=== PATIENT | female | born 1945 | race Caucasian/White ===

== ENCOUNTER 2018-04-08 17:04 | Inpatient (IN) ==
[2018-04-08] MEDS ORDERED: methylPREDNISolone 125 MG/2 ML VIAL IVP ONE (17:38)
[2018-04-08] MEDS ORDERED: Ipratropium/Albuterol Neb 3 ML IH ONE (17:39)
[2018-04-08 17:43] LABS: Hematocrit 39.5 % (35.3-44.9); Hemoglobin 11.6 g/dL (11.5-15.4); Mean Corpuscular HGB Conc 29.4 g/dL (31.6-35.5); Mean Corpuscular Hemoglobin 21.8 pg (28.0-33.3); Mean Corpuscular Volume 74.1 fL (83.0-100.0); Mean Platelet Volume 9.9 fL (9.4-12.4); Platelet Count 270 K/mcL (140-400); Red Blood Count 5.33 M/mcL (3.82-4.97); Red Cell Distribution Width 23.3 % (11.5-14.5)
[2018-04-08 17:54] LABS: Alanine Aminotransferase 22 Units/L (7-52); Albumin 4.5 g/dL (3.5-5.7); Albumin/Globulin Ratio 1.3 (1.1-2.2); Alkaline Phosphatase 98 Units/L (34-104); Aspartate Amino Transferase 28 Units/L (13-39); BUN/Creatinine Ratio 21 (6-26); Blood Urea Nitrogen 19 mg/dL (8-23); Calcium 9.8 mg/dL (8.6-10.3); Carbon Dioxide 25 mEq/L (23-29); Chloride 99 mEq/L (98-107); Globulin 3.4 g/dL (2.4-3.5); Glucose 128 mg/dL (70-105); Osmolality,Calculated 284 (280-300); Potassium 3.8 mEq/L (3.5-5.1); Sodium 135 mEq/L (136-145); Total Protein 7.9 g/dL (6.4-8.9); eGFR For African Americans > 60 (> 60); eGFR For Non-African Americans > 60 (> 60)
[2018-04-08 17:55] LABS: Troponin I 0.03 ng/mL (< 0.04)
[2018-04-08 18:08] LABS: Thyroid Stimulating Hormone 0.274 mcIU/mL (0.340-5.600)
[2018-04-08 18:14] LABS: Bilirubin,Urine Small (Negative); Blood,Urine Large (Negative); Clarity,Urine Turbid (Clear); Glucose,Urine (UA) Normal (Normal); Ketones,Urine Trace mg/dL (Negative); Leukocyte Esterase,Urine Small (Negative); Nitrite,Urine Negative (Negative); Protein,Urine 100 mg/dL (Neg-Trace); Urobilinogen,Urine Normal (Normal)
--- NOTE | 2018-04-08 18:18 | Emergency Department Note ---
Disposition Clinical Impression: Weakness Sepsis Qualifiers: Sepsis type: sepsis due to unspecified organism Qualified Code(s): A41.9 - Sepsis, unspecified organism UTI (urinary tract infection) Qualifiers: Urinary tract infection type: site unspecified Hematuria presence: without hematuria Qualified Code(s): N39.0 - Urinary tract infection, site not specified Disposition: Admitted As Inpatient Condition: Fair General Adult HPI - General Chief complaint: ED Weakness Stated complaint: Weakness Time Seen by Provider: 04/08/18 17:06 Source: patient, EMS Limitations: no limitations Nursing Notes Reviewed: Yes Vital Signs Reviewed: Yes - History of Present Illness HPI Narrative: Patient is a 72F with PMHx of COPD requiring oxygen at night, CHF, HTN, and bacteremia presents for evaluation of weakness that has been going on for the past 3 days. Patient states she is having difficulty ambulating because she is so weak. She uses a walker and lives at home with her son. Patient was recently discharged on March 19, 2018 from rehabillitation after being admitted to [facility] for 3 weeks due to E. coli bacteremia according to the patient. Patient denies any fevers, cough, congestion, chest pain, abdominal pain, N/V/D, or urinary symptoms. Patient states she has felt more REJI than usual. Pain Scale: 4 - Related Data Home Medications Medication Instructions Recorded Confirmed Albuterol Sulfate [Proair 2 puff IH Q4H PRN 10/04/16 04/09/18 Respiclick] Fluticasone/Salmeterol [Advair 1 unit IH BID 10/04/16 04/09/18 250-50 Diskus] Loratadine [Allergy Relief] 10 mg PO DAILY 10/04/16 04/09/18 Omeprazole 20 mg PO DAILY 10/04/16 04/09/18 Oxygen 2 l IH HS 10/04/16 04/09/18 Potassium Chloride [K-Tab ER] 20 meq PO BID 10/04/16 04/09/18 Tiotropium [Spiriva] 18 mcg IH DAILY 10/04/16 04/09/18 Vitamin E (Dl,Tocopheryl Acet) 400 unit PO DAILY 10/04/16 04/09/18 [Vitamin E] Calcium Carbonate/Vitamin D3 1 each PO BID 11/16/16 04/09/18 [Calcium 500-Vit D3 200 Caplet] Cholecalciferol (Vitamin D3) 1,000 unit PO DAILY 11/16/16 04/09/18 [Vitamin D3] Previous Rx's Medication Instructions Recorded Acetaminophen [Tylenol] 650 mg PO Q6H PRN tablet 03/20/18 Apixaban [Eliquis] 5 mg PO BID tablet 03/20/18 Aspirin 81 mg PO DAILY tab.chew 03/20/18 Atorvastatin [Lipitor] 40 mg PO HS tablet 03/20/18 Carvedilol [Coreg] 6.25 mg PO BID tablet 03/20/18 FLUoxetine HCl [Prozac] 20 mg PO DAILY capsule 03/20/18 Ferrous Sulfate 325 mg PO DAILY@0800 tablet 03/20/18 Furosemide [Lasix] 20 mg PO DAILY tablet 03/20/18 Ketorolac OPTH Soln [Acular] 1 drop RIGHT EYE TID bottle 03/20/18 Lisinopril [Zestril] 10 mg PO DAILY tablet 03/20/18 Magnesium Oxide [Mag-Ox] 400 mg PO BID tablet 03/20/18 Moxifloxacin OPTH Drops [Vigamox] 1 drop RIGHT EYE TID bottle 03/20/18 Multivit/Ca/Min/Fe/FA [Thera M 1 tab PO DAILY tablet 03/20/18 Plus] PrednisoLONE Acetate 1% Opth 1 drop RIGHT EYE TID bottle 03/20/18 [PredFORTE 1%] amLODIPine [Norvasc] 10 mg PO DAILY tablet 03/20/18 Allergies Allergy/AdvReac Type Severity Reaction Status Date / Time fish oil Allergy Hives Verified 03/01/18 23:01 pseudoephedrine Allergy Hives Verified 03/01/18 23:01 [From [facility]] All systems ED: reviewed and negative except as stated. Review of Systems: As Per HPI Constitutional: Denies: fever, chills Cardiovascular: Denies: chest pain, palpitations Respiratory: Denies: cough, wheezes Gastrointestinal: Denies: abdominal pain, nausea, vomiting Genitourinary: Denies: urgency, dysuria Musculoskeletal: Denies: back pain, neck pain Neurological: Denies: numbness, paresthesias, confusion, abnormal gait, vertigo Past Medical History - Past Medical History Attestation: Yes The following information was validated with the patient. 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 Absent : tenderness - Respiratory Respiratory exam: Present: wheezes (Mild bilaterally ) - Cardiovascular Cardiovascular exam: Present: regular rate, normal rhythm, normal heart sounds, +S1, +S2 - Abdominal Exam Abdominal exam: Present: soft, Non-Tender, normal bowel sounds - Extremities Exam Extremities exam: Present: pedal edema (Patient has swelling of bilateral lower extremities that is 1+ non-pitting. Full ROM. 5/5 Strength. 2+ pulses. ) - Neurological Exam Neurological exam: Present: alert, oriented X3, CN II-XII intact, motor sensory deficit - Expanded Neurological Exam Patient oriented to: Present: person, place, time Speech: Present: fluid speech Cranial nerves: EOM function (II, III, IV, ): Normal, facial sensation (V): Normal, facial palsy (VII): Normal, gag reflex (IX): Normal, spinal accessory function (XI): Normal, tongue deviation (XII): Normal Cerebellar function: finger to nose: Normal, heel to garcia: Normal Cerebellar function: normal gait Motor strength - LUE: 5/5 Motor strength - RUE: 5/5 Motor strength - LLE: 5/5 Motor strength - RLE: 5/5 Sensory exam upper extremity: light touch: Normal Sensory exam lower extremity: light touch: Normal Coma Scale Eye Opening: Spontaneous Coma Scale Motor Response: Obeys Commands Coma Scale Verbal Response: Oriented Coma Scale Total: 15 - Psychiatric Psychiatric exam: Present: normal affect, normal mood - Skin Skin exam: Present: warm, dry, intact, normal color Course Course Narrative: Patient temperature was border-line febrile at 100.3. Urine is concerning for infection, patient state this is weakness is similar to how she felt before she was admitted to the hospital and and treated for E. Coli on last admission. Patient will be treated for UTI and admitted to the hospital for further treatment and evaluation. Vital Signs Temperature 100.3 F H 04/08/18 17:06 Pulse Rate 88 04/08/18 17:06 Respiratory Rate 24 04/08/18 17:06 Blood Pressure 179/92 04/08/18 17:06 O2 Sat by Pulse Oximetry 91 04/08/18 17:06 Temperature 98.0 F 04/09/18 11:48 Pulse Rate 70 04/09/18 11:48 Respiratory Rate 15 04/09/18 11:48 Blood Pressure 147/67 04/09/18 11:48 O2 Sat by Pulse Oximetry 94 04/09/18 11:48 Oxygen Delivery Oxygen Delivery Nasal Cannula Medical Decision Making - Medical Records Medical records reviewed: Yes I reviewed the patient's medical records. - Lab Data Lab results reviewed: Yes I reviewed the patient's lab results. Result diagrams: 04/09/18 03:28 04/09/18 03:28 Lab Results 04/08/18 04/08/18 04/08/18 Range/Units 17:16 17:16 17:47 WBC 12.4 H (4.3-11.1) K/mcL RBC 5.33 H (3.82-4.97) M/mcL Hgb 11.6 (11.5-15.4) g/dL Hct 39.5 (35.3-44.9) % MCV 74.1 L (83.0-100.0) fL MCH 21.8 L (28.0-33.3) pg MCHC 29.4 L (31.6-35.5) g/dL RDW 23.3 H (11.5-14.5) % Plt Count 270 (140-400) K/mcL MPV 9.9 (9.4-12.4) fL Seg Neutrophils % 86.0 % Band Neutrophils % 2.0 (0-4) % Lymphocytes % 2.0 % Monocytes % 8.0 % Basophils % 2.0 % Neutrophils # 10.9 H (1.6-8.9) K/mcL Lymphocytes # 0.3 L (0.6-4.6) K/mcL Monocytes # 1.0 (0.0-1.3) K/mcL Basophils # 0.3 H (0.0-0.2) K/mcL Platelet Estimate Normal (Normal) Polychromasia 1+ A (Not Present) Hypochromasia Present A (Not Present) Anisocytosis 2+ A (Not Present) Sodium 135 L (136-145) mEq/L Potassium 3.8 (3.5-5.1) mEq/L Chloride 99 (98-107) mEq/L Carbon Dioxide 25 (23-29) mEq/L BUN 19 (8-23) mg/dL Creatinine 0.92 (0.60-1.20) mg/dL Est GFR ( Amer) > 60 (> 60) Est GFR (Non-Af Amer) > 60 (> 60) BUN/Creatinine Ratio 21 (6-26) Glucose 128 H (70-105) mg/dL Calculated Osmolality 284 (280-300) Lactic Acid 0.9 (0.5-2.2) mmol/L Calcium 9.8 (8.6-10.3) mg/dL Total Bilirubin 1.0 (0.3-1.0) mg/dL AST 28 (13-39) Units/L ALT 22 (7-52) Units/L Alkaline Phosphatase 98 (34-104) Units/L Troponin I 0.03 (< 0.04) ng/mL Serum Total Protein 7.9 (6.4-8.9) g/dL Albumin 4.5 (3.5-5.7) g/dL Globulin 3.4 (2.4-3.5) g/dL Albumin/Globulin Ratio 1.3 (1.1-2.2) TSH 0.274 L (0.340-5.600) mcIU/mL Urine Color (Yellow) Urine Clarity (Clear) Urine pH (5.0-8.0) pH Units Ur Specific Downey (1.010-1.025) Urine Protein (Neg-Trace) mg/dL Urine Glucose (UA) (Normal) mg/dL Urine Ketones (Negative) mg/dL Urine Blood (Negative) Urine Nitrite (Negative) Urine Bilirubin (Negative) Urine Urobilinogen (Normal) mg/dL Ur Leukocyte Esterase (Negative) Urine Microscopic RBC (0-3) per hpf Urine Microscopic WBC (0-3) per hpf Ur Squamous Epith Cells (None-Few) per lpf Ur Transition Epith Cell (None-Few) per hpf Ur Renal Epithelial Cell (None-Few) per hpf Amorphous Sediment (Few) Urine Bacteria (None-Few) per hpf Hyaline Casts (None-Few) per lpf Urine Yeast (None Seen) per hpf Ur Culture Indicated? (NO) A. baumannii (PCR) (Not Detect) Manuela albicans (PCR) (Not Detect) C. glabrata (PCR) (Not Detect) C. krusei (PCR) (Not Detect) C. parapsilosis (PCR) (Not Detect) C. tropicalis (PCR) (Not Detect) Enterobacteriac sp PCR (Not Detect) E. cloacae complex PCR (Not Detect) Enterococcus sp PCR (Not Detect) E. coli (PCR) (Not Detect) H. influenzae (PCR) (Not Detect) Klebsiella oxytoca PCR (Not Detect) Klebsiella pneumoniae (Not Detect) List. monocytogenes PCR (Not Detect) N. meningitidis (PCR) (Not Detect) Proteus species (PCR) (Not Detect) Serratia marcescens PCR (Not Detect) Staphylococcus sp PCR (Not Detect) Staph aureus (PCR) (Not Detect) mecA-Methicil Res Gene (Not Detect) Streptococcus sp PCR (Not Detect) Group A Strep DNA (Not Detect) Group B Strep (PCR) (Not Detect) Strep pneumoniae (PCR) (Not Detect) P. aeruginosa (PCR) (Not Detect) Giorgio/B-Vanco Res Genes (Not Detect) KPC (blaKPC) Detect PCR (Not Detect) 04/08/18 04/08/18 Range/Units 18:03 18:20 WBC (4.3-11.1) K/mcL RBC (3.82-4.97) M/mcL Hgb (11.5-15.4) g/dL Hct (35.3-44.9) % MCV (83.0-100.0) fL MCH (28.0-33.3) pg MCHC (31.6-35.5) g/dL RDW (11.5-14.5) % Plt Count (140-400) K/mcL MPV (9.4-12.4) fL Seg Neutrophils % % Band Neutrophils % (0-4) % Lymphocytes % % Monocytes % % Basophils % % Neutrophils # (1.6-8.9) K/mcL Lymphocytes # (0.6-4.6) K/mcL Monocytes # (0.0-1.3) K/mcL Basophils # (0.0-0.2) K/mcL Platelet Estimate (Normal) Polychromasia (Not Present) Hypochromasia (Not Present) Anisocytosis (Not Present) Sodium (136-145) mEq/L Potassium (3.5-5.1) mEq/L Chloride (98-107) mEq/L Carbon Dioxide (23-29) mEq/L BUN (8-23) mg/dL Creatinine (0.60-1.20) mg/dL Est GFR ( Amer) (> 60) Est GFR (Non-Af Amer) (> 60) BUN/Creatinine Ratio (6-26) Glucose (70-105) mg/dL Calculated Osmolality (280-300) Lactic Acid (0.5-2.2) mmol/L Calcium (8.6-10.3) mg/dL Total Bilirubin (0.3-1.0) mg/dL AST (13-39) Units/L ALT (7-52) Units/L Alkaline Phosphatase (34-104) Units/L Troponin I (< 0.04) ng/mL Serum Total Protein (6.4-8.9) g/dL Albumin (3.5-5.7) g/dL Globulin (2.4-3.5) g/dL Albumin/Globulin Ratio (1.1-2.2) TSH (0.340-5.600) mcIU/mL Urine Color Dark Yellow (Yellow) Urine Clarity Turbid A (Clear) Urine pH 7.0 (5.0-8.0) pH Units Ur Specific Downey 1.020 (1.010-1.025) Urine Protein 100 H (Neg-Trace) mg/dL Urine Glucose (UA) Normal (Normal) mg/dL Urine Ketones Trace H (Negative) mg/dL Urine Blood Large H (Negative) Urine Nitrite Negative (Negative) Urine Bilirubin Small H (Negative) Urine Urobilinogen Normal (Normal) mg/dL Ur Leukocyte Esterase Small H (Negative) Urine Microscopic RBC 3-5 H (0-3) per hpf Urine Microscopic WBC 5-15 H (0-3) per hpf Ur Squamous Epith Cells Many H (None-Few) per lpf Ur Transition Epith Cell Moderate H (None-Few) per hpf Ur Renal Epithelial Cell Moderate H (None-Few) per hpf Amorphous Sediment Moderate H (Few) Urine Bacteria Many H (None-Few) per hpf Hyaline Casts Many H (None-Few) per lpf Urine Yeast Many H (None Seen) per hpf Ur Culture Indicated? NO. A (NO) A. baumannii (PCR) Not Detected (Not Detect) Manuela albicans (PCR) Not Detected (Not Detect) C. glabrata (PCR) Not Detected (Not Detect) C. krusei (PCR) Not Detected (Not Detect) C. parapsilosis (PCR) Not Detected (Not Detect) C. tropicalis (PCR) Not Detected (Not Detect) Enterobacteriac sp PCR Not Detected (Not Detect) E. cloacae complex PCR Not Detected (Not Detect) Enterococcus sp PCR DETECTED A (Not Detect) E. coli (PCR) Not Detected (Not Detect) H. influenzae (PCR) Not Detected (Not Detect) Klebsiella oxytoca PCR Not Detected (Not Detect) Klebsiella pneumoniae Not Detected (Not Detect) List. monocytogenes PCR Not Detected (Not Detect) N. meningitidis (PCR) Not Detected (Not Detect) Proteus species (PCR) Not Detected (Not Detect) Serratia marcescens PCR Not Detected (Not Detect) Staphylococcus sp PCR Not Detected (Not Detect) Staph aureus (PCR) Not Detected (Not Detect) mecA-Methicil Res Gene Not Detected (Not Detect) Streptococcus sp PCR Not Detected (Not Detect) Group A Strep DNA Not Detected (Not Detect) Group B Strep (PCR) Not Detected (Not Detect) Strep pneumoniae (PCR) Not Detected (Not Detect) P. aeruginosa (PCR) Not Detected (Not Detect) Goirgio/B-Vanco Res Genes Not Detected (Not Detect) KPC (blaKPC) Detect PCR Not Detected (Not Detect) - Radiology Data Radiology results reviewed: Yes I reviewed the patient's radiology results. Chest X-Ray 04/08/18 17:33 IMPRESSION: No acute cardiopulmonary disease. D/ / Anirudh Hernandez MD / Anirudh Hernandez MD Interpreting Provider: Anirudh Hernandez MD
[2018-04-08 18:21] LABS: Basophils # 0.3 K/mcL (0.0-0.2); Lymphocytes # 0.3 K/mcL (0.6-4.6); Neutrophils # 10.9 K/mcL (1.6-8.9)
[2018-04-08 18:22] LABS: Anisocytosis 2+ (Not Present); Hypochromasia Present (Not Present); Platelet Estimate Normal (Normal); Polychromasia 1+ (Not Present)
[2018-04-08 18:42] LABS: Color,Urine Dark Yellow (Yellow)
[2018-04-08 18:47] LABS: Squamous Epithelial Cell,Urine Many per lpf (None-Few)
[2018-04-08 18:53] LABS: Amorphous Sediment,Urine Moderate (Few); Bacteria,Urine Many per hpf (None-Few); Hyaline Casts,Urine Many per lpf (None-Few); Renal Epithelial Cells,Urine Moderate per hpf (None-Few); Transitional Epi Cells,Urine Moderate per hpf (None-Few); Yeast,Urine Many per hpf (None Seen)
[2018-04-08] MEDS ORDERED: Levofloxacin 750 MG/150 ML 750 MG/150 ML BAG IVPB ONE (18:59)
--- NOTE | 2018-04-08 18:59 | Emergency Department Note ---
Disposition Clinical Impression: Sepsis Qualifiers: Sepsis type: sepsis due to unspecified organism Qualified Code(s): A41.9 - Sepsis, unspecified organism Disposition: Admitted As Inpatient Referrals: Elvia Branham MD [Primary Care Provider] - Forms: ED Satisfaction Letter General Adult HPI - General Chief complaint: ED Weakness Stated complaint: Weakness Time Seen by Provider: 04/08/18 17:06 Source: patient, EMS Limitations: no limitations - History of Present Illness Pain Scale: 4 - Related Data Home Medications Medication Instructions Recorded Confirmed Albuterol Sulfate [Proair 2 puff IH Q4H PRN 10/04/16 03/10/18 Respiclick] Fluticasone/Salmeterol [Advair 1 unit IH BID 10/04/16 03/10/18 250-50 Diskus] Loratadine [Allergy Relief] 10 mg PO DAILY 10/04/16 03/10/18 Omeprazole 20 mg PO DAILY 10/04/16 03/10/18 Oxygen 2 l IH HS 10/04/16 03/10/18 Potassium Chloride [K-Tab ER] 20 meq PO BID 10/04/16 03/10/18 Tiotropium [Spiriva] 18 mcg IH DAILY 10/04/16 03/10/18 Vitamin E (Dl,Tocopheryl Acet) 400 unit PO DAILY 10/04/16 03/10/18 [Vitamin E] Calcium Carbonate/Vitamin D3 1 each PO BID 11/16/16 11/16/16 [Calcium 500-Vit D3 200 Caplet] Cholecalciferol (Vitamin D3) 1,000 unit PO DAILY 11/16/16 03/10/18 [Vitamin D3] Previous Rx's Medication Instructions Recorded Acetaminophen [Tylenol] 325 mg PO Q4H PRN tablet 03/20/18 Acetaminophen [Tylenol] 650 mg PO Q6H PRN tablet 03/20/18 Apixaban [Eliquis] 5 mg PO BID tablet 03/20/18 Aspirin 81 mg PO DAILY tab.chew 03/20/18 Atorvastatin [Lipitor] 40 mg PO HS tablet 03/20/18 Carvedilol [Coreg] 6.25 mg PO BID tablet 03/20/18 FLUoxetine HCl [Prozac] 20 mg PO DAILY capsule 03/20/18 Ferrous Sulfate 325 mg PO DAILY@0800 tablet 03/20/18 Furosemide [Lasix] 20 mg PO DAILY tablet 03/20/18 Ketorolac OPTH Soln [Acular] 1 drop RIGHT EYE TID bottle 03/20/18 Lisinopril [Zestril] 10 mg PO DAILY tablet 03/20/18 Magnesium Oxide [Mag-Ox] 400 mg PO BID tablet 03/20/18 Moxifloxacin OPTH Drops [Vigamox] 1 drop RIGHT EYE TID bottle 03/20/18 Multivit/Ca/Min/Fe/FA [Thera M 1 tab PO DAILY tablet 03/20/18 Plus] PrednisoLONE Acetate 1% Opth 1 drop RIGHT EYE TID bottle 03/20/18 [PredFORTE 1%] amLODIPine [Norvasc] 10 mg PO DAILY tablet 03/20/18 Allergies Allergy/AdvReac Type Severity Reaction Status Date / Time fish oil Allergy Hives Verified 03/01/18 23:01 pseudoephedrine Allergy Hives Verified 03/01/18 23:01 [From [facility]] Past Medical History - Past Medical History Medical history: Reports: arthritis, CHF, COPD, coronary artery disease, GERD, hyperlipidemia, hypertension, valvular heart disease, other Surgical history: Reports: hysterectomy, knee replacement 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 - Social History Smoking Status: Former smoker Smokeless Tobacco Status: No Alcohol use: Reports: none Drug use: Reports: none Physical Exam - General Limitations: no limitations General appearance: alert, in no apparent distress Course Vital Signs Temperature 100.3 F H 04/08/18 17:06 Pulse Rate 88 04/08/18 17:06 Respiratory Rate 24 04/08/18 17:06 Blood Pressure 179/92 04/08/18 17:06 O2 Sat by Pulse Oximetry 91 04/08/18 17:06 Temperature 100.3 F H 04/08/18 17:06 Pulse Rate 88 04/08/18 17:06 Respiratory Rate 24 04/08/18 17:06 Blood Pressure 179/92 04/08/18 17:06 O2 Sat by Pulse Oximetry 92 04/08/18 17:17 Oxygen Delivery Oxygen Delivery Room Air Medical Decision Making - Lab Data Result diagrams: 04/08/18 17:16 04/08/18 17:16 Lab Results 04/08/18 04/08/18 04/08/18 Range/Units 17:16 17:16 17:47 WBC 12.4 H (4.3-11.1) K/mcL RBC 5.33 H (3.82-4.97) M/mcL Hgb 11.6 (11.5-15.4) g/dL Hct 39.5 (35.3-44.9) % MCV 74.1 L (83.0-100.0) fL MCH 21.8 L (28.0-33.3) pg MCHC 29.4 L (31.6-35.5) g/dL RDW 23.3 H (11.5-14.5) % Plt Count 270 (140-400) K/mcL MPV 9.9 (9.4-12.4) fL Seg Neutrophils % 86.0 % Band Neutrophils % 2.0 (0-4) % Lymphocytes % 2.0 % Monocytes % 8.0 % Basophils % 2.0 % Neutrophils # 10.9 H (1.6-8.9) K/mcL Lymphocytes # 0.3 L (0.6-4.6) K/mcL Monocytes # 1.0 (0.0-1.3) K/mcL Basophils # 0.3 H (0.0-0.2) K/mcL Platelet Estimate Normal (Normal) Polychromasia 1+ A (Not Present) Hypochromasia Present A (Not Present) Anisocytosis 2+ A (Not Present) Sodium 135 L (136-145) mEq/L Potassium 3.8 (3.5-5.1) mEq/L Chloride 99 (98-107) mEq/L Carbon Dioxide 25 (23-29) mEq/L BUN 19 (8-23) mg/dL Creatinine 0.92 (0.60-1.20) mg/dL Est GFR ( Amer) > 60 (> 60) Est GFR (Non-Af Amer) > 60 (> 60) BUN/Creatinine Ratio 21 (6-26) Glucose 128 H (70-105) mg/dL Calculated Osmolality 284 (280-300) Lactic Acid 0.9 (0.5-2.2) mmol/L Calcium 9.8 (8.6-10.3) mg/dL Total Bilirubin 1.0 (0.3-1.0) mg/dL AST 28 (13-39) Units/L ALT 22 (7-52) Units/L Alkaline Phosphatase 98 (34-104) Units/L Troponin I 0.03 (< 0.04) ng/mL Serum Total Protein 7.9 (6.4-8.9) g/dL Albumin 4.5 (3.5-5.7) g/dL Globulin 3.4 (2.4-3.5) g/dL Albumin/Globulin Ratio 1.3 (1.1-2.2) TSH 0.274 L (0.340-5.600) mcIU/mL Urine Color (Yellow) Urine Clarity (Clear) Urine pH (5.0-8.0) pH Units Ur Specific [place]deavor (1.010-1.025) Urine Protein (Neg-Trace) mg/dL Urine Glucose (UA) (Normal) mg/dL Urine Ketones (Negative) mg/dL Urine Blood (Negative) Urine Nitrite (Negative) Urine Bilirubin (Negative) Urine Urobilinogen (Normal) mg/dL Ur Leukocyte Esterase (Negative) Urine Microscopic RBC (0-3) per hpf Urine Microscopic WBC (0-3) per hpf Ur Squamous Epith Cells (None-Few) per lpf Ur Transition Epith Cell (None-Few) per hpf Ur Renal Epithelial Cell (None-Few) per hpf Amorphous Sediment (Few) Urine Bacteria (None-Few) per hpf Hyaline Casts (None-Few) per lpf Urine Yeast (None Seen) per hpf Ur Culture Indicated? (NO) 04/08/18 Range/Units 18:03 WBC (4.3-11.1) K/mcL RBC (3.82-4.97) M/mcL Hgb (11.5-15.4) g/dL Hct (35.3-44.9) % MCV (83.0-100.0) fL MCH (28.0-33.3) pg MCHC (31.6-35.5) g/dL RDW (11.5-14.5) % Plt Count (140-400) K/mcL MPV (9.4-12.4) fL Seg Neutrophils % % Band Neutrophils % (0-4) % Lymphocytes % % Monocytes % % Basophils % % Neutrophils # (1.6-8.9) K/mcL Lymphocytes # (0.6-4.6) K/mcL Monocytes # (0.0-1.3) K/mcL Basophils # (0.0-0.2) K/mcL Platelet Estimate (Normal) Polychromasia (Not Present) Hypochromasia (Not Present) Anisocytosis (Not Present) Sodium (136-145) mEq/L Potassium (3.5-5.1) mEq/L Chloride (98-107) mEq/L Carbon Dioxide (23-29) mEq/L BUN (8-23) mg/dL Creatinine (0.60-1.20) mg/dL Est GFR ( Amer) (> 60) Est GFR (Non-Af Amer) (> 60) BUN/Creatinine Ratio (6-26) Glucose (70-105) mg/dL Calculated Osmolality (280-300) Lactic Acid (0.5-2.2) mmol/L Calcium (8.6-10.3) mg/dL Total Bilirubin (0.3-1.0) mg/dL AST (13-39) Units/L ALT (7-52) Units/L Alkaline Phosphatase (34-104) Units/L Troponin I (< 0.04) ng/mL Serum Total Protein (6.4-8.9) g/dL Albumin (3.5-5.7) g/dL Globulin (2.4-3.5) g/dL Albumin/Globulin Ratio (1.1-2.2) TSH (0.340-5.600) mcIU/mL Urine Color Dark Yellow (Yellow) Urine Clarity Turbid A (Clear) Urine pH 7.0 (5.0-8.0) pH Units Ur Specific [place] 1.020 (1.010-1.025) Urine Protein 100 H (Neg-Trace) mg/dL Urine Glucose (UA) Normal (Normal) mg/dL Urine Ketones Trace H (Negative) mg/dL Urine Blood Large H (Negative) Urine Nitrite Negative (Negative) Urine Bilirubin Small H (Negative) Urine Urobilinogen Normal (Normal) mg/dL Ur Leukocyte Esterase Small H (Negative) Urine Microscopic RBC 3-5 H (0-3) per hpf Urine Microscopic WBC 5-15 H (0-3) per hpf Ur Squamous Epith Cells Many H (None-Few) per lpf Ur Transition Epith Cell Moderate H (None-Few) per hpf Ur Renal Epithelial Cell Moderate H (None-Few) per hpf Amorphous Sediment Moderate H (Few) Urine Bacteria Many H (None-Few) per hpf Hyaline Casts Many H (None-Few) per lpf Urine Yeast Many H (None Seen) per hpf Ur Culture Indicated? NO. A (NO) Attestation Statement - Attestation Attestation: I examined this patient and my medical decision-making was reviewed with the Resident Physician. I agree with the documented findings, disposition and treatment plan as described except to the extent set forth below. 72 year old female prsentes to the ED with complaints of weakness and is likely septic. temp of 100.3, we will obtain a rectal temp. Stella states that she was just admitted to the hospital at [facility] for E.coli blood cutlures. Stella states that she has been couhing and has an elevated WBC o 12. We will evlauted for sepsis and then admit ot medicine.
--- NOTE | 2018-04-08 20:59 | Emergency Department Note ---
Disposition Clinical Impression: Weakness Sepsis Qualifiers: Sepsis type: sepsis due to unspecified organism Qualified Code(s): A41.9 - Sepsis, unspecified organism UTI (urinary tract infection) Qualifiers: Urinary tract infection type: site unspecified Hematuria presence: without hematuria Qualified Code(s): N39.0 - Urinary tract infection, site not specified Disposition: Admitted As Inpatient Condition: Fair Referrals: Elvia Branham MD [Primary Care Provider] - Forms: ED Satisfaction Letter Time of Disposition: 21:07 General Adult HPI - General Chief complaint: ED Weakness Stated complaint: Weakness Time Seen by Provider: 04/08/18 17:06 Source: patient, EMS Mode of arrival: ambulatory Limitations: no limitations Nursing Notes Reviewed: Yes Vital Signs Reviewed: Yes - History of Present Illness HPI Narrative: 72-year-old female with a history of COPD, CHF, pacemaker, valve replacement on Eliquis presents for evaluation of generalized weakness. Patient states she has been generally weak over the past 2 days. Patient does have a recent admission at [facility] where she was found to be bactermic and had extensive testing done. Patient denies any nausea or vomiting. Patient denies any abdominal pain. Patient denies any falls. Patient denies a significant history of UTIs or urinary catheters. Patient states she does live at home and is with family with no other support system. No home health air or nursing assistance. Patient denies any chest pain or shortness of breath. Patient states she is on home oxygen at 2 L at her baseline. Pain Scale: 4 - Related Data Home Medications Medication Instructions Recorded Confirmed Albuterol Sulfate [Proair 2 puff IH Q4H PRN 10/04/16 03/10/18 Respiclick] Fluticasone/Salmeterol [Advair 1 unit IH BID 10/04/16 03/10/18 250-50 Diskus] Loratadine [Allergy Relief] 10 mg PO DAILY 10/04/16 03/10/18 Omeprazole 20 mg PO DAILY 10/04/16 03/10/18 Oxygen 2 l IH HS 10/04/16 03/10/18 Potassium Chloride [K-Tab ER] 20 meq PO BID 10/04/16 03/10/18 Tiotropium [Spiriva] 18 mcg IH DAILY 10/04/16 03/10/18 Vitamin E (Dl,Tocopheryl Acet) 400 unit PO DAILY 10/04/16 03/10/18 [Vitamin E] Calcium Carbonate/Vitamin D3 1 each PO BID 11/16/16 11/16/16 [Calcium 500-Vit D3 200 Caplet] Cholecalciferol (Vitamin D3) 1,000 unit PO DAILY 11/16/16 03/10/18 [Vitamin D3] Previous Rx's Medication Instructions Recorded Acetaminophen [Tylenol] 325 mg PO Q4H PRN tablet 03/20/18 Acetaminophen [Tylenol] 650 mg PO Q6H PRN tablet 03/20/18 Apixaban [Eliquis] 5 mg PO BID tablet 03/20/18 Aspirin 81 mg PO DAILY tab.chew 03/20/18 Atorvastatin [Lipitor] 40 mg PO HS tablet 03/20/18 Carvedilol [Coreg] 6.25 mg PO BID tablet 03/20/18 FLUoxetine HCl [Prozac] 20 mg PO DAILY capsule 03/20/18 Ferrous Sulfate 325 mg PO DAILY@0800 tablet 03/20/18 Furosemide [Lasix] 20 mg PO DAILY tablet 03/20/18 Ketorolac OPTH Soln [Acular] 1 drop RIGHT EYE TID bottle 03/20/18 Lisinopril [Zestril] 10 mg PO DAILY tablet 03/20/18 Magnesium Oxide [Mag-Ox] 400 mg PO BID tablet 03/20/18 Moxifloxacin OPTH Drops [Vigamox] 1 drop RIGHT EYE TID bottle 03/20/18 Multivit/Ca/Min/Fe/FA [Thera M 1 tab PO DAILY tablet 03/20/18 Plus] PrednisoLONE Acetate 1% Opth 1 drop RIGHT EYE TID bottle 03/20/18 [PredFORTE 1%] amLODIPine [Norvasc] 10 mg PO DAILY tablet 03/20/18 Allergies Allergy/AdvReac Type Severity Reaction Status Date / Time fish oil Allergy Hives Verified 03/01/18 23:01 pseudoephedrine Allergy Hives Verified 03/01/18 23:01 [From [facility]] All systems ED: reviewed and negative except as stated. 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 - Social History Smoking Status: Former smoker Smokeless Tobacco Status: No Alcohol use: Reports: none Drug use: Reports: none Physical Exam - General Limitations: no limitations General appearance: alert, in no apparent distress - Head Head exam: atraumatic, normocephalic, normal inspection - Eye Eye exam: Present: normal appearance, PERRL, EOMI - ENT ENT exam: normal exam - Neck Neck exam: Present: normal inspection - Chest Chest inspection: Present: normal inspection - Respiratory Respiratory exam: Absent: respiratory distress, accessory muscle use - Cardiovascular Cardiovascular exam: Present: regular rate, normal rhythm - Abdominal Exam Abdominal exam: Present: soft, Non-Tender - Extremities Exam Extremities exam: Present: normal inspection, pedal edema (2+) - Back Exam Back exam: Present: normal inspection - Neurological Exam Neurological exam: Present: alert, oriented X3, CN II-XII intact - Skin Skin exam: Present: warm, dry, intact, normal color Course Course Narrative: Patient was found to have a temperature as well as possible source of infection the urine. Patient blood cultures showed multidrug resistant Escherichia coli. Patient was started on levaquin for Escherichia coli which was sensitive to in the past. Patient chest x-ray shows no acute findings. Given the patient's generalized weakness and recent hospital physician [facility] for extensive infection patient should be admitted for observation and IV antibiotics and resolution of symptoms - Reevaluation(s) Reevaluation #1: Patient seen and examined. Patient's resting comfortably. Plan of care discussed with the patient and family at bedside. Time: 21:14 Vital Signs Temperature 100.3 F H 04/08/18 17:06 Pulse Rate 88 04/08/18 17:06 Respiratory Rate 24 04/08/18 17:06 Blood Pressure 179/92 04/08/18 17:06 O2 Sat by Pulse Oximetry 91 04/08/18 17:06 Temperature 100.3 F H 04/08/18 17:06 Pulse Rate 75 04/08/18 20:34 Respiratory Rate 20 04/08/18 20:34 Blood Pressure 161/58 04/08/18 20:34 O2 Sat by Pulse Oximetry 96 04/08/18 20:34 Oxygen Delivery Oxygen Delivery Nasal Cannula Medical Decision Making - MDM Narrative Medical decision making narrative: Patient records will be obtained from [facility] given her recent admission. Patient' s vitals are stable. Patient has concerns for sepsis with possible source in the urine. Patient's abdomen is soft and not were not any imaging. Patient does have recent hospitalization with likely fully catheter placement. Patient was started on Levaquin for Escherichia coli that she has had been bacteremic to in the past. Patient did get blood cultures during the ED course. Patient chest x-ray shows no signs of pneumonia. Patient will be admitted for further evaluation. - Lab Data Lab results reviewed: Yes I reviewed the patient's lab results. Result diagrams: 04/08/18 17:16 04/08/18 17:16 Lab Results 04/08/18 04/08/18 04/08/18 Range/Units 17:16 17:16 17:47 WBC 12.4 H (4.3-11.1) K/mcL RBC 5.33 H (3.82-4.97) M/mcL Hgb 11.6 (11.5-15.4) g/dL Hct 39.5 (35.3-44.9) % MCV 74.1 L (83.0-100.0) fL MCH 21.8 L (28.0-33.3) pg MCHC 29.4 L (31.6-35.5) g/dL RDW 23.3 H (11.5-14.5) % Plt Count 270 (140-400) K/mcL MPV 9.9 (9.4-12.4) fL Seg Neutrophils % 86.0 % Band Neutrophils % 2.0 (0-4) % Lymphocytes % 2.0 % Monocytes % 8.0 % Basophils % 2.0 % Neutrophils # 10.9 H (1.6-8.9) K/mcL Lymphocytes # 0.3 L (0.6-4.6) K/mcL Monocytes # 1.0 (0.0-1.3) K/mcL Basophils # 0.3 H (0.0-0.2) K/mcL Platelet Estimate Normal (Normal) Polychromasia 1+ A (Not Present) Hypochromasia Present A (Not Present) Anisocytosis 2+ A (Not Present) Sodium 135 L (136-145) mEq/L Potassium 3.8 (3.5-5.1) mEq/L Chloride 99 (98-107) mEq/L Carbon Dioxide 25 (23-29) mEq/L BUN 19 (8-23) mg/dL Creatinine 0.92 (0.60-1.20) mg/dL Est GFR ( Amer) > 60 (> 60) Est GFR (Non-Af Amer) > 60 (> 60) BUN/Creatinine Ratio 21 (6-26) Glucose 128 H (70-105) mg/dL Calculated Osmolality 284 (280-300) Lactic Acid 0.9 (0.5-2.2) mmol/L Calcium 9.8 (8.6-10.3) mg/dL Total Bilirubin 1.0 (0.3-1.0) mg/dL AST 28 (13-39) Units/L ALT 22 (7-52) Units/L Alkaline Phosphatase 98 (34-104) Units/L Troponin I 0.03 (< 0.04) ng/mL Serum Total Protein 7.9 (6.4-8.9) g/dL Albumin 4.5 (3.5-5.7) g/dL Globulin 3.4 (2.4-3.5) g/dL Albumin/Globulin Ratio 1.3 (1.1-2.2) TSH 0.274 L (0.340-5.600) mcIU/mL Urine Color (Yellow) Urine Clarity (Clear) Urine pH (5.0-8.0) pH Units Ur Specific [place] (1.010-1.025) Urine Protein (Neg-Trace) mg/dL Urine Glucose (UA) (Normal) mg/dL Urine Ketones (Negative) mg/dL Urine Blood (Negative) Urine Nitrite (Negative) Urine Bilirubin (Negative) Urine Urobilinogen (Normal) mg/dL Ur Leukocyte Esterase (Negative) Urine Microscopic RBC (0-3) per hpf Urine Microscopic WBC (0-3) per hpf Ur Squamous Epith Cells (None-Few) per lpf Ur Transition Epith Cell (None-Few) per hpf Ur Renal Epithelial Cell (None-Few) per hpf Amorphous Sediment (Few) Urine Bacteria (None-Few) per hpf Hyaline Casts (None-Few) per lpf Urine Yeast (None Seen) per hpf Ur Culture Indicated? (NO) 04/08/18 Range/Units 18:03 WBC (4.3-11.1) K/mcL RBC (3.82-4.97) M/mcL Hgb (11.5-15.4) g/dL Hct (35.3-44.9) % MCV (83.0-100.0) fL MCH (28.0-33.3) pg MCHC (31.6-35.5) g/dL RDW (11.5-14.5) % Plt Count (140-400) K/mcL MPV (9.4-12.4) fL Seg Neutrophils % % Band Neutrophils % (0-4) % Lymphocytes % % Monocytes % % Basophils % % Neutrophils # (1.6-8.9) K/mcL Lymphocytes # (0.6-4.6) K/mcL Monocytes # (0.0-1.3) K/mcL Basophils # (0.0-0.2) K/mcL Platelet Estimate (Normal) Polychromasia (Not Present) Hypochromasia (Not Present) Anisocytosis (Not Present) Sodium (136-145) mEq/L Potassium (3.5-5.1) mEq/L Chloride (98-107) mEq/L Carbon Dioxide (23-29) mEq/L BUN (8-23) mg/dL Creatinine (0.60-1.20) mg/dL Est GFR ( Amer) (> 60) Est GFR (Non-Af Amer) (> 60) BUN/Creatinine Ratio (6-26) Glucose (70-105) mg/dL Calculated Osmolality (280-300) Lactic Acid (0.5-2.2) mmol/L Calcium (8.6-10.3) mg/dL Total Bilirubin (0.3-1.0) mg/dL AST (13-39) Units/L ALT (7-52) Units/L Alkaline Phosphatase (34-104) Units/L Troponin I (< 0.04) ng/mL Serum Total Protein (6.4-8.9) g/dL Albumin (3.5-5.7) g/dL Globulin (2.4-3.5) g/dL Albumin/Globulin Ratio (1.1-2.2) TSH (0.340-5.600) mcIU/mL Urine Color Dark Yellow (Yellow) Urine Clarity Turbid A (Clear) Urine pH 7.0 (5.0-8.0) pH Units Ur Specific [place] 1.020 (1.010-1.025) Urine Protein 100 H (Neg-Trace) mg/dL Urine Glucose (UA) Normal (Normal) mg/dL Urine Ketones Trace H (Negative) mg/dL Urine Blood Large H (Negative) Urine Nitrite Negative (Negative) Urine Bilirubin Small H (Negative) Urine Urobilinogen Normal (Normal) mg/dL Ur Leukocyte Esterase Small H (Negative) Urine Microscopic RBC 3-5 H (0-3) per hpf Urine Microscopic WBC 5-15 H (0-3) per hpf Ur Squamous Epith Cells Many H (None-Few) per lpf Ur Transition Epith Cell Moderate H (None-Few) per hpf Ur Renal Epithelial Cell Moderate H (None-Few) per hpf Amorphous Sediment Moderate H (Few) Urine Bacteria Many H (None-Few) per hpf Hyaline Casts Many H (None-Few) per lpf Urine Yeast Many H (None Seen) per hpf Ur Culture Indicated? NO. A (NO) - Radiology Data Radiology results reviewed: Yes I reviewed the patient's radiology results. Chest X-Ray 04/08/18 17:33 IMPRESSION: No acute cardiopulmonary disease. D/ / Anirudh Hernandez MD / Anirudh Hernandez MD Interpreting Provider: Anirudh Hernandez MD - EKG Data EKG #1 EKG attestation: Yes I reviewed and interpreted this EKG. EKG shows normal: sinus rhythm Rate: normal Rhythm: NSR Orestes/QRS: normal, RBBB, IVCD Interpretation: no acute changes, nonspecific ST-T wave changes S.B.A.R. - S.B.A.R. Situation: Demographics Background: Presenting Complaint Assessment: Vital Signs, Course and respsone to treatment, Patient/Family Expectation Recommendation: Barrier(s) to disposition, Recommendation based on pending studies, treatments, or consults S.B.A.RSheyla Report Given to: Dr. Petrona Rai Repor Time: 21:14
--- NOTE | 2018-04-08 21:42 | Internal Med History&Physical ---
Date of Encounter: 04/08/18 Time of Encounter: 21:35 Internal Medicine - H&P: HPI Admitted From: Emergency Dept Plans for Post Hospital Care: Home History of present illness: Ms. Hyatt is a 72 year old female aortic stenosis, HTN, sepsis, COPD, valve replacement, on Eliquis, and CHF. Pt states she was admitted to [facility] for about 2 weeks. At that time she was treated for bacteremia and was told she had Ecoli. States at one point she was thought to have meningitis. She was discharged to rehab from hospital. She was discharged from rehab to home 03/19/2018. States she presented to ED today because she could not walk and was weak. She typically uses a walker. She lives at home with her son and 2 granddaughters. She admits to urinary frequency and states she was incontinent this morning. She denies dysuria. She does admit to itching around the perineum. She denies fever/chills, N/V or diarrhea. CODE STATUS: FULL In ED WBC 12.4, hgb 11.6, hct 39.5, plt 270 NA 135, K 3.8, BUN 19, Cr 0.92. urine analysis Turbid, large blood, many bacteria, urine yeast. Chest x ray IMPRESSION: No acute cardiopulmonary disease. Past Med Surg Social Fam HX - Past Medical History Medical history: arthritis, CHF, COPD, coronary artery disease, GERD, hyperlipidemia, hypertension, valvular heart disease, other Psychiatric history: no psych history - Past Surgical History Surgical History: hysterectomy, knee replacement - Social History Smoking Status: Former smoker Smokeless Tobacco Status: No Alcohol use: none Drug use: none - Family History Mother Living Status: Hx Family Cardiac Disorders: Yes (self, father,son) Hx Family Respiratory Disorders: Yes (self, sister) Hx Family Cancer: Yes (son,mother) Hx Family GI Disorders: No Hx Family Endocrine Disorder: Yes (grandmother) Hx Family Neuromuscular Disorders: No Hx Family Neurologic Disorders: Yes (son) Hx Family HEENT Disorders: No Hx Family Autoimmune Disorders: No Internal Medicine - H&P: Meds Albuterol Sulfate [Proair Respiclick] 2 puff IH Q4H PRN 10/04/16 [History] Fluticasone/Salmeterol [Advair 250-50 Diskus] 1 unit IH BID 10/04/16 [History] Loratadine [Allergy Relief] 10 mg PO DAILY 10/04/16 [History] Omeprazole 20 mg PO DAILY 10/04/16 [History] Oxygen 2 l IH HS 10/04/16 [History] Potassium Chloride [K-Tab ER] 20 meq PO BID 10/04/16 [History] Tiotropium [Spiriva] 18 mcg IH DAILY 10/04/16 [History] Vitamin E (Dl,Tocopheryl Acet) [Vitamin E] 400 unit PO DAILY 10/04/16 [History] Calcium Carbonate/Vitamin D3 [Calcium 500-Vit D3 200 Caplet] 1 each PO BID 11/16 [History] Cholecalciferol (Vitamin D3) [Vitamin D3] 1,000 unit PO DAILY 11/16/16 [History] Acetaminophen [Tylenol] 325 mg PO Q4H PRN tablet 03/20/18 [Rx] Acetaminophen [Tylenol] 650 mg PO Q6H PRN tablet 03/20/18 [Rx] Apixaban [Eliquis] 5 mg PO BID tablet 03/20/18 [Rx] Aspirin 81 mg PO DAILY tab.chew 03/20/18 [Rx] Atorvastatin [Lipitor] 40 mg PO HS tablet 03/20/18 [Rx] Carvedilol [Coreg] 6.25 mg PO BID tablet 03/20/18 [Rx] FLUoxetine HCl [Prozac] 20 mg PO DAILY capsule 03/20/18 [Rx] Ferrous Sulfate 325 mg PO DAILY@0800 tablet 03/20/18 [Rx] Furosemide [Lasix] 20 mg PO DAILY tablet 03/20/18 [Rx] Ketorolac OPTH Soln [Acular] 1 drop RIGHT EYE TID bottle 03/20/18 [Rx] Lisinopril [Zestril] 10 mg PO DAILY tablet 03/20/18 [Rx] Magnesium Oxide [Mag-Ox] 400 mg PO BID tablet 03/20/18 [Rx] Moxifloxacin OPTH Drops [Vigamox] 1 drop RIGHT EYE TID bottle 03/20/18 [Rx] Multivit/Ca/Min/Fe/FA [Thera M Plus] 1 tab PO DAILY tablet 03/20/18 [Rx] PrednisoLONE Acetate 1% Opth [PredFORTE 1%] 1 drop RIGHT EYE TID bottle [Rx] amLODIPine [Norvasc] 10 mg PO DAILY tablet 03/20/18 [Rx] 3 Allergy/AdvReac Type Severity Reaction Status Date / Time fish oil Allergy Hives Verified 03/01/18 23:01 pseudoephedrine Allergy Hives Verified 03/01/18 23:01 [From [facility]] All Systems PM: A 10-system review of systems was performed and is negative for pertinent findings except as documented above in the HPI. - Constitutional Vitals: Temp Pulse Resp BP Pulse Ox 100.3 F H 75 20 161/58 96 04/08/18 17:06 04/08/18 20:34 04/08/18 20:34 04/08/18 20:34 04/08/18 20:34 General appearance: Present: A&O X 3, morbidly obese, no acute distress - Head Head exam: Present: atraumatic, normocephalic - Eye Eye exam: Present: PERRL, conjuntiva pink, sclera anicteric Pupils: Present: PERRL - Neck Neck exam general surgery: Present: supple, trachea midline. Absent: lymphadenopathy - Respiratory Respiratory exam: Present: CTAB. Absent: accessory muscle use, rales, rhonchi, wheezes - Cardiovascular Cardiovascular exam: Present: clicks, RRR, +S1, +S2, systolic murmur. Absent: diastolic murmur, gallop, rubs - GI/Abdominal GI/Abdominal exam: Present: normal bowel sounds, soft, no peritoneal signs. Absent: distended, tenderness - Extremities Exam Extremities exam: Present: pedal edema, warm, radial pulses palpable and symmetrical. Absent: calf tenderness, cyanotic - Neurological Exam Neurological exam: Present: CN II-XII intact, oriented X3, no focal deficits. Absent: pronater drift, facial droop, speech deficit - Skin Skin exam: Present: dry, intact Internal Med - H&P Results - Labs CBC & Chem 7: 04/08/18 17:16 04/08/18 17:16 - Assessment and plan (1) UTI (urinary tract infection) Current Visit: Yes Status: Acute Assessment and plan: Will place pt on Rocephin IV, fluids, and Tylenol prn. Qualifiers: Urinary tract infection type: site unspecified Hematuria presence: without hematuria Qualified Code(s): N39.0 - Urinary tract infection, site not specified (2) Sepsis Current Visit: Yes Status: Acute Assessment and plan: Pt meets due to Leukocytosis and elevated WBC. IV fluids, monitor on tele Qualifiers: Sepsis type: sepsis due to unspecified organism Qualified Code(s): A41.9 - Sepsis, unspecified organism (3) Aortic stenosis Current Visit: No Status: Acute Assessment and plan: s/p valve replacement. Qualifiers: Cardiac valve disease etiology: etiology unspecified Qualified Code(s): I35.0 - Nonrheumatic aortic (valve) stenosis (4) Essential hypertension Current Visit: No Status: Chronic Assessment and plan: Norvasc, Lisinopril, and Coreg (5) COPD (chronic obstructive pulmonary disease) Current Visit: No Status: Chronic Assessment and plan: not in exacerbation. Will resume respiratory regimen. At home on Advair and albuterol Qualifiers: COPD type: unspecified COPD Qualified Code(s): J44.9 - Chronic obstructive pulmonary disease, unspecified (6) CHF (congestive heart failure) Current Visit: No Status: Chronic Assessment and plan: on Lasix 20 mg PO daily, lisinopril Qualifiers: Heart failure type: unspecified Heart failure chronicity: chronic Qualified Code(s): I50.9 - Heart failure, unspecified (7) Vulval candidiasis Current Visit: Yes Status: Acute Assessment and plan: Diflucan 150 mg PO x one. - Time Spent With Patient Total time spent is greater than 50% in coordination of care (as documented) at patient's floor/unit and/or counseling patient: 25 - 35 minutes
--- NOTE | 2018-04-08 22:16 | Emergency Department Note ---
Disposition Clinical Impression: Weakness Sepsis Qualifiers: Sepsis type: sepsis due to unspecified organism Qualified Code(s): A41.9 - Sepsis, unspecified organism UTI (urinary tract infection) Qualifiers: Urinary tract infection type: site unspecified Hematuria presence: without hematuria Qualified Code(s): N39.0 - Urinary tract infection, site not specified Disposition: Admitted As Inpatient Condition: Fair General Adult HPI - General Chief complaint: ED Weakness Stated complaint: Weakness Time Seen by Provider: 04/08/18 17:06 Source: patient, EMS Mode of arrival: ambulatory Limitations: no limitations Nursing Notes Reviewed: Yes Vital Signs Reviewed: Yes - History of Present Illness Pain Scale: 0 - Related Data Home Medications Medication Instructions Recorded Confirmed Albuterol Sulfate [Proair 2 puff IH Q4H PRN 10/04/16 03/10/18 Respiclick] Fluticasone/Salmeterol [Advair 1 unit IH BID 10/04/16 03/10/18 250-50 Diskus] Loratadine [Allergy Relief] 10 mg PO DAILY 10/04/16 03/10/18 Omeprazole 20 mg PO DAILY 10/04/16 03/10/18 Oxygen 2 l IH HS 10/04/16 03/10/18 Potassium Chloride [K-Tab ER] 20 meq PO BID 10/04/16 03/10/18 Tiotropium [Spiriva] 18 mcg IH DAILY 10/04/16 03/10/18 Vitamin E (Dl,Tocopheryl Acet) 400 unit PO DAILY 10/04/16 03/10/18 [Vitamin E] Calcium Carbonate/Vitamin D3 1 each PO BID 11/16/16 11/16/16 [Calcium 500-Vit D3 200 [place]] Cholecalciferol (Vitamin D3) 1,000 unit PO DAILY 11/16/16 03/10/18 [Vitamin D3] Previous Rx's Medication Instructions Recorded Acetaminophen [Tylenol] 325 mg PO Q4H PRN tablet 03/20/18 Acetaminophen [Tylenol] 650 mg PO Q6H PRN tablet 03/20/18 Apixaban [Eliquis] 5 mg PO BID tablet 03/20/18 Aspirin 81 mg PO DAILY tab.chew 03/20/18 Atorvastatin [Lipitor] 40 mg PO HS tablet 03/20/18 Carvedilol [Coreg] 6.25 mg PO BID tablet 03/20/18 FLUoxetine HCl [Prozac] 20 mg PO DAILY capsule 03/20/18 Ferrous Sulfate 325 mg PO DAILY@0800 tablet 03/20/18 Furosemide [Lasix] 20 mg PO DAILY tablet 03/20/18 Ketorolac OPTH Soln [Acular] 1 drop RIGHT EYE TID bottle 03/20/18 Lisinopril [Zestril] 10 mg PO DAILY tablet 03/20/18 Magnesium Oxide [Mag-Ox] 400 mg PO BID tablet 03/20/18 Moxifloxacin OPTH Drops [Vigamox] 1 drop RIGHT EYE TID bottle 03/20/18 Multivit/Ca/Min/Fe/FA [Thera M 1 tab PO DAILY tablet 03/20/18 Plus] PrednisoLONE Acetate 1% Opth 1 drop RIGHT EYE TID bottle 03/20/18 [PredFORTE 1%] amLODIPine [Norvasc] 10 mg PO DAILY tablet 03/20/18 Allergies Allergy/AdvReac Type Severity Reaction Status Date / Time fish oil Allergy Hives Verified 03/01/18 23:01 pseudoephedrine Allergy Hives Verified 03/01/18 23:01 [From [facility]] Constitutional: Reports: fever Cardiovascular: Denies: chest pain Respiratory: Denies: cough, dyspnea Gastrointestinal: Denies: abdominal pain, nausea, vomiting Past Medical History - Past Medical History Medical history: Reports: arthritis, CHF, COPD, coronary artery disease, GERD, hyperlipidemia, hypertension, valvular heart disease, other Surgical history: Reports: hysterectomy, knee replacement Psychiatric history: Reports: no psych history [employer] history: Reports: other - Social History Smoking Status: Former smoker Smokeless Tobacco Status: No Alcohol use: Reports: none Drug use: Reports: none Physical Exam - General Limitations: no limitations General appearance: alert, in no apparent distress Course Vital Signs Temperature 100.3 F H 04/08/18 17:06 Pulse Rate 88 04/08/18 17:06 Respiratory Rate 24 04/08/18 17:06 Blood Pressure 179/92 04/08/18 17:06 O2 Sat by Pulse Oximetry 91 04/08/18 17:06 Temperature 97.9 F 04/08/18 22:00 Pulse Rate 84 04/08/18 22:00 Respiratory Rate 18 04/08/18 22:00 Blood Pressure 133/75 04/08/18 22:00 O2 Sat by Pulse Oximetry 94 04/08/18 22:00 Oxygen Delivery Oxygen Delivery Nasal Cannula Medical Decision Making - Lab Data Result diagrams: 04/08/18 17:16 04/08/18 17:16 Lab Results 04/08/18 04/08/18 04/08/18 Range/Units 17:16 17:16 17:47 WBC 12.4 H (4.3-11.1) K/mcL RBC 5.33 H (3.82-4.97) M/mcL Hgb 11.6 (11.5-15.4) g/dL Hct 39.5 (35.3-44.9) % MCV 74.1 L (83.0-100.0) fL MCH 21.8 L (28.0-33.3) pg MCHC 29.4 L (31.6-35.5) g/dL RDW 23.3 H (11.5-14.5) % Plt Count 270 (140-400) K/mcL MPV 9.9 (9.4-12.4) fL Seg Neutrophils % 86.0 % Band Neutrophils % 2.0 (0-4) % Lymphocytes % 2.0 % Monocytes % 8.0 % Basophils % 2.0 % Neutrophils # 10.9 H (1.6-8.9) K/mcL Lymphocytes # 0.3 L (0.6-4.6) K/mcL Monocytes # 1.0 (0.0-1.3) K/mcL Basophils # 0.3 H (0.0-0.2) K/mcL Platelet Estimate Normal (Normal) Polychromasia 1+ A (Not Present) Hypochromasia Present A (Not Present) Anisocytosis 2+ A (Not Present) Sodium 135 L (136-145) mEq/L Potassium 3.8 (3.5-5.1) mEq/L Chloride 99 (98-107) mEq/L Carbon Dioxide 25 (23-29) mEq/L BUN 19 (8-23) mg/dL Creatinine 0.92 (0.60-1.20) mg/dL Est GFR ( Amer) > 60 (> 60) Est GFR (Non-Af Amer) > 60 (> 60) BUN/Creatinine Ratio 21 (6-26) Glucose 128 H (70-105) mg/dL Calculated Osmolality 284 (280-300) Lactic Acid 0.9 (0.5-2.2) mmol/L Calcium 9.8 (8.6-10.3) mg/dL Total Bilirubin 1.0 (0.3-1.0) mg/dL AST 28 (13-39) Units/L ALT 22 (7-52) Units/L Alkaline Phosphatase 98 (34-104) Units/L Troponin I 0.03 (< 0.04) ng/mL Serum Total Protein 7.9 (6.4-8.9) g/dL Albumin 4.5 (3.5-5.7) g/dL Globulin 3.4 (2.4-3.5) g/dL Albumin/Globulin Ratio 1.3 (1.1-2.2) TSH 0.274 L (0.340-5.600) mcIU/mL Urine Color (Yellow) Urine Clarity (Clear) Urine pH (5.0-8.0) pH Units Ur Specific [place] (1.010-1.025) Urine Protein (Neg-Trace) mg/dL Urine Glucose (UA) (Normal) mg/dL Urine Ketones (Negative) mg/dL Urine Blood (Negative) Urine Nitrite (Negative) Urine Bilirubin (Negative) Urine Urobilinogen (Normal) mg/dL Ur Leukocyte Esterase (Negative) Urine Microscopic RBC (0-3) per hpf Urine Microscopic WBC (0-3) per hpf Ur Squamous Epith Cells (None-Few) per lpf Ur Transition Epith Cell (None-Few) per hpf Ur Renal Epithelial Cell (None-Few) per hpf Amorphous Sediment (Few) Urine Bacteria (None-Few) per hpf Hyaline Casts (None-Few) per lpf Urine Yeast (None Seen) per hpf Ur Culture Indicated? (NO) 04/08/18 Range/Units 18:03 WBC (4.3-11.1) K/mcL RBC (3.82-4.97) M/mcL Hgb (11.5-15.4) g/dL Hct (35.3-44.9) % MCV (83.0-100.0) fL MCH (28.0-33.3) pg MCHC (31.6-35.5) g/dL RDW (11.5-14.5) % Plt Count (140-400) K/mcL MPV (9.4-12.4) fL Seg Neutrophils % % Band Neutrophils % (0-4) % Lymphocytes % % Monocytes % % Basophils % % Neutrophils # (1.6-8.9) K/mcL Lymphocytes # (0.6-4.6) K/mcL Monocytes # (0.0-1.3) K/mcL Basophils # (0.0-0.2) K/mcL Platelet Estimate (Normal) Polychromasia (Not Present) Hypochromasia (Not Present) Anisocytosis (Not Present) Sodium (136-145) mEq/L Potassium (3.5-5.1) mEq/L Chloride (98-107) mEq/L Carbon Dioxide (23-29) mEq/L BUN (8-23) mg/dL Creatinine (0.60-1.20) mg/dL Est GFR ( Amer) (> 60) Est GFR (Non-Af Amer) (> 60) BUN/Creatinine Ratio (6-26) Glucose (70-105) mg/dL Calculated Osmolality (280-300) Lactic Acid (0.5-2.2) mmol/L Calcium (8.6-10.3) mg/dL Total Bilirubin (0.3-1.0) mg/dL AST (13-39) Units/L ALT (7-52) Units/L Alkaline Phosphatase (34-104) Units/L Troponin I (< 0.04) ng/mL Serum Total Protein (6.4-8.9) g/dL Albumin (3.5-5.7) g/dL Globulin (2.4-3.5) g/dL Albumin/Globulin Ratio (1.1-2.2) TSH (0.340-5.600) mcIU/mL Urine Color Dark Yellow (Yellow) Urine Clarity Turbid A (Clear) Urine pH 7.0 (5.0-8.0) pH Units Ur Specific [place] 1.020 (1.010-1.025) Urine Protein 100 H (Neg-Trace) mg/dL Urine Glucose (UA) Normal (Normal) mg/dL Urine Ketones Trace H (Negative) mg/dL Urine Blood Large H (Negative) Urine Nitrite Negative (Negative) Urine Bilirubin Small H (Negative) Urine Urobilinogen Normal (Normal) mg/dL Ur Leukocyte Esterase Small H (Negative) Urine Microscopic RBC 3-5 H (0-3) per hpf Urine Microscopic WBC 5-15 H (0-3) per hpf Ur Squamous Epith Cells Many H (None-Few) per lpf Ur Transition Epith Cell Moderate H (None-Few) per hpf Ur Renal Epithelial Cell Moderate H (None-Few) per hpf Amorphous Sediment Moderate H (Few) Urine Bacteria Many H (None-Few) per hpf Hyaline Casts Many H (None-Few) per lpf Urine Yeast Many H (None Seen) per hpf Ur Culture Indicated? NO. A (NO) Attestation Statement - Attestation Attestation: I, Ky Ram MD, personally evaluated this patient and discussed their management with the resident physician. I reviewed the resident's note and agree with the documented findings, medical decision making, and plan of care. This patient was signed out at shift change from Dr. Mott and Dr. Bettie Boykin. Please refer to their notes for complete details of the history and physical examination. Patient is a 72-year-old female who presented with a 2 day history of generalized weakness. Subjective low-grade fever. Here the emergency Department patient had a temperature of 100.3. Some dysuria. She states she has had difficulty even getting to the bathroom or ambulating around her home. On examination patient is a well-developed morbidly obese elderly female in no acute distress. She is alert and oriented 3. There is no cyanosis or diaphoresis. Chest is nontender to palpation. Breath sounds are decreased but equal bilaterally. No rales or wheezes noted. Heart regular rate and rhythm. Abdomen soft and nontender with normal bowel sounds. Labs reviewed. Chest x-ray negative. The hospitalist, Dr. Russ, was consulted and accepted admission of the patient.
[2018-04-08] MEDS ORDERED: Naloxone 0.4 MG/ML INJ IVP PRN (22:32)
[2018-04-08] MEDS ORDERED: Ipratropium/Albuterol Neb 3 ML IH PRN (22:42)
[2018-04-08] MEDS ORDERED: *HR* Promethazine 25 MG/ML VIAL IM PRN (22:42)
[2018-04-08] MEDS ORDERED: cefTRIAXone 2,000 MG in Water for inj. (sterile) 20 ML 20 ML IVP SCH (23:00)
[2018-04-09 03:59] LABS: Basophils % 0.2 %; Hematocrit 35.1 % (35.3-44.9); Hemoglobin 10.6 g/dL (11.5-15.4); Immature Granulocytes % 0.3 % (0-4); Lymphocytes # 0.6 K/mcL (0.6-4.6); Lymphocytes % 6.2 %; Mean Corpuscular HGB Conc 30.2 g/dL (31.6-35.5); Mean Corpuscular Hemoglobin 22.2 pg (28.0-33.3); Mean Corpuscular Volume 73.6 fL (83.0-100.0); Mean Platelet Volume 10.2 fL (9.4-12.4); Monocytes # 0.1 K/mcL (0.0-1.3); Monocytes % 1.1 %; Neutrophils # 8.2 K/mcL (1.6-8.9); Platelet Count 238 K/mcL (140-400); Red Blood Count 4.77 M/mcL (3.82-4.97); Red Cell Distribution Width 22.9 % (11.5-14.5); Segmented Neutrophils % 92.2 %
[2018-04-09 04:31] LABS: BUN/Creatinine Ratio 25 (6-26); Blood Urea Nitrogen 18 mg/dL (8-23); Calcium 9.4 mg/dL (8.6-10.3); Carbon Dioxide 25 mEq/L (23-29); Chloride 101 mEq/L (98-107); Glucose 181 mg/dL (70-105); Osmolality,Calculated 288 (280-300); Potassium 3.5 mEq/L (3.5-5.1); Sodium 136 mEq/L (136-145); eGFR For African Americans > 60 (> 60); eGFR For Non-African Americans > 60 (> 60)
[2018-04-09 07:26] LABS: Acinetobacter baumannii by PCR Not Detected (Not Detect); Candida albicans by PCR Not Detected (Not Detect); Candida glabrata by PCR Not Detected (Not Detect); Candida krusei by PCR Not Detected (Not Detect); Candida parapsilosis by PCR Not Detected (Not Detect); Candida tropicalis by PCR Not Detected (Not Detect); Enterococcus by PCR ***DETECTED*** (Not Detect); Escherichia coli by PCR Not Detected (Not Detect); Klebsiella oxytoca by PCR Not Detected (Not Detect); Klebsiella pneumoniae by PCR Not Detected (Not Detect); Pseudomonas aeruginosa by PCR Not Detected (Not Detect); Serratia marcescens by PCR Not Detected (Not Detect); Staphylococcus aureus by PCR Not Detected (Not Detect); Streptococcus agalactiae(B)PCR Not Detected (Not Detect); Streptococcus by PCR Not Detected (Not Detect); Streptococcus pneumoniae PCR Not Detected (Not Detect); Streptococcus pyogenes (A) PCR Not Detected (Not Detect); blaKPC Carbapenem-Resist Gene Not Detected (Not Detect); mecA Methicillin-Resist Gene Not Detected (Not Detect); vanA/B Vancomycin-Resist Genes Not Detected (Not Detect)
[2018-04-09] MEDS ORDERED: Fluconazole 100 MG TABLET PO ONE ×2 (07:42→22:39)
[2018-04-09] MEDS ORDERED: Vancomycin 1,750 MG in 0.9 % Sodium Chloride 250 ML IVPB SCH (08:00)
--- NOTE | 2018-04-09 08:04 | Internal Med Progress Note ---
Date of Encounter: 04/09/18 Time of Encounter: 08:00 - Assessment and plan (1) Sepsis Current Visit: Yes Status: Acute Assessment and plan: Pt has leukocytosis and blood cultures positive for enterococcus. On vancomycin and ceftriaxone. Repeat blood cultures. Obtain 2D echo to r/o endocarditis. ID recs appreciated Qualifiers: Sepsis type: sepsis due to unspecified organism Qualified Code(s): A41.9 - Sepsis, unspecified organism (2) Enterococcal bacteremia Current Visit: Yes Status: Acute Assessment and plan: See#1 (3) UTI (urinary tract infection) Current Visit: Yes Status: Acute Assessment and plan: Continue ceftriaxone. F/U urine cultures Qualifiers: Urinary tract infection type: site unspecified Hematuria presence: without hematuria Qualified Code(s): N39.0 - Urinary tract infection, site not specified (4) CHF (congestive heart failure) Current Visit: No Status: Chronic Assessment and plan: Stable. No acute exacerbation Qualifiers: Heart failure type: unspecified Heart failure chronicity: chronic Qualified Code(s): I50.9 - Heart failure, unspecified (5) COPD (chronic obstructive pulmonary disease) Current Visit: No Status: Chronic Assessment and plan: No acute exacerbation. Continue nebs PRN Qualifiers: COPD type: unspecified COPD Qualified Code(s): J44.9 - Chronic obstructive pulmonary disease, unspecified (6) DVT prophylaxis Current Visit: Yes Status: Acute Assessment and plan: On eliquis (7) Aortic stenosis Current Visit: No Status: Acute Assessment and plan: s/p valve replacement. On eliquis Qualifiers: Cardiac valve disease etiology: etiology unspecified Qualified Code(s): I35.0 - Nonrheumatic aortic (valve) stenosis (8) Vulval candidiasis Current Visit: Yes Status: Acute Assessment and plan: received diflucan - Time Spent With Patient Total time spent is greater than 50% in coordination of care (as documented) at patient's floor/unit and/or counseling patient: - Subjective Interval history: No acute events overnight - Constitutional Vitals: Temp Pulse Resp BP Pulse Ox 97.6 F 75 18 175/73 92 04/09/18 04:20 04/09/18 04:20 04/09/18 04:20 04/09/18 04:20 04/09/18 04:20 General appearance: Present: A&O X 3, morbidly obese, no acute distress Exam: Obese elderly female - Head Head exam: Present: atraumatic, normocephalic - Eye Eye exam: Present: PERRL, conjuntiva pink, sclera anicteric Pupils: Present: PERRL - Neck Neck exam general surgery: Present: supple, trachea midline. Absent: lymphadenopathy - Respiratory Respiratory exam: Present: CTAB. Absent: accessory muscle use, rales, rhonchi, wheezes - Cardiovascular Cardiovascular exam: Present: RRR, +S1, +S2. Absent: diastolic murmur, gallop, rubs, systolic murmur - GI/Abdominal GI/Abdominal exam: Present: normal bowel sounds, soft, no peritoneal signs. Absent: distended, tenderness - Extremities Exam Extremities exam: Present: warm, radial pulses palpable and symmetrical. Absent : calf tenderness, cyanotic, pedal edema - Neurological Exam Neurological exam: Present: CN II-XII intact, oriented X3, no focal deficits. Absent: pronater drift, facial droop, speech deficit - Skin Skin exam: Present: dry, intact Internal Medicine: Result - Labs CBC & Chem 7: 04/09/18 03:28 04/09/18 03:28 Labs: Short CBC 04/09/18 Range/Units 03:28 WBC 8.9 (4.3-11.1) K/mcL Hgb 10.6 L (11.5-15.4) g/dL Hct 35.1 L (35.3-44.9) % Plt Count 238 (140-400) K/mcL Neutrophils # 8.2 (1.6-8.9) K/mcL BMP 04/09/18 03:28 Sodium 136 Potassium 3.5 Chloride 101 Carbon Dioxide 25 BUN 18 Creatinine 0.71 Glucose 181 H Calcium 9.4 Consult Discharge Plan - Plan Referrals: Elvia Branham MD [Primary Care Provider] -
[2018-04-09] MEDS: amLODIPine 5 MG TABLET PO SCH (09:20)
[2018-04-09] MEDS: FLUoxetine HCl Oral Soln 20 MG/5 ML UDC PO SCH (09:20)
[2018-04-09] MEDS: Apixaban 5 MG TABLET PO SCH ×2 (09:20→20:30)
[2018-04-09] MEDS: Furosemide 20 MG/2 ML VIAL IVP SCH (09:20)
[2018-04-09] MEDS: Aspirin Enteric Coated 81 MG Tablet PO SCH (09:21)
[2018-04-09] MEDS: Budesonide/Formoterol 160/4.5 MDI IH SCH ×2 (10:54→19:59)
[2018-04-09] MEDS: Tiotropium 18 MCG inhalation IH SCH (10:56)
--- NOTE | 2018-04-09 11:27 | Infectious Disease Consult ---
Date of Encounter: 04/09/18 Time of Encounter: 11:22 Assessment and Plan (1) Sepsis Status: Acute Assessment and plan: The patient had two SIRS criteria on admission and the patient had fevers at home. Likely secondary to bacteremia. Improved. WBC has normalized. Afebrile since admission. Tachypnea resolved. Blood cultures drawn 04/08/18 are positive 2/2 sets for Enterococcus per PCR. Repeat blood cultures drawn 04/09/18 are pending x 2 sets. Qualifiers: Sepsis type: sepsis due to unspecified organism Qualified Code(s): A41.9 - Sepsis, unspecified organism (2) Enterococcal bacteremia Status: Acute Assessment and plan: Causative organism: Enterococcus species per PCR. Source unclear, but possible UTI. The patient had a flores while hospitalized at [facility] last month. Complicated. The patient has a prosthetic aortic valve, pacemaker, and left knee hardware. Blood cultures drawn 04/08/18 are positive 2/2 for Enterococcus PCR. Repeat blood cultures drawn 04/09/18 are pending x 2 sets. No endocarditis stigmata noted on exam. The patient has one major and two minor Modified Lundberg's Criteria. Get TTE. If negative, will likely need a OMER prior to discharge. Await repeat blood cultures. Check rheumatoid factor. Discontinue Rocephin. Start ampicillin 2 grams IV Q4H. Continue Vancomycin IV. Pharmacy to dose. Goal trough ~15. Duration of treatment depends on the clinical picture. Monitor renal function and for drug toxicity and dose-adjust antibiotics. (3) UTI (urinary tract infection) Status: Acute Assessment and plan: Urinalysis positive for pyuria, but appears contaminated. Causative organism unclear, but possibly Enterococcus based on blood culture results. Urine culture pending. Discussed with micro. Get stat repeat urine culture now. Continue antibiotics as above. Qualifiers: Urinary tract infection type: site unspecified Hematuria presence: without hematuria Qualified Code(s): N39.0 - Urinary tract infection, site not specified (4) Weakness Status: Acute Assessment and plan: Likely secondary to sepsis and bacteremia. Resolved. (5) Aortic stenosis Status: Acute Assessment and plan: Status post TAVR 05/2017 at [facility]. Qualifiers: Cardiac valve disease etiology: etiology unspecified Qualified Code(s): I35.0 - Nonrheumatic aortic (valve) stenosis (6) COPD (chronic obstructive pulmonary disease) Status: Chronic Qualifiers: COPD type: unspecified COPD Qualified Code(s): J44.9 - Chronic obstructive pulmonary disease, unspecified (7) CHF (congestive heart failure) Status: Chronic Qualifiers: Heart failure type: unspecified Heart failure chronicity: chronic Qualified Code(s): I50.9 - Heart failure, unspecified (8) History of ESBL E. coli infection Status: Acute Assessment and plan: Previous history of E. coli ESBL bacteremia in February 2018. Received 14 days of Ertapenem. Contact precautions per protocol. (9) Pacemaker Status: Acute Assessment and plan: Status post pacemaker insertion 06/2017 at [facility] due to symptomatic bradycardia. No evidence of pacemaker pocket infection. Infectious Disease HPI - Data of Consult Patient: new to practice Consult date: 04/09/18 Requesting Physician: Sandy Russ Primary Care Provider: Elvia Branham - Consult Narrative Reason for consult: Enterococcus bacteremia History of present illness: Ms. Hyatt is a 72 year old female with a past medical history of CHF, COPD, CAD , aortic stenosis status post TAVR in May 2017, pacemaker, total knee replacement, and paroxysmal A. fib and a recent history of ESBL E. coli bacteremia status post completion of 14 days of IV Ertapenem. The patient was admitted to the hospital April 08 for sepsis. We are consulted April 09 for further recommendations for enterococcus bacteremia. Briefly, the patient 72-year-old female with past medical history as stated above. The patient presented to the emergency department with a 2 day history of generalized weakness, urinary frequency, and urinary incontinence. Upon arrival, she was febrile with tachypnea and neutrophilic leukocytosis. Urinalysis was obtained that showed a small amount of leukocyte esterase, 5-15 white blood cells, but had many epithelial cells. Urine culture was ordered and is pending. Blood cultures were obtained 2 sets are +2 out of 2 sets for enterococcus. Chest x-ray was negative. The patient was initially given a dose of IV Levaquin, but her antibiotics were switched to IV Rocephin on admission. She was admitted to the hospital for further evaluation and treatment. Since admission, the patient has remained afebrile and her white blood cell count has normalized. She is no longer tachypneic. Blood cultures obtained in the emergency department are +2 out of 2 for enterococcus per PCR. IV vancomycin was added to the patient's antibiotic regimen. Rocephin was continued. Repeat blood cultures were obtained this morning and are pending 2 sets. Transthoracic echocardiogram has been ordered and is pending completion. We have been asked to evaluate and make further recommendations. During my exam today, the patient endorses a history as stated above. She states overall she feels well 60% better at this point. She states that about 2 days prior to presentation, she began to have severe weakness or skin grafting couch or out of bed. She also reported urinary frequency and 3 episodes of urinary incontinence. She states she had a low-grade fever at home as well. Ordered chills with rigors. She denies a headache or neck pain. She denied any confusion or dizziness. She denies any congestion, earache, or sore throat. She denied any chest pain, shortness of breath, or cough. She denies any nausea, vomiting, diarrhea, or constipation. Urinary complaints as stated above. She denies any abdominal pain. She reports she was able to eat much. She reports chronic lower back pain has been ongoing for several months. She reports chronic bilateral knee pain that is at baseline. She denies any oral thrush or new skin lesions. The patient lives at home with her son. She denies tobacco, alcohol, or illicit drug use. She is retired. CC: Sandy Russ Past Med Surg Social Fam HX - Past Medical History Attestation: Yes The following information was validated with the patient. Source: patient, old records reviewed, nursing notes reviewed Medical history: arthritis, CHF (Preserved EF), COPD, coronary artery disease, GERD, hyperlipidemia, hypertension, valvular heart disease (aortic stenosis), other (ESBL E. coli bacteremia s/p 14 days of IV Ertapenem) Psychiatric history: no psych history - Past Surgical History Surgical History: heart valve replacement (TAVR 05/2017 at [facility]), hysterectomy, knee replacement - Social History Smoking Status: Former smoker Smokeless Tobacco Status: No Alcohol use: none Drug use: none - Family History Mother History Unknown: Yes Living Status: Hx Family Cardiac Disorders: Yes (self, father,son) Hx Family Respiratory Disorders: Yes (self, sister) Hx Family Cancer: Yes (son,mother) Hx Family GI Disorders: No Hx Family Endocrine Disorder: Yes (grandmother) Hx Family Neuromuscular Disorders: No Hx Family Neurologic Disorders: Yes (son) Hx Family HEENT Disorders: No Hx Family Autoimmune Disorders: No Infectious Disease-CN:Meds Albuterol Sulfate [Proair Respiclick] 2 puff IH Q4H PRN 10/04/16 [History] Fluticasone/Salmeterol [Advair 250-50 Diskus] 1 unit IH BID 10/04/16 [History] Loratadine [Allergy Relief] 10 mg PO DAILY 10/04/16 [History] Omeprazole 20 mg PO DAILY 10/04/16 [History] Oxygen 2 l IH HS 10/04/16 [History] Potassium Chloride [K-Tab ER] 20 meq PO BID 10/04/16 [History] Tiotropium [Spiriva] 18 mcg IH DAILY 10/04/16 [History] Vitamin E (Dl,Tocopheryl Acet) [Vitamin E] 400 unit PO DAILY 10/04/16 [History] Calcium Carbonate/Vitamin D3 [Calcium 500-Vit D3 200 Caplet] 1 each PO BID 11/16 [History] Cholecalciferol (Vitamin D3) [Vitamin D3] 1,000 unit PO DAILY 11/16/16 [History] Acetaminophen [Tylenol] 650 mg PO Q6H PRN tablet 03/20/18 [Rx] Apixaban [Eliquis] 5 mg PO BID tablet 03/20/18 [Rx] Aspirin 81 mg PO DAILY tab.chew 03/20/18 [Rx] Atorvastatin [Lipitor] 40 mg PO HS tablet 03/20/18 [Rx] Carvedilol [Coreg] 6.25 mg PO BID tablet 03/20/18 [Rx] FLUoxetine HCl [Prozac] 20 mg PO DAILY capsule 03/20/18 [Rx] Ferrous Sulfate 325 mg PO DAILY@0800 tablet 03/20/18 [Rx] Furosemide [Lasix] 20 mg PO DAILY tablet 03/20/18 [Rx] Ketorolac OPTH Soln [Acular] 1 drop RIGHT EYE TID bottle 03/20/18 [Rx] Lisinopril [Zestril] 10 mg PO DAILY tablet 03/20/18 [Rx] Magnesium Oxide [Mag-Ox] 400 mg PO BID tablet 03/20/18 [Rx] Moxifloxacin OPTH Drops [Vigamox] 1 drop RIGHT EYE TID bottle 03/20/18 [Rx] Multivit/Ca/Min/Fe/FA [Thera M Plus] 1 tab PO DAILY tablet 03/20/18 [Rx] PrednisoLONE Acetate 1% Opth [PredFORTE 1%] 1 drop RIGHT EYE TID bottle [Rx] amLODIPine [Norvasc] 10 mg PO DAILY tablet 03/20/18 [Rx] 3 Allergy/AdvReac Type Severity Reaction Status Date / Time fish oil Allergy Hives Verified 03/01/18 23:01 pseudoephedrine Allergy Hives Verified 03/01/18 23:01 [facility] All systems: reviewed and no additional remarkable complaints except as stated Exam - Constitutional Vitals: Temp Pulse Resp BP Pulse Ox 98.1 F 83 15 156/66 94 04/09/18 08:02 04/09/18 08:02 04/09/18 08:02 04/09/18 08:02 04/09/18 08:02 General appearance: cooperative, morbidly obese, no acute distress - Head Head exam: Present: atraumatic, normal inspection, normocephalic - Eye Eye exam: Present: EOMI, normal appearance, PERRL Pupils: Present: normal accommodation Additional comments: No subconjunctival hemorrhage noted. - ENT ENT exam: Present: mucous membranes moist - Neck Neck exam: Present: normal inspection - Respiratory Respiratory exam: Present: CTAB, wheezes. Absent: rales, respiratory distress, rhonchi - Cardiovascular Cardiovascular exam: Present: irregular rhythm. Absent: tachycardia Additional comments: Well-healed pacemaker insertion site noted to the left upper chest without redness, warmth, or erythema. - GI/Abdominal GI/Abdominal exam: Present: distended (obese), normal bowel sounds, soft. Absent: tenderness - Extremities Exam Extremities exam: Present: pedal edema (1+ BLE). Absent: joint swelling, tenderness Additional comments: Well-healed surgical scar noted to the left anterior knee without redness or warmth. Mild edema noted. - Back Exam Back exam: Present: normal inspection. Absent: vertebral tenderness - Neurological Exam Neurological exam: Present: alert, oriented X3, no focal deficits - Psychiatric Psychiatric exam: Present: normal affect, normal mood - Skin Skin exam: Present: dry, intact, normal color, warm Additional comments: No endocarditis stigmata noted. Infectious Disease CN: Results - Labs CBC & Chem 7: 04/09/18 03:28 04/09/18 03:28 Cultures: Cultures 04/08/18 18:25 Blood Culture - Preliminary Peripheral Venipuncture Gram Positive Cocci 04/08/18 18:20 Blood Culture - Preliminary Peripheral Venipuncture Gram Positive Cocci Serology: Serology 04/08/18 04/08/18 Range/Units 18:20 18:03 Urine Color Dark Yellow (Yellow) Urine Clarity Turbid A (Clear) Urine pH 7.0 (5.0-8.0) pH Units Ur Specific [place] 1.020 (1.010-1.025) Urine Protein 100 H (Neg-Trace) mg/dL Urine Glucose (UA) Normal (Normal) mg/dL Urine Ketones Trace H (Negative) mg/dL Urine Blood Large H (Negative) Urine Nitrite Negative (Negative) Urine Bilirubin Small H (Negative) Urine Urobilinogen Normal (Normal) mg/dL Ur Leukocyte Esterase Small H (Negative) Urine Microscopic RBC 3-5 H (0-3) per hpf Urine Microscopic WBC 5-15 H (0-3) per hpf Ur Squamous Epith Cells Many H (None-Few) per lpf Ur Transition Epith Cell Moderate H (None-Few) per hpf Ur Renal Epithelial Cell Moderate H (None-Few) per hpf Amorphous Sediment Moderate H (Few) Urine Bacteria Many H (None-Few) per hpf Hyaline Casts Many H (None-Few) per lpf Urine Yeast Many H (None Seen) per hpf Ur Culture Indicated? NO. A (NO) A. baumannii (PCR) Not Detected (Not Detect) Manuela albicans (PCR) Not Detected (Not Detect) C. glabrata (PCR) Not Detected (Not Detect) C. krusei (PCR) Not Detected (Not Detect) C. parapsilosis (PCR) Not Detected (Not Detect) C. tropicalis (PCR) Not Detected (Not Detect) Enterobacteriac sp PCR Not Detected (Not Detect) E. cloacae complex PCR Not Detected (Not Detect) Enterococcus sp PCR DETECTED A (Not Detect) E. coli (PCR) Not Detected (Not Detect) H. influenzae (PCR) Not Detected (Not Detect) Klebsiella oxytoca PCR Not Detected (Not Detect) Klebsiella pneumoniae Not Detected (Not Detect) List. monocytogenes PCR Not Detected (Not Detect) N. meningitidis (PCR) Not Detected (Not Detect) Proteus species (PCR) Not Detected (Not Detect) Serratia marcescens PCR Not Detected (Not Detect) Staphylococcus sp PCR Not Detected (Not Detect) Staph aureus (PCR) Not Detected (Not Detect) mecA-Methicil Res Gene Not Detected (Not Detect) Streptococcus sp PCR Not Detected (Not Detect) Group A Strep DNA Not Detected (Not Detect) Group B Strep (PCR) Not Detected (Not Detect) Strep pneumoniae (PCR) Not Detected (Not Detect) P. aeruginosa (PCR) Not Detected (Not Detect) Giorgio/B-Vanco Res Genes Not Detected (Not Detect) KPC (blaKPC) Detect PCR Not Detected (Not Detect) Consult Discharge Plan - Plan Referrals: Elvia Branham MD [Primary Care Provider] - - Attending Attestation I examined this patient and my medical decision-making was reviewed with the Resident Physician. I agree with the documented findings, disposition and treatment plan as described except to the extent set forth below. This is an addendum to original report dictated by Any Franklin CNP. Please refer to [facility] note for full detail. Patient is a 72-year-old woman with past medical history mentioned presented to the emergency department for weakness urinary frequency and urinary incontinence. We are Consult at for sepsis and enterococcus species bacteremia. Patient apparently has aortic valve replacement with a bioprosthetic valve, has a pacemaker, history of knee replacement in the past and recently had Escherichia coli ESBL bacteremia. Not sure where the Escherichia coli bacteremia came from since she had no UTI. Patient was seen at [facility] and sent home on 14 days of ertapenem. Patient on this admission is septic and cultures are growing 2 out of 2 sets gram-positive cocci and the PCR us because of enterococcus species. Patients workup so far has been negative other than for the bacteremia. We were asked to evaluate the patient and make further recommendations. Patient really has no endocarditis stigmata and does not appear toxic. Abdominal exam is unremarkable and she has no urinary symptoms. Patient has no skin lesions. Assessment and plan: Sepsis Enterococcal bacteremia susceptibility pending. Source not clear. Previously she had Escherichia coli bacteremia. I am concerned for possible intra- abdominal source. Patients abdomen is with benign exam. Also has no urinary symptoms. UTI Weakness History of aortic stenosis Recommendations Get TTE. If negative, will likely need a OMER prior to discharge. Await repeat blood cultures. Check rheumatoid factor. Discontinue Rocephin. Start ampicillin 2 grams IV Q4H. Continue Vancomycin IV. Pharmacy to dose. Goal trough ~15. Duration of treatment depends on the clinical picture. Monitor renal function and for drug toxicity and dose-adjust antibiotics.
--- NOTE | 2018-04-09 15:33 | Electrocardiograph Report ---
[place] [id number] Test Date: 2018-04-08 Pat Name: Gayle Hyatt Department: 103 Room: 2A24 Gender: F Court Deputy: TMR : 1945 Requested By: Epi Mott Order Number: [id number] [place] MD: Abbe Villatoro Measurements Intervals [place] Rate: 89 P: 16 NM: 146 QRS: 57 QRSD: 153 T: 41 QT: 399 QTc: 446 Interpretive Statements SINUS RHYTHM INDETERMINATE AXIS RIGHT BUNDLE BRANCH BLOCK BASELINE ARTIFACT Electronically Signed On 04-09-2018 15:32:42 EDT by Abbe Villatoro
[2018-04-09] MEDS: Ampicillin 2 GM in 0.9 % Sodium Chloride Mini Bag 100 ML IVPB SCH ×2 (16:04→20:38)
[2018-04-09] MEDS: Acetaminophen 325 MG TABLET PO PRN (20:30)
[2018-04-10] MEDS: Ampicillin 2 GM in 0.9 % Sodium Chloride Mini Bag 100 ML IVPB SCH ×6 (03:07→20:53)
[2018-04-10] MEDS: Acetaminophen 325 MG TABLET PO PRN ×3 (04:51→20:51)
[2018-04-10 06:58] LABS: Basophils % 0.1 %; Hematocrit 36.5 % (35.3-44.9); Hemoglobin 10.7 g/dL (11.5-15.4); Immature Granulocytes % 0.5 % (0-4); Lymphocytes % 8.8 %; Mean Corpuscular HGB Conc 29.3 g/dL (31.6-35.5); Mean Corpuscular Hemoglobin 22.2 pg (28.0-33.3); Mean Corpuscular Volume 75.7 fL (83.0-100.0); Mean Platelet Volume 9.9 fL (9.4-12.4); Monocytes % 9.3 %; Platelet Count 274 K/mcL (140-400); Red Blood Count 4.82 M/mcL (3.82-4.97); Segmented Neutrophils % 81.3 %
[2018-04-10 06:59] LABS: Lymphocytes # 1.2 K/mcL (0.6-4.6); Monocytes # 1.3 K/mcL (0.0-1.3); Neutrophils # 11.5 K/mcL (1.6-8.9)
[2018-04-10 07:31] LABS: Estimated Average Glucose 111 mg/dl; Hemoglobin A1C 5.5 %
[2018-04-10 08:54] LABS: BUN/Creatinine Ratio 33 (6-26); Blood Urea Nitrogen 25 mg/dL (8-23); Calcium 9.2 mg/dL (8.6-10.3); Carbon Dioxide 20 mEq/L (23-29); Chloride 105 mEq/L (98-107); Glucose 117 mg/dL (70-105); Osmolality,Calculated 293 (280-300); Potassium 3.7 mEq/L (3.5-5.1); Sodium 139 mEq/L (136-145); eGFR For African Americans > 60 (> 60); eGFR For Non-African Americans > 60 (> 60)
[2018-04-10] MEDS: Apixaban 5 MG TABLET PO SCH ×2 (08:58→20:51)
[2018-04-10] MEDS: amLODIPine 5 MG TABLET PO SCH (08:58)
[2018-04-10] MEDS: FLUoxetine HCl Oral Soln 20 MG/5 ML UDC PO SCH (08:58)
[2018-04-10] MEDS: Aspirin Enteric Coated 81 MG Tablet PO SCH (08:58)
[2018-04-10] MEDS: Furosemide 20 MG/2 ML VIAL IVP SCH (08:59)
[2018-04-10] MEDS ORDERED: Aminoglycoside Consult 1 EACH MC ONE (09:57)
--- NOTE | 2018-04-10 09:58 | Infectious Disease Progress No ---
Date of Encounter: 04/10/18 Time of Encounter: 09:56 - Assessment and Plan (1) Sepsis Current Visit: Yes Status: Acute The patient had two SIRS criteria on admission and the patient had fevers at home. Likely secondary to bacteremia. Improved. WBC back up this morning. Afebrile since admission. Tachypnea resolved. Blood cultures drawn 04/08/18 are positive 2/2 sets for Enterococcus per PCR. Repeat blood cultures drawn 04/09/18 are pending x 2 sets. Qualifiers: Sepsis type: sepsis due to unspecified organism Qualified Code(s): A41.9 - Sepsis, unspecified organism (2) Enterococcal bacteremia Current Visit: Yes Status: Acute Causative organism: Enterococcus species per PCR. Source unclear, but possible UTI. The patient had a flores while hospitalized at [facility] last month. Complicated. The patient has a prosthetic aortic valve, pacemaker, and left knee hardware. Blood cultures drawn 04/08/18 are positive 2/2 for Enterococcus PCR. Repeat blood cultures drawn 04/09/18 are pending x 2 sets. No endocarditis stigmata noted on exam. The patient has one major and two minor Modified Lundberg's Criteria. Get TTE. If negative, will likely need a OMER prior to discharge. Await repeat blood cultures. Rheumatoid factor <10. Continue ampicillin 2 grams IV Q4H. Continue Vancomycin IV. Pharmacy to dose. Goal trough ~15. Duration of treatment depends on the clinical picture. Monitor renal function and for drug toxicity and dose-adjust antibiotics. (3) UTI (urinary tract infection) Current Visit: Yes Status: Acute Urinalysis positive for pyuria, but appears contaminated. Causative organism unclear, urine culture interpreted as grossly mixed jyothi. Repeat urine culture obtained 04/09/18 is pending. Continue antibiotics as above. Qualifiers: Urinary tract infection type: site unspecified Hematuria presence: without hematuria Qualified Code(s): N39.0 - Urinary tract infection, site not specified (4) Weakness Current Visit: Yes Status: Acute Likely secondary to sepsis and bacteremia. Resolved. (5) Aortic stenosis Current Visit: Yes Status: Chronic Status post TAVR 05/2017 at [facility]. Qualifiers: Cardiac valve disease etiology: etiology unspecified Qualified Code(s): I35.0 - Nonrheumatic aortic (valve) stenosis (6) COPD (chronic obstructive pulmonary disease) Current Visit: Yes Status: Chronic Qualifiers: COPD type: unspecified COPD Qualified Code(s): J44.9 - Chronic obstructive pulmonary disease, unspecified (7) CHF (congestive heart failure) Current Visit: Yes Status: Chronic Qualifiers: Heart failure type: unspecified Heart failure chronicity: chronic Qualified Code(s): I50.9 - Heart failure, unspecified (8) History of ESBL E. coli infection Current Visit: Yes Status: Acute Previous history of E. coli ESBL bacteremia in February 2018. Received 14 days of Ertapenem. Contact precautions per protocol. (9) Pacemaker Current Visit: Yes Status: Acute Status post pacemaker insertion 06/2017 at [facility] due to symptomatic bradycardia. No evidence of pacemaker pocket infection. - Subjective Interval history: Patient seen and examined. No acute events noted overnight. Patient sitting up in the bed, states overall she feels well. She does report nausea this morning, slightly improved with eating breakfast. Denies fevers or chills or rigors. Denies chest pain, shortness of breath, or cough. Denies vomiting or diarrhea. States urinary frequency has resolved. Does report some genital itching overnight, but denies discharge or bleeding. Denies abdominal pain or appetite changes. Denies oral thrush or new skin lesions. Infect Dis PN-Objective Data - Labs CBC & Chem 7: 04/10/18 04:00 04/10/18 08:08 Labs: Laboratory Results - last 24 hr 04/09/18 04/10/18 04/10/18 14:49 04:00 04:00 WBC 14.1 H D RBC 4.82 Hgb 10.7 L Hct 36.5 MCV 75.7 L MCH 22.2 L MCHC 29.3 L RDW 23.0 H Plt Count 274 MPV 9.9 Immature Gran % 0.5 Seg Neutrophils % 81.3 Lymphocytes % 8.8 Monocytes % 9.3 Eosinophils % 0.0 Basophils % 0.1 Neutrophils # 11.5 H Lymphocytes # 1.2 Monocytes # 1.3 Eosinophils # 0.0 Basophils # 0.0 Sodium Potassium Chloride Carbon Dioxide BUN Creatinine Est GFR ( Amer) Est GFR (Non-Af Amer) BUN/Creatinine Ratio Glucose Est Mean Plasma Glucose 111 Hemoglobin A1c 5.5 Calculated Osmolality Calcium Rheumatoid Factor < 10 Specimen Rejected 04/10/18 04/10/18 06:46 08:08 WBC RBC Hgb Hct MCV MCH MCHC RDW Plt Count MPV Immature Gran % Seg Neutrophils % Lymphocytes % Monocytes % Eosinophils % Basophils % Neutrophils # Lymphocytes # Monocytes # Eosinophils # Basophils # Sodium 139 Potassium 3.7 Chloride 105 Carbon Dioxide 20 L BUN 25 H Creatinine 0.76 Est GFR ( Amer) > 60 Est GFR (Non-Af Amer) > 60 BUN/Creatinine Ratio 33 H Glucose 117 H Est Mean Plasma Glucose Hemoglobin A1c Calculated Osmolality 293 Calcium 9.2 Rheumatoid Factor Specimen Rejected Hemolyzed Exam - Constitutional Vitals: Temp Pulse Resp BP Pulse Ox 97.8 F 63 16 158/55 97 04/10/18 07:52 04/10/18 07:52 04/10/18 07:52 04/10/18 07:52 04/10/18 07:52 General appearance: cooperative, morbidly obese, no acute distress - Head Head exam: Present: atraumatic, normal inspection, normocephalic - Eye Eye exam: Present: EOMI, normal appearance, PERRL Pupils: Present: normal accommodation Additional comments: No subconjunctival hemorrhage noted. - ENT ENT exam: Present: mucous membranes moist - Neck Neck exam: Present: normal inspection - Respiratory Respiratory exam: Present: CTAB. Absent: rales, respiratory distress, rhonchi, wheezes - Cardiovascular Cardiovascular exam: Present: irregular rhythm, +S1, +S2. Absent: tachycardia - GI/Abdominal GI/Abdominal exam: Present: distended (Obese), normal bowel sounds, soft. Absent: tenderness - Extremities Exam Extremities exam: Present: pedal edema (2+ BLE). Absent: joint swelling, tenderness - Back Exam Back exam: Present: normal inspection. Absent: vertebral tenderness - Neurological Exam Neurological exam: Present: alert, oriented X3, no focal deficits - Psychiatric Psychiatric exam: Present: normal affect, normal mood - Skin Skin exam: Present: dry, intact, normal color, warm Additional comments: No endocarditis stigmata noted. Consult Discharge Plan - Plan Referrals: Elvia Branham MD [Primary Care Provider] - - Attending Attestation I examined this patient and my medical decision-making was reviewed with the Resident Physician. I agree with the documented findings, disposition and treatment plan as described except to the extent set forth below.
[2018-04-10] MEDS ORDERED: Mag Hydrox/Al Hydrox/Simeth 30 ML UDC PO STA (10:00)
[2018-04-10] MEDS: Budesonide/Formoterol 160/4.5 MDI IH SCH ×2 (10:21→21:31)
[2018-04-10] MEDS: Tiotropium 18 MCG inhalation IH SCH (10:22)
[2018-04-10] MEDS: Furosemide 20 MG TABLET PO SCH (11:50)
[2018-04-10] MEDS: Nystatin POWDER 30 GM BOTTLE TP SCH ×2 (13:01→22:24)
--- NOTE | 2018-04-10 14:48 | Internal Med Progress Note ---
Date of Encounter: 04/10/18 Time of Encounter: 10:00 - Assessment and plan (1) Enterococcal bacteremia Current Visit: Yes Status: Acute Assessment and plan: Patient had Escherichia coli bacteremia in February 2018. 2 out of 2 blood cultures from April 08 grew gram-positive cocci, serology positive for enterococcus, final sensitivities pending. Repeat blood cultures from April 09 pending. Infectious diseases on board. Continue IV ampicillin and vancomycin for now. Of note, patient has history of aortic valve replacement and pacemaker placement. Transthoracic echocardiogram report pending. Patient will possibly need transesophageal echocardiogram. (2) Sepsis Current Visit: Yes Status: Acute Assessment and plan: Presented with mild leukocytosis, low-grade fever and tachypnea. Continues to have leukocytosis, WBC 14.1 today. Continue IV antibiotics and follow up final cultures. Qualifiers: Sepsis type: sepsis due to unspecified organism Qualified Code(s): A41.9 - Sepsis, unspecified organism (3) UTI (urinary tract infection) Current Visit: Yes Status: Acute Assessment and plan: Urinalysis showed pyuria with many bacteria. Urine culture is grossly contaminated. Continue IV Ampicillin and Vancomycin as above; Qualifiers: Urinary tract infection type: site unspecified Hematuria presence: without hematuria Qualified Code(s): N39.0 - Urinary tract infection, site not specified (4) Aortic stenosis Current Visit: Yes Status: Chronic Assessment and plan: Status post TAVR; continue anticoagulation with Eliquis; Qualifiers: Cardiac valve disease etiology: etiology unspecified Qualified Code(s): I35.0 - Nonrheumatic aortic (valve) stenosis (5) COPD (chronic obstructive pulmonary disease) Current Visit: Yes Status: Chronic Assessment and plan: Not in acute exacerbation. Continue when necessary breathing treatments and supplemental oxygen. Qualifiers: COPD type: unspecified COPD Qualified Code(s): J44.9 - Chronic obstructive pulmonary disease, unspecified (6) CHF (congestive heart failure) Current Visit: Yes Status: Chronic Qualifiers: Heart failure type: unspecified Heart failure chronicity: chronic Qualified Code(s): I50.9 - Heart failure, unspecified (7) Vulval candidiasis Current Visit: Yes Status: Acute Assessment and plan: received diflucan; continue topical Nystatin; (8) DVT prophylaxis Current Visit: Yes Status: Acute Assessment and plan: On eliquis - Time Spent With Patient Total time spent is greater than 50% in coordination of care (as documented) at patient's floor/unit and/or counseling patient: - Subjective Interval history: Patient reports not feeling too good, reports nausea and generalized weakness. No chest pain, shortness of breath, fever/chills, vomiting or diarrhea. - Constitutional Vitals: Temp Pulse Resp BP Pulse Ox 97.8 F 62 17 130/70 94 04/10/18 11:26 04/10/18 11:26 04/10/18 11:26 04/10/18 11:26 04/10/18 11:26 General appearance: Present: A&O X 3, morbidly obese, answers questions appropriately - Respiratory Respiratory exam: Present: CTAB. Absent: accessory muscle use, rales, rhonchi, wheezes - Cardiovascular Cardiovascular exam: Present: RRR, +S1, +S2 (Mechanical heart sound). Absent: diastolic murmur, gallop, rubs, systolic murmur - GI/Abdominal GI/Abdominal exam: Present: normal bowel sounds, soft (obese), no peritoneal signs. Absent: distended, tenderness - Extremities Exam Extremities exam: Present: full ROM, pedal edema, warm, radial pulses palpable and symmetrical. Absent: calf tenderness, cyanotic - Neurological Exam Neurological exam: Present: CN II-XII intact, oriented X3, no focal deficits. Absent: pronater drift, facial droop, speech deficit Internal Medicine: Result - Labs CBC & Chem 7: 04/10/18 04:00 04/10/18 08:08 Labs: Short CBC 04/10/18 Range/Units 04:00 WBC 14.1 H D (4.3-11.1) K/mcL Hgb 10.7 L (11.5-15.4) g/dL Hct 36.5 (35.3-44.9) % Plt Count 274 (140-400) K/mcL Neutrophils # 11.5 H (1.6-8.9) K/mcL BMP 04/10/18 08:08 Sodium 139 Potassium 3.7 Chloride 105 Carbon Dioxide 20 L BUN 25 H Creatinine 0.76 Glucose 117 H Calcium 9.2 Consult Discharge Plan - Plan Referrals: Elvia Branham MD [Primary Care Provider] -
[2018-04-11] MEDS: Ampicillin 2 GM in 0.9 % Sodium Chloride Mini Bag 100 ML IVPB SCH ×6 (00:55→22:09)
[2018-04-11 08:03] LABS: Hematocrit 36.2 % (35.3-44.9); Hemoglobin 10.8 g/dL (11.5-15.4); Mean Corpuscular HGB Conc 29.8 g/dL (31.6-35.5); Mean Corpuscular Hemoglobin 22.6 pg (28.0-33.3); Mean Corpuscular Volume 75.7 fL (83.0-100.0); Mean Platelet Volume 10.4 fL (9.4-12.4); Neutrophils # 5.4 K/mcL (1.6-8.9); Platelet Count 255 K/mcL (140-400); Red Blood Count 4.78 M/mcL (3.82-4.97); Red Cell Distribution Width 23.2 % (11.5-14.5)
[2018-04-11] MEDS: Aspirin Enteric Coated 81 MG Tablet PO SCH (09:12)
[2018-04-11] MEDS: Furosemide 20 MG TABLET PO SCH (09:12)
[2018-04-11] MEDS: amLODIPine 5 MG TABLET PO SCH (09:12)
[2018-04-11] MEDS: FLUoxetine HCl Oral Soln 20 MG/5 ML UDC PO SCH (09:13)
[2018-04-11] MEDS: Apixaban 5 MG TABLET PO SCH ×2 (09:18→22:08)
[2018-04-11 09:50] LABS: BUN/Creatinine Ratio 34 (6-26); Blood Urea Nitrogen 24 mg/dL (8-23); Carbon Dioxide 24 mEq/L (23-29); Chloride 107 mEq/L (98-107); Glucose 107 mg/dL (70-105); Osmolality,Calculated 299 (280-300); Sodium 142 mEq/L (136-145); eGFR For African Americans > 60 (> 60); eGFR For Non-African Americans > 60 (> 60)
--- NOTE | 2018-04-11 10:46 | Infectious Disease Progress No ---
Date of Encounter: 04/11/18 Time of Encounter: 10:45 - Assessment and Plan (1) Sepsis Current Visit: Yes Status: Acute The patient had two SIRS criteria on admission and the patient had fevers at home. Likely secondary to bacteremia. Improved. WBC normalized today. Afebrile since admission. Tachypnea resolved. Blood cultures drawn 04/08/18 are positive 2/2 sets for Enterococcus faecalis. Repeat blood cultures drawn 04/09/18 are NGTD x 2 sets. Qualifiers: Sepsis type: sepsis due to unspecified organism Qualified Code(s): A41.9 - Sepsis, unspecified organism (2) Enterococcal bacteremia Current Visit: Yes Status: Acute Causative organism: Enterococcus faecalis. Source unclear, but possible UTI. The patient had a flores while hospitalized at [facility] last month. Complicated. The patient has a prosthetic aortic valve, pacemaker, and left knee hardware. Blood cultures drawn 04/08/18 are positive 2/2 for Enterococcus faecalis, amp- sensitive. Repeat blood cultures drawn 04/09/18 are NGTD x 2 sets. No endocarditis stigmata noted on exam. The patient has one major and two minor Modified Lundberg's Criteria. TTE negative for vegetations, but poor quality. Will likely need a OMER prior to discharge. Rheumatoid factor <10. Etiology remains unclear. Get CT of the Abdomen and pelvis with oral contrast. Continue ampicillin 2 grams IV Q4H. Discontinue Vanc. Duration of treatment depends on the clinical picture. Monitor renal function and dose-adjust antibiotics. (3) UTI (urinary tract infection) Current Visit: Yes Status: Resolved Urinalysis positive for pyuria, but appears contaminated. Causative organism unclear, urine culture interpreted as grossly mixed jyothi. Repeat urine culture obtained 04/09/18 is negative. Continue antibiotics as above. Qualifiers: Urinary tract infection type: site unspecified Hematuria presence: without hematuria Qualified Code(s): N39.0 - Urinary tract infection, site not specified (4) Weakness Current Visit: Yes Status: Acute Likely secondary to sepsis and bacteremia. Resolved. (5) Aortic stenosis Current Visit: Yes Status: Chronic Status post TAVR 05/2017 at [facility]. Qualifiers: Cardiac valve disease etiology: etiology unspecified Qualified Code(s): I35.0 - Nonrheumatic aortic (valve) stenosis (6) COPD (chronic obstructive pulmonary disease) Current Visit: Yes Status: Chronic Qualifiers: COPD type: unspecified COPD Qualified Code(s): J44.9 - Chronic obstructive pulmonary disease, unspecified (7) CHF (congestive heart failure) Current Visit: Yes Status: Chronic Qualifiers: Heart failure type: diastolic Heart failure chronicity: chronic Qualified Code(s): I50.32 - Chronic diastolic (congestive) heart failure (8) History of ESBL E. coli infection Current Visit: Yes Status: Acute Previous history of E. coli ESBL bacteremia in February 2018. Received 14 days of Ertapenem. Contact precautions per protocol. (9) Pacemaker Current Visit: Yes Status: Acute Status post pacemaker insertion 06/2017 at [facility] due to symptomatic bradycardia. No evidence of pacemaker pocket infection. - Subjective Interval history: Patient seen and examined. No acute events noted overnight. Patient sitting up in the chair, states overall she feels well other than a headache. States she didn't sleep much last night. Denies fevers or chills or rigors. Denies chest pain, shortness of breath, or cough. Denies nausea, vomiting or diarrhea. States urinary frequency has resolved. Denies abdominal pain or appetite changes. Denies oral thrush or new skin lesions. Infect Dis PN-Objective Data - Labs CBC & Chem 7: 04/11/18 07:27 04/11/18 07:27 Labs: Laboratory Results - last 24 hr 04/11/18 04/11/18 07:27 07:27 WBC 8.2 RBC 4.78 Hgb 10.8 L Hct 36.2 MCV 75.7 L MCH 22.6 L MCHC 29.8 L RDW 23.2 H Plt Count 255 MPV 10.4 Sodium 142 Potassium 4.0 Chloride 107 Carbon Dioxide 24 BUN 24 H Creatinine 0.70 Est GFR ( Amer) > 60 Est GFR (Non-Af Amer) > 60 BUN/Creatinine Ratio 34 H Glucose 107 H Calculated Osmolality 299 Calcium 9.0 Cultures: Cultures 04/09/18 08:57 Blood Culture - Preliminary Peripheral Venipuncture Culture is incubating and being continuously monitored for growth. Final report to follow. 04/09/18 08:48 Blood Culture - Preliminary Peripheral Venipuncture Culture is incubating and being continuously monitored for growth. Final report to follow. 04/09/18 18:40 Urine Culture - Preliminary Urine,Clean Catch No significant growth. - Impressions Impressions Echocardiogram 04/09/18 07:57 Impressions: LVEF 60-65%. Normal LV chamber size, wall thickness and function. Mild left ventricular diastolic dysfunction. Normal right ventricular structure and function. Moderate pulmonary hypertension. Estimated RVSP 50 mmHg. Bioprosthetic aortic valve appears well seated. Leaflets were not well visualized. Normal function by Doppler. Image quality inadequate to evaluate for endocarditis. Consider OMER if clinically indicated. Left Ventricular Wall Motion: Rest Echo Findings All wall segments showed normal motion. Findings: Study Quality * Technically sub-optimal due to poor echocardiographic windows. ECG Findings * Normal sinus rhythm. Left Ventricle * LVEF 60-65%. * Normal LV chamber size, wall thickness and function. * Mild left ventricular diastolic dysfunction. * Atypical septal motion consistent with post-operative status. Right Ventricle * Normal right ventricular structure and function. Left Atrium * Moderately dilated left atrium. Right Atrium * Normal right atrial size. Aortic Valve * Bioprosthetic aortic valve appears well seated. Leaflets were not well visualized. Normal function by Doppler. * No aortic regurgitation. * No aortic stenosis. Mitral Valve * Mild mitral annular calcification. * No mitral regurgitation. * No mitral stenosis. Tricuspid Valve * Normal tricuspid valve structure and function. * Trace tricuspid regurgitation. * Moderate pulmonary hypertension. Estimated RVSP 50 mmHg. Pulmonic Valve * Pulmonic valve is not well visualized. * No pulmonic regurgitation. Aorta * Normally sized aortic root. Pericardium * The pericardium appears normal. IVC * Normal IVC dimensions and inspiratory collapse. Pulmonary Artery * Normal visualized portions of the main pulmonary artery. Exam - Constitutional Vitals: Temp Pulse Resp BP Pulse Ox 98.0 F 62 15 150/53 91 04/11/18 07:43 04/11/18 07:43 04/11/18 07:43 04/11/18 07:43 04/11/18 07:43 General appearance: cooperative, morbidly obese, no acute distress - Head Head exam: Present: atraumatic, normal inspection, normocephalic - Eye Eye exam: Present: EOMI, normal appearance, PERRL Pupils: Present: normal accommodation Additional comments: No subconjunctival hemorrhage noted. - ENT ENT exam: Present: mucous membranes moist - Neck Neck exam: Present: normal inspection - Respiratory Respiratory exam: Present: CTAB. Absent: rales, respiratory distress, rhonchi, wheezes - Cardiovascular Cardiovascular exam: Present: irregular rhythm. Absent: tachycardia - GI/Abdominal GI/Abdominal exam: Present: distended (obese), normal bowel sounds, soft. Absent: tenderness - Extremities Exam Extremities exam: Present: pedal edema (2+ BLE). Absent: joint swelling, tenderness - Back Exam Back exam: Present: normal inspection. Absent: paraspinal tenderness, vertebral tenderness - Neurological Exam Neurological exam: Present: alert, oriented X3, no focal deficits - Psychiatric Psychiatric exam: Present: normal affect, normal mood - Skin Skin exam: Present: dry, intact, normal color, warm Additional comments: No endocarditis stigmata noted. Consult Discharge Plan - Plan Referrals: Elvia Branham MD [Primary Care Provider] - - Attending Attestation I examined this patient and my medical decision-making was reviewed with the Resident Physician. I agree with the documented findings, disposition and treatment plan as described except to the extent set forth below.
[2018-04-11 11:08] LABS: Lymphocytes # 2.5 K/mcL (0.6-4.6); Monocytes # 0.3 K/mcL (0.0-1.3); Platelet Estimate Normal (Normal)
[2018-04-11 11:09] LABS: Anisocytosis 2+ (Not Present)
[2018-04-11] MEDS: Budesonide/Formoterol 160/4.5 MDI IH SCH ×2 (11:36→19:30)
[2018-04-11] MEDS: Tiotropium 18 MCG inhalation IH SCH (11:36)
[2018-04-11] MEDS: Nystatin POWDER 30 GM BOTTLE TP SCH ×2 (13:31→22:08)
--- NOTE | 2018-04-11 15:44 | Internal Med Progress Note ---
Date of Encounter: 04/11/18 Time of Encounter: 10:30 - Assessment and plan (1) Enterococcal bacteremia Current Visit: Yes Status: Acute Assessment and plan: Patient had Escherichia coli bacteremia in February 2018. 2 out of 2 blood cultures from April 08 grew ampicillin sensitive enterococcus faecalis; repeat blood cultures from April 09 so far negative. Infectious diseases on board. Continue IV ampicillin and discontinue vancomycin. Of note, patient has history of aortic valve replacement and pacemaker placement. Transthoracic echocardiogram shows preserved ejection fraction, mild diastolic dysfunction, moderate pulmonary hypertension, well-seated bioprosthetic aortic valve but leaflets were not well visualized due to suboptimal study; Patient will need transesophageal echocardiogram tomorrow. (2) Sepsis Current Visit: Yes Status: Acute Assessment and plan: Presented with mild leukocytosis, low-grade fever and tachypnea. Improving leukocytosis. Continue IV antibiotics and follow up final cultures. Qualifiers: Sepsis type: sepsis due to unspecified organism Qualified Code(s): A41.9 - Sepsis, unspecified organism (3) UTI (urinary tract infection) Current Visit: Yes Status: Resolved Qualifiers: Urinary tract infection type: site unspecified Hematuria presence: without hematuria Qualified Code(s): N39.0 - Urinary tract infection, site not specified (4) Aortic stenosis Current Visit: Yes Status: Chronic Assessment and plan: Status post TAVR; continue anticoagulation with Eliquis; Qualifiers: Cardiac valve disease etiology: etiology unspecified Qualified Code(s): I35.0 - Nonrheumatic aortic (valve) stenosis (5) COPD (chronic obstructive pulmonary disease) Current Visit: Yes Status: Chronic Assessment and plan: Not in acute exacerbation. Continue when necessary breathing treatments and supplemental oxygen. Qualifiers: COPD type: unspecified COPD Qualified Code(s): J44.9 - Chronic obstructive pulmonary disease, unspecified (6) CHF (congestive heart failure) Current Visit: Yes Status: Chronic Assessment and plan: Stable. No acute exacerbation Qualifiers: Heart failure type: diastolic Heart failure chronicity: chronic Qualified Code(s): I50.32 - Chronic diastolic (congestive) heart failure (7) Vulval candidiasis Current Visit: Yes Status: Acute Assessment and plan: Improving. Continue local nystatin powder. (8) DVT prophylaxis Current Visit: Yes Status: Acute - Time Spent With Patient Total time spent is greater than 50% in coordination of care (as documented) at patient's floor/unit and/or counseling patient: - Subjective Interval history: Patient feels better today; has some upper back pain, which does not bother her too much; no fever/chills, chest pain, dyspnea; - Constitutional Vitals: Temp Pulse Resp BP Pulse Ox 98.8 F 67 16 158/66 93 04/11/18 11:45 04/11/18 11:45 04/11/18 11:45 04/11/18 11:45 04/11/18 11:45 General appearance: Present: A&O X 3, morbidly obese, answers questions appropriately - Respiratory Respiratory exam: Present: CTAB. Absent: accessory muscle use, rales, rhonchi, wheezes - Cardiovascular Cardiovascular exam: Present: RRR, +S1, +S2. Absent: diastolic murmur, gallop, rubs, systolic murmur - GI/Abdominal GI/Abdominal exam: Present: normal bowel sounds, soft (obese), no peritoneal signs. Absent: distended, tenderness - Extremities Exam Extremities exam: Present: full ROM, pedal edema, warm, radial pulses palpable and symmetrical. Absent: calf tenderness, cyanotic - Neurological Exam Neurological exam: Present: CN II-XII intact, oriented X3, no focal deficits. Absent: pronater drift, facial droop, speech deficit Internal Medicine: Result - Labs CBC & Chem 7: 04/11/18 07:27 04/11/18 07:27 Labs: Short CBC 04/11/18 Range/Units 07:27 WBC 8.2 (4.3-11.1) K/mcL Hgb 10.8 L (11.5-15.4) g/dL Hct 36.2 (35.3-44.9) % Plt Count 255 (140-400) K/mcL Neutrophils # 5.4 (1.6-8.9) K/mcL BMP 04/11/18 07:27 Sodium 142 Potassium 4.0 Chloride 107 Carbon Dioxide 24 BUN 24 H Creatinine 0.70 Glucose 107 H Calcium 9.0 - Impressions Impressions Echocardiogram 04/09/18 07:57 Impressions: LVEF 60-65%. Normal LV chamber size, wall thickness and function. Mild left ventricular diastolic dysfunction. Normal right ventricular structure and function. Moderate pulmonary hypertension. Estimated RVSP 50 mmHg. Bioprosthetic aortic valve appears well seated. Leaflets were not well visualized. Normal function by Doppler. Image quality inadequate to evaluate for endocarditis. Consider OMER if clinically indicated. Left Ventricular Wall Motion: Rest Echo Findings All wall segments showed normal motion. Findings: Study Quality * Technically sub-optimal due to poor echocardiographic windows. ECG Findings * Normal sinus rhythm. Left Ventricle * LVEF 60-65%. * Normal LV chamber size, wall thickness and function. * Mild left ventricular diastolic dysfunction. * Atypical septal motion consistent with post-operative status. Right Ventricle * Normal right ventricular structure and function. Left Atrium * Moderately dilated left atrium. Right Atrium * Normal right atrial size. Aortic Valve * Bioprosthetic aortic valve appears well seated. Leaflets were not well visualized. Normal function by Doppler. * No aortic regurgitation. * No aortic stenosis. Mitral Valve * Mild mitral annular calcification. * No mitral regurgitation. * No mitral stenosis. Tricuspid Valve * Normal tricuspid valve structure and function. * Trace tricuspid regurgitation. * Moderate pulmonary hypertension. Estimated RVSP 50 mmHg. Pulmonic Valve * Pulmonic valve is not well visualized. * No pulmonic regurgitation. Aorta * Normally sized aortic root. Pericardium * The pericardium appears normal. IVC * Normal IVC dimensions and inspiratory collapse. Pulmonary Artery * Normal visualized portions of the main pulmonary artery. Consult Discharge Plan - Plan Referrals: Elvia Branham MD [Primary Care Provider] -
[2018-04-11] MEDS: Acetaminophen 325 MG TABLET PO PRN (22:24)
[2018-04-12] MEDS: Ampicillin 2 GM in 0.9 % Sodium Chloride Mini Bag 100 ML IVPB SCH ×6 (00:45→21:52)
[2018-04-12 04:55] LABS: Basophils % 0.4 %; Eosinophils # 0.2 K/mcL (0.0-0.6); Eosinophils % 2.3 %; Hematocrit 33.2 % (35.3-44.9); Hemoglobin 9.9 g/dL (11.5-15.4); Immature Granulocytes % 0.4 % (0-4); Lymphocytes # 1.9 K/mcL (0.6-4.6); Lymphocytes % 26.2 %; Mean Corpuscular HGB Conc 29.8 g/dL (31.6-35.5); Mean Corpuscular Hemoglobin 22.9 pg (28.0-33.3); Mean Corpuscular Volume 76.9 fL (83.0-100.0); Monocytes # 0.9 K/mcL (0.0-1.3); Monocytes % 12.5 %; Neutrophils # 4.3 K/mcL (1.6-8.9); Platelet Count 225 K/mcL (140-400); Red Blood Count 4.32 M/mcL (3.82-4.97); Red Cell Distribution Width 22.6 % (11.5-14.5); Segmented Neutrophils % 58.2 %
[2018-04-12 05:14] LABS: BUN/Creatinine Ratio 23 (6-26); Blood Urea Nitrogen 15 mg/dL (8-23); Calcium 8.8 mg/dL (8.6-10.3); Carbon Dioxide 29 mEq/L (23-29); Chloride 103 mEq/L (98-107); Glucose 98 mg/dL (70-105); Osmolality,Calculated 291 (280-300); Potassium 3.8 mEq/L (3.5-5.1); Sodium 140 mEq/L (136-145); eGFR For African Americans > 60 (> 60); eGFR For Non-African Americans > 60 (> 60)
[2018-04-12] MEDS: Budesonide/Formoterol 160/4.5 MDI IH SCH ×2 (08:02→19:27)
[2018-04-12] MEDS: Tiotropium 18 MCG inhalation IH SCH (08:03)
[2018-04-12] MEDS ORDERED: 0.9 % Sodium Chloride 500 ML IVC ONE (09:10)
[2018-04-12] MEDS ORDERED: Tetracaine/Benzocaine/Butamben 200MG/SPRAY (100SPY/BOT) MM ONE (09:10)
[2018-04-12] MEDS ORDERED: Lidocaine Viscous Oral Soln 15 ML SOLUTION MM PRN (10:03)
[2018-04-12] MEDS: *HR* Midazolam HCl 5 MG/5 ML VIAL IVP PRN ×3 (10:05→10:15)
[2018-04-12] MEDS: *HR* FentaNYL (PF) 100 MCG/2 ML VIAL IVP PRN ×2 (10:05→10:10)
[2018-04-12] MEDS: Apixaban 5 MG TABLET PO SCH ×2 (11:42→21:51)
[2018-04-12] MEDS: Aspirin Enteric Coated 81 MG Tablet PO SCH (11:42)
[2018-04-12] MEDS: Nystatin POWDER 30 GM BOTTLE TP SCH ×2 (11:43→21:52)
[2018-04-12] MEDS: FLUoxetine HCl Oral Soln 20 MG/5 ML UDC PO SCH (11:43)
[2018-04-12] MEDS: amLODIPine 5 MG TABLET PO SCH (11:43)
[2018-04-12] MEDS: Furosemide 20 MG TABLET PO SCH (11:43)
--- NOTE | 2018-04-12 13:26 | Discharge Summary ---
- NOTES TO OUTPATIENT PROVIDER Notes to Outpatient Provider: Enterococcus bacteremia, unclear source, now on IV Ampicillin for 4 weeks; needs weekly CBC, BMP and ID f/up; Orders not resulted at time of discharge: Pending orders 04/09/18 08:57 Culture,Blood [BC] Routine 04/13/18 04:00 Basic Metabolic Panel AM 0400 CBC [Complete Blood Count] [HEME] AM 0400 04/14/18 04:00 Basic Metabolic Panel AM 0400 CBC [Complete Blood Count] [HEME] AM 0400 04/15/18 04:00 Basic Metabolic Panel AM 0400 CBC [Complete Blood Count] [HEME] AM 0400 Date of Encounter: 04/12/18 Time of Encounter: 11:00 - Discharge Diagnosis (1) Enterococcal bacteremia Priority: Primary Status: Acute (2) Sepsis Priority: Primary Status: Acute Qualifiers: Sepsis type: sepsis due to unspecified organism Qualified Code(s): A41.9 - Sepsis, unspecified organism (3) UTI (urinary tract infection) Priority: Primary Status: Resolved Qualifiers: Urinary tract infection type: site unspecified Hematuria presence: without hematuria Qualified Code(s): N39.0 - Urinary tract infection, site not specified (4) Aortic stenosis Priority: Secondary Status: Chronic Qualifiers: Cardiac valve disease etiology: etiology unspecified Qualified Code(s): I35.0 - Nonrheumatic aortic (valve) stenosis (5) COPD (chronic obstructive pulmonary disease) Priority: Secondary Status: Chronic Qualifiers: COPD type: unspecified COPD Qualified Code(s): J44.9 - Chronic obstructive pulmonary disease, unspecified (6) CHF (congestive heart failure) Priority: Secondary Status: Chronic Qualifiers: Heart failure type: diastolic Heart failure chronicity: chronic Qualified Code(s): I50.32 - Chronic diastolic (congestive) heart failure Hospital course: Ms. Hyatt is a 72 year old female with the above medical problems, who was admitted with generalized weakness and fever/chills. She was noted to be septic with leukocytosis and tachypnea, low-grade fever. She was started on broad-spectrum IV antibiotics. 2 out of 2 initial blood cultures grew Enterococcus faecalis, ampicillin sensitive. Infectious diseases has been on board. Patient was initially treated with IV vancomycin and ampicillin, later ampicillin is being continued. Repeat blood cultures are negative. Urine cultures negative. Patient underwent transthoracic and transesophageal echocardiogram, showing no evidence of infectious endocarditis. She does have history of bioprosthetic aortic valve replacement. Patient is currently medically stable for discharge, she would need a total of 4 weeks of IV ampicillin for complicated enterococcus bacteremia due to presence of prosthetic aortic valve. Home health services are being set up for home IV infusion of antibiotics. Discharge discussed with: patient, case management, mainframe consultant - Time Spent with Patient Total time spent providing and/or coordinating discharge services: Greater than 30 minutes (45 min) - Discharge Medications Prescriptions: Ampicillin 2 gm IV Q4H 24 Days vial Nystatin POWDER [Nystop] 1 appl TP BID #1 bottle Home Medications: Albuterol Sulfate [Proair Respiclick] 2 puff IH Q4H PRN 10/04/16 [History] Fluticasone/Salmeterol [Advair 250-50 Diskus] 1 unit IH BID 10/04/16 [History] Loratadine [Allergy Relief] 10 mg PO DAILY 10/04/16 [History] Omeprazole 20 mg PO DAILY 10/04/16 [History] Oxygen 2 l IH HS 10/04/16 [History] Potassium Chloride [K-Tab ER] 20 meq PO BID 10/04/16 [History] Tiotropium [Spiriva] 18 mcg IH DAILY 10/04/16 [History] Vitamin E (Dl,Tocopheryl Acet) [Vitamin E] 400 unit PO DAILY 10/04/16 [History] Calcium Carbonate/Vitamin D3 [Calcium 500-Vit D3 200 Caplet] 1 each PO BID 11/16 [History] Cholecalciferol (Vitamin D3) [Vitamin D3] 1,000 unit PO DAILY 11/16/16 [History] Acetaminophen [Tylenol] 650 mg PO Q6H PRN tablet 03/20/18 [Rx] Apixaban [Eliquis] 5 mg PO BID tablet 03/20/18 [Rx] Aspirin 81 mg PO DAILY tab.chew 03/20/18 [Rx] Atorvastatin [Lipitor] 40 mg PO HS tablet 03/20/18 [Rx] Carvedilol [Coreg] 6.25 mg PO BID tablet 03/20/18 [Rx] FLUoxetine HCl [Prozac] 20 mg PO DAILY capsule 03/20/18 [Rx] Ferrous Sulfate 325 mg PO DAILY@0800 tablet 03/20/18 [Rx] Furosemide [Lasix] 20 mg PO DAILY tablet 03/20/18 [Rx] Ketorolac OPTH Soln [Acular] 1 drop RIGHT EYE TID bottle 03/20/18 [Rx] Lisinopril [Zestril] 10 mg PO DAILY tablet 03/20/18 [Rx] Magnesium Oxide [Mag-Ox] 400 mg PO BID tablet 03/20/18 [Rx] Moxifloxacin OPTH Drops [Vigamox] 1 drop RIGHT EYE TID bottle 03/20/18 [Rx] Multivit/Ca/Min/Fe/FA [Thera M Plus] 1 tab PO DAILY tablet 03/20/18 [Rx] PrednisoLONE Acetate 1% Opth [PredFORTE 1%] 1 drop RIGHT EYE TID bottle [Rx] amLODIPine [Norvasc] 10 mg PO DAILY tablet 03/20/18 [Rx] Ampicillin 2 gm IV Q4H 24 Days vial 04/12/18 [Rx] Nystatin POWDER [Nystop] 1 appl TP BID #1 bottle 04/12/18 [Rx] Allergies/Adverse Reactions: 3 Allergy/AdvReac Type Severity Reaction Status Date / Time fish oil Allergy Hives Verified 03/01/18 23:01 pseudoephedrine Allergy Hives Verified 03/01/18 23:01 [From [facility]] Date of admission: 04/08/18 22:32 Primary care physician: Elvia Branham Consults: 04/09/18 07:59 Consult to Infectious Diseases [CONS] Routine Consulting Provider: [facility] [place] Reason for Consult: enterococcus sepsis Call Completed: Yes Discharging clinician: Britany Billings Anticipated date of discharge: 04/12/18 - Constitutional Vitals: Temp Pulse Resp BP Pulse Ox 98.9 F 67 16 154/66 93 04/12/18 11:44 04/12/18 11:44 04/12/18 11:44 04/12/18 11:44 04/12/18 11:44 General appearance: Present: A&O X 3, morbidly obese, answers questions appropriately - Cardiovascular Cardiovascular exam: Present: RRR, +S1, +S2 (prosthetic). Absent: diastolic murmur, gallop, rubs, systolic murmur - Patient Status Disposition: Home Health Service Condition: Good Functional capacity at discharge: independent ambulation Overall status at discharge: patient is progressing back to baseline - Discharge Instructions Follow Up With: Elvia Branham MD [Primary Care Provider] - 04/24/18 10:00 am (Please follow up as schedule...) Additional Instructions: F/up with ID in 2 weeks - Diet and Activity Activity: resume usual activities as tolerated Diet: low fat, low cholesterol, low salt diet
--- NOTE | 2018-04-12 13:32 | Physician Discharge Referral ---
Home Health/Hosp Referral Info Transfer to: Home Health Attending Provider: Britany Billings Provider in Charge Post Discharge: PCP - Diagnosis (1) Enterococcal bacteremia Priority: Primary Status: Acute (2) Sepsis Priority: Primary Status: Acute (3) UTI (urinary tract infection) Priority: Primary Status: Resolved (4) Aortic stenosis Priority: Secondary Status: Chronic (5) COPD (chronic obstructive pulmonary disease) Priority: Secondary Status: Chronic (6) CHF (congestive heart failure) Priority: Secondary Status: Chronic - Respiratory Orders Smoking Cessation: Smoking cessation has been advised. For more information, call the [place] [employer] Quit Line at 7-822-HHUY-NOW. - Diet/Nutrition Diet/Nutrition Orders: Cardiac - Activity Activity Orders: Ambulate - Services Needed Following services are medically necessary services: Nursing, Home Infusion - Transfer Medications Prescriptions: Ampicillin 2 gm IV Q4H 24 Days vial Nystatin POWDER [Nystop] 1 appl TP BID #1 bottle Home Medications: Albuterol Sulfate [Proair Respiclick] 2 puff IH Q4H PRN 10/04/16 [History] Fluticasone/Salmeterol [Advair 250-50 Diskus] 1 unit IH BID 10/04/16 [History] Loratadine [Allergy Relief] 10 mg PO DAILY 10/04/16 [History] Omeprazole 20 mg PO DAILY 10/04/16 [History] Oxygen 2 l IH HS 10/04/16 [History] Potassium Chloride [K-Tab ER] 20 meq PO BID 10/04/16 [History] Tiotropium [Spiriva] 18 mcg IH DAILY 10/04/16 [History] Vitamin E (Dl,Tocopheryl Acet) [Vitamin E] 400 unit PO DAILY 10/04/16 [History] Calcium Carbonate/Vitamin D3 [Calcium 500-Vit D3 200 Caplet] 1 each PO BID 11/16 [History] Cholecalciferol (Vitamin D3) [Vitamin D3] 1,000 unit PO DAILY 11/16/16 [History] Acetaminophen [Tylenol] 650 mg PO Q6H PRN tablet 03/20/18 [Rx] Apixaban [Eliquis] 5 mg PO BID tablet 03/20/18 [Rx] Aspirin 81 mg PO DAILY tab.chew 03/20/18 [Rx] Atorvastatin [Lipitor] 40 mg PO HS tablet 03/20/18 [Rx] Carvedilol [Coreg] 6.25 mg PO BID tablet 03/20/18 [Rx] FLUoxetine HCl [Prozac] 20 mg PO DAILY capsule 03/20/18 [Rx] Ferrous Sulfate 325 mg PO DAILY@0800 tablet 03/20/18 [Rx] Furosemide [Lasix] 20 mg PO DAILY tablet 03/20/18 [Rx] Ketorolac OPTH Soln [Acular] 1 drop RIGHT EYE TID bottle 03/20/18 [Rx] Lisinopril [Zestril] 10 mg PO DAILY tablet 03/20/18 [Rx] Magnesium Oxide [Mag-Ox] 400 mg PO BID tablet 03/20/18 [Rx] Moxifloxacin OPTH Drops [Vigamox] 1 drop RIGHT EYE TID bottle 03/20/18 [Rx] Multivit/Ca/Min/Fe/FA [Thera M Plus] 1 tab PO DAILY tablet 03/20/18 [Rx] PrednisoLONE Acetate 1% Opth [PredFORTE 1%] 1 drop RIGHT EYE TID bottle [Rx] amLODIPine [Norvasc] 10 mg PO DAILY tablet 03/20/18 [Rx] Ampicillin 2 gm IV Q4H 24 Days vial 04/12/18 [Rx] Nystatin POWDER [Nystop] 1 appl TP BID #1 bottle 04/12/18 [Rx] Allergies/Adverse Reactions: 3 Allergy/AdvReac Type Severity Reaction Status Date / Time fish oil Allergy Hives Verified 03/01/18 23:01 pseudoephedrine Allergy Hives Verified 03/01/18 23:01 [From [facility]] Certification: Further, I certify that my clinical findings support that this patient is homebound (i.e. absences from home require considerable and taxing effort and are for medical reasons or holiness services or infrequently or short duration when for other reasons) because: Homebound Reason: Patient requires assistance of a person or device to safely leave home, Leaving home requires considerable and taxing effort due to condition Attestation: My signature below is to certify that this patient is under my care and that I, or nurse practitioner, or a physician's producer assistant working with me, has a face-to -face encounter with this patient.
--- NOTE | 2018-04-12 14:16 | Infectious Disease Progress No ---
Date of Encounter: 04/12/18 Time of Encounter: 14:14 - Assessment and Plan (1) Sepsis Current Visit: Yes Status: Acute The patient had two SIRS criteria on admission and the patient had fevers at home. Likely secondary to bacteremia. Improved. WBC normalized today. Afebrile since admission. Tachypnea resolved. Blood cultures drawn 04/08/18 are positive 2/2 sets for Enterococcus faecalis. Repeat blood cultures drawn 04/09/18 are NGTD x 2 sets. Qualifiers: Sepsis type: sepsis due to unspecified organism Qualified Code(s): A41.9 - Sepsis, unspecified organism (2) Enterococcal bacteremia Current Visit: Yes Status: Acute Causative organism: Enterococcus faecalis. Source unclear, but possible UTI. The patient had a flores while hospitalized at [facility] last month. Complicated. The patient has a prosthetic aortic valve, pacemaker, and left knee hardware. Blood cultures drawn 04/08/18 are positive 2/2 for Enterococcus faecalis, amp- sensitive. Repeat blood cultures drawn 04/09/18 are NGTD x 2 sets. No endocarditis stigmata noted on exam. The patient has one major and two minor Modified Lundberg's Criteria. TTE negative for vegetations, but poor quality. Will likely need a OMER prior to discharge. Rheumatoid factor <10. Blood cultures from April 09 no growth to date CT abdomen and pelvis with no acute abdominal/pelvic process or evidence of abdominal wall infection. OMER done on April 12 revealing no endocarditis Continue ampicillin 12 g daily for 4 weeks total Discussed with pharmacy and executive secretary social welfare. We need to do ampicillin continuous pump because every 4 hours dosing is not feasible CBC, BMP on April 16, april 30 Follow-up with ID clinic in 2-3 weeks (3) UTI (urinary tract infection) Current Visit: Yes Status: Resolved Urinalysis positive for pyuria, but appears contaminated. Causative organism unclear, urine culture interpreted as grossly mixed [id number]. Repeat urine culture obtained 04/09/18 is negative. Continue antibiotics as above. Qualifiers: Urinary tract infection type: site unspecified Hematuria presence: without hematuria Qualified Code(s): N39.0 - Urinary tract infection, site not specified (4) Weakness Current Visit: Yes Status: Acute Likely secondary to sepsis and bacteremia. Resolved. (5) Aortic stenosis Current Visit: Yes Status: Chronic Status post TAVR 05/2017 at [facility]. Qualifiers: Cardiac valve disease etiology: etiology unspecified Qualified Code(s): I35.0 - Nonrheumatic aortic (valve) stenosis (6) COPD (chronic obstructive pulmonary disease) Current Visit: Yes Status: Chronic Qualifiers: COPD type: unspecified COPD Qualified Code(s): J44.9 - Chronic obstructive pulmonary disease, unspecified (7) CHF (congestive heart failure) Current Visit: Yes Status: Chronic Qualifiers: Heart failure type: diastolic Heart failure chronicity: chronic Qualified Code(s): I50.32 - Chronic diastolic (congestive) heart failure (8) History of ESBL E. coli infection Current Visit: Yes Status: Acute Previous history of E. coli ESBL bacteremia in February 2018. Received 14 days of Ertapenem. Contact precautions per protocol. (9) Pacemaker Current Visit: Yes Status: Acute Status post pacemaker insertion 06/2017 at [facility] due to symptomatic bradycardia. No evidence of pacemaker pocket infection. - Subjective Interval history: Patient seen and examined. No acute events noted overnight. Patient sitting up in the chair. Denies fevers or chills or rigors. Denies chest pain, shortness of breath, or cough. Denies nausea, vomiting or diarrhea. States urinary frequency has resolved. Denies abdominal pain or appetite changes. Denies oral thrush or new skin lesions. This reviewed, OMER reviewed, labs reviewed I explained to the patient that this is the second infection she gets with an organism that usually lives in the colon. If she has recurrence of infection with an Enterobacteriaceae more extensive workup needs to be done. Patient seen and examined. Afebrile WBC 7.4 Creatinine 0.65 Infect Dis PN-Objective Data - Labs CBC & Chem 7: 04/12/18 04:30 04/12/18 04:30 Labs: Laboratory Results - last 24 hr 04/11/18 04/12/18 04/12/18 19:42 04:30 04:30 WBC 7.3 RBC 4.32 Hgb 9.9 L Hct 33.2 L MCV 76.9 L MCH 22.9 L MCHC 29.8 L RDW 22.6 H Plt Count 225 MPV 10.0 Immature Gran % 0.4 Seg Neutrophils % 58.2 Lymphocytes % 26.2 Monocytes % 12.5 Eosinophils % 2.3 Basophils % 0.4 Neutrophils # 4.3 Lymphocytes # 1.9 Monocytes # 0.9 Eosinophils # 0.2 Basophils # 0.0 Sodium 140 Potassium 3.8 Chloride 103 Carbon Dioxide 29 BUN 15 Creatinine 0.65 Est GFR ( Amer) > 60 Est GFR (Non-Af Amer) > 60 BUN/Creatinine Ratio 23 Glucose 98 Calculated Osmolality 291 Calcium 8.8 Vancomycin Trough 10 Cultures: Cultures 04/09/18 18:40 Urine Culture - Final Urine,Clean Catch No significant growth. 04/09/18 08:57 Blood Culture - Preliminary Peripheral Venipuncture Culture is incubating and being continuously monitored for growth. Final report to follow. 04/09/18 08:48 Blood Culture - Preliminary Peripheral Venipuncture Culture is incubating and being continuously monitored for growth. Final report to follow. - Impressions Impressions Abdomen/Pelvis CT 04/11/18 15:20 IMPRESSION: 1. No evidence of lung base pneumonia. 2. No acute abdominal/pelvic process or evidence of abdominal wall infection. D/ / 04/11/2018 16:34:37 Devonte Flores MD / [facility] Interpreting Provider: Devonte Flores MD Exam - Constitutional Vitals: Temp Pulse Resp BP Pulse Ox 98.9 F 67 16 154/66 93 04/12/18 11:44 04/12/18 11:44 04/12/18 11:44 04/12/18 11:44 04/12/18 11:44 General appearance: no acute distress, no febrile - Head Head exam: Present: atraumatic, normocephalic - Respiratory Respiratory exam: Present: CTAB. Absent: rhonchi, wheezes - Cardiovascular Cardiovascular exam: Present: RRR, +S1, +S2 - GI/Abdominal GI/Abdominal exam: Present: normal bowel sounds, soft. Absent: tenderness - Extremities Exam Extremities exam: Present: normal inspection, pedal edema Consult Discharge Plan - Plan Additional Instructions: F/up with ID in 2 weeks Referrals: Elvia Branham MD [Primary Care Provider] - 04/24/18 10:00 am (Please follow up as schedule...) Prescriptions: Ampicillin 2 gm IV Q4H 24 Days vial Nystatin POWDER [Nystop] 1 appl TP BID #1 bottle
[2018-04-13] MEDS: Ampicillin 2 GM in 0.9 % Sodium Chloride Mini Bag 100 ML IVPB SCH ×3 (01:15→09:49)
[2018-04-13 05:01] LABS: Basophils % 0.5 %; Eosinophils # 0.3 K/mcL (0.0-0.6); Eosinophils % 3.7 %; Hematocrit 33.7 % (35.3-44.9); Hemoglobin 9.9 g/dL (11.5-15.4); Immature Granulocytes % 0.3 % (0-4); Lymphocytes # 1.9 K/mcL (0.6-4.6); Lymphocytes % 25.6 %; Mean Corpuscular HGB Conc 29.4 g/dL (31.6-35.5); Mean Corpuscular Hemoglobin 22.2 pg (28.0-33.3); Mean Corpuscular Volume 75.6 fL (83.0-100.0); Mean Platelet Volume 10.2 fL (9.4-12.4); Monocytes # 0.7 K/mcL (0.0-1.3); Monocytes % 9.5 %; Neutrophils # 4.5 K/mcL (1.6-8.9); Platelet Count 237 K/mcL (140-400); Red Blood Count 4.46 M/mcL (3.82-4.97); Red Cell Distribution Width 23.2 % (11.5-14.5); Segmented Neutrophils % 60.4 %
[2018-04-13 05:18] LABS: Anisocytosis 2+ (Not Present); Microcytosis Present (Not Present); Platelet Estimate Normal (Normal)
[2018-04-13 05:46] LABS: BUN/Creatinine Ratio 26 (6-26); Blood Urea Nitrogen 16 mg/dL (8-23); Calcium 9.3 mg/dL (8.6-10.3); Carbon Dioxide 28 mEq/L (23-29); Chloride 104 mEq/L (98-107); Glucose 115 mg/dL (70-105); Osmolality,Calculated 292 (280-300); Potassium 3.9 mEq/L (3.5-5.1); Sodium 140 mEq/L (136-145); eGFR For African Americans > 60 (> 60); eGFR For Non-African Americans > 60 (> 60)
[2018-04-13] MEDS: Budesonide/Formoterol 160/4.5 MDI IH SCH (07:26)
[2018-04-13] MEDS: Tiotropium 18 MCG inhalation IH SCH (07:27)
[2018-04-13] MEDS: amLODIPine 5 MG TABLET PO SCH (09:49)
[2018-04-13] MEDS: Nystatin POWDER 30 GM BOTTLE TP SCH (09:49)
[2018-04-13] MEDS: Aspirin Enteric Coated 81 MG Tablet PO SCH (09:49)
[2018-04-13] MEDS: Apixaban 5 MG TABLET PO SCH (09:49)
[2018-04-13] MEDS: Furosemide 20 MG TABLET PO SCH (09:49)
[2018-04-13 11:25] VITALS: BP 152/67
--- NOTE | 2018-04-13 16:06 | Internal Med Progress Note ---
Date of Encounter: 04/13/18 Time of Encounter: 10:40 - Assessment and plan (1) Enterococcal bacteremia Status: Acute Assessment and plan: Patient had Escherichia coli bacteremia in February 2018. 2 out of 2 blood cultures from April 08 grew ampicillin sensitive enterococcus faecalis; repeat blood cultures from April 09 so far negative. No evidence of endocarditis on transthoracic and transesophageal echocardiogram. Infectious diseases has been on board, recommend IV ampicillin to complete a total of 4 weeks. New prescription has been written for continuous IV infusion of 12 g ampicillin daily. Discussed with case management, home health services have been set up and patient is ready for discharge today. (2) Sepsis Status: Acute Qualifiers: Sepsis type: sepsis due to unspecified organism Qualified Code(s): A41.9 - Sepsis, unspecified organism (3) UTI (urinary tract infection) Status: Resolved Qualifiers: Urinary tract infection type: site unspecified Hematuria presence: without hematuria Qualified Code(s): N39.0 - Urinary tract infection, site not specified (4) Aortic stenosis Status: Chronic Qualifiers: Cardiac valve disease etiology: etiology unspecified Qualified Code(s): I35.0 - Nonrheumatic aortic (valve) stenosis (5) COPD (chronic obstructive pulmonary disease) Status: Chronic Qualifiers: COPD type: unspecified COPD Qualified Code(s): J44.9 - Chronic obstructive pulmonary disease, unspecified (6) CHF (congestive heart failure) Status: Chronic Qualifiers: Heart failure type: diastolic Heart failure chronicity: chronic Qualified Code(s): I50.32 - Chronic diastolic (congestive) heart failure - Time Spent With Patient Total time spent is greater than 50% in coordination of care (as documented) at patient's floor/unit and/or counseling patient: - Subjective Interval history: Patient denies new complaints, eager to be discharged. Discharge has been held yesterday due to inability to set up home health services for home antibiotic infusion. No fever, chills, chest pain, shortness of breath. - Constitutional Vitals: Temp Pulse Resp BP Pulse Ox 98.3 F 73 16 152/67 92 04/13/18 11:24 04/13/18 11:24 04/13/18 11:24 04/13/18 11:24 04/13/18 11:24 General appearance: Present: A&O X 3, morbidly obese, answers questions appropriately - Respiratory Respiratory exam: Present: CTAB. Absent: accessory muscle use, rales, rhonchi, wheezes - Cardiovascular Cardiovascular exam: Present: RRR, +S1, +S2. Absent: diastolic murmur, gallop, rubs, systolic murmur Internal Medicine: Result - Labs CBC & Chem 7: 04/13/18 04:00 04/13/18 04:00 Labs: Short CBC 04/13/18 Range/Units 04:00 WBC 7.4 (4.3-11.1) K/mcL Hgb 9.9 L (11.5-15.4) g/dL Hct 33.7 L (35.3-44.9) % Plt Count 237 (140-400) K/mcL Neutrophils # 4.5 (1.6-8.9) K/mcL BMP 04/13/18 04:00 Sodium 140 Potassium 3.9 Chloride 104 Carbon Dioxide 28 BUN 16 Creatinine 0.62 Glucose 115 H Calcium 9.3 Consult Discharge Plan - Plan Instructions: Urinary Tract Infection in Women (DC) Additional Instructions: F/up with ID in 2 weeks Referrals: Elvia Branham MD [Primary Care Provider] - 04/24/18 10:00 am (Please follow up as schedule...) Estee Kay MD [Partnered Physician] - Prescriptions: Ampicillin 2 gm IV Q4H 24 Days vial Nystatin POWDER [Nystop] 1 appl TP BID #1 bottle
== END 2018-04-13 13:23 | disposition home health service (06) | DRG 872 ==
LOC: 2ANU 17:04 → EMEROO 17:04 → 2ANU 21:55 → SUATTDRO 22:32
PROVIDERS: ADMIT Internal Medicine; ATTEND Internal Medicine

== ENCOUNTER 2018-11-29 21:46 | Inpatient (IN) ==
[2018-11-29] MEDS ORDERED: Naloxone 0.4 MG/ML INJ IVP ONE (21:57)
[2018-11-29] MEDS ORDERED: 0.9 % Sodium Chloride 1,000 ML IVC ONE (21:57)
[2018-11-29 22:34] LABS: Bilirubin,Urine Small (Negative); Blood,Urine Negative (Negative); Clarity,Urine Clear (Clear); Color,Urine Yellow (Yellow); Glucose,Urine (UA) Normal (Normal); Ketones,Urine Negative (Negative); Leukocyte Esterase,Urine Negative (Negative); Nitrite,Urine Negative (Negative); Protein,Urine 100 mg/dL (Neg-Trace); Specific Gravity,Urine 1.012 (1.010-1.025); Urobilinogen,Urine Normal (Normal)
[2018-11-29 22:37] LABS: Bacteria,Urine None Seen per hpf (None-Few); Hyaline Casts,Urine Few per lpf (None-Few); RBC,Urine 0-3 per hpf (0-3); Squamous Epithelial Cell,Urine Moderate per lpf (None-Few); WBC,Urine 0-3 per hpf (0-3)
[2018-11-29 22:46] LABS: Basophils % 0.2 %; Eosinophils % 0.2 %; Hematocrit 35.6 % (35.3-44.9); Immature Granulocytes % 0.9 % (0-4); Lymphocytes # 0.9 K/mcL (0.6-4.6); Lymphocytes % 6.3 %; Mean Corpuscular HGB Conc 30.9 g/dL (31.6-35.5); Mean Corpuscular Hemoglobin 24.4 pg (28.0-33.3); Mean Corpuscular Volume 78.9 fL (83.0-100.0); Mean Platelet Volume 10.2 fL (9.4-12.4); Monocytes # 1.3 K/mcL (0.0-1.3); Monocytes % 9.3 %; Neutrophils # 11.2 K/mcL (1.6-8.9); Platelet Count 288 K/mcL (140-400); Red Blood Count 4.51 M/mcL (3.82-4.97); Red Cell Distribution Width 15.8 % (11.5-14.5); Segmented Neutrophils % 83.1 %
[2018-11-29 22:56] LABS: VBG HCO3 28 mEq/L (21-27); VBG PCO2 52 mmHg (41-51); VBG PH 7.34 pH Units (7.32-7.42); VBG PO2 55 mmHg (25-50)
[2018-11-29 23:08] LABS: Alanine Aminotransferase 25 Units/L (7-52); Albumin/Globulin Ratio 1.3 (1.1-2.2); Alkaline Phosphatase 89 Units/L (34-104); Aspartate Amino Transferase 24 Units/L (13-39); BUN/Creatinine Ratio 45 (6-26); Bilirubin,Direct 0.2 mg/dL (0.0-0.2); Bilirubin,Indirect 0.6 mg/dL (0.0-1.2); Bilirubin,Total 0.8 mg/dL (0.3-1.0); Blood Urea Nitrogen 51 mg/dL (8-23); Calcium 9.9 mg/dL (8.6-10.3); Carbon Dioxide 26 mEq/L (23-29); Chloride 98 mEq/L (98-107); Creatine Kinase 101 Units/L (30-223); Ethanol < 10 mg/dL (Less than 10); Globulin 3.2 g/dL (2.4-3.5); Glucose 109 mg/dL (70-105); Osmolality,Calculated 290 (280-300); Sodium 133 mEq/L (136-145); Total Protein 7.2 g/dL (6.4-8.9); eGFR For Non-African Americans 48 (> 60)
[2018-11-29 23:09] LABS: Troponin I < 0.03 ng/mL (< 0.04)
[2018-11-29 23:22] LABS: Thyroid Stimulating Hormone 0.318 mcIU/mL (0.340-5.600)
--- NOTE | 2018-11-29 23:23 | Emergency Department Note ---
Disposition Clinical Impression: Dehydration, Decreased GFR Altered mental status Qualifiers: Altered mental status type: unspecified Qualified Code(s): R41.82 - Altered mental status, unspecified Dyspnea Qualifiers: Dyspnea type: unspecified Qualified Code(s): R06.00 - Dyspnea, unspecified Left humeral fracture Qualifiers: Encounter type: subsequent encounter Humerus Location: surgical neck Fracture type: closed Fracture morphology: 2-part Fracture alignment: nondisplaced Fracture healing: with routine healing Qualified Code(s): S42.225D - 2-part nondisplaced fracture of surgical neck of left humerus, subsequent encounter for fracture with routine healing Disposition: Admitted As Inpatient Condition: Fair Time of Disposition: 01:24 General Adult HPI - General Chief complaint: ED General Medical Stated complaint: AMS Time Seen by Provider: 11/29/18 21:57 Source: EMS Mode of arrival: EMS Limitations: no limitations Nursing Notes Reviewed: Yes Vital Signs Reviewed: Yes - History of Present Illness HPI Narrative: Patient is a 72-year-old female past medical history of CHF, COPD, CAD, GERD, HLD, hypertension and aortic valve replacement with pacemaker/AICD presents to the emergency department for confusion. Patient lives at home with her son. She is recently seen in the emergency department this week and treated for a left humerus fracture. She was sent home with morphine sublingual. She has been taking this medication. Family states that she was limited as far as mobility around the house prior to fracturing her arm which occurred to mechanical fall. They state since a fall she is been staying in bed most of the time and does not get out of bed. He stated that she is also started to urinate in the bed and refuses any diabetic to use a bedside commode. States she is also been expressing some confusion as far as orientation. States she is like this in the past and was diagnosed with a urinary tract infection and found to be septic. States that they did not fill comfortable with her living at home at this time and thinks that is getting too difficult for them to take care of her and for her to take care of herself. Patient's only complaint is time is dyspnea. She did come in by squad in which they state that her oxygen saturation was around 88% on room air they placed on 2 L nasal cannula and this improved her saturation. Pain Scale: 0 - Related Data Home Medications Medication Instructions Recorded Confirmed Albuterol Sulfate [Proair 2 puff IH Q4H PRN 10/04/16 11/30/18 Respiclick] Fluticasone/Salmeterol [Advair 1 unit IH BID 10/04/16 11/30/18 250-50 Diskus] Omeprazole 20 mg PO DAILY 10/04/16 11/30/18 Oxygen 2 l IH HS 10/04/16 11/30/18 Potassium Chloride [K-Tab ER] 20 meq PO BID 10/04/16 11/30/18 Tiotropium [Spiriva] 18 mcg IH DAILY 10/04/16 11/30/18 Vitamin E (Dl,Tocopheryl Acet) 400 unit PO DAILY 10/04/16 11/30/18 [Vitamin E] Calcium Carbonate/Vitamin D3 1 each PO BID 11/16/16 11/30/18 [Calcium 500-Vit D3 200 [place]] Cholecalciferol (Vitamin D3) 1,000 unit PO DAILY 11/16/16 11/30/18 [Vitamin D3] Amiodarone [Cordarone] 200 mg PO DAILY 11/30/18 11/30/18 Furosemide [Lasix] 40 mg PO DAILY 11/30/18 11/30/18 Previous Rx's Medication Instructions Recorded Acetaminophen [Tylenol] 650 mg PO Q6H PRN tablet 03/20/18 Apixaban [Eliquis] 5 mg PO BID tablet 03/20/18 Aspirin 81 mg PO DAILY tab.chew 03/20/18 Carvedilol [Coreg] 6.25 mg PO BID tablet 03/20/18 FLUoxetine HCl [Prozac] 20 mg PO DAILY capsule 03/20/18 Magnesium Oxide [Mag-Ox] 400 mg PO BID tablet 03/20/18 Multivit/Ca/Min/Fe/FA [Thera M 1 tab PO DAILY tablet 03/20/18 Plus] Nystatin POWDER [Nystop] 1 appl TP BID #1 bottle 04/12/18 Allergies Allergy/AdvReac Type Severity Reaction Status Date / Time fish oil Allergy Hives Verified 11/29/18 22:11 pseudoephedrine Allergy Hives Verified 11/29/18 22:11 [From [facility]] All systems ED: reviewed and negative except as stated. Review of Systems: As Per HPI Constitutional: Denies: fever, chills Cardiovascular: Denies: chest pain, palpitations, dyspnea on exertion Respiratory: Reports: dyspnea Gastrointestinal: Denies: abdominal pain, nausea, vomiting Genitourinary: Reports: frequency. Denies: urgency, dysuria Musculoskeletal: Denies: back pain, neck pain Integumentary: Denies: rash Neurological: Denies: headache, weakness, numbness, paresthesias Past Medical History - Past Medical History Attestation: Yes The following information was validated with the patient. Medical history: Reports: arthritis, CHF, COPD, coronary artery disease, GERD, hyperlipidemia, hypertension, valvular heart disease, other Surgical history: Reports: heart valve replacement, hysterectomy, knee replacement, pacemaker/AICD Psychiatric history: Reports: no psych history BOTTOM T[employer]ING [employer] history: Reports: other - Social History Smoking Status: Former smoker Smokeless Tobacco Status: No Alcohol use: Reports: none Drug use: Reports: none Physical Exam - General Limitations: no limitations, other (AO x2. Not oriented to year.) General appearance: alert - Head Head exam: atraumatic, normocephalic, normal inspection - Eye Eye exam: Present: normal appearance, PERRL, EOMI - ENT ENT exam: normal exam, normal oropharynx, mucous membranes dry - Neck Neck exam: Present: normal inspection, full ROM, trachea midline - Chest Chest inspection: Present: normal inspection, symmetric chest wall rise - Respiratory Respiratory exam: Present: wheezes (Mild expiratory wheeze in the bases). Absent: respiratory distress, accessory muscle use, prolonged expiratory phase - Cardiovascular Cardiovascular exam: Present: regular rate, normal rhythm, normal heart sounds, +S1, +S2 - Abdominal Exam Abdominal exam: Present: soft, Non-Tender. Absent: tenderness, distention, guarding, rebound, rigidity - Extremities Exam Extremities exam: Present: full ROM, pedal edema (2+ pitting edema bilaterally). Absent: tenderness - Neurological Exam Neurological exam: Present: alert, other (Oriented 2) - Expanded Neurological Exam Patient oriented to: Present: person, place Speech: Present: fluid speech Cranial nerves: EOM function (II, III, IV, ): Normal, facial sensation (V): Normal, facial palsy (VII): Normal, gag reflex (IX): Normal, spinal accessory function (XI): Normal, tongue deviation (XII): Normal Cerebellar function: finger to nose: Normal, heel to garcia: Normal Motor strength - LUE: 5/5 Motor strength - RUE: 5/5 Motor strength - LLE: 5/5 Motor strength - RLE: 5/5 Sensory exam upper extremity: light touch: Normal Sensory exam lower extremity: light touch: Normal Coma Scale Eye Opening: Spontaneous Coma Scale Motor Response: Obeys Commands Coma Scale Verbal Response: Oriented Coma Scale Total: 15 - Psychiatric Psychiatric exam: Present: normal affect, normal mood - Skin Skin exam: Present: warm, dry, intact, normal color Course Course Narrative: Patient underwent evaluation for altered mental status which included a head CT, chest x-ray 0 as well as a urinalysis. Looking for source of infection. Also evaluated with labs for workup of altered mental status. She had no obvious source of infection. She did have a mild leukocytosis as well as an elevated be when and decrease in her GFR which is concerning for dehydration given her dry mucous membranes on exam. Initially fluid was held due to concerns of lower extremity edema patient's history of heart failure, however in the setting of these labs as well as her signs of dehydration she will be given a 500 ML bolus. Her imaging was unremarkable. I discussed the patient's case with hospitalist on-call and they agree to accept the patient for altered mental status and weakness. She is also given 4 g of morphine IV for pain control due to her left ear murmurs fracture. On evaluation her left upper extremity did have good pulses and sensation intact. Vital Signs Temperature 98.4 F 11/29/18 22:31 Pulse Rate 63 11/29/18 22:31 Respiratory Rate 16 11/29/18 22:31 Blood Pressure 144/50 11/29/18 22:31 O2 Sat by Pulse Oximetry 96 11/29/18 22:31 Temperature 99.0 F 11/30/18 03:05 Pulse Rate 65 11/30/18 03:05 Respiratory Rate 16 11/30/18 03:05 Blood Pressure 170/69 11/30/18 03:05 O2 Sat by Pulse Oximetry 96 11/30/18 03:05 Oxygen Delivery Oxygen Delivery Nasal Cannula Medical Decision Making - Medical Records Medical records reviewed: Yes I reviewed the patient's medical records. - Lab Data Lab results reviewed: Yes I reviewed the patient's lab results. Result diagrams: 11/29/18 21:57 11/29/18 21:57 Lab Results 11/29/18 11/29/18 11/29/18 Range/Units 21:57 21:57 22:24 WBC 13.5 H (4.3-11.1) K/mcL RBC 4.51 (3.82-4.97) M/mcL Hgb 11.0 L (11.5-15.4) g/dL Hct 35.6 (35.3-44.9) % MCV 78.9 L (83.0-100.0) fL MCH 24.4 L (28.0-33.3) pg MCHC 30.9 L (31.6-35.5) g/dL RDW 15.8 H (11.5-14.5) % Plt Count 288 (140-400) K/mcL MPV 10.2 (9.4-12.4) fL Immature Gran % 0.9 (0-4) % Seg Neutrophils % 83.1 % Lymphocytes % 6.3 % Monocytes % 9.3 % Eosinophils % 0.2 % Basophils % 0.2 % Neutrophils # 11.2 H (1.6-8.9) K/mcL Lymphocytes # 0.9 (0.6-4.6) K/mcL Monocytes # 1.3 (0.0-1.3) K/mcL Eosinophils # 0.0 (0.0-0.6) K/mcL Basophils # 0.0 (0.0-0.2) K/mcL VBG pH (7.32-7.42) pH Units VBG pCO2 (41-51) mmHg VBG pO2 (25-50) mmHg VBG HCO3 (21-27) mEq/L Sodium 133 L (136-145) mEq/L Potassium 5.0 (3.5-5.1) mEq/L Chloride 98 (98-107) mEq/L Carbon Dioxide 26 (23-29) mEq/L BUN 51 H (8-23) mg/dL Creatinine 1.13 (0.60-1.20) mg/dL Est GFR ( Amer) 58 L (> 60) Est GFR (Non-Af Amer) 48 L (> 60) BUN/Creatinine Ratio 45 H (6-26) Glucose 109 H (70-105) mg/dL Calculated Osmolality 290 (280-300) Lactic Acid (0.5-2.2) mmol/L Calcium 9.9 (8.6-10.3) mg/dL Total Bilirubin 0.8 (0.3-1.0) mg/dL Direct Bilirubin 0.2 (0.0-0.2) mg/dL Indirect Bilirubin 0.6 (0.0-1.2) mg/dL AST 24 (13-39) Units/L ALT 25 (7-52) Units/L Alkaline Phosphatase 89 (34-104) Units/L Creatine Kinase 101 (30-223) Units/L Troponin I < 0.03 (< 0.04) ng/mL B-Natriuretic Peptide (Less than 100) pg/mL Serum Total Protein 7.2 (6.4-8.9) g/dL Albumin 4.0 (3.5-5.7) g/dL Globulin 3.2 (2.4-3.5) g/dL Albumin/Globulin Ratio 1.3 (1.1-2.2) TSH 0.318 L (0.340-5.600) mcIU/mL Urine Color Yellow (Yellow) Urine Clarity Clear (Clear) Urine pH 6.0 (5.0-8.0) pH Units Ur Specific [place] 1.012 (1.010-1.025) Urine Protein 100 H (Neg-Trace) mg/dL Urine Glucose (UA) Normal (Normal) mg/dL Urine Ketones Negative (Negative) mg/dL Urine Blood Negative (Negative) Urine Nitrite Negative (Negative) Urine Bilirubin Small H (Negative) Urine Urobilinogen Normal (Normal) mg/dL Ur Leukocyte Esterase Negative (Negative) Urine Microscopic RBC 0-3 (0-3) per hpf Urine Microscopic WBC 0-3 (0-3) per hpf Ur Squamous Epith Cells Moderate H (None-Few) per lpf Urine Bacteria None Seen (None-Few) per hpf Hyaline Casts Few (None-Few) per lpf Ur Culture Indicated? NO (NO) Ethyl Alcohol < 10 (Less than 10) mg/dL 11/29/18 11/29/18 11/29/18 Range/Units 22:34 22:34 22:51 WBC (4.3-11.1) K/mcL RBC (3.82-4.97) M/mcL Hgb (11.5-15.4) g/dL Hct (35.3-44.9) % MCV (83.0-100.0) fL MCH (28.0-33.3) pg MCHC (31.6-35.5) g/dL RDW (11.5-14.5) % Plt Count (140-400) K/mcL MPV (9.4-12.4) fL Immature Gran % (0-4) % Seg Neutrophils % % Lymphocytes % % Monocytes % % Eosinophils % % Basophils % % Neutrophils # (1.6-8.9) K/mcL Lymphocytes # (0.6-4.6) K/mcL Monocytes # (0.0-1.3) K/mcL Eosinophils # (0.0-0.6) K/mcL Basophils # (0.0-0.2) K/mcL VBG pH 7.34 (7.32-7.42) pH Units VBG pCO2 52 H (41-51) mmHg VBG pO2 55 H (25-50) mmHg VBG HCO3 28 H (21-27) mEq/L Sodium (136-145) mEq/L Potassium (3.5-5.1) mEq/L Chloride (98-107) mEq/L Carbon Dioxide (23-29) mEq/L BUN (8-23) mg/dL Creatinine (0.60-1.20) mg/dL Est GFR ( Amer) (> 60) Est GFR (Non-Af Amer) (> 60) BUN/Creatinine Ratio (6-26) Glucose (70-105) mg/dL Calculated Osmolality (280-300) Lactic Acid 0.8 (0.5-2.2) mmol/L Calcium (8.6-10.3) mg/dL Total Bilirubin (0.3-1.0) mg/dL Direct Bilirubin (0.0-0.2) mg/dL Indirect Bilirubin (0.0-1.2) mg/dL AST (13-39) Units/L ALT (7-52) Units/L Alkaline Phosphatase (34-104) Units/L Creatine Kinase (30-223) Units/L Troponin I (< 0.04) ng/mL B-Natriuretic Peptide 144 H (Less than 100) pg/mL Serum Total Protein (6.4-8.9) g/dL Albumin (3.5-5.7) g/dL Globulin (2.4-3.5) g/dL Albumin/Globulin Ratio (1.1-2.2) TSH (0.340-5.600) mcIU/mL Urine Color (Yellow) Urine Clarity (Clear) Urine pH (5.0-8.0) pH Units Ur Specific [place] (1.010-1.025) Urine Protein (Neg-Trace) mg/dL Urine Glucose (UA) (Normal) mg/dL Urine Ketones (Negative) mg/dL Urine Blood (Negative) Urine Nitrite (Negative) Urine Bilirubin (Negative) Urine Urobilinogen (Normal) mg/dL Ur Leukocyte Esterase (Negative) Urine Microscopic RBC (0-3) per hpf Urine Microscopic WBC (0-3) per hpf Ur Squamous Epith Cells (None-Few) per lpf Urine Bacteria (None-Few) per hpf Hyaline Casts (None-Few) per lpf Ur Culture Indicated? (NO) Ethyl Alcohol (Less than 10) mg/dL - Radiology Data Radiology results reviewed: Yes I reviewed the patient's radiology results. Chest X-Ray 11/29/18 21:57 IMPRESSION: 1. Pulmonary edema versus artifact related to the portable technique. 2. Right basilar nodule versus artifact. Non emergent chest CT scan is recommended for further evaluation. D/ / Misael Manzanares MD / Misael Manzanares MD Interpreting Provider: Misael Manzanares MD Head CT 11/29/18 21:58 IMPRESSION: Detail limited due to artifact Multifocal white matter small vessel ischemic changes are again noted bilaterally with multiple prior infarcts No acute hemorrhage. There is multifocal cortical low density again noted. A few of these areas are not as well seen. Although this could represent sequela of artifact, multifocal ischemic change or sequela of hypertensive encephalopathy is a possibility. Correlate with MRI if clinically able. D/ / Anirudh Manriquez / Anirudh Manriquez Interpreting Provider: Anirudh Manriquez Chest CT 11/30/18 23:45 IMPRESSION: 1. No evidence for pneumonia or other acute process in the chest. 2. Coronary artery disease. 3. Diverticulosis without scan evidence for diverticulitis. 4. High attenuation in the gallbladder may represent sludge or tiny stones. There is no evidence for acute cholecystitis. D/ / Misael Manzanares MD / Misael Manzanares MD Interpreting Provider: Misael Manzanares MD Abdomen/Pelvis CT 11/30/18 23:57 IMPRESSION: 1. No evidence for pneumonia or other acute process in the chest. 2. Coronary artery disease. 3. Diverticulosis without scan evidence for diverticulitis. 4. High attenuation in the gallbladder may represent sludge or tiny stones. There is no evidence for acute cholecystitis. D/ / Misael Manzanares MD / Misael Manzanares MD Interpreting Provider: Misael Manzanares MD - EKG Data EKG #1 EKG attestation: Yes I reviewed and interpreted this EKG. EKG results narrative: EKG done at 22:16 shows paced rhythm at 61 bpm.
[2018-11-29] MEDS ORDERED: 0.9 % Sodium Chloride 500 ML IVC ONE (23:46)
[2018-11-30] MEDS ORDERED: *HR* Morphine 2 MG/ML SYRINGE IVP ONE (00:59)
--- NOTE | 2018-11-30 01:42 | Internal Med History&Physical ---
Date of Encounter: 11/30/18 Time of Encounter: 01:42 Internal Medicine - H&P: HPI Chief complaint: Altered mental status History of present illness: Ms. Hyatt is a 72 year old female with a past medical history of COPD on 2 L oxygen at night, dCHF, coronary artery disease status post PCI, hypertension and hyperlipidemia who presents to the ED with worsening confusion and altered mental status. During my assessment patient was a poor historian, alert oriented 2, able to follow commands but had difficulty providing a coherent history. Per ED records, patient was seen here in the ED on November 26 after suffering a fall and incurring a fracture of the left humeral neck. Patient was given morphine for pain and discharged home in the care of her family who states that since her fall she has been lying in bed, not eating or drinking with minimal ambulation. Per report, today she had multiple episodes in which she was incontinent of urine and has become progressively more weak and confused. On arrival patient was afebrile, normotensive saturating in the low 90s on 2 L nasal cannula. Labs are notable for a mild neutrophilic leukocytosis, slight elevation patient's baseline creatinine and an unremarkable UA. CT of the head and chest and abdomen were unremarkable. At this time, as there was no source of infection, it was presumed that patient's change in mentation may be dehydrated and was given 2 L of fluid boluses in the ED. Past Med Surg Social Fam HX - Past Medical History Medical history: arthritis, CHF, COPD, coronary artery disease, GERD, hyperlipidemia, hypertension, valvular heart disease, other Psychiatric history: no psych history - Past Surgical History Surgical History: heart valve replacement, hysterectomy, knee replacement, pacemaker/AICD - Social History Smoking Status: Former smoker Smokeless Tobacco Status: No Alcohol use: none Drug use: none - Family History Mother Living Status: Hx Family Cardiac Disorders: Yes (self, father,son) Hx Family Respiratory Disorders: Yes (self, sister) Hx Family Cancer: Yes (son,mother) Hx Family GI Disorders: No Hx Family Endocrine Disorder: Yes (grandmother) Hx Family Neuromuscular Disorders: No Hx Family Neurologic Disorders: Yes (son) Hx Family HEENT Disorders: No Hx Family Autoimmune Disorders: No Internal Medicine - H&P: Meds Albuterol Sulfate [Proair Respiclick] 2 puff IH Q4H PRN 10/04/16 [History] Fluticasone/Salmeterol [Advair 250-50 Diskus] 1 unit IH BID 10/04/16 [History] Omeprazole 20 mg PO DAILY 10/04/16 [History] Oxygen 2 l IH HS 10/04/16 [History] Potassium Chloride [K-Tab ER] 20 meq PO BID 10/04/16 [History] Tiotropium [Spiriva] 18 mcg IH DAILY 10/04/16 [History] Vitamin E (Dl,Tocopheryl Acet) [Vitamin E] 400 unit PO DAILY 10/04/16 [History] Calcium Carbonate/Vitamin D3 [Calcium 500-Vit D3 200 Caplet] 1 each PO BID 11/16/16 [History] Cholecalciferol (Vitamin D3) [Vitamin D3] 1,000 unit PO DAILY 11/16/16 [History] Acetaminophen [Tylenol] 650 mg PO Q6H PRN tablet 03/20/18 [Rx] Apixaban [Eliquis] 5 mg PO BID tablet 03/20/18 [Rx] Aspirin 81 mg PO DAILY tab.chew 03/20/18 [Rx] Carvedilol [Coreg] 6.25 mg PO BID tablet 03/20/18 [Rx] FLUoxetine HCl [Prozac] 20 mg PO DAILY capsule 03/20/18 [Rx] Magnesium Oxide [Mag-Ox] 400 mg PO BID tablet 03/20/18 [Rx] Multivit/Ca/Min/Fe/FA [Thera M Plus] 1 tab PO DAILY tablet 03/20/18 [Rx] Nystatin POWDER [Nystop] 1 appl TP BID #1 bottle 04/12/18 [Rx] Amiodarone [Cordarone] 200 mg PO DAILY 11/30/18 [History] Furosemide [Lasix] 40 mg PO DAILY 11/30/18 [History] Allergy/AdvReac Type Severity Reaction Status Date / Time fish oil Allergy Hives Verified 11/29/18 22:11 pseudoephedrine Allergy Hives Verified 11/29/18 22:11 [From [facility]] All Systems PM: A 10-system review of systems was performed and is negative for pertinent findings except as documented above in the HPI. - Constitutional Constitutional: no chills, no fever(s), no night sweats - EENT Eyes: no change in vision, no discharge, no pain, no photophobia Ears: no ear discharge, no ear pain, no tinnitus Nose, mouth and throat: no dysphagia, no nasal discharge, no neck pain, no sore throat - Cardiovascular Cardiovascular ROS IM: no chest pain, no diaphoresis, no dyspnea, no lightheadedness, no palpitations, no syncope - Respiratory Respiratory: no cough, no dyspnea, no wheezing, no excessive phlegm production - Gastrointestinal Gastrointestinal: no abdominal pain, no diarrhea, no hematemesis, no hematochezia, no melena, no nausea, no vomiting - Genitourinary Genitourinary: no change in urinary stream, no dysuria, no flank pain, no hematuria - Musculoskeletal Musculoskeletal ROS IM: no numbness, no tingling - Integumentary Integumentary IM: no rash, no unusual bruising - Neurological Neurological ROS: no confusion, no convulsions, no focal weakness, no numbness, no tingling, no tremor(s) - Hematologic/Lymphatic Hematologic/Lymphatic: no easy bruising - Constitutional Vitals: Temp Pulse Resp BP Pulse Ox 98.4 F 63 19 152/50 93 11/29/18 22:31 11/30/18 01:20 11/30/18 01:20 11/30/18 01:20 11/30/18 01:20 Exam: General: Alert and oriented 2 Skin:Normal color, no rash, no lesions. HEENT:EOM, pupils equal, round and reactive. Cardiovascular: Normal S1 & S2, 3/6 systolic murmur; no rubs, murmurs or gallops. No JVD. Pulse regular. Lungs:Normal breath sounds, no wheezes or crackles. Abdomen:Soft, non-tender, no rigidity. Extremities: Significant 3+ pitting edema of the feet with 1-2+ pitting edema to the midshin. Neurological: Patient able to follow commands. No focal deficits appreciated. Pupils equal reactive to light. Pulses:Carotid and radial pulses normal +2. Rest of the physical exam is non contributory Internal Med - H&P Results - Labs CBC & Chem 7: 11/30/18 04:22 11/30/18 04:22 Labs: Short CBC 11/29/18 Range/Units 21:57 WBC 13.5 H (4.3-11.1) K/mcL Hgb 11.0 L (11.5-15.4) g/dL Hct 35.6 (35.3-44.9) % Plt Count 288 (140-400) K/mcL Neutrophils # 11.2 H (1.6-8.9) K/mcL BMP 11/29/18 21:57 Sodium 133 L Potassium 5.0 Chloride 98 Carbon Dioxide 26 BUN 51 H Creatinine 1.13 Glucose 109 H Calcium 9.9 Cardiac Enzymes 11/29/18 Range/Units 21:57 Troponin I < 0.03 (< 0.04) ng/mL Liver Function 11/29/18 Range/Units 21:57 Total Bilirubin 0.8 (0.3-1.0) mg/dL Direct Bilirubin 0.2 (0.0-0.2) mg/dL AST 24 (13-39) Units/L ALT 25 (7-52) Units/L Alkaline Phosphatase 89 (34-104) Units/L Albumin 4.0 (3.5-5.7) g/dL Urine 11/29/18 Range/Units 22:24 Urine Color Yellow (Yellow) Urine Clarity Clear (Clear) Urine pH 6.0 (5.0-8.0) pH Units Ur Specific Pound 1.012 (1.010-1.025) Urine Protein 100 H (Neg-Trace) mg/dL Urine Glucose (UA) Normal (Normal) mg/dL - ABG Interpretation ABG results: 11/29/18 22:51 VBG pH 7.34 VBG pCO2 52 H VBG pO2 55 H VBG HCO3 28 H - Impressions ITS Impressions Chest X-Ray 11/29/18 21:57 IMPRESSION: 1. Pulmonary edema versus artifact related to the portable technique. 2. Right basilar nodule versus artifact. Non emergent chest CT scan is recommended for further evaluation. D/ / Misael Manzanares MD / Misael Manzanares MD Interpreting Provider: Misael Manzanares MD Head CT 11/29/18 21:58 IMPRESSION: Detail limited due to artifact Multifocal white matter small vessel ischemic changes are again noted bilaterally with multiple prior infarcts No acute hemorrhage. There is multifocal cortical low density again noted. A few of these areas are not as well seen. Although this could represent sequela of artifact, multifocal ischemic change or sequela of hypertensive encephalopathy is a possibility. Correlate with MRI if clinically able. D/ / Anirudh Manriquez / Anirudh Manriquez Interpreting Provider: Anirudh Manriquez Chest CT 11/30/18 23:45 IMPRESSION: 1. No evidence for pneumonia or other acute process in the chest. 2. Coronary artery disease. 3. Diverticulosis without scan evidence for diverticulitis. 4. High attenuation in the gallbladder may represent sludge or tiny stones. There is no evidence for acute cholecystitis. D/ / Misael Manzanares MD / Misael Manzanares MD Interpreting Provider: Misael Manzanares MD Abdomen/Pelvis CT 11/30/18 23:57 IMPRESSION: 1. No evidence for pneumonia or other acute process in the chest. 2. Coronary artery disease. 3. Diverticulosis without scan evidence for diverticulitis. 4. High attenuation in the gallbladder may represent sludge or tiny stones. There is no evidence for acute cholecystitis. D/ / Misael Manzanares MD / Misael Manzanares MD Interpreting Provider: Misael Manzanares MD - Assessment and plan (1) Altered mental status Current Visit: Yes Status: Acute Assessment and plan: 9-year-old female with multiple comorbidities presents with worsening mentation over the past 2-3 days since suffering a mechanical fall resulting in fracture of the left humerus. Patient has been on morphine for pain management since. She has a mild neutrophilic leukocytosis without any clear source of infection. Patient is on eliquis however, the scan of the head, chest and abdomen reveals no acute abnormalities. She does have evidence of mild hyperthyroidism and is on amiodarone, however, this appears to be chronic. She does have significant lower extremity edema and her O2 requirements seem to be increasing slightly and I am concerned for possible mild CHF exacerbation despite reports of dehydration. No focal neurological deficits were appreciated on my assessment. At this time I suspect this may be more toxic/metabolic encephalopathy secondary to morphine use and treatment of her fracture. -Hold morphine for now -We will obtain ammonia level, ABG, free T4 and T3; we will obtain a amiodarone level (consider holding amiodarone) -Continue with O2 support -Follow-up blood cultures and monitor for signs of infection -Echocardiogram - patient does have a 3/6 systolic murmur. Review of medical records show that she does have a bioprosthetic aortic valve replacement due to previous history of significant aortic stenosis. -Consider MRI Qualifiers: Altered mental status type: unspecified Qualified Code(s): R41.82 - Altered mental status, unspecified (2) Left humeral fracture Current Visit: Yes Status: Acute Assessment and plan: Left humeral neck fracture status post fall on November 26. -Patient currently denies any pain. Consider alternative pain regimen to opioids. Qualifiers: Encounter type: subsequent encounter Humerus Location: surgical neck Fracture type: closed Fracture morphology: 2-part Fracture alignment: nondisplaced Fracture healing: with routine healing Qualified Code(s): S42.225D - 2-part nondisplaced fracture of surgical neck of left humerus, subsequent encounter for fracture with routine healing (3) CHF (congestive heart failure) Current Visit: No Status: Chronic Assessment and plan: History of heart failure with preserved ejection fraction. Patient does seem to be mildly hypoxemic in the setting of significant lower extremity edema involving both feet and up to the the mid shins. Her last echocardiogram was obtained in March of last year which showed mild systolic dysfunction and an EF of 50-65%. We will obtain a repeat echocardiogram -Strict I's and O's; daily weights -Reevaluate need for Lasix Qualifiers: Heart failure type: diastolic Heart failure chronicity: chronic Qualified Code(s): I50.32 - Chronic diastolic (congestive) heart failure (4) COPD (chronic obstructive pulmonary disease) Current Visit: No Status: Chronic Assessment and plan: History of COPD on 2 L nasal cannula at night. No significant evidence of COPD exacerbation. Patient does seem to be requiring more oxygen. We will schedule DuoNeb treatments for now. Qualifiers: COPD type: unspecified COPD Qualified Code(s): J44.9 - Chronic obstructive pulmonary disease, unspecified (5) Coronary artery disease Current Visit: Yes Status: Acute Assessment and plan: Continue with medical management. Qualifiers: Associated angina: without angina Qualified Code(s): I25.10 - Atherosc lerotic heart disease of [place] coronary artery without angina pectoris (6) DVT prophylaxis Current Visit: No Status: Acute Assessment and plan: Patient currently on Eliquis - Time Spent With Patient Total time spent is greater than 50% in coordination of care (as documented) at patient's floor/unit and/or counseling patient:
[2018-11-30] MEDS ORDERED: Naloxone 0.4 MG/ML INJ IVP PRN (01:43)
--- NOTE | 2018-11-30 01:53 | Emergency Department Note ---
Disposition Clinical Impression: Dehydration, Decreased GFR Altered mental status Qualifiers: Altered mental status type: unspecified Qualified Code(s): R41.82 - Altered mental status, unspecified Dyspnea Qualifiers: Dyspnea type: unspecified Qualified Code(s): R06.00 - Dyspnea, unspecified Left humeral fracture Qualifiers: Encounter type: subsequent encounter Humerus Location: surgical neck Fracture type: closed Fracture morphology: 2-part Fracture alignment: nondisplaced Fracture healing: with routine healing Qualified Code(s): S42.225D - 2-part nondisplaced fracture of surgical neck of left humerus, subsequent encounter for fracture with routine healing Disposition: Admitted As Inpatient Condition: Fair Referrals: Elvia Branham MD [Primary Care Provider] - General Adult HPI - General Chief complaint: ED General Medical Stated complaint: AMS Time Seen by Provider: 11/29/18 21:57 Source: EMS Mode of arrival: EMS Limitations: no limitations Nursing Notes Reviewed: Yes Vital Signs Reviewed: Yes - History of Present Illness Pain Scale: 0 - Related Data Home Medications Medication Instructions Recorded Confirmed Albuterol Sulfate [Proair 2 puff IH Q4H PRN 10/04/16 04/09/18 Respiclick] Fluticasone/Salmeterol [Advair 1 unit IH BID 10/04/16 04/09/18 250-50 Diskus] Loratadine [Allergy Relief] 10 mg PO DAILY 10/04/16 04/09/18 Omeprazole 20 mg PO DAILY 10/04/16 04/09/18 Oxygen 2 l IH HS 10/04/16 04/09/18 Potassium Chloride [K-Tab ER] 20 meq PO BID 10/04/16 04/09/18 Tiotropium [Spiriva] 18 mcg IH DAILY 10/04/16 04/09/18 Vitamin E (Dl,Tocopheryl Acet) 400 unit PO DAILY 10/04/16 04/09/18 [Vitamin E] Calcium Carbonate/Vitamin D3 1 each PO BID 11/16/16 04/09/18 [Calcium 500-Vit D3 200 Caplet] Cholecalciferol (Vitamin D3) 1,000 unit PO DAILY 11/16/16 04/09/18 [Vitamin D3] Previous Rx's Medication Instructions Recorded Acetaminophen [Tylenol] 650 mg PO Q6H PRN tablet 03/20/18 Apixaban [Eliquis] 5 mg PO BID tablet 03/20/18 Aspirin 81 mg PO DAILY tab.chew 03/20/18 Atorvastatin [Lipitor] 40 mg PO HS tablet 03/20/18 Carvedilol [Coreg] 6.25 mg PO BID tablet 03/20/18 FLUoxetine HCl [Prozac] 20 mg PO DAILY capsule 03/20/18 Ferrous Sulfate 325 mg PO DAILY@0800 tablet 03/20/18 Furosemide [Lasix] 20 mg PO DAILY tablet 03/20/18 Ketorolac OPTH Soln [Acular] 1 drop RIGHT EYE TID bottle 03/20/18 Lisinopril [Zestril] 10 mg PO DAILY tablet 03/20/18 Magnesium Oxide [Mag-Ox] 400 mg PO BID tablet 03/20/18 Moxifloxacin OPTH Drops [Vigamox] 1 drop RIGHT EYE TID bottle 03/20/18 Multivit/Ca/Min/Fe/FA [Thera M 1 tab PO DAILY tablet 03/20/18 Plus] PrednisoLONE Acetate 1% Opth 1 drop RIGHT EYE TID bottle 03/20/18 [PredFORTE 1%] amLODIPine [Norvasc] 10 mg PO DAILY tablet 03/20/18 Ampicillin 2 gm IV Q4H 24 Days vial 04/12/18 Nystatin POWDER [Nystop] 1 appl TP BID #1 bottle 04/12/18 Allergies Allergy/AdvReac Type Severity Reaction Status Date / Time fish oil Allergy Hives Verified 11/29/18 22:11 pseudoephedrine Allergy Hives Verified 11/29/18 22:11 [From [facility]] Past Medical History - Past Medical History Medical history: Reports: arthritis, CHF, COPD, coronary artery disease, GERD, hyperlipidemia, hypertension, valvular heart disease, other Surgical history: Reports: heart valve replacement, hysterectomy, knee replacement, pacemaker/AICD Psychiatric history: Reports: no psych history ST[employer]OCIATE history: Reports: other - Social History Smoking Status: Former smoker Smokeless Tobacco Status: No Alcohol use: Reports: none Drug use: Reports: none Physical Exam - General Limitations: no limitations General appearance: alert Course Vital Signs Temperature 98.4 F 11/29/18 22:31 Pulse Rate 63 11/29/18 22:31 Respiratory Rate 16 11/29/18 22:31 Blood Pressure 144/50 11/29/18 22:31 O2 Sat by Pulse Oximetry 96 11/29/18 22:31 Temperature 98.4 F 11/29/18 22:31 Pulse Rate 63 11/30/18 01:20 Respiratory Rate 19 11/30/18 01:20 Blood Pressure 152/50 11/30/18 01:20 O2 Sat by Pulse Oximetry 93 11/30/18 01:20 Oxygen Delivery Oxygen Delivery Nasal Cannula Medical Decision Making - Medical Records Medical records reviewed: Yes I reviewed the patient's medical records. - Lab Data Lab results reviewed: Yes I reviewed the patient's lab results. Result diagrams: 11/29/18 21:57 11/29/18 21:57 Lab Results 11/29/18 11/29/18 11/29/18 Range/Units 21:57 21:57 22:24 WBC 13.5 H (4.3-11.1) K/mcL RBC 4.51 (3.82-4.97) M/mcL Hgb 11.0 L (11.5-15.4) g/dL Hct 35.6 (35.3-44.9) % MCV 78.9 L (83.0-100.0) fL MCH 24.4 L (28.0-33.3) pg MCHC 30.9 L (31.6-35.5) g/dL RDW 15.8 H (11.5-14.5) % Plt Count 288 (140-400) K/mcL MPV 10.2 (9.4-12.4) fL Immature Gran % 0.9 (0-4) % Seg Neutrophils % 83.1 % Lymphocytes % 6.3 % Monocytes % 9.3 % Eosinophils % 0.2 % Basophils % 0.2 % Neutrophils # 11.2 H (1.6-8.9) K/mcL Lymphocytes # 0.9 (0.6-4.6) K/mcL Monocytes # 1.3 (0.0-1.3) K/mcL Eosinophils # 0.0 (0.0-0.6) K/mcL Basophils # 0.0 (0.0-0.2) K/mcL VBG pH (7.32-7.42) pH Units VBG pCO2 (41-51) mmHg VBG pO2 (25-50) mmHg VBG HCO3 (21-27) mEq/L Sodium 133 L (136-145) mEq/L Potassium 5.0 (3.5-5.1) mEq/L Chloride 98 (98-107) mEq/L Carbon Dioxide 26 (23-29) mEq/L BUN 51 H (8-23) mg/dL Creatinine 1.13 (0.60-1.20) mg/dL Est GFR ( Amer) 58 L (> 60) Est GFR (Non-Af Amer) 48 L (> 60) BUN/Creatinine Ratio 45 H (6-26) Glucose 109 H (70-105) mg/dL Calculated Osmolality 290 (280-300) Lactic Acid (0.5-2.2) mmol/L Calcium 9.9 (8.6-10.3) mg/dL Total Bilirubin 0.8 (0.3-1.0) mg/dL Direct Bilirubin 0.2 (0.0-0.2) mg/dL Indirect Bilirubin 0.6 (0.0-1.2) mg/dL AST 24 (13-39) Units/L ALT 25 (7-52) Units/L Alkaline Phosphatase 89 (34-104) Units/L Creatine Kinase 101 (30-223) Units/L Troponin I < 0.03 (< 0.04) ng/mL B-Natriuretic Peptide (Less than 100) pg/mL Serum Total Protein 7.2 (6.4-8.9) g/dL Albumin 4.0 (3.5-5.7) g/dL Globulin 3.2 (2.4-3.5) g/dL Albumin/Globulin Ratio 1.3 (1.1-2.2) TSH 0.318 L (0.340-5.600) mcIU/mL Urine Color Yellow (Yellow) Urine Clarity Clear (Clear) Urine pH 6.0 (5.0-8.0) pH Units Ur Specific [place] Heart 1.012 (1.010-1.025) Urine Protein 100 H (Neg-Trace) mg/dL Urine Glucose (UA) Normal (Normal) mg/dL Urine Ketones Negative (Negative) mg/dL Urine Blood Negative (Negative) Urine Nitrite Negative (Negative) Urine Bilirubin Small H (Negative) Urine Urobilinogen Normal (Normal) mg/dL Ur Leukocyte Esterase Negative (Negative) Urine Microscopic RBC 0-3 (0-3) per hpf Urine Microscopic WBC 0-3 (0-3) per hpf Ur Squamous Epith Cells Moderate H (None-Few) per lpf Urine Bacteria None Seen (None-Few) per hpf Hyaline Casts Few (None-Few) per lpf Ur Culture Indicated? NO (NO) Ethyl Alcohol < 10 (Less than 10) mg/dL 11/29/18 11/29/18 11/29/18 Range/Units 22:34 22:34 22:51 WBC (4.3-11.1) K/mcL RBC (3.82-4.97) M/mcL Hgb (11.5-15.4) g/dL Hct (35.3-44.9) % MCV (83.0-100.0) fL MCH (28.0-33.3) pg MCHC (31.6-35.5) g/dL RDW (11.5-14.5) % Plt Count (140-400) K/mcL MPV (9.4-12.4) fL Immature Gran % (0-4) % Seg Neutrophils % % Lymphocytes % % Monocytes % % Eosinophils % % Basophils % % Neutrophils # (1.6-8.9) K/mcL Lymphocytes # (0.6-4.6) K/mcL Monocytes # (0.0-1.3) K/mcL Eosinophils # (0.0-0.6) K/mcL Basophils # (0.0-0.2) K/mcL VBG pH 7.34 (7.32-7.42) pH Units VBG pCO2 52 H (41-51) mmHg VBG pO2 55 H (25-50) mmHg VBG HCO3 28 H (21-27) mEq/L Sodium (136-145) mEq/L Potassium (3.5-5.1) mEq/L Chloride (98-107) mEq/L Carbon Dioxide (23-29) mEq/L BUN (8-23) mg/dL Creatinine (0.60-1.20) mg/dL Est GFR ( Amer) (> 60) Est GFR (Non-Af Amer) (> 60) BUN/Creatinine Ratio (6-26) Glucose (70-105) mg/dL Calculated Osmolality (280-300) Lactic Acid 0.8 (0.5-2.2) mmol/L Calcium (8.6-10.3) mg/dL Total Bilirubin (0.3-1.0) mg/dL Direct Bilirubin (0.0-0.2) mg/dL Indirect Bilirubin (0.0-1.2) mg/dL AST (13-39) Units/L ALT (7-52) Units/L Alkaline Phosphatase (34-104) Units/L Creatine Kinase (30-223) Units/L Troponin I (< 0.04) ng/mL B-Natriuretic Peptide 144 H (Less than 100) pg/mL Serum Total Protein (6.4-8.9) g/dL Albumin (3.5-5.7) g/dL Globulin (2.4-3.5) g/dL Albumin/Globulin Ratio (1.1-2.2) TSH (0.340-5.600) mcIU/mL Urine Color (Yellow) Urine Clarity (Clear) Urine pH (5.0-8.0) pH Units Ur Specific [place] Heart (1.010-1.025) Urine Protein (Neg-Trace) mg/dL Urine Glucose (UA) (Normal) mg/dL Urine Ketones (Negative) mg/dL Urine Blood (Negative) Urine Nitrite (Negative) Urine Bilirubin (Negative) Urine Urobilinogen (Normal) mg/dL Ur Leukocyte Esterase (Negative) Urine Microscopic RBC (0-3) per hpf Urine Microscopic WBC (0-3) per hpf Ur Squamous Epith Cells (None-Few) per lpf Urine Bacteria (None-Few) per hpf Hyaline Casts (None-Few) per lpf Ur Culture Indicated? (NO) Ethyl Alcohol (Less than 10) mg/dL - Radiology Data Radiology results reviewed: Yes I reviewed the patient's radiology results. Chest X-Ray 11/29/18 21:57 IMPRESSION: 1. Pulmonary edema versus artifact related to the portable technique. 2. Right basilar nodule versus artifact. Non emergent chest CT scan is recommended for further evaluation. D/ / Misael Manzanares MD / Misael Manzanares MD Interpreting Provider: Misael Manzanares MD Head CT 11/29/18 21:58 IMPRESSION: Detail limited due to artifact Multifocal white matter small vessel ischemic changes are again noted bilaterally with multiple prior infarcts No acute hemorrhage. There is multifocal cortical low density again noted. A few of these areas are not as well seen. Although this could represent sequela of artifact, multifocal ischemic change or sequela of hypertensive encephalopathy is a possibility. Correlate with MRI if clinically able. D/ / Anirudh Manriquez / Anirudh Manriquez Interpreting Provider: Anirudh Manriquez Chest CT 11/30/18 23:45 IMPRESSION: 1. No evidence for pneumonia or other acute process in the chest. 2. Coronary artery disease. 3. Diverticulosis without scan evidence for diverticulitis. 4. High attenuation in the gallbladder may represent sludge or tiny stones. There is no evidence for acute cholecystitis. D/ / Misael Manzanares MD / Misael Manzanares MD Interpreting Provider: Misael Manzanares MD Abdomen/Pelvis CT 11/30/18 23:57 IMPRESSION: 1. No evidence for pneumonia or other acute process in the chest. 2. Coronary artery disease. 3. Diverticulosis without scan evidence for diverticulitis. 4. High attenuation in the gallbladder may represent sludge or tiny stones. There is no evidence for acute cholecystitis. D/ / Misael Manzanares MD / Misael Manzanares MD Interpreting Provider: Misael Manzanares MD - EKG Data EKG #1 EKG attestation: Yes I reviewed and interpreted this EKG. EKG results narrative: EKG shows an electronic atrial ventricular pacemaker with a totally paced rhythm. Ventricular rate 61. Attestation Statement - Attestation Attestation: I, Ky Ram MD, personally evaluated this patient and discussed their management with the resident physician. I reviewed the resident's note and agree with the documented findings, medical decision making, and plan of care. 72-year-old female presents to the emergency department for altered mental status. Patient was seen here about 3 days ago after she had a fall and had a fracture of the left humeral neck. She was given some morphine to take for pain. Since the fall family reports that she has just been lying in bed and not eating or drinking much and not getting around. Today she was incontinent of urine multiple times and has become progressively more weak and confused and less alert. On examination patient is a well-developed obese elderly female in no acute distress. She does respond to verbal stimuli. No cyanosis or diaphoresis. Mucous membranes are very dry. Breath sounds are equal bilaterally. Heart regular. Abdomen soft with normal bowel sounds. No obvious tenderness. 2+ pitting edema of the lower extremities bilaterally. EKG shows a totally paced rhythm at a rate of 61. Labs and imaging reviewed. No obvious infection. Patient does appear dehydrated. The hospitalist, Dr. Segal, was consulted and accepted admission of the patient.
[2018-11-30 04:42] LABS: Basophils % 0.2 %; Eosinophils % 0.2 %; Hematocrit 30.6 % (35.3-44.9); Hemoglobin 9.7 g/dL (11.5-15.4); Immature Granulocytes % 0.6 % (0-4); Lymphocytes # 0.9 K/mcL (0.6-4.6); Lymphocytes % 7.2 %; Mean Corpuscular HGB Conc 31.7 g/dL (31.6-35.5); Mean Corpuscular Hemoglobin 24.7 pg (28.0-33.3); Mean Corpuscular Volume 78.1 fL (83.0-100.0); Mean Platelet Volume 9.9 fL (9.4-12.4); Monocytes # 1.4 K/mcL (0.0-1.3); Monocytes % 11.4 %; Neutrophils # 10.1 K/mcL (1.6-8.9); Nucleated Red Blood Cells 0.2 /100 WBC (0); Platelet Count 263 K/mcL (140-400); Red Blood Count 3.92 M/mcL (3.82-4.97); Red Cell Distribution Width 15.9 % (11.5-14.5); Segmented Neutrophils % 80.4 %
[2018-11-30 04:48] LABS: ABG Base Excess 2 mEq/L (-2 to 3); ABG HCO3 27 mEq/L (21-27); ABG Oxygen Saturation 92 % (95-98); ABG PCO2 43 mmHg (35-45); ABG PH 7.41 pH Units (7.32-7.45); ABG PO2 63 mmHg (85-104); ABG TCO2 29 mEq/L (20-26)
[2018-11-30 04:50] LABS: INR 1.7; Prothrombin Time 19.3 Seconds (9.4-12.1)
[2018-11-30 04:58] LABS: Alanine Aminotransferase 23 Units/L (7-52); Albumin 3.5 g/dL (3.5-5.7); Albumin/Globulin Ratio 1.2 (1.1-2.2); Alkaline Phosphatase 78 Units/L (34-104); Aspartate Amino Transferase 22 Units/L (13-39); BUN/Creatinine Ratio 52 (6-26); Bilirubin,Total 0.7 mg/dL (0.3-1.0); Blood Urea Nitrogen 48 mg/dL (8-23); Calcium 9.4 mg/dL (8.6-10.3); Carbon Dioxide 25 mEq/L (23-29); Chloride 98 mEq/L (98-107); Globulin 2.9 g/dL (2.4-3.5); Glucose 99 mg/dL (70-105); Magnesium 2.1 mg/dL (1.6-2.6); Osmolality,Calculated 297 (280-300); Phosphorous 3.7 mg/dL (2.7-4.5); Potassium 4.4 mEq/L (3.5-5.1); Sodium 137 mEq/L (136-145); Total Protein 6.4 g/dL (6.4-8.9); eGFR For Non-African Americans > 60 (> 60)
[2018-11-30 05:12] LABS: Triiodothyronine (T3) Free 3.22 pg/mL (2.50-3.90)
[2018-11-30] MEDS: Nystatin POWDER 30 GM BOTTLE TP SCH ×2 (10:06→19:44)
[2018-11-30] MEDS: Furosemide 20 MG TABLET PO SCH (10:07)
[2018-11-30] MEDS: Apixaban 5 MG TABLET PO SCH ×2 (10:07→19:43)
[2018-11-30] MEDS: *HR* Amiodarone 200 MG TABLET PO SCH (10:07)
[2018-11-30] MEDS: Aspirin 81 MG TAB.CHEW PO SCH (10:07)
--- NOTE | 2018-11-30 10:31 | Internal Med Progress Note ---
<Ceferino Benavidez - Last Filed: 11/30/18 10:28> Date of Encounter: 11/30/18 Time of Encounter: 09:00 - Assessment and plan (1) Altered mental status Current Visit: Yes Status: Acute Assessment and plan: Mild neutrophilic leukocytosis without any clear source of infection. UA was normal. CT of the chest shows no evidence of pneumonia. Patient is on eliquis however, the scan of the head, chest and abdomen reveals no acute abnormalities. Initial assessment reveale AMS secondary to dehydration however patient does present with signs of mild acute CHF exacerbation. AMS likely secondary to toxic/metabolic encephalopathy secondary to morphine use and treatment of her fracture. Patient continues to be altered. Ammonia level is within normal limits. TSH is low but free T3 is normal and free T4 appears to be in the lower limit of the high range (2.08). No electrolyte abnormalities noted to contribute to current mental status .She is A & O x1 today. - Pain appears to be controlled. Continue ti hold morphine. - Continue with oxygen support. - Follow up blood cultures and monitor for signs of infection. - Bedside swallow evaluation. - Fall precautions. Qualifiers: Altered mental status type: unspecified Qualified Code(s): R41.82 - Altered mental status, unspecified (2) Acute CHF (congestive heart failure) Current Visit: Yes Status: Acute Assessment and plan: CXR showed some pulmonary edema. CT of the chest showed no signs of PNA. She does present with b/l pitting edema of the lower extremities. She had a bioprosthetic aortic valve replacement due to previous history of significant aortic stenosis. Last echo was on 04/09/18. and showed an EF 60-65% with Mild left ventricular diastolic dysfunction and Moderate pulmonary hypertension. I of 500 and O of 1350 (balance of -850 ml). - Follow-up with new echocardiogram. -Strict I's and O's; daily weights - Continue lasix 40 mg PO. - Potassium chloride pills were stopped. Potassium currently at 4.4. Continue to monitor for now. If her potassium drops due to the Lasix resume her home medication of potassium chloride pills. Qualifiers: Heart failure type: unspecified Qualified Code(s): I50.9 - Heart failure, unspecified (3) Essential hypertension Current Visit: No Status: Chronic Assessment and plan: BP uncontrolled at 170/72. SBP range of 144-170. - Increase carvedilol from 6.25 BID to 12.5 BID. (4) Peripheral edema Current Visit: Yes Status: Acute Assessment and plan: Secondary to actue CHF. - Start amlodipine 5 mg PO qd. (5) Coronary artery disease Current Visit: Yes Status: Acute Assessment and plan: LHC done on 11/16/16: Lesion Findings/Interventions * Left Main Coronary Artery The LMCA is angiographically free of disease. * Left Anterior Descending There is a 30% stenosis in the Proximal LAD. The lesion has a ANNELIESE flow of 3. * Circumflex There is a 30% stenosis in the Proximal Circumflex. The lesion has a ANNELIESE flow of 3. There is a 40% stenosis in the 1st Marginal. The lesion has a ANNELIESE flow of 3. * Right Coronary Artery The RCA has a high origin take off. There is a 70-80% stenosis in the Ostial RCA. The lesion has a ANNELIESE flow of 3. *Coronary arteries are calcified. - Continue ASA, carvedilol. - Start atorvastatin. Has history of hyperlipidema. Qualifiers: Associated angina: without angina Qualified Code(s): I25.10 - Atherosclerotic heart disease of [place] coronary artery without angina pectoris (6) Left humeral fracture Current Visit: Yes Status: Acute Assessment and plan: patient was seen here in the ED on November 26 after suffering a fall and incurring a fracture of the left humeral neck. Patient was given morphine for pain and discharged home in the care of her family. - Pain controlled for now. - Continue to hold morphine due to possible cause of AMS. - Fall precautions. Qualifiers: Encounter type: subsequent encounter Humerus Location: surgical neck Fracture type: closed Fracture morphology: 2-part Fracture alignment: nondisplaced Fracture healing: with routine healing Qualified Code(s): S42.225D - 2-part nondisplaced fracture of surgical neck of left humerus, subsequent encounter for fracture with routine healing (7) COPD (chronic obstructive pulmonary disease) Current Visit: No Status: Chronic Assessment and plan: Controlled. - Continue albuterol when necessary. - Continue scheduled duo nebs. Qualifiers: COPD type: unspecified COPD Qualified Code(s): J44.9 - Chronic obstructive pulmonary disease, unspecified (8) DVT prophylaxis Current Visit: No Status: Acute Assessment and plan: On Eliquis. - Subjective Interval history: When seen today patient was still altered. She was a and O 1. Patient kept repeating that she sees people here. She denies any fever, nausea, or vomiting. Denies any abdominal pain. She does admit to some left lower extremity pain that is mild. - Constitutional Vitals: Temp Pulse Resp BP Pulse Ox 99.1 F 73 16 170/72 93 11/30/18 07:04 11/30/18 07:04 11/30/18 07:04 11/30/18 07:04 11/30/18 07:04 General appearance: Present: A&O X 1, morbidly obese, answers questions appropriately (Was able to partially answer questions correctly.) - Respiratory Respiratory exam: Present: CTAB, respiratory distress (Mild). Absent: accessory muscle use, rales, rhonchi, wheezes - Cardiovascular Cardiovascular exam: Present: RRR, +S1, +S2, systolic murmur (Grade 3). Absent: +S3, +S4, tachycardia - GI/Abdominal GI/Abdominal exam: Present: normal bowel sounds, soft, no peritoneal signs. Absent: distended, guarding, tenderness - Extremities Exam Extremities exam: Present: normal capillary refill, pedal edema (+2 bilateral pitting edema in the lower extremities), warm, radial pulses palpable and symmetrical. Absent: calf tenderness, cyanotic, tenderness - Neurological Exam Neurological exam: Absent: oriented X3 - Skin Skin exam: Present: dry, intact Internal Medicine: Result - Labs CBC & Chem 7: 11/30/18 04:22 11/30/18 04:22 Labs: Short CBC 11/29/18 11/30/18 Range/Units 21:57 04:22 WBC 13.5 H 12.6 H (4.3-11.1) K/mcL Hgb 11.0 L 9.7 L (11.5-15.4) g/dL Hct 35.6 30.6 L (35.3-44.9) % Plt Count 288 263 (140-400) K/mcL Neutrophils # 11.2 H 10.1 H (1.6-8.9) K/mcL BMP 11/29/18 11/30/18 21:57 04:22 Sodium 133 L 137 Potassium 5.0 4.4 Chloride 98 98 Carbon Dioxide 26 25 BUN 51 H 48 H Creatinine 1.13 0.92 Glucose 109 H 99 Calcium 9.9 9.4 Cardiac Enzymes 11/29/18 Range/Units 21:57 Troponin I < 0.03 (< 0.04) ng/mL Liver Function 11/29/18 11/30/18 Range/Units 21:57 04:22 Total Bilirubin 0.8 0.7 (0.3-1.0) mg/dL Direct Bilirubin 0.2 (0.0-0.2) mg/dL AST 24 22 (13-39) Units/L ALT 25 23 (7-52) Units/L Alkaline Phosphatase 89 78 (34-104) Units/L Albumin 4.0 3.5 (3.5-5.7) g/dL Urine 11/29/18 Range/Units 22:24 Urine Color Yellow (Yellow) Urine Clarity Clear (Clear) Urine pH 6.0 (5.0-8.0) pH Units Ur Specific [place] 1.012 (1.010-1.025) Urine Protein 100 H (Neg-Trace) mg/dL Urine Glucose (UA) Normal (Normal) mg/dL - ABG Interpretation ABG results: ABG ABG pH 7.41 pH Units (7.32-7.45) 11/30/18 04:45 ABG pCO2 43 mmHg (35-45) 11/30/18 04:45 ABG pO2 63 mmHg (85-104) L 11/30/18 04:45 ABG O2 Saturation 92 % (95-98) L 11/30/18 04:45 PT/INR, D-dimer PT 19.3 Seconds (9.4-12.1) H 11/30/18 04:22 - Impressions Impressions Chest X-Ray 11/29/18 21:57 IMPRESSION: 1. Pulmonary edema versus artifact related to the portable technique. 2. Right basilar nodule versus artifact. Non emergent chest CT scan is recommended for further evaluation. D/ / Misael Manzanares MD / Misael Manzanares MD Interpreting Provider: Misael Manzanares MD Head CT 11/29/18 21:58 IMPRESSION: Detail limited due to artifact Multifocal white matter small vessel ischemic changes are again noted bilaterally with multiple prior infarcts No acute hemorrhage. There is multifocal cortical low density again noted. A few of these areas are not as well seen. Although this could represent sequela of artifact, multifocal ischemic change or sequela of hypertensive encephalopathy is a possibility. Correlate with MRI if clinically able. D/ / Anirudh Manriquez / Anirudh Manriquez Interpreting Provider: Anirudh Manriquez Chest CT 11/30/18 23:45 IMPRESSION: 1. No evidence for pneumonia or other acute process in the chest. 2. Coronary artery disease. 3. Diverticulosis without scan evidence for diverticulitis. 4. High attenuation in the gallbladder may represent sludge or tiny stones. There is no evidence for acute cholecystitis. D/ / Misael Manzanares MD / Misael Manzanarse MD Interpreting Provider: Misael Manzanares MD Abdomen/Pelvis CT 11/30/18 23:57 IMPRESSION: 1. No evidence for pneumonia or other acute process in the chest. 2. Coronary artery disease. 3. Diverticulosis without scan evidence for diverticulitis. 4. High attenuation in the gallbladder may represent sludge or tiny stones. There is no evidence for acute cholecystitis. D/ / Misael Manzanares MD / Misael Manzanarse MD Interpreting Provider: Misael Manzanares MD Consult Discharge Plan - Plan Referrals: Elvia Branham MD [Primary Care Provider] - <Ailyn Bailey - Last Filed: 11/30/18 14:28> Date of Encounter: 11/30/18 - Constitutional Vitals: Temp Pulse Resp BP Pulse Ox 99.2 F 72 17 161/65 95 11/30/18 11:10 11/30/18 11:10 11/30/18 11:27 11/30/18 11:10 11/30/18 11:27 Internal Medicine: Result - Labs CBC & Chem 7: 11/30/18 04:22 11/30/18 04:22 Labs: Short CBC 11/29/18 11/30/18 Range/Units 21:57 04:22 WBC 13.5 H 12.6 H (4.3-11.1) K/mcL Hgb 11.0 L 9.7 L (11.5-15.4) g/dL Hct 35.6 30.6 L (35.3-44.9) % Plt Count 288 263 (140-400) K/mcL Neutrophils # 11.2 H 10.1 H (1.6-8.9) K/mcL BMP 11/29/18 11/30/18 21:57 04:22 Sodium 133 L 137 Potassium 5.0 4.4 Chloride 98 98 Carbon Dioxide 26 25 BUN 51 H 48 H Creatinine 1.13 0.92 Glucose 109 H 99 Calcium 9.9 9.4 Cardiac Enzymes 11/29/18 Range/Units 21:57 Troponin I < 0.03 (< 0.04) ng/mL Liver Function 11/29/18 11/30/18 Range/Units 21:57 04:22 Total Bilirubin 0.8 0.7 (0.3-1.0) mg/dL Direct Bilirubin 0.2 (0.0-0.2) mg/dL AST 24 22 (13-39) Units/L ALT 25 23 (7-52) Units/L Alkaline Phosphatase 89 78 (34-104) Units/L Albumin 4.0 3.5 (3.5-5.7) g/dL Urine 11/29/18 Range/Units 22:24 Urine Color Yellow (Yellow) Urine Clarity Clear (Clear) Urine pH 6.0 (5.0-8.0) pH Units Ur Specific [place] 1.012 (1.010-1.025) Urine Protein 100 H (Neg-Trace) mg/dL Urine Glucose (UA) Normal (Normal) mg/dL - ABG Interpretation ABG results: ABG ABG pH 7.41 pH Units (7.32-7.45) 11/30/18 04:45 ABG pCO2 43 mmHg (35-45) 11/30/18 04:45 ABG pO2 63 mmHg (85-104) L 11/30/18 04:45 ABG O2 Saturation 92 % (95-98) L 11/30/18 04:45 PT/INR, D-dimer PT 19.3 Seconds (9.4-12.1) H 11/30/18 04:22 - Impressions Impressions Chest X-Ray 11/29/18 21:57 IMPRESSION: 1. Pulmonary edema versus artifact related to the portable technique. 2. Right basilar nodule versus artifact. Non emergent chest CT scan is recommended for further evaluation. D/ / Misael Manzanares MD / Misael Manzanares MD Interpreting Provider: Misael Manzanares MD Head CT 11/29/18 21:58 IMPRESSION: Detail limited due to artifact Multifocal white matter small vessel ischemic changes are again noted bilaterally with multiple prior infarcts No acute hemorrhage. There is multifocal cortical low density again noted. A few of these areas are not as well seen. Although this could represent sequela of artifact, multifocal ischemic change or sequela of hypertensive encephalopathy is a possibility. Correlate with MRI if clinically able. D/ / Anirudh Manriquez / Anirudh Manriquez Interpreting Provider: Anirudh Manriquez Chest CT 11/30/18 23:45 IMPRESSION: 1. No evidence for pneumonia or other acute process in the chest. 2. Coronary artery disease. 3. Diverticulosis without scan evidence for diverticulitis. 4. High attenuation in the gallbladder may represent sludge or tiny stones. There is no evidence for acute cholecystitis. D/ / Misael Manzanares MD / Misael Manzanares MD Interpreting Provider: Misael Manzanares MD Abdomen/Pelvis CT 11/30/18 23:57 IMPRESSION: 1. No evidence for pneumonia or other acute process in the chest. 2. Coronary artery disease. 3. Diverticulosis without scan evidence for diverticulitis. 4. High attenuation in the gallbladder may represent sludge or tiny stones. There is no evidence for acute cholecystitis. D/ / Misael Manzanares MD / Misael Manzanares MD Interpreting Provider: Misale Manzanares MD - Attending Attestation I examined this patient and my medical decision-making was reviewed with the Resident Physician Dr. Benavidez. I agree with the documented findings, disposition and treatment plan as described except to the extent set forth below. Ms. Hyatt is a 72 year old female with a past medical history of COPD on 2 L oxygen at night, dCHF, coronary artery disease status post PCI, hypertension and hyperlipidemia who presents to the ED with worsening confusion and altered mental status. Apparently pt a had fall at home on 11/26/18 and developed Left humeral neck fracture. She was sent home on PO Morphine for pain. Now she pt was more sleepy and lethargic mostly due to narcotic induced. Now she is litle more alert, awake, however still looks confused. Gen A, A, O to self Chest: Diminished BS B/l, no crackles, no rales Heart: S1S2+ RRR No murmurs a/p 1. Acute bacteremia 4/ positive for G+Ve cocci unclear etiology started her on empirical abx Vancomycin Consulted ID repeat blood cx in AM check ESR and CRP UA- benign CXR - no acute infiltrates Echo - P 2. Left humerus neck fracture reviewed her Shoulder X ray from 11/26/[address] Chacho Chauhan placed in the ER 3. Acute toxic encephaloapthy her encephalopathy probably due to narcotic induced too avoid narcotics as much as we can 4. Paroxysmal Afib rate controlled with Amiodarone and Coreg on Eliquis for anti coag
[2018-11-30] MEDS: Ipratropium/Albuterol Neb 3 ML IH SCH ×3 (11:26→22:40)
[2018-11-30 12:55] LABS: Chol/HDL Ratio 5.9 (0-4.9)
[2018-11-30] MEDS: amLODIPine 5 MG TABLET PO SCH (13:06)
[2018-11-30 14:42] LABS: Acinetobacter baumannii by PCR Not Detected (Not Detect); Candida albicans by PCR Not Detected (Not Detect); Candida glabrata by PCR Not Detected (Not Detect); Candida krusei by PCR Not Detected (Not Detect); Candida parapsilosis by PCR Not Detected (Not Detect); Candida tropicalis by PCR Not Detected (Not Detect); Enterobacter cloacae Cmplx PCR Not Detected (Not Detect); Enterobacteriaceae by PCR Not Detected (Not Detect); Enterococcus by PCR Not Detected (Not Detect); Escherichia coli by PCR Not Detected (Not Detect); Klebsiella oxytoca by PCR Not Detected (Not Detect); Klebsiella pneumoniae by PCR Not Detected (Not Detect); Proteus by PCR Not Detected (Not Detect); Pseudomonas aeruginosa by PCR Not Detected (Not Detect); Serratia marcescens by PCR Not Detected (Not Detect); Staphylococcus aureus by PCR Not Detected (Not Detect); Staphylococcus by PCR Not Detected (Not Detect); Streptococcus agalactiae(B)PCR Not Detected (Not Detect); Streptococcus by PCR DETECTED (Not Detect); Streptococcus pneumoniae PCR Not Detected (Not Detect); Streptococcus pyogenes (A) PCR Not Detected (Not Detect)
--- NOTE | 2018-11-30 14:46 | Infectious Disease Consult ---
Date of Encounter: 11/30/18 Time of Encounter: 14:42 Assessment and Plan (1) Leukocytosis Status: Acute Assessment and plan: The patient's white blood cell count was elevated at 13,000 on admission. Likely secondary to bacteremia. Improved. Trending down. Blood cultures drawn 11/29/18 are +2 out of 2 sets for gram-positive cocci, strep species per the PCR. Recommendations: Await final identification and sensitivities on the blood cultures. Repeat blood cultures 2 sets. Source of bacteremia remains unclear. CT of the chest, abdomen, and pelvis are nonrevealing for infectious etiology. The patient does have a prosthetic heart valve and total knee replacement which makes this complicated. Urinalysis was negative. Recommend TTE to evaluate. May need to consider OMER prior to discharge if no source of bacteremia is identified. Continue Vancomycin IV. Pharmacy to dose. Goal trough ~15. Start Rocephin 2 g IV daily. Duration of treatment depends on the clinical picture. Monitor renal function and is just antibiotics. Qualifiers: Leukocytosis type: unspecified Qualified Code(s): D72.829 - Elevated white blood cell count, unspecified (2) Bacteremia Status: Acute Assessment and plan: Causative organism: Strep species per the PCR. Blood cultures drawn 11/29/18 are +2 out of 2 sets. Source: Unclear. CT of the chest, abdomen, and pelvis were negative for acute infectious etiology. Urinalysis was negative for pyuria. No endocarditis stigmata noted on exam. The patient has one major and one minor Modified Lundberg's criteria. Currently on IV vancomycin. (3) Altered mental status Status: Acute Assessment and plan: Likely secondary to bacteremia. CT of the head negative for acute abnormality. No meningeal signs noted on exam and patient's ROS not reliable. Consider LP. Monitor closely. Qualifiers: Altered mental status type: unspecified Qualified Code(s): R41.82 - Altered mental status, unspecified (4) Weakness Status: Acute (5) Closed fracture of left proximal humerus Status: Acute Assessment and plan: Status post fall last week. Recommend orthotic to evaluate. Qualifiers: Encounter type: initial encounter Fracture morphology: unspecified fracture morphology Qualified Code(s): S42.202A - Unspecified fracture of upper end of left humerus, initial encounter for closed fracture (6) CHF (congestive heart failure) Status: Chronic Qualifiers: Heart failure type: diastolic Heart failure chronicity: chronic Qualified Code(s): I50.32 - Chronic diastolic (congestive) heart failure (7) Pacemaker Status: Acute (8) COPD (chronic obstructive pulmonary disease) Status: Chronic Qualifiers: COPD type: unspecified COPD Qualified Code(s): J44.9 - Chronic obstructive pulmonary disease, unspecified Infectious Disease HPI - Data of Consult Patient: known to practice within the last 3 years Consult date: 11/30/18 Requesting Physician: María Elena Segal MD Primary Care Provider: Elvia Branham - Consult Narrative Reason for consult: Bacteremia History of present illness: Ms. Hyatt is a 72 year old female with a past medical history CHF, COPD, CAD, GERD, hyperlipidemia, hypertension, status post aortic valve replacement with pacemaker/AICD and total knee replacement. The patient was admitted to the hospital 11/29/18 for altered mental status and left humeral fracture. We are consulted for further workup and recommendations regarding bacteremia. Briefly, the patient is a 73-year-old female, known to the ID services were consulted on her case back in March 2018 at which time she had enterococcal bacteremia with unclear source. We treated her with a 4 week course of IV ampicillin and the patient improved. Her OMER at that time with nonrevealing for endocarditis. Apparently, the patient was seen in the emergency department last week after she fell at home and sustained a left humeral fracture. She was given sublingual morphine and since then has had increasing lethargy and has not been getting out of bed and has had urinary incontinence. Upon arrival, the patient was afebrile hemodynamically stable. She had leukocytosis with neutrophilic predominance. Renal function LFTs were within normal limits. Troponin was negative. Urinalysis was negative. Chest x-ray showed findings consistent with pulmonary edema versus artifact in the right base nodule versus artifact as well. CT of the head, chest, abdomen, and pelvis were negative for acute abnormality. Blood cultures obtained in the emergency department are +2 out of 2 sets for gram-positive cocci. The PCR has picked a strep species, but not GAS, GBS, or S. pneumoniae. Currently, the patient is on IV vancomycin. We have been asked to evaluate and make further recommendations. During my exam today, the patient is unable to provide me with ROS information, so most information is obtained from the medical record. Per her son, she fell on Monday after tripping trying to get to the bathroom. Since she was placed on PO morphine, she has had progressively worsening letharygy and weakness to the point she was unable to get out of bed to use the bathroom. No fevers, chills, or rigors. No chest pain, shortness of breath, or cough. No congestion, earache or sore throat. Per the patient, she does have pain in the LUE and lower back. She first denies neck pain, but then later states she does have neck pain. She denies dizziness, but states she feels very tired. Her family denies nausea, vomiting, or diarrhea. Denies abdominal pain or urinary frequency/dysuria. States her appetite has not been very good for the last several days. Denies open sore, rashes, or lesions. Denies oral thrush or mouth sores. The patient lives at home with her son. She denies tobacco, alcohol, or illicit drug use. Denies recent travel or animal exposure. Denies chronic infectious diseases. CC: María Elena Segal MD Past Med Surg Social Fam HX - Past Medical History Attestation: Yes The following information was validated with the patient. Source: patient, old records reviewed, obtained from family, nursing notes reviewed Medical history: arthritis, CHF, COPD, coronary artery disease, GERD, hyperlipidemia, hypertension, valvular heart disease, other Psychiatric history: no psych history - Past Surgical History Surgical History: heart valve replacement, hysterectomy, knee replacement, pacemaker/AICD - Social History Smoking Status: Former smoker Smokeless Tobacco Status: No Alcohol use: none Drug use: none Occupational status: retired Current living situation: Home, With Family Activity Level: Uses cane/walker Recent Out of Country Travel Within the Last 8 Weeks: No Exposure or Possible Exposure to Illness During Travel: No - Family History Mother Living Status: Hx Family Cardiac Disorders: Yes (self, father,son) Hx Family Respiratory Disorders: Yes (self, sister) Hx Family Cancer: Yes (son,mother) Hx Family GI Disorders: No Hx Family Endocrine Disorder: Yes (grandmother) Hx Family Neuromuscular Disorders: No Hx Family Neurologic Disorders: Yes (son) Hx Family HEENT Disorders: No Hx Family Autoimmune Disorders: No Infectious Disease-CN:Meds Albuterol Sulfate [Proair Respiclick] 2 puff IH Q4H PRN 10/04/16 [History] Fluticasone/Salmeterol [Advair 250-50 Diskus] 1 unit IH BID 10/04/16 [History] Omeprazole 20 mg PO DAILY 10/04/16 [History] Oxygen 2 l IH HS 10/04/16 [History] Potassium Chloride [K-Tab ER] 20 meq PO BID 10/04/16 [History] Tiotropium [Spiriva] 18 mcg IH DAILY 10/04/16 [History] Vitamin E (Dl,Tocopheryl Acet) [Vitamin E] 400 unit PO DAILY 10/04/16 [History] Calcium Carbonate/Vitamin D3 [Calcium 500-Vit D3 200 Caplet] 1 each PO BID 11/16/16 [History] Cholecalciferol (Vitamin D3) [Vitamin D3] 1,000 unit PO DAILY 11/16/16 [History] Acetaminophen [Tylenol] 650 mg PO Q6H PRN tablet 03/20/18 [Rx] Apixaban [Eliquis] 5 mg PO BID tablet 03/20/18 [Rx] Aspirin 81 mg PO DAILY tab.chew 03/20/18 [Rx] Carvedilol [Coreg] 6.25 mg PO BID tablet 03/20/18 [Rx] FLUoxetine HCl [Prozac] 20 mg PO DAILY capsule 03/20/18 [Rx] Magnesium Oxide [Mag-Ox] 400 mg PO BID tablet 03/20/18 [Rx] Multivit/Ca/Min/Fe/FA [Thera M Plus] 1 tab PO DAILY tablet 03/20/18 [Rx] Nystatin POWDER [Nystop] 1 appl TP BID #1 bottle 04/12/18 [Rx] Amiodarone [Cordarone] 200 mg PO DAILY 11/30/18 [History] Furosemide [Lasix] 40 mg PO DAILY 11/30/18 [History] Allergy/AdvReac Type Severity Reaction Status Date / Time fish oil Allergy Hives Verified 11/29/18 22:11 pseudoephedrine Allergy Hives Verified 11/29/18 22:11 [From [facility]] ROS unobtainable: due to mental status Exam - Constitutional Vitals: Temp Pulse Resp BP Pulse Ox 99.2 F 72 17 161/65 95 11/30/18 11:10 11/30/18 11:10 11/30/18 11:27 11/30/18 11:10 11/30/18 11:27 General appearance: cooperative, morbidly obese, no acute distress - Head Head exam: Present: atraumatic, normal inspection, normocephalic - Eye Eye exam: Present: normal appearance, PERRL Pupils: Present: normal accommodation Additional comments: No subconjunctival hemorrhage noted. - ENT ENT exam: Present: mucous membranes moist - Neck Neck exam: Present: normal inspection. Absent: meningismus - Respiratory Respiratory exam: Present: CTAB. Absent: rales, respiratory distress, rhonchi, wheezes - Cardiovascular Cardiovascular exam: Present: RRR, +S1, +S2 - GI/Abdominal GI/Abdominal exam: Present: distended (obese), normal bowel sounds, soft. Absent: tenderness Additional comments: Waters catheter noted to be draining clear yellow urine. - Extremities Exam Extremities exam: Present: normal inspection, pedal edema (2+ BLE), tenderness (left shoulder/UE) - Neurological Exam Neurological exam: Present: altered (Lethargic, difficult to maintain wakefulness, follows most commands), no focal deficits (CALERO x 4). Absent: oriented X3 (Oriented to person and place) - Psychiatric Psychiatric exam: Present: normal affect, normal mood - Skin Skin exam: Present: dry, intact, normal color, warm Infectious Disease CN: Results - Labs CBC & Chem 7: 11/30/18 04:22 11/30/18 04:22 Cultures: Cultures 11/29/18 22:34 Blood Culture - Preliminary Peripheral Venipuncture Gram Positive Cocci 11/29/18 22:48 Blood Culture - Preliminary Peripheral Venipuncture Gram Positive Cocci Serology: Serology 11/29/18 Range/Units 22:24 Urine Color Yellow (Yellow) Urine Clarity Clear (Clear) Urine pH 6.0 (5.0-8.0) pH Units Ur Specific Kite 1.012 (1.010-1.025) Urine Protein 100 H (Neg-Trace) mg/dL Urine Glucose (UA) Normal (Normal) mg/dL Urine Ketones Negative (Negative) mg/dL Urine Blood Negative (Negative) Urine Nitrite Negative (Negative) Urine Bilirubin Small H (Negative) Urine Urobilinogen Normal (Normal) mg/dL Ur Leukocyte Esterase Negative (Negative) Urine Microscopic RBC 0-3 (0-3) per hpf Urine Microscopic WBC 0-3 (0-3) per hpf Ur Squamous Epith Cells Moderate H (None-Few) per lpf Urine Bacteria None Seen (None-Few) per hpf Hyaline Casts Few (None-Few) per lpf Ur Culture Indicated? NO (NO) Consult Discharge Plan - Plan Referrals: Elvia Branham MD [Primary Care Provider] -
--- NOTE | 2018-11-30 20:55 | Orthopedic Consult Note ---
Date of Encounter: 11/30/18 Time of Encounter: 20:51 History of Present Illness Chief complaint: Shoulder pain HPI: Ms. Hyatt is a 72 year old female who reportedly sustained a fall several days ago injuring her left shoulder. The patient was initially seen in emergency room had x-rays taken. Patient was admitted with probable sepsis. Asked to see her in regards to her left shoulder. Patient denies neurovascular complaints. Patient states she is left-hand dominant. History is somewhat difficult to elicit from the patient. Reviewed the patient's completed history and physical examination as well as the completed medical record. Orthopedic examination at this time reveals an obese white female in minimal distress while lying in the hospital bed. Left upper extremity is in a sling. No significant ecchymosis about the shoulder. Pain is elicited with attempts at evaluating the shoulder. Distal neurosensory exam is grossly intact. X-rays of the left shoulder reveals a minimally displaced fracture of the proximal humerus. The head remains well seated within the glenoid. A left upper thoracic pacemaker is noted. Impression: Left proximal humerus fracture, essentially nondisplaced Recommendation: This fracture does not require any surgical intervention. Would recommend continued use of a sling until the patient's pain is improved and then can begin some gentle range of motion exercises. Patient is not to utilize the arm to ambulate with a walker etc. Patient will require follow up in 2-3 weeks for recheck x-rays and clinical evaluation. Thank you very much for allowing me to seen care for Mrs. Hyatt. Sincerely, Priyank Flor,DO Past Med Surg Social Fam HX - Past Medical History Medical history: arthritis, CHF, COPD, coronary artery disease, GERD, hyperlipidemia, hypertension, valvular heart disease, other Psychiatric history: no psych history - Past Surgical History Surgical History: heart valve replacement, hysterectomy, knee replacement, pacemaker/AICD - Social History Smoking Status: Former smoker Smokeless Tobacco Status: No Alcohol use: none Drug use: none - Family History Mother Living Status: Hx Family Cardiac Disorders: Yes (self, father,son) Hx Family Respiratory Disorders: Yes (self, sister) Hx Family Cancer: Yes (son,mother) Hx Family GI Disorders: No Hx Family Endocrine Disorder: Yes (grandmother) Hx Family Neuromuscular Disorders: No Hx Family Neurologic Disorders: Yes (son) Hx Family HEENT Disorders: No Hx Family Autoimmune Disorders: No Medications and Allergies Albuterol Sulfate [Proair Respiclick] 2 puff IH Q4H PRN 10/04/16 [History] Fluticasone/Salmeterol [Advair 250-50 Diskus] 1 unit IH BID 10/04/16 [History] Omeprazole 20 mg PO DAILY 10/04/16 [History] Oxygen 2 l IH HS 10/04/16 [History] Potassium Chloride [K-Tab ER] 20 meq PO BID 10/04/16 [History] Tiotropium [Spiriva] 18 mcg IH DAILY 10/04/16 [History] Vitamin E (Dl,Tocopheryl Acet) [Vitamin E] 400 unit PO DAILY 10/04/16 [History] Calcium Carbonate/Vitamin D3 [Calcium 500-Vit D3 200 Caplet] 1 each PO BID 11/16/16 [History] Cholecalciferol (Vitamin D3) [Vitamin D3] 1,000 unit PO DAILY 11/16/16 [History] Acetaminophen [Tylenol] 650 mg PO Q6H PRN tablet 03/20/18 [Rx] Apixaban [Eliquis] 5 mg PO BID tablet 03/20/18 [Rx] Aspirin 81 mg PO DAILY tab.chew 03/20/18 [Rx] Carvedilol [Coreg] 6.25 mg PO BID tablet 03/20/18 [Rx] FLUoxetine HCl [Prozac] 20 mg PO DAILY capsule 03/20/18 [Rx] Magnesium Oxide [Mag-Ox] 400 mg PO BID tablet 03/20/18 [Rx] Multivit/Ca/Min/Fe/FA [Thera M Plus] 1 tab PO DAILY tablet 03/20/18 [Rx] Nystatin POWDER [Nystop] 1 appl TP BID #1 bottle 04/12/18 [Rx] Amiodarone [Cordarone] 200 mg PO DAILY 11/30/18 [History] Furosemide [Lasix] 40 mg PO DAILY 11/30/18 [History] Allergy/AdvReac Type Severity Reaction Status Date / Time fish oil Allergy Hives Verified 11/29/18 22:11 pseudoephedrine Allergy Hives Verified 11/29/18 22:11 [From [facility]] All Systems Reviewed: The remainder of the systems were reviewed and are negative Physical Exam - Constitutional Vitals: Temp Pulse Resp BP Pulse Ox 99.8 F H 71 71 153/63 93 11/30/18 19:22 11/30/18 16:51 11/30/18 19:22 11/30/18 19:22 11/30/18 19:22 Results - Labs Result Diagrams: 11/30/18 04:22 11/30/18 04:22 Labs: Abnormal lab results WBC 12.6 K/mcL (4.3-11.1) H 11/30/18 04:22 Hgb 9.7 g/dL (11.5-15.4) L 11/30/18 04:22 Hct 30.6 % (35.3-44.9) L 11/30/18 04:22 MCV 78.1 fL (83.0-100.0) L 11/30/18 04:22 MCH 24.7 pg (28.0-33.3) L 11/30/18 04:22 RDW 15.9 % (11.5-14.5) H 11/30/18 04:22 Neutrophils # 10.1 K/mcL (1.6-8.9) H 11/30/18 04:22 Monocytes # 1.4 K/mcL (0.0-1.3) H 11/30/18 04:22 Nucleated RBCs/100 WBC 0.2 /100 WBC (0) H 11/30/18 04:22 PT 19.3 Seconds (9.4-12.1) H 11/30/18 04:22 ABG pO2 63 mmHg (85-104) L 11/30/18 04:45 ABG Total CO2 29 mEq/L (20-26) H 11/30/18 04:45 ABG O2 Saturation 92 % (95-98) L 11/30/18 04:45 VBG pCO2 52 mmHg (41-51) H 11/29/18 22:51 VBG pO2 55 mmHg (25-50) H 11/29/18 22:51 VBG HCO3 28 mEq/L (21-27) H 11/29/18 22:51 BUN 48 mg/dL (8-23) H 11/30/18 04:22 BUN/Creatinine Ratio 52 (6-26) H 11/30/18 04:22 B-Natriuretic Peptide 144 pg/mL (Less than 100) H 11/29/18 22:34 Triglycerides 154 mg/dL (< 150) H 11/30/18 04:22 LDL Cholesterol, Calc 110 mg/dL (0-99) H 11/30/18 04:22 VLDL Cholesterol, Calc 31 mg/dL (< 31) H 11/30/18 04:22 HDL Cholesterol 29 mg/dL (40-59) L 11/30/18 04:22 Cholesterol/HDL Ratio 5.9 (0-4.9) H 11/30/18 04:22 TSH 0.318 mcIU/mL (0.340-5.600) L 11/29/18 21:57 Free T4 2.08 ng/dl (0.70-2.00) H 11/30/18 04:22 Urine Protein 100 mg/dL (Neg-Trace) H 11/29/18 22:24 Urine Bilirubin Small (Negative) H 11/29/18 22:24 Ur Squamous Epith Cells Moderate per lpf (None-Few) H 11/29/18 22:24 Streptococcus sp PCR DETECTED (Not Detect) A 11/29/18 22:48 H & H 11/29/18 11/30/18 Range/Units 21:57 04:22 Hgb 11.0 L 9.7 L (11.5-15.4) g/dL Hct 35.6 30.6 L (35.3-44.9) % All other labs normal. - Diagnostic results Shoulder x-ray: image reviewed Consult Discharge Plan - Plan Referrals: Elvia Branham MD [Primary Care Provider] -
[2018-11-30] MEDS: *HR* HYDROcodone/Acet 5/325 mg TABLET PO PRN (20:59)
[2018-12-01] MEDS: *HR* HYDROcodone/Acet 5/325 mg TABLET PO PRN ×2 (04:13→17:35)
[2018-12-01] MEDS: Ipratropium/Albuterol Neb 3 ML IH SCH ×2 (04:26→11:01)
[2018-12-01 04:56] LABS: Hematocrit 31.6 % (35.3-44.9); Hemoglobin 9.8 g/dL (11.5-15.4); Mean Corpuscular Hemoglobin 24.9 pg (28.0-33.3); Mean Corpuscular Volume 80.2 fL (83.0-100.0); Mean Platelet Volume 10.2 fL (9.4-12.4); Platelet Count 266 K/mcL (140-400); Red Blood Count 3.94 M/mcL (3.82-4.97)
[2018-12-01 05:10] LABS: Adenovirus Not Detected (Not Detect); Bordetella Pertussis Not Detected (Not Detect); Chlamydophila pneumoniae Not Detected (Not Detect); Coronavirus 229E Not Detected (Not Detect); Coronavirus HKU1 Not Detected (Not Detect); Coronavirus NL63 Not Detected (Not Detect); Coronavirus OC43 Not Detected (Not Detect); Human Metapneumovirus Not Detected (Not Detect); Human Rhinovirus/Enterovirus Not Detected (Not Detect); Influenza A Subtype 2009 H1 Not Detected (Not Detect); Influenza A Untypeable Not Detected (Not Detect); Influenza B Not Detected (Not Detect); Mycoplasma pneumoniae Not Detected (Not Detect); Parainfluenza Virus 1 Not Detected (Not Detect); Parainfluenza Virus 2 Not Detected (Not Detect); Parainfluenza Virus 3 Not Detected (Not Detect); Parainfluenza Virus 4 Not Detected (Not Detect); Respiratory Syncytial Virus Not Detected (Not Detect)
[2018-12-01 05:13] LABS: BUN/Creatinine Ratio 46 (6-26); Blood Urea Nitrogen 30 mg/dL (8-23); Calcium 9.2 mg/dL (8.6-10.3); Carbon Dioxide 30 mEq/L (23-29); Chloride 99 mEq/L (98-107); Glucose 94 mg/dL (70-105); Osmolality,Calculated 298 (280-300); Potassium 3.6 mEq/L (3.5-5.1); Sodium 141 mEq/L (136-145); eGFR For Non-African Americans > 60 (> 60)
[2018-12-01] MEDS: amLODIPine 5 MG TABLET PO SCH (08:32)
[2018-12-01] MEDS: Furosemide 20 MG TABLET PO SCH (08:32)
[2018-12-01] MEDS: Apixaban 5 MG TABLET PO SCH ×2 (08:32→20:12)
[2018-12-01] MEDS: *HR* Amiodarone 200 MG TABLET PO SCH (08:32)
[2018-12-01] MEDS: cefTRIAXone 2,000 MG in Water for inj. (sterile) 20 ML 20 ML IVP SCH (08:32)
[2018-12-01] MEDS: Aspirin 81 MG TAB.CHEW PO SCH (08:32)
[2018-12-01] MEDS: Nystatin POWDER 30 GM BOTTLE TP SCH ×2 (08:33→20:22)
--- NOTE | 2018-12-01 10:08 | Electrocardiograph Report ---
[place] [id number] Test Date: 2018-11-29 Pat Name: Gayle Hyatt Department: [id number] Room: 2A15 Gender: F Crossing Guard: : 1945 Requested By: Epi Mott Order Number: [id number] Reading MD: Tonya Alvarez Measurements Intervals [place] Rate: 61 P: 10 DE: 49 QRS: 54 QRSD: 168 T: 131 QT: 485 QTc: 489 Interpretive Statements Atrial-ventricular dual-paced complexes No further analysis attempted due to paced rhythm Electronically Signed On 12-01-2018 10:06:29 EST by Tonya Alvarez
[2018-12-01] MEDS: Budesonide/Formoterol 80/4.5 MDI IH SCH ×2 (11:01→19:57)
--- NOTE | 2018-12-01 11:15 | Internal Med Progress Note ---
Hospitalist Progress Note - Encounter Date of Encounter: 12/01/18 Time of Encounter: 10:00 - Subjective Interval History: Hospital course reviewed. Patient was admitted for encephalopathy which was initially attributed to recent fracture and pain medicine. The blood culture on presentation was reported to grow GPC in both sets. STarted on IV Vanc with normalization of WBC. Pt today is alert and oriented x 2 and denies any focal complaints other than back pain from laying down all day. Tmax 99.8 yesterday 7:30 PM. No nausea/vomiting. - Exam Vitals: Temp Pulse Resp BP Pulse Ox 98.5 F 62 18 139/50 95 12/01/18 09:57 12/01/18 09:57 12/01/18 09:57 12/01/18 09:57 12/01/18 09:57 Exam: General: Alert and oriented to self and place, not in acute distress. Cardiovascular:Normal S1 & S2, No JVD. Pulse regular. Bilateral LE edema Lungs: clear to auscultation, no wheezes/rales Abdomen:Soft, non-tender, no rigidity. Extremities: L UE in sling. Neurovascularly intact Neurological: Non-focal - Assessment and Plan (1) Bacteremia Current Visit: Yes Status: Acute Assessment and Plan: likely responsible for metabolic encephalopathy GPC in both sets, presumptive streptococcus based on PCR unclear source, CT T/A/P -ve history of L TKR and bioprosthetic AVR had previous history of E. faecalis bacteremia in 03/2018 with unclear source, completed 4 weeks of IV Ampicillin at that time WBC improving with IV VAnc, Rocephin added per ID recommendation. Appreciate input TTE -ve for vegeation, may require OMER. Will discuss with ID on Monday repeat culture taken today (2) Acute metabolic encephalopathy Current Visit: Yes Status: Resolved Assessment and Plan: as above, resolving (3) History of aortic valve replacement Current Visit: Yes Status: Chronic Assessment and Plan: now with GPC bacteremia ?IE OMER -ve for vegetation would consider OMER if persistently bacteremic (4) COPD (chronic obstructive pulmonary disease) Current Visit: No Status: Chronic Assessment and Plan: not in exacerbation continue home inhalers with PRN duoneb (5) CHF (congestive heart failure) Current Visit: No Status: Chronic Assessment and Plan: not in decompensation echo shows normal EF, indeterminate diastolic dysfunction resume home dose of lasix (6) Left humeral fracture Current Visit: Yes Status: Acute Assessment and Plan: Left humeral neck fracture status post fall on November 26. appreciate ortho input, for continued use of a sling until pain is improved followed by gentle ROM exercises Follow up orthopedics outpatient with recheck XR in 2-3 weeks (7) Coronary artery disease Current Visit: Yes Status: Chronic Assessment and Plan: continue home meds (8) DVT prophylaxis Current Visit: No Status: Acute Assessment and Plan: Patient currently on Eliquis ?unsure about indication. Obtain old records from [facility] - Time Spent with Patient Total time spent is greater than 50% in coordination of care (as documented) at patient's floor/unit and/or counseling patient: Greater than 35 minutes Plan of Care Discussed with: patient (discussed with nursing) Internal Medicine: Result - Labs CBC & Chem 7: 12/01/18 03:54 12/01/18 03:54 Labs: Short CBC 12/01/18 Range/Units 03:54 WBC 10.9 (4.3-11.1) K/mcL Hgb 9.8 L (11.5-15.4) g/dL Hct 31.6 L (35.3-44.9) % Plt Count 266 (140-400) K/mcL BMP 12/01/18 03:54 Sodium 141 Potassium 3.6 Chloride 99 Carbon Dioxide 30 H BUN 30 H Creatinine 0.65 Glucose 94 Calcium 9.2 - ABG Interpretation ABG results: ABG ABG pH 7.41 pH Units (7.32-7.45) 11/30/18 04:45 ABG pCO2 43 mmHg (35-45) 11/30/18 04:45 ABG pO2 63 mmHg (85-104) L 11/30/18 04:45 ABG O2 Saturation 92 % (95-98) L 11/30/18 04:45 PT/INR, D-dimer PT 19.3 Seconds (9.4-12.1) H 11/30/18 04:22 - Impressions Impressions Echocardiogram 11/30/18 04:17 Impressions: LVEF 60-65%. Mild concentric left ventricular hypertrophy. Indeterminate diastolic function. RV not well visualized. Bi-atrial enlargement. Prosthetic aortic valve not well visualized. Mild increased gradients suggest prosthetic stenosis. Mild aortic regurgitation, possibly paravalvular. Mild mitral regurgitation. Mild tricuspid regurgitation. Moderate to severe pulmonary hypertension. A device lead was visualized in the right atrium and right ventricle. Left Ventricular Wall Motion: Rest Echo Findings All wall segments showed normal motion. Findings: Study Quality * Technically adequate exam. ECG Findings * Sinus rhythm with BBB. Left Ventricle * LVEF 60-65%. * Mild concentric left ventricular hypertrophy. * Indeterminate diastolic function. Right Ventricle * RV not well visualized. Left Atrium * Severely dilated left atrium. Aortic Valve * Prosthetic aortic valve not well visualized. * Mild aortic regurgitation, possibly paravalvular. * Mild increased gradients across prosthetic aortic valve. Mitral Valve * Mildly thickened mitral valve leaflets. * Mild mitral annular calcification * No mitral stenosis. * Mild mitral regurgitation. Tricuspid Valve * Tricuspid valve not well visualized. * Mild tricuspid regurgitation. * Estimated RA pressure is 20 mmHg. * Estimated RVSP is 67 mmHg. * Moderate to severe pulmonary hypertension. Pulmonic Valve * Pulmonic valve not well visualized. * No pulmonic stenosis. * No pulmonic regurgitation. Pulmonary Artery * Pulmonary artery not well visualized. Aorta * Normally sized aortic root. Pericardium * There is no pericardial effusion present. Right Atrium * Severely dilated right atrium. Device lead * A device lead was visualized in the right atrium and right ventricle. Interatrial Septum * No evidence of PFO by color Doppler. IVC * The IVC is dilated. * < 50% respiratory change. Consult Discharge Plan - Plan Referrals: Priyank Flor DO [Non-Partnered Physician] - (Would recommend continued use of a sling until the patient's pain is improved and then can begin some gentle range of motion exercises. Patient is not to utilize the arm to ambulate with a walker etc. Patient will require follow up in 2-3 weeks for recheck x-rays and clinical evaluation.) Elvia Branham MD [Primary Care Provider] - (4) COPD (chronic obstructive pulmonary disease) Qualifiers: COPD type: unspecified COPD Qualified Code(s): J44.9 - Chronic obstructive pulmonary disease, unspecified (5) CHF (congestive heart failure) Qualifiers: Heart failure type: diastolic Heart failure chronicity: chronic Qualified Code(s): I50.32 - Chronic diastolic (congestive) heart failure (6) Left humeral fracture Qualifiers: Encounter type: subsequent encounter Humerus Location: surgical neck Fracture type: closed Fracture morphology: 2-part Fracture alignment: nondisplaced Fracture healing: with routine healing Qualified Code(s): S42.22 5D - 2-part nondisplaced fracture of surgical neck of left humerus, subsequent encounter for fracture with routine healing (7) Coronary artery disease Qualifiers: Associated angina: without angina Qualified Code(s): I25.10 - Atherosclerotic heart disease of [place] coronary artery without angina pectoris
[2018-12-01] MEDS ORDERED: Ipratropium/Albuterol Neb 3 ML IH PRN (11:21)
[2018-12-01] MEDS: Acetaminophen 325 MG TABLET PO PRN (20:12)
[2018-12-02 03:43] LABS: Basophils % 0.2 %; Eosinophils # 0.1 K/mcL (0.0-0.6); Eosinophils % 1.2 %; Hematocrit 31.5 % (35.3-44.9); Hemoglobin 9.5 g/dL (11.5-15.4); Immature Granulocytes % 1.1 % (0-4); Lymphocytes # 1.1 K/mcL (0.6-4.6); Lymphocytes % 13.5 %; Mean Corpuscular HGB Conc 30.2 g/dL (31.6-35.5); Mean Corpuscular Hemoglobin 24.2 pg (28.0-33.3); Mean Corpuscular Volume 80.2 fL (83.0-100.0); Mean Platelet Volume 10.1 fL (9.4-12.4); Monocytes # 0.9 K/mcL (0.0-1.3); Monocytes % 10.7 %; Neutrophils # 6.2 K/mcL (1.6-8.9); Platelet Count 273 K/mcL (140-400); Red Blood Count 3.93 M/mcL (3.82-4.97); Red Cell Distribution Width 15.9 % (11.5-14.5); Segmented Neutrophils % 73.3 %
[2018-12-02 04:03] LABS: BUN/Creatinine Ratio 39 (6-26); Blood Urea Nitrogen 20 mg/dL (8-23); Calcium 8.7 mg/dL (8.6-10.3); Carbon Dioxide 28 mEq/L (23-29); Chloride 102 mEq/L (98-107); Glucose 101 mg/dL (70-105); Magnesium 1.7 mg/dL (1.6-2.6); Osmolality,Calculated 285 (280-300); Potassium 3.1 mEq/L (3.5-5.1); Sodium 136 mEq/L (136-145); eGFR For Non-African Americans > 60 (> 60)
[2018-12-02] MEDS: *HR* HYDROcodone/Acet 5/325 mg TABLET PO PRN ×2 (06:20→15:29)
[2018-12-02] MEDS ORDERED: Aminoglycoside Consult 1 EACH MC ONE (08:31)
[2018-12-02] MEDS: Loratadine 10 MG TABLET PO SCH (08:51)
[2018-12-02] MEDS: Aspirin 81 MG TAB.CHEW PO SCH (08:51)
[2018-12-02] MEDS: Apixaban 5 MG TABLET PO SCH ×2 (08:51→19:27)
[2018-12-02] MEDS: amLODIPine 5 MG TABLET PO SCH (08:51)
[2018-12-02] MEDS: cefTRIAXone 2,000 MG in Water for inj. (sterile) 20 ML 20 ML IVP SCH (08:52)
[2018-12-02] MEDS: *HR* Amiodarone 200 MG TABLET PO SCH (08:52)
[2018-12-02] MEDS: Furosemide 20 MG TABLET PO SCH (08:52)
[2018-12-02] MEDS: Nystatin POWDER 30 GM BOTTLE TP SCH ×2 (09:01→19:28)
[2018-12-02] MEDS: Budesonide/Formoterol 80/4.5 MDI IH SCH ×2 (10:04→21:09)
--- NOTE | 2018-12-02 10:46 | Internal Med Progress Note ---
Hospitalist Progress Note - Encounter Date of Encounter: 12/02/18 Time of Encounter: 09:30 - Subjective Interval History: No acute events overnight, denies chest pain, SOB, abdominal pain, diarrhea, or nausea/vomiting. No fever/chills. - Exam Vitals: Temp Pulse Resp BP Pulse Ox 97.9 F 59 18 118/48 92 12/02/18 10:15 12/02/18 10:15 12/02/18 10:15 12/02/18 10:15 12/02/18 10:15 Exam: General: Alert and oriented x 3, not in acute distress. Cardiovascular:Normal S1 & S2, No JVD. Pulse regular. Bilateral LE edema Lungs: clear to auscultation, no wheezes/rales Abdomen:Soft, non-tender, no rigidity. Extremities: L UE in sling. Neurovascularly intact Neurological: Non-focal - Assessment and Plan (1) Bacteremia Current Visit: Yes Status: Acute Assessment and Plan: likely responsible for metabolic encephalopathy GPC in both sets, streptococcus sanguinis sen to Rocephin unclear source, CT T/A/P -ve history of L TKR and bioprosthetic AVR ?IE TTE -ve for vegetation, may require OMER if cultures are persistently +ve. Repeat blood culture 2/2 NGTD had previous history of E. faecalis bacteremia in 03/2018 with unclear source, completed 4 weeks of IV Ampicillin at that time WBC improving with IV VAnc and Rocephin. D/c Vanc after discussing with pharmacy follow with ID (2) Acute metabolic encephalopathy Current Visit: Yes Status: Resolved Assessment and Plan: as above, resolving (3) History of aortic valve replacement Current Visit: Yes Status: Chronic Assessment and Plan: now with GPC bacteremia ?IE OMER -ve for vegetation would consider OMER if persistently bacteremic, discuss with ID tomorrow (4) COPD (chronic obstructive pulmonary disease) Current Visit: No Status: Chronic Assessment and Plan: not in exacerbation continue home inhalers with PRN duoneb (5) CHF (congestive heart failure) Current Visit: No Status: Chronic Assessment and Plan: not in decompensation echo shows normal EF, indeterminate diastolic dysfunction resume home dose of lasix (6) Left humeral fracture Current Visit: Yes Status: Acute Assessment and Plan: Left humeral neck fracture status post fall on November 26. appreciate ortho input, for continued use of a sling until pain is improved followed by gentle ROM exercises Follow up orthopedics outpatient with recheck XR in 2-3 weeks (7) Coronary artery disease Current Visit: Yes Status: Chronic Assessment and Plan: continue home meds (8) DVT prophylaxis Current Visit: No Status: Acute Assessment and Plan: Patient currently on Eliquis ?unsure about indication. Obtain old records from [facility] - Time Spent with Patient Total time spent is greater than 50% in coordination of care (as documented) at patient's floor/unit and/or counseling patient: Plan of Care Discussed with: patient Internal Medicine: Result - Labs CBC & Chem 7: 12/02/18 03:15 12/02/18 03:15 Labs: Short CBC 12/02/18 Range/Units 03:15 WBC 8.4 (4.3-11.1) K/mcL Hgb 9.5 L (11.5-15.4) g/dL Hct 31.5 L (35.3-44.9) % Plt Count 273 (140-400) K/mcL Neutrophils # 6.2 (1.6-8.9) K/mcL BMP 12/02/18 03:15 Sodium 136 Potassium 3.1 L Chloride 102 Carbon Dioxide 28 BUN 20 Creatinine 0.51 L Glucose 101 Calcium 8.7 - ABG Interpretation ABG results: ABG ABG pH 7.41 pH Units (7.32-7.45) 11/30/18 04:45 ABG pCO2 43 mmHg (35-45) 11/30/18 04:45 ABG pO2 63 mmHg (85-104) L 11/30/18 04:45 ABG O2 Saturation 92 % (95-98) L 11/30/18 04:45 PT/INR, D-dimer PT 19.3 Seconds (9.4-12.1) H 11/30/18 04:22 Consult Discharge Plan - Plan Referrals: Priyank Flor DO [Non-Partnered Physician] - (Would recommend continued use of a sling until the patient's pain is improved and then can begin some gentle range of motion exercises. Patient is not to utilize the arm to ambulate with a walker etc. Patient will require follow up in 2-3 weeks for recheck x-rays and clinical evaluation.) Elvia Branham MD [Primary Care Provider] - (4) COPD (chronic obstructive pulmonary disease) Qualifiers: COPD type: unspecified COPD Qualified Code(s): J44.9 - Chronic obstructive pulmonary disease, unspecified (5) CHF (congestive heart failure) Qualifiers: Heart failure type: diastolic Heart failure chronicity: chronic Qualified Code(s): I50.32 - Chronic diastolic (congestive) heart failure (6) Left humeral fracture Qualifiers: Encounter type: subsequent encounter Humerus Location: surgical neck Fracture type: closed Fracture morphology: 2-part Fracture alignment: nondisplaced Fracture healing: with routine healing Qualified Code(s): S42.225D - 2-part nondisplaced fracture of surgical neck of left humerus, [place] bsequent encounter for fracture with routine healing (7) Coronary artery disease Qualifiers: Associated angina: without angina Qualified Code(s): I25.10 - Atherosclerotic heart disease of [place] coronary artery without angina pectoris
[2018-12-03] MEDS: *HR* HYDROcodone/Acet 5/325 mg TABLET PO PRN ×4 (00:23→23:57)
[2018-12-03 05:36] LABS: Basophils % 0.4 %; Eosinophils # 0.1 K/mcL (0.0-0.6); Eosinophils % 1.4 %; Hematocrit 31.4 % (35.3-44.9); Hemoglobin 9.3 g/dL (11.5-15.4); Immature Granulocytes % 0.9 % (0-4); Lymphocytes # 1.3 K/mcL (0.6-4.6); Lymphocytes % 14.9 %; Mean Corpuscular HGB Conc 29.6 g/dL (31.6-35.5); Mean Corpuscular Hemoglobin 24.2 pg (28.0-33.3); Mean Corpuscular Volume 81.6 fL (83.0-100.0); Mean Platelet Volume 10.2 fL (9.4-12.4); Monocytes # 0.9 K/mcL (0.0-1.3); Monocytes % 10.5 %; Neutrophils # 6.2 K/mcL (1.6-8.9); Platelet Count 283 K/mcL (140-400); Red Blood Count 3.85 M/mcL (3.82-4.97); Red Cell Distribution Width 16.1 % (11.5-14.5); Segmented Neutrophils % 71.9 %
[2018-12-03 05:56] LABS: BUN/Creatinine Ratio 29 (6-26); Blood Urea Nitrogen 16 mg/dL (8-23); Calcium 9.1 mg/dL (8.6-10.3); Carbon Dioxide 28 mEq/L (23-29); Chloride 103 mEq/L (98-107); Glucose 105 mg/dL (70-105); Magnesium 1.6 mg/dL (1.6-2.6); Osmolality,Calculated 288 (280-300); Potassium 3.9 mEq/L (3.5-5.1); Sodium 138 mEq/L (136-145); eGFR For Non-African Americans > 60 (> 60)
[2018-12-03] MEDS: Budesonide/Formoterol 80/4.5 MDI IH SCH ×2 (07:23→20:05)
[2018-12-03] MEDS: amLODIPine 5 MG TABLET PO SCH (07:44)
[2018-12-03] MEDS: *HR* Amiodarone 200 MG TABLET PO SCH (07:44)
[2018-12-03] MEDS: Loratadine 10 MG TABLET PO SCH (07:44)
[2018-12-03] MEDS: Apixaban 5 MG TABLET PO SCH ×2 (07:44→20:13)
[2018-12-03] MEDS: cefTRIAXone 2,000 MG in Water for inj. (sterile) 20 ML 20 ML IVP SCH (07:44)
[2018-12-03] MEDS: Furosemide 20 MG TABLET PO SCH (07:44)
[2018-12-03] MEDS: Aspirin 81 MG TAB.CHEW PO SCH (07:44)
[2018-12-03] MEDS: Nystatin POWDER 30 GM BOTTLE TP SCH ×2 (09:39→20:13)
--- NOTE | 2018-12-03 09:47 | Infectious Disease Progress No ---
Date of Encounter: 12/03/18 Time of Encounter: 09:05 - Assessment and Plan (1) Leukocytosis Current Visit: Yes Status: Acute The patient's white blood cell count was elevated at 13,000 on admission. Likely secondary to bacteremia. Resolved. Blood cultures drawn 11/29/18 are +2 out of 2 sets for S. sanguinis. Repeat blood cultures drawn 12/01/18 are NGTD x 2 sets. Recommendations: Await repeat blood cultures to finalize. Source of bacteremia remains unclear. CT of the chest, abdomen, and pelvis are nonrevealing for infectious etiology. The patient does have a prosthetic heart valve and AICD/pacemaker and total knee replacement which makes this compl icated. Urinalysis was negative. She has no obvious odontogenic source of infection. TTE negative. May need to consider OMER prior to discharge if no source of bacteremia is identified. Continue Rocephin 2 g IV daily. Duration of treatment depends on the clinical picture. Monitor renal function and is just antibiotics. Qualifiers: Leukocytosis type: unspecified Qualified Code(s): D72.829 - Elevated white blood cell count, unspecified (2) Bacteremia Current Visit: Yes Status: Acute Causative organism: Strep sanguinis. Blood cultures drawn 11/29/18 are +2 out of 2 sets. Repeat blood cultures drawn 12/01/18 are NGTD x 2 sets. Source: Unclear. CT of the chest, abdomen, and pelvis were negative for acute infectious etiology. Urinalysis was negative for pyuria. No obvious odontogenic infection. No endocarditis stigmata noted on exam. TTE negative. The patient has one major and one minor Modified Lundberg's criteria. Currently on IV Rocephin. (3) Altered mental status Current Visit: Yes Status: Resolved Likely secondary to bacteremia. CT of the head negative for acute abnormality. No meningeal signs noted on exam and patient's ROS not reliable. Resolved. Monitor closely. Qualifiers: Altered mental status type: unspecified Qualified Code(s): R41.82 - Altered mental status, unspecified (4) Weakness Current Visit: No Status: Acute Generalized. Improved. PT/OT. (5) Closed fracture of left proximal humerus Current Visit: No Status: Acute Status post fall last week. Ortho consultation appreciated. Qualifiers: Encounter type: initial encounter Fracture morphology: unspecified fracture morphology Qualified Code(s): S42.202A - Unspecified fracture of upper end of left humerus, initial encounter for closed fracture (6) CHF (congestive heart failure) Current Visit: No Status: Chronic Qualifiers: Heart failure type: diastolic Heart failure chronicity: chronic Qualified Code(s): I50.32 - Chronic diastolic (congestive) heart failure (7) Pacemaker Current Visit: No Status: Acute (8) COPD (chronic obstructive pulmonary disease) Current Visit: No Status: Chronic Qualifiers: COPD type: unspecified COPD Qualified Code(s): J44.9 - Chronic obstructive pulmonary disease, unspecified (9) History of aortic valve replacement Current Visit: Yes Status: Chronic Status post TAVR 05/2017 at [facility]. - Subjective Interval history: Patient seen and examined. No acute events. Patient is not more alert today. Complains of lower back pain and left upper extremity pain. Denies fevers, chills, or rigors. Denies chest pain, shortness of breath, or cough. Denies nausea, vomiting, diarrhea, or constipation. Her last bowel movement was 2 days ago. Denies abdominal pain or urinary complaints. States overall her appetite is pretty good. She denies any oral thrush and new skin lesions. Infect Dis PN-Objective Data - Labs CBC & Chem 7: 12/03/18 04:11 12/03/18 04:11 Labs: Laboratory Results - last 24 hr 12/03/18 12/03/18 04:11 04:11 WBC 8.6 RBC 3.85 Hgb 9.3 L Hct 31.4 L MCV 81.6 L MCH 24.2 L MCHC 29.6 L RDW 16.1 H Plt Count 283 MPV 10.2 Immature Gran % 0.9 Seg Neutrophils % 71.9 Lymphocytes % 14.9 Monocytes % 10.5 Eosinophils % 1.4 Basophils % 0.4 Neutrophils # 6.2 Lymphocytes # 1.3 Monocytes # 0.9 Eosinophils # 0.1 Basophils # 0.0 Sodium 138 Potassium 3.9 Chloride 103 Carbon Dioxide 28 BUN 16 Creatinine 0.55 L Est GFR ( Amer) > 60 Est GFR (Non-Af Amer) > 60 BUN/Creatinine Ratio 29 H Glucose 105 Calculated Osmolality 288 Calcium 9.1 Magnesium 1.6 Cultures: Cultures 11/29/18 22:48 Blood Culture - Final Peripheral Venipuncture Streptococcus sanguinis 11/29/18 22:34 Blood Culture - Final Peripheral Venipuncture Streptococcus sanguinis 12/01/18 03:54 Blood Culture - Preliminary Peripheral Venipuncture Culture is incubating and being continuously monitored for growth. Final report to follow. 12/01/18 03:54 Blood Culture - Preliminary Peripheral Venipuncture Culture is incubating and being continuously monitored for growth. Final report to follow. Serology 11/30/18 11/29/18 11/29/18 Range/Units 21:29 22:48 22:24 Urine Color Yellow (Yellow) Urine Clarity Clear (Clear) Urine pH 6.0 (5.0-8.0) pH Units Ur Specific [place] 1.012 (1.010-1.025) Urine Protein 100 H (Neg-Trace) mg/dL Urine Glucose (UA) Normal (Normal) mg/dL Urine Ketones Negative (Negative) mg/dL Urine Blood Negative (Negative) Urine Nitrite Negative (Negative) Urine Bilirubin Small H (Negative) Urine Urobilinogen Normal (Normal) mg/dL Ur Leukocyte Esterase Negative (Negative) Urine Microscopic RBC 0-3 (0-3) per hpf Urine Microscopic WBC 0-3 (0-3) per hpf Ur Squamous Epith Cells Moderate H (None-Few) per lpf Urine Bacteria None Seen (None-Few) per hpf Hyaline Casts Few (None-Few) per lpf Ur Culture Indicated? NO (NO) A. baumannii (PCR) Not Detected (Not Detect) Chlamy pneumoniae PCR Not Detected (Not Detect) Adenovirus (PCR) Not Detected (Not Detect) B. pertussis DNA (PCR) Not Detected (Not Detect) B.parapertussis DNA PCR Not Detected (Not Detect) Manuela albicans (PCR) Not Detected (Not Detect) C. glabrata (PCR) Not Detected (Not Detect) C. krusei (PCR) Not Detected (Not Detect) C. parapsilosis (PCR) Not Detected (Not Detect) C. tropicalis (PCR) Not Detected (Not Detect) Coronavirus OC43 (PCR) Not Detected (Not Detect) Coronavirus HKU1 (PCR) Not Detected (Not Detect) Coronavirus 229E (PCR) Not Detected (Not Detect) Coronavirus NL63 (PCR) Not Detected (Not Detect) Enterobacteriac sp PCR Not Detected (Not Detect) E. cloacae complex PCR Not Detected (Not Detect) Enterococcus sp PCR Not Detected (Not Detect) E. coli (PCR) Not Detected (Not Detect) H. influenzae (PCR) Not Detected (Not Detect) Human Metapneumovir PCR Not Detected (Not Detect) Influenza A (H1) PCR Not Detected (Not Detect) Influ A (H1N1/09) PCR Not Detected (Not Detect) Influenza A (H3) PCR Not Detected (Not Detect) Influenza A Untype (PCR) Not Detected (Not Detect) Influenza Type B (PCR) Not Detected (Not Detect) Klebsiella oxytoca PCR Not Detected (Not Detect) Klebsiella pneumoniae Not Detected (Not Detect) List. monocytogenes PCR Not Detected (Not Detect) M.pneumoniae DNA (PCR) Not Detected (Not Detect) N. meningitidis (PCR) Not Detected (Not Detect) Parainfluenza 1 (PCR) Not Detected (Not Detect) Parainfluenza 2 (PCR) Not Detected (Not Detect) Parainfluenza 3 (PCR) Not Detected (Not Detect) Parainfluenza 4 (PCR) Not Detected (Not Detect) Proteus species (PCR) Not Detected (Not Detect) RSV (PCR) Not Detected (Not Detect) Entero/Rhino (PCR) Not Detected (Not Detect) Serratia marcescens PCR Not Detected (Not Detect) Staphylococcus sp PCR Not Detected (Not Detect) Staph aureus (PCR) Not Detected (Not Detect) mecA-Methicil Res Gene N/A (Not Detect) Streptococcus sp PCR DETECTED A (Not Detect) Group A Strep DNA Not Detected (Not Detect) Group B Strep (PCR) Not Detected (Not Detect) Strep pneumoniae (PCR) Not Detected (Not Detect) P. aeruginosa (PCR) Not Detected (Not Detect) Giorgio/B-Vanco Res Genes N/A (Not Detect) KPC (blaKPC) Detect PCR N/A (Not Detect) Exam - Constitutional Vitals: Temp Pulse Resp BP Pulse Ox 97.5 F L 63 18 150/80 91 12/03/18 06:47 12/03/18 06:47 12/03/18 07:23 12/03/18 06:47 12/03/18 07:23 General appearance: cooperative, morbidly obese, no acute distress - Head Head exam: Present: atraumatic, normal inspection, normocephalic - Eye Eye exam: Present: EOMI, normal appearance, PERRL Pupils: Present: normal accommodation - ENT ENT exam: Present: mucous membranes moist - Neck Neck exam: Present: normal inspection. Absent: meningismus - Respiratory Respiratory exam: Present: CTAB. Absent: rales, respiratory distress, rhonchi - Cardiovascular Cardiovascular exam: Present: irregular rhythm. Absent: tachycardia - GI/Abdominal GI/Abdominal exam: Present: distended (obese), normal bowel sounds, soft. Absent: tenderness - Extremities Exam Extremities exam: Present: pedal edema (1+ BLE), tenderness (left upper extremity.). Absent: joint swelling - Neurological Exam Neurological exam: Present: alert, oriented X3, no focal deficits - Psychiatric Psychiatric exam: Present: normal affect, normal mood - Skin Skin exam: Present: dry, intact, normal color, warm Consult Discharge Plan - Plan Referrals: Priyank Flor DO [Non-Partnered Physician] - (Would recommend continued use of a sling until the patient's pain is improved and then can begin some gentle r jose of motion exercises. Patient is not to utilize the arm to ambulate with a walker etc. Patient will require follow up in 2-3 weeks for recheck x-rays and clinical evaluation.) Elvia Branham MD [Primary Care Provider] - - Attending Attestation I have personally performed a face to face evaluation on this patient. I have reviewed and agree with the care plan. History and Exam by me shows: Assessment and plan: Bacteremia with Streptococcus sanguinous Source not clear but intrapelvic processes a concern specially with a previous Enterococcus faecalis We might need to do a repeat OMER We need to do CT abdomen and pelvis with oral and IV contrast Continue Rocephin for now duration of treatment depends on the OMER findings and the CT findings specially with a prosthetic valve and prosthetic joint Monitor labs and for drug toxicity
--- NOTE | 2018-12-03 10:28 | Internal Med Progress Note ---
Hospitalist Progress Note - Encounter Date of Encounter: 12/03/18 Time of Encounter: 08:15 - Subjective Interval History: No acute events overnight, no focal complaints other than left shoulder pain. Denies chest pain, SOB, abdominal pain, diarrhea, or nausea/vomiting. No fever/chills. - Exam Vitals: Temp Pulse Resp BP Pulse Ox 97.5 F L 63 18 150/80 91 12/03/18 06:47 12/03/18 06:47 12/03/18 07:23 12/03/18 06:47 12/03/18 07:23 Exam: General: Alert and oriented x 3, not in acute distress. Cardiovascular:Normal S1 & S2, No JVD. Pulse regular. Lungs: clear to auscultation, no wheezes/rales Abdomen:Soft, non-tender, no rigidity. Extremities: L UE in sling. Neurovascularly intact distally Neurological: Non-focal - Assessment and Plan (1) Bacteremia Current Visit: Yes Status: Acute Assessment and Plan: likely responsible for metabolic encephalopathy streptococcus sanguinis in both sets on 11/11, sen to Rocephin unclear source, CT T/A/P -ve history of L TKR and bioprosthetic AVR ?IE TTE -ve for vegetation, may require OMER if cultures are persistently +ve. Repeat blood culture 2/2 NGTD had previous history of E. faecalis bacteremia in 03/2018 with unclear source, completed 4 weeks of IV Ampicillin at that time WBC improving with IV Rocephin, continue Discussed with ID, will await for their input prior to ordering OMER as her repeat culture continues to be negative (2) Acute metabolic encephalopathy Current Visit: Yes Status: Resolved Assessment and Plan: as above, resolved (3) History of aortic valve replacement Current Visit: Yes Status: Chronic Assessment and Plan: now with GPC bacteremia ?IE OMER -ve for vegetation would consider MOER if persistently bacteremic; discussed with ID today and will await for their recs (4) COPD (chronic obstructive pulmonary disease) Current Visit: No Status: Chronic Assessment and Plan: not in exacerbation continue home inhalers with PRN duoneb (5) CHF (congestive heart failure) Current Visit: No Status: Chronic Assessment and Plan: not in decompensation echo shows normal EF, indeterminate diastolic dysfunction home dose of lasix resumed (6) Left humeral fracture Current Visit: Yes Status: Acute Assessment and Plan: Left humeral neck fracture status post fall on November 26. appreciate ortho input, for continued use of a sling until pain is improved followed by gentle ROM exercises Follow up orthopedics outpatient with recheck XR in 2-3 weeks (7) Coronary artery disease Current Visit: Yes Status: Chronic Assessment and Plan: continue home meds (8) DVT prophylaxis Current Visit: No Status: Acute Assessment and Plan: Patient currently on Eliquis ?unsure about indication. Records from [facility] pending - Time Spent with Patient Total time spent is greater than 50% in coordination of care (as documented) at patient's floor/unit and/or counseling patient: Plan of Care Discussed with: patient (discussed with Dr. Real) Internal Medicine: Result - Labs CBC & Chem 7: 12/03/18 04:11 12/03/18 04:11 Labs: Short CBC 12/03/18 Range/Units 04:11 WBC 8.6 (4.3-11.1) K/mcL Hgb 9.3 L (11.5-15.4) g/dL Hct 31.4 L (35.3-44.9) % Plt Count 283 (140-400) K/mcL Neutrophils # 6.2 (1.6-8.9) K/mcL BMP 12/03/18 04:11 Sodium 138 Potassium 3.9 Chloride 103 Carbon Dioxide 28 BUN 16 Creatinine 0.55 L Glucose 105 Calcium 9.1 - ABG Interpretation ABG results: ABG ABG pH 7.41 pH Units (7.32-7.45) 11/30/18 04:45 ABG pCO2 43 mmHg (35-45) 11/30/18 04:45 ABG pO2 63 mmHg (85-104) L 11/30/18 04:45 ABG O2 Saturation 92 % (95-98) L 11/30/18 04:45 PT/INR, D-dimer PT 19.3 Seconds (9.4-12.1) H 11/30/18 04:22 Consult Discharge Plan - Plan Referrals: Priyank Flor DO [Non-Partnered Physician] - (Would recommend continued use of a sling until the patient's pain is improved and then can begin some gentle range of motion exercises. Patient is not to utilize the arm to ambulate with a walker etc. Patient will require follow up in 2-3 weeks for recheck x-rays and clinical evaluation.) Elvia Branham MD [Primary Care Provider] - (4) COPD (chronic obstructive pulmonary disease) Qualifiers: COPD type: unspecified COPD Qualified Code(s): J44.9 - Chronic obstructive pulmonary disease, unspecified (5) CHF (congestive heart failure) Qualifiers: Heart failure type: diastolic Heart failure chronicity: chronic Qualified Code(s): I50.32 - Chronic diastolic (congestive) heart failure (6) Left humeral fracture Qualifiers: Encounter type: subsequent encounter Humerus Location: surgical neck Fracture type: closed Fracture morphology: 2-part Fracture alignment: nondisplaced Fracture healing: with routine healing Qualified Code(s): S42.225D - 2-part nondisplaced fracture of surgical neck of left humerus, subsequent encounter for fracture with routine healing (7) Coronary artery disease Qualifiers: Associated angina: without angina Qualified Code(s): I25.10 - Atherosclerotic heart disease of [place] coronary artery without angina pectoris
[2018-12-03] MEDS: Acetaminophen 325 MG TABLET PO PRN (20:13)
[2018-12-04 05:40] LABS: Basophils % 0.2 %; Eosinophils # 0.1 K/mcL (0.0-0.6); Eosinophils % 1.7 %; Hematocrit 33.3 % (35.3-44.9); Hemoglobin 9.8 g/dL (11.5-15.4); Immature Granulocytes % 1.1 % (0-4); Lymphocytes # 1.4 K/mcL (0.6-4.6); Lymphocytes % 16.6 %; Mean Corpuscular HGB Conc 29.4 g/dL (31.6-35.5); Mean Corpuscular Hemoglobin 23.9 pg (28.0-33.3); Mean Corpuscular Volume 81.2 fL (83.0-100.0); Mean Platelet Volume 10.2 fL (9.4-12.4); Monocytes # 0.9 K/mcL (0.0-1.3); Monocytes % 11.4 %; Neutrophils # 5.7 K/mcL (1.6-8.9); Platelet Count 298 K/mcL (140-400); Red Cell Distribution Width 15.9 % (11.5-14.5)
[2018-12-04 06:02] LABS: BUN/Creatinine Ratio 23 (6-26); Blood Urea Nitrogen 12 mg/dL (8-23); Calcium 9.1 mg/dL (8.6-10.3); Carbon Dioxide 30 mEq/L (23-29); Chloride 101 mEq/L (98-107); Glucose 100 mg/dL (70-105); Magnesium 1.5 mg/dL (1.6-2.6); Osmolality,Calculated 288 (280-300); Potassium 3.2 mEq/L (3.5-5.1); Sodium 139 mEq/L (136-145); eGFR For Non-African Americans > 60 (> 60)
[2018-12-04] MEDS ORDERED: Isovue-370 500 ML BOTTLE IVP ONE (08:10)
[2018-12-04] MEDS: Apixaban 5 MG TABLET PO SCH ×2 (08:14→21:53)
[2018-12-04] MEDS: Furosemide 20 MG TABLET PO SCH (08:14)
[2018-12-04] MEDS: Loratadine 10 MG TABLET PO SCH (08:14)
[2018-12-04] MEDS: *HR* Amiodarone 200 MG TABLET PO SCH (08:14)
[2018-12-04] MEDS: *HR* HYDROcodone/Acet 5/325 mg TABLET PO PRN ×3 (08:14→21:53)
[2018-12-04] MEDS: cefTRIAXone 2,000 MG in Water for inj. (sterile) 20 ML 20 ML IVP SCH (08:15)
[2018-12-04] MEDS: amLODIPine 5 MG TABLET PO SCH (08:15)
[2018-12-04] MEDS: Aspirin 81 MG TAB.CHEW PO SCH (08:15)
[2018-12-04] MEDS: Nystatin POWDER 30 GM BOTTLE TP SCH ×2 (08:16→21:56)
[2018-12-04] MEDS ORDERED: Isovue-370 500 ML BOTTLE PO ONE (08:19)
[2018-12-04] MEDS: Budesonide/Formoterol 80/4.5 MDI IH SCH ×2 (09:51→19:39)
--- NOTE | 2018-12-04 10:18 | Infectious Disease Progress No ---
Date of Encounter: 12/04/18 Time of Encounter: 09:50 - Assessment and Plan (1) Leukocytosis Current Visit: Yes Status: Acute The patient's white blood cell count was elevated at 13,000 on admission. Likely secondary to bacteremia. Resolved. Blood cultures drawn 11/29/18 are +2 out of 2 sets for S. sanguinis. Repeat blood cultures drawn 12/01/18 are NGTD x 2 sets. Recommendations: Await repeat blood cultures to finalize. Source of bacteremia remains unclear. CT of the chest, abdomen, and pelvis are nonrevealing for infectious etiology. The patient does have a prosthetic heart valve and AICD/pacemaker and total knee replacement which makes this compl icated. Urinalysis was negative. She has no obvious odontogenic source of infection. TTE negative. May need to consider OMER prior to discharge if no source of bacteremia is identified. Get CT of the abdomen and pelvis with IV and oral contrast. Continue Rocephin 2 g IV daily. Duration of treatment depends on the clinical picture. Monitor renal function and is just antibiotics. Qualifiers: Leukocytosis type: unspecified Qualified Code(s): D72.829 - Elevated white blood cell count, unspecified (2) Bacteremia Current Visit: Yes Status: Acute Causative organism: Strep sanguinis. Blood cultures drawn 11/29/18 are +2 out of 2 sets. Repeat blood cultures drawn 12/01/18 are NGTD x 2 sets. Source: Unclear. CT of the chest, abdomen, and pelvis were negative for acute infectious etiology. Urinalysis was negative for pyuria. No obvious odontogenic infection. No endocarditis stigmata noted on exam. TTE negative. The patient has 2 minor Modified Lundberg's criteria. Currently on IV Rocephin. (3) Altered mental status Current Visit: Yes Status: Resolved Likely secondary to bacteremia. CT of the head negative for acute abnormality. No meningeal signs noted on exam and patient's ROS not reliable. Resolved. Monitor closely. Qualifiers: Altered mental status type: unspecified Qualified Code(s): R41.82 - Altered mental status, unspecified (4) Weakness Current Visit: No Status: Acute Generalized. Improved. PT/OT. (5) Closed fracture of left proximal humerus Current Visit: No Status: Acute Status post fall last week. Ortho consultation appreciated. Qualifiers: Encounter type: initial encounter Fracture morphology: unspecified fracture morphology Qualified Code(s): S42.202A - Unspecified fracture of upper end of left humerus, initial encounter for closed fracture (6) CHF (congestive heart failure) Current Visit: No Status: Chronic Qualifiers: Heart failure type: diastolic Heart failure chronicity: chronic Qualified Code(s): I50.32 - Chronic diastolic (congestive) heart failure (7) Pacemaker Current Visit: No Status: Acute (8) COPD (chronic obstructive pulmonary disease) Current Visit: No Status: Chronic Qualifiers: COPD type: unspecified COPD Qualified Code(s): J44.9 - Chronic obstructive pulmonary disease, unspecified (9) History of aortic valve replacement Current Visit: Yes Status: Chronic Status post TAVR 05/2017 at [facility]. - Subjective Interval history: Patient seen and examined. No acute events. Patient is more alert today. Complains of lpain in the left upper extremity pain. Denies fevers, chills, or rigors. Denies chest pain, shortness of breath, or cough. Denies nausea, vomiting, diarrhea, or constipation. Her last bowel movement was 3 days ago. Denies abdominal pain or urinary complaints. States overall her appetite is pretty good. She denies any oral thrush and new skin lesions. Infect Dis PN-Objective Data - Labs CBC & Chem 7: 12/04/18 03:51 12/04/18 03:51 Labs: Laboratory Results - last 24 hr 12/04/18 12/04/18 03:51 03:51 WBC 8.3 RBC 4.10 Hgb 9.8 L Hct 33.3 L MCV 81.2 L MCH 23.9 L MCHC 29.4 L RDW 15.9 H Plt Count 298 MPV 10.2 Immature Gran % 1.1 Seg Neutrophils % 69.0 Lymphocytes % 16.6 Monocytes % 11.4 Eosinophils % 1.7 Basophils % 0.2 Neutrophils # 5.7 Lymphocytes # 1.4 Monocytes # 0.9 Eosinophils # 0.1 Basophils # 0.0 Sodium 139 Potassium 3.2 L Chloride 101 Carbon Dioxide 30 H BUN 12 Creatinine 0.53 L Est GFR ( Amer) > 60 Est GFR (Non-Af Amer) > 60 BUN/Creatinine Ratio 23 Glucose 100 Calculated Osmolality 288 Calcium 9.1 Magnesium 1.5 L Cultures: Cultures 11/29/18 22:48 Blood Culture - Final Peripheral Venipuncture Streptococcus sanguinis 11/29/18 22:34 Blood Culture - Final Peripheral Venipuncture Streptococcus sanguinis 12/01/18 03:54 Blood Culture - Preliminary Peripheral Venipuncture Culture is incubating and being continuously mon itored for growth. Final report to follow. 12/01/18 03:54 Blood Culture - Preliminary Peripheral Venipuncture Culture is incubating and being continuously monitored for growth. Final report to follow. Serology 11/30/18 11/29/18 11/29/18 Range/Units 21:29 22:48 22:24 Urine Color Yellow (Yellow) Urine Clarity Clear (Clear) Urine pH 6.0 (5.0-8.0) pH Units Ur Specific [place] 1.012 (1.010-1.025) Urine Protein 100 H (Neg-Trace) mg/dL Urine Glucose (UA) Normal (Normal) mg/dL Urine Ketones Negative (Negative) mg/dL Urine Blood Negative (Negative) Urine Nitrite Negative (Negative) Urine Bilirubin Small H (Negative) Urine Urobilinogen Normal (Normal) mg/dL Ur Leukocyte Esterase Negative (Negative) Urine Microscopic RBC 0-3 (0-3) per hpf Urine Microscopic WBC 0-3 (0-3) per hpf Ur Squamous Epith Cells Moderate H (None-Few) per lpf Urine Bacteria None Seen (None-Few) per hpf Hyaline Casts Few (None-Few) per lpf Ur Culture Indicated? NO (NO) A. baumannii (PCR) Not Detected (Not Detect) Chlamy pneumoniae PCR Not Detected (Not Detect) Adenovirus (PCR) Not Detected (Not Detect) B. pertussis DNA (PCR) Not Detected (Not Detect) B.parapertussis DNA PCR Not Detected (Not Detect) Manuel[place] albicans (PCR) Not Detected (Not Detect) C. glabrata (PCR) Not Detected (Not Detect) C. krusei (PCR) Not Detected (Not Detect) C. parapsilosis (PCR) Not Detected (Not Detect) C. tropicalis (PCR) Not Detected (Not Detect) Coronavirus OC43 (PCR) Not Detected (Not Detect) Coronavirus HKU1 (PCR) Not Detected (Not Detect) Coronavirus 229E (PCR) Not Detected (Not Detect) Coronavirus NL63 (PCR) Not Detected (Not Detect) Enterobacteriac sp PCR Not Detected (Not Detect) E. cloacae complex PCR Not Detected (Not Detect) Enterococcus sp PCR Not Detected (Not Detect) E. coli (PCR) Not Detected (Not Detect) H. influenzae (PCR) Not Detected (Not Detect) Human Metapneumovir PCR Not Detected (Not Detect) Influenza A (H1) PCR Not Detected (Not Detect) Influ A (H1N1/09) PCR Not Detected (Not Detect) Influenza A (H3) PCR Not Detected (Not Detect) Influenza A Untype (PCR) Not Detected (Not Detect) Influenza Type B (PCR) Not Detected (Not Detect) Klebsiella oxytoca PCR Not Detected (Not Detect) Klebsiella pneumoniae Not Detected (Not Detect) List. monocytogenes PCR Not Detected (Not Detect) M.pneumoniae DNA (PCR) Not Detected (Not Detect) N. meningitidis (PCR) Not Detected (Not Detect) Parainfluenza 1 (PCR) Not Detected (Not Detect) Parainfluenza 2 (PCR) Not Detected (Not Detect) Parainfluenza 3 (PCR) Not Detected (Not Detect) Parainfluenza 4 (PCR) Not Detected (Not Detect) Proteus species (PCR) Not Detected (Not Detect) RSV (PCR) Not Detected (Not Detect) Entero/Rhino (PCR) Not Detected (Not Detect) Serratia marcescens PCR Not Detected (Not Detect) Staphylococcus sp PCR Not Detected (Not Detect) Staph aureus (PCR) Not Detected (Not Detect) mecA-Methicil Res Gene N/A (Not Detect) Streptococcus sp PCR DETECTED A (Not Detect) Group A Strep DNA Not Detected (Not Detect) Group B Strep (PCR) Not Detected (Not Detect) Strep pneumoniae (PCR) Not Detected (Not Detect) P. aeruginosa (PCR) Not Detected (Not Detect) Giorgio/B-Vanco Res Genes N/A (Not Detect) KPC (blaKPC) Detect PCR N/A (Not Detect) Exam - Constitutional Vitals: Temp Pulse Resp BP Pulse Ox 97.8 F 60 18 144/75 95 12/04/18 07:07 12/04/18 07:07 12/04/18 09:52 12/04/18 07:07 12/04/18 09:52 General appearance: cooperative, morbidly obese, no acute distress - Head Head exam: Present: atraumatic, normal inspection, normocephalic - Eye Eye exam: Present: EOMI, normal appearance, PERRL Pupils: Present: normal accommodation Additional comments: No subconjunctival hemorrhage noted. - ENT ENT exam: Present: mucous membranes moist Additional comments: No obvious odontogenic infection noted. - Neck Neck exam: Present: normal inspection - Respiratory Respiratory exam: Present: CTAB. Absent: rales, respiratory distress, rhonchi, wheezes - Cardiovascular Cardiovascular exam: Present: irregular rhythm. Absent: tachycardia - GI/Abdominal GI/Abdominal exam: Present: distended (Obese), normal bowel sounds, soft. Absent: tenderness - Extremities Exam Extremities exam: Present: pedal edema (1+ bilateral lower extremities), tenderness (Left upper extremity). Absent: normal inspection (Sling noted to the left upper extremity.) - Neurological Exam Neurological exam: Present: alert, oriented X3, no focal deficits - Psychiatric Psychiatric exam: Present: normal affect, normal mood - Skin Skin exam: Present: dry, intact, normal color, warm Consult Discharge Plan - Plan Referrals: Priyank Flor DO [Non-Partnered Physician] - (Would recommend continued use of a sling until the patient's pain is improved and then can begin some gentle range of motion exercises. Patient is not to utilize the arm to ambulate with a walker etc. Patient will require follow up in 2-3 weeks for recheck x-rays and clinical evaluation.) Elvia Branham MD [Primary Care Provider] - - Attending Attestation I have personally performed a face to face evaluation on this patient. I have reviewed and agree with the care plan. History and Exam by me shows: Assessment and plan: Bacteremia with Streptococcus sanguinous Source not clear but intrapelvic processes a concern specially with a previous Enterococcus faecalis We might need to do a repeat OMER CT abdomen and pelvis with IV and oral contrast was nonrevealing. I still do not know what the source of this recurrent infection keeps coming from. Continue Rocephin for now duration of treatment depends on the OMER findings and the CT findings specially with a prosthetic valve and prosthetic joint Monitor labs and for drug toxicity
--- NOTE | 2018-12-04 10:41 | Internal Med Progress Note ---
Hospitalist Progress Note - Encounter Date of Encounter: 12/04/18 Time of Encounter: 07:45 - Subjective Interval History: No acute events overnight, continues to endorse no focal complaints other than left shoulder pain. Denies chest pain, SOB, abdominal pain, diarrhea, or nausea/vomiting. No fever/chills. - Exam Vitals: Temp Pulse Resp BP Pulse Ox 97.8 F 60 18 144/75 95 12/04/18 07:07 12/04/18 07:07 12/04/18 09:52 12/04/18 07:07 12/04/18 09:52 Exam: General: Alert and oriented x 3, not in acute distress. Cardiovascular:Normal S1 & S2, No JVD. Pulse regular. Lungs: clear to auscultation, no wheezes/rales Abdomen:Soft, non-tender, no rigidity. Extremities: L UE in sling. Neurovascularly intact distally Neurological: Non-focal - Assessment and Plan (1) Bacteremia Current Visit: Yes Status: Acute Assessment and Plan: likely responsible for metabolic encephalopathy streptococcus sanguinis in both sets on 11/11, sen to Rocephin unclear source, initial CT T/A/P -ve history of L TKR and bioprosthetic AVR ?IE had previous history of E. faecalis bacteremia in 03/2018 with unclear source, completed 4 weeks of IV Ampicillin at that time TTE -ve for vegetation discussed with ID today, will order OMER for tomorrow. Repeat blood culture 2/2 NGTD WBC improving with IV Rocephin, continue follow with ID (2) Acute metabolic encephalopathy Current Visit: Yes Status: Resolved Assessment and Plan: as above, resolved (3) History of aortic valve replacement Current Visit: Yes Status: Chronic Assessment and Plan: now with GPC bacteremia ?IE OMER -ve for vegetation will proceed with OMER after discussing with ID (4) COPD (chronic obstructive pulmonary disease) Current Visit: No Status: Chronic Assessment and Plan: not in exacerbation continue home inhalers with PRN duoneb (5) CHF (congestive heart failure) Current Visit: No Status: Chronic Assessment and Plan: not in decompensation echo shows normal EF, indeterminate diastolic dysfunction home dose of lasix resumed (6) Left humeral fracture Current Visit: Yes Status: Acute Assessment and Plan: Left humeral neck fracture status post fall on November 26. appreciate ortho input, for continued use of a sling until pain is improved followed by gentle ROM exercises Follow up orthopedics outpatient with recheck XR in 2-3 weeks (7) Coronary artery disease Current Visit: Yes Status: Chronic Assessment and Plan: continue home meds (8) DVT prophylaxis Current Visit: No Status: Acute Assessment and Plan: Patient currently on Eliquis ?unsure about indication. - Time Spent with Patient Total time spent is greater than 50% in coordination of care (as documented) at patient's floor/unit and/or counseling patient: Plan of Care Discussed with: patient Internal Medicine: Result - Labs CBC & Chem 7: 12/04/18 03:51 12/04/18 03:51 Labs: Short CBC 12/04/18 Range/Units 03:51 WBC 8.3 (4.3-11.1) K/mcL Hgb 9.8 L (11.5-15.4) g/dL Hct 33.3 L (35.3-44.9) % Plt Count 298 (140-400) K/mcL Neutrophils # 5.7 (1.6-8.9) K/mcL BMP 12/04/18 03:51 Sodium 139 Potassium 3.2 L Chloride 101 Carbon Dioxide 30 H BUN 12 Creatinine 0.53 L Glucose 100 Calcium 9.1 - ABG Interpretation ABG results: ABG ABG pH 7.41 pH Units (7.32-7.45) 11/30/18 04:45 ABG pCO2 43 mmHg (35-45) 11/30/18 04:45 ABG pO2 63 mmHg (85-104) L 11/30/18 04:45 ABG O2 Saturation 92 % (95-98) L 11/30/18 04:45 PT/INR, D-dimer PT 19.3 Seconds (9.4-12.1) H 11/30/18 04:22 Consult Discharge Plan - Plan Referrals: Priyank Flor DO [Non-Partnered Physician] - (Would recommend continued use of a sling until the patient's pain is improved and then can begin some gentle range of motion exercises. Patient is not to utilize the arm to ambulate with a walker etc. Patient will require follow up in 2-3 weeks for recheck x-rays and clinical evaluation.) Elvia Branham MD [Primary Care Provider] - (4) COPD (chronic obstructive pulmonary disease) Qualifiers: COPD type: unspecified COPD Qualified Code(s): J44.9 - Chronic obstructive pulmonary disease, unspecified (5) CHF (congestive heart failure) Qualifiers: Heart failure type: diastolic Heart failure chronicity: chronic Qualified Code(s): I50.32 - Chronic diastolic (congestive) heart failure (6) Left humeral fracture Qualifiers: Encounter type: subsequent encounter Humerus Location: surgical neck Fracture type: closed Fracture morphology: 2-part Fracture alignment: nondisplaced Fracture healing: with routine healing Qualified Code(s): S42.225D - 2-part nondisplaced fracture of surgical neck of left humerus, subsequent encounter for fracture with routine healing (7) Coronary artery disease Qualifiers: Associated angina: without angina Qualified Code(s): I25.10 - Atherosclerotic heart disease of [place] coronary artery without angina pectoris
[2018-12-04] MEDS: Acetaminophen 325 MG TABLET PO PRN (13:28)
[2018-12-05 04:10] LABS: Basophils % 0.4 %; Eosinophils # 0.2 K/mcL (0.0-0.6); Eosinophils % 2.2 %; Hematocrit 29.5 % (35.3-44.9); Immature Granulocytes % 0.7 % (0-4); Lymphocytes # 1.3 K/mcL (0.6-4.6); Lymphocytes % 17.6 %; Mean Corpuscular HGB Conc 30.5 g/dL (31.6-35.5); Mean Corpuscular Hemoglobin 24.4 pg (28.0-33.3); Mean Corpuscular Volume 79.9 fL (83.0-100.0); Mean Platelet Volume 9.8 fL (9.4-12.4); Monocytes # 0.7 K/mcL (0.0-1.3); Monocytes % 9.7 %; Neutrophils # 5.2 K/mcL (1.6-8.9); Platelet Count 251 K/mcL (140-400); Red Blood Count 3.69 M/mcL (3.82-4.97); Red Cell Distribution Width 15.9 % (11.5-14.5); Segmented Neutrophils % 69.4 %
[2018-12-05 04:31] LABS: BUN/Creatinine Ratio 23 (6-26); Blood Urea Nitrogen 12 mg/dL (8-23); Calcium 8.6 mg/dL (8.6-10.3); Carbon Dioxide 33 mEq/L (23-29); Chloride 101 mEq/L (98-107); Glucose 99 mg/dL (70-105); Magnesium 1.7 mg/dL (1.6-2.6); Osmolality,Calculated 290 (280-300); Potassium 3.4 mEq/L (3.5-5.1); Sodium 140 mEq/L (136-145); eGFR For Non-African Americans > 60 (> 60)
[2018-12-05] MEDS: *HR* Amiodarone 200 MG TABLET PO SCH (08:19)
[2018-12-05] MEDS: *HR* HYDROcodone/Acet 5/325 mg TABLET PO PRN ×3 (08:19→20:56)
[2018-12-05] MEDS: Furosemide 20 MG TABLET PO SCH (08:19)
[2018-12-05] MEDS: Apixaban 5 MG TABLET PO SCH ×2 (08:19→20:57)
[2018-12-05] MEDS: Loratadine 10 MG TABLET PO SCH (08:19)
[2018-12-05] MEDS: cefTRIAXone 2,000 MG in Water for inj. (sterile) 20 ML 20 ML IVP SCH (08:20)
[2018-12-05] MEDS: Aspirin 81 MG TAB.CHEW PO SCH (08:20)
--- NOTE | 2018-12-05 09:30 | Infectious Disease Progress No ---
Date of Encounter: 12/05/18 Time of Encounter: 08:30 - Assessment and Plan (1) Leukocytosis Current Visit: Yes Status: Acute The patient's white blood cell count was elevated at 13,000 on admission. Likely secondary to bacteremia. Resolved. Blood cultures drawn 11/29/18 are +2 out of 2 sets for S. sanguinis. Repeat blood cultures drawn 12/01/18 are NGTD x 2 sets. Recommendations: Await repeat blood cultures to finalize. Source of bacteremia remains unclear. CT of the chest, abdomen, and pelvis with and without contrast are nonrevealing for infectious etiology. The patient does have a prosthetic heart valve and AICD/pacemaker and total knee replacement which makes this complicated. Urinalysis was negative. She has no obvious odontogenic source of infection. TTE negative. OMER pending completion later today. Continue Rocephin 2 g IV daily. Duration of treatment depends on the clinical picture. Monitor renal function and is just antibiotics. Qualifiers: Leukocytosis type: unspecified Qualified Code(s): D72.829 - Elevated white blood cell count, unspecified (2) Bacteremia Current Visit: Yes Status: Acute Causative organism: Strep sanguinis. Blood cultures drawn 11/29/18 are +2 out of 2 sets. Repeat blood cultures drawn 12/01/18 are NGTD x 2 sets. Source: Unclear. CT of the chest, abdomen, and pelvis were negative for acute infectious etiology. Urinalysis was negative for pyuria. No obvious odontogenic infection. No endocarditis stigmata noted on exam. TTE negative. The patient has 2 minor Modified Lundberg's criteria. Currently on IV Rocephin. (3) Altered mental status Current Visit: Yes Status: Resolved Likely secondary to bacteremia. CT of the head negative for acute abnormality. No meningeal signs noted on exam and patient's ROS not reliable. Resolved. Monitor closely. Qualifiers: Altered mental status type: unspecified Qualified Code(s): R41.82 - Altered mental status, unspecified (4) Weakness Current Visit: No Status: Acute Generalized. Improved. PT/OT. (5) Closed fracture of left proximal humerus Current Visit: No Status: Acute Status post fall last week. Ortho consultation appreciated. Qualifiers: Encounter type: initial encounter Fracture morphology: unspecified fracture morphology Qualified Code(s): S42. - Unspecified fracture of upper end of left humerus, initial encounter for closed fracture (6) CHF (congestive heart failure) Current Visit: No Status: Chronic Qualifiers: Heart failure type: diastolic Heart failure chronicity: chronic Qualified Code(s): I50.32 - Chronic diastolic (congestive) heart failure (7) Pacemaker Current Visit: No Status: Acute (8) COPD (chronic obstructive pulmonary disease) Current Visit: No Status: Chronic Qualifiers: COPD type: unspecified COPD Qualified Code(s): J44.9 - Chronic obstructive pulmonary disease, unspecified (9) History of aortic valve replacement Current Visit: Yes Status: Chronic Status post TAVR 05/2017 at [facility]. - Subjective Interval history: Patient seen and examined. No acute events. Patient is more alert today. Complains of pain in the left upper extremity pain. Denies fevers, chills, or rigors. Denies chest pain, shortness of breath, or cough. Denies nausea, vomiting, diarrhea, or constipation. Her last bowel movement was yesterday. Denies abdominal pain or urinary complaints. States overall her appetite is pretty good, but she is NPO for OMER later today. She denies any oral thrush and new skin lesions. Infect Dis PN-Objective Data - Labs CBC & Chem 7: 12/05/18 03:50 12/05/18 03:50 Labs: Laboratory Results - last 24 hr 11/30/18 12/05/18 12/05/18 05:35 03:50 03:50 WBC 7.4 RBC 3.69 L Hgb 9.0 L Hct 29.5 L MCV 79.9 L MCH 24.4 L MCHC 30.5 L RDW 15.9 H Plt Count 251 MPV 9.8 Immature Gran % 0.7 Seg Neutrophils % 69.4 Lymphocytes % 17.6 Monocytes % 9.7 Eosinophils % 2.2 Basophils % 0.4 Neutrophils # 5.2 Lymphocytes # 1.3 Monocytes # 0.7 Eosinophils # 0.2 Basophils # 0.0 Sodium 140 Potassium 3.4 L Chloride 101 Carbon Dioxide 33 H BUN 12 Creatinine 0.53 L Est GFR ( Amer) > 60 Est GFR (Non-Af Amer) > 60 BUN/Creatinine Ratio 23 Glucose 99 Calculated Osmolality 290 Calcium 8.6 Magnesium 1.7 Amiodarone 1.0 Desethylamiodarone 1.0 Cultures: Cultures 11/29/18 22:48 Blood Culture - Final Peripheral Venipuncture Streptococcus sanguinis 11/29/18 22:34 Blood Culture - Final Peripheral Venipuncture Streptococcus sanguinis 12/01/18 03:54 Blood Culture - Preliminary Peripheral Venipuncture Culture is incubating and being continuously monitored for growth. Final report to follow. 12/01/18 03:54 Blood Culture - Preliminary Peripheral Venipuncture Culture is incubating and being continuously monitored for growth. Final report to follow. Serology 11/30/18 11/29/18 11/29/18 Range/Units 21:29 22:48 22:24 Urine Color Yellow (Yellow) Urine Clarity Clear (Clear) Urine pH 6.0 (5.0-8.0) pH Units Ur Specific [place] 1.012 (1.010-1.025) Urine Protein 100 H (Neg-Trace) mg/dL Urine Glucose (UA) Normal (Normal) mg/dL Urine Ketones Negative (Negative) mg/dL Urine Blood Negative (Negative) Urine Nitrite Negative (Negative) Urine Bilirubin Small H (Negative) Urine Urobilinogen Normal (Normal) mg/dL Ur Leukocyte Esterase Negative (Negative) Urine Microscopic RBC 0-3 (0-3) per hpf Urine Microscopic WBC 0-3 (0-3) per hpf Ur Squamous Epith Cells Moderate H (None-Few) per lpf Urine Bacteria None Seen (None-Few) per hpf Hyaline Casts Few (None-Few) per lpf Ur Culture Indicated? NO (NO) A. baumannii (PCR) Not Detected (Not Detect) Chlamy pneumoniae PCR Not Detected (Not Detect) Adenovirus (PCR) Not Detected (Not Detect) B. pertussis DNA (PCR) Not Detected (Not Detect) B.parapertussis DNA PCR Not Detected (Not Detect) Manuela albicans (PCR) Not Detected (Not Detect) C. glabrata (PCR) Not Detected (Not Detect) C. krusei (PCR) Not Detected (Not Detect) C. parapsilosis (PCR) Not Detected (Not Detect) C. tropicalis (PCR) Not Detected (Not Detect) Coronavirus OC43 (PCR) Not Detected (Not Detect) Coronavirus HKU1 (PCR) Not Detected (Not Detect) Coronavirus 229E (PCR) Not Detected (Not Detect) Coronavirus NL63 (PCR) Not Detected (Not Detect) Enterobacteriac sp PCR Not Detected (Not Detect) E. cloacae complex PCR Not Detected (Not Detect) Enterococcus sp PCR Not Detected (Not Detect) E. coli (PCR) Not Detected (Not Detect) H. influenzae (PCR) Not Detected (Not Detect) Human Metapneumovir PCR Not Detected (Not Detect) Influenza A (H1) PCR Not Detected (Not Detect) Influ A (H1N1/09) PCR Not Detected (Not Detect) Influenza A (H3) PCR Not Detected (Not Detect) Influenza A Untype (PCR) Not Detected (Not Detect) Influenza Type B (PCR) Not Detected (Not Detect) Klebsiella oxytoca PCR Not Detected (Not Detect) Klebsiella pneumoniae Not Detected (Not Detect) List. monocytogenes PCR Not Detected (Not Detect) M.pneumoniae DNA (PCR) Not Detected (Not Detect) N. meningitidis (PCR) Not Detected (Not Detect) Parainfluenza 1 (PCR) Not Detected (Not Detect) Parainfluenza 2 (PCR) Not Detected (Not Detect) Parainfluenza 3 (PCR) Not Detected (Not Detect) Parainfluenza 4 (PCR) Not Detected (Not Detect) Proteus species (PCR) Not Detected (Not Detect) RSV (PCR) Not Detected (Not Detect) Entero/Rhino (PCR) Not Detected (Not Detect) Serratia marcescens PCR Not Detected (Not Detect) Staphylococcus sp PCR Not Detected (Not Detect) Staph aureus (PCR) Not Detected (Not Detect) mecA-Methicil Res Gene N/A (Not Detect) Streptococcus sp PCR DETECTED A (Not Detect) Group A Strep DNA Not Detected (Not Detect) Group B Strep (PCR) Not Detected (Not Detect) Strep pneumoniae (PCR) Not Detected (Not Detect) P. aeruginosa (PCR) Not Detected (Not Detect) Giorgio/B-Vanco Res Genes N/A (Not Detect) KPC (blaKPC) Detect PCR N/A (Not Detect) - Impressions Impressions Abdomen/Pelvis CT 12/04/18 10:30 IMPRESSION: 1. No acute intra-abdominal or intrapelvic process. No abnormality is identified to explain the patient's bacteremia. 2. Colonic diverticulosis without evidence of diverticulitis. 3. Trace left-sided pleural effusion of unclear etiology with minor bibasilar atelectasis. 4. Nonvisualization of the appendix with no secondary signs of acute appendicitis. 5. Status post hysterectomy. D/ / Vikas Mg MD / Vikas Mg MD Interpreting Provider: Vikas Mg MD Exam - Constitutional Vitals: Temp Pulse Resp BP Pulse Ox 98.5 F 65 20 175/74 96 12/05/18 06:52 12/05/18 06:52 12/05/18 06:52 12/05/18 06:52 12/05/18 06:52 General appearance: cooperative, morbidly obese, no acute distress - Head Head exam: Present: atraumatic, normal inspection, normocephalic - Eye Eye exam: Present: EOMI, normal appearance, PERRL Pupils: Present: normal accommodation Additional comments: No subconjunctival hemorrhage noted. Poor dentition noted, but no obvious abscess or infection. - ENT ENT exam: Present: mucous membranes moist - Neck Neck exam: Present: normal inspection - Respiratory Respiratory exam: Present: CTAB. Absent: rales, respiratory distress, rhonchi, wheezes - Cardiovascular Cardiovascular exam: Present: irregular rhythm, +S1, +S2. Absent: tachycardia - GI/Abdominal GI/Abdominal exam: Present: distended (obese), normal bowel sounds, soft. Absent: tenderness - Extremities Exam Extremities exam: Present: pedal edema (2+ BLE). Absent: joint swelling, normal inspection (LUE in sling), tenderness - Neurological Exam Neurological exam: Present: alert, oriented X3, no focal deficits - Psychiatric Psychiatric exam: Present: normal affect, normal mood - Skin Skin exam: Present: dry, intact, normal color, warm Additional comments: No endocarditis stigmata noted. Consult Discharge Plan - Plan Referrals: Priyank Flor DO [Non-Partnered Physician] - (Would recommend continued use of a sling until the patient's pain is improved and then can begin some gentle range of motion exercises. Patient is not to utilize the arm to ambulate with a walker etc. Patient will require follow up in 2-3 weeks for recheck x-rays and clinical evaluation.) Elvia Branham MD [Primary Care Provider] - - Attending Attestation I have personally performed a face to face evaluation on this patient. I have reviewed and agree with the care plan. History and Exam by me shows: Assessment and plan: Bacteremia with Streptococcus sanguinous Source not clear but intrapelvic processes a concern specially with a previous Enterococcus faecalis OMER done, results pending. CT abdomen and pelvis with IV and oral contrast was nonrevealing. I still do not know what the source of this recurrent infection keeps coming from. Continue Rocephin for now duration of treatment depends on the OMER findings and the CT findings specially with a prosthetic valve and prosthetic joint Monitor labs and for drug toxicity
[2018-12-05] MEDS: Budesonide/Formoterol 80/4.5 MDI IH SCH ×2 (09:32→20:45)
[2018-12-05] MEDS ORDERED: 0.9 % Sodium Chloride 500 ML IVC ONE (10:01)
[2018-12-05] MEDS ORDERED: Lidocaine Viscous Oral Soln 15 ML SOLUTION MM PRN (10:01)
[2018-12-05] MEDS ORDERED: Tetracaine/Benzocaine/Butamben 1 SPRAY AEROSOL MM ONE (10:01)
[2018-12-05] MEDS: *HR* FentaNYL (PF) 100 MCG/2 ML VIAL IVP PRN ×2 (11:05→11:15)
[2018-12-05] MEDS: *HR* Midazolam HCl 5 MG/5 ML VIAL IVP PRN ×3 (11:05→11:15)
--- NOTE | 2018-12-05 12:23 | Internal Med Progress Note ---
Hospitalist Progress Note - Encounter Date of Encounter: 12/05/18 Time of Encounter: 12:23 - Subjective Interval History: Pt uncomfortable from humerus fx but otherwise reports feeling well. Denies SOB or CP, no abd pain or diarrhea. - Exam Vitals: Temp Pulse Resp BP Pulse Ox 98.1 F 64 18 134/58 91 12/05/18 10:40 12/05/18 10:40 12/05/18 10:40 12/05/18 10:40 12/05/18 10:40 Exam: General: awake and fully oriented, not in acute distress. Cardiovascular:Normal S1 & S2, Pulse regular. Lungs: clear to auscultation, no wheezes/rales Abdomen:Soft, non-tender Extremities: L UE in sling. Neurovascularly intact distally. Does have chronic nonpitting edema b/l LE - Summary of Assessment and Plan Summary of Assessment and Plan: Strep sanguinis bacteremia: hx E faecalis bacteremia in which required IV abx x4w, TTE here unremarkable, does have hx L TKR and bpAVR, currently unclear source - ID following - Rocephin 2g daily, unclear duration - OMER scheduled for today - PICC placed 12/04 L humerus fracture: s/p fall 11/26, Ortho rec'd non-op management, continue RUE sling and PT/OT Hypokalemia: replace and monitor Chronic microcytic anemia (poa): - check iron labs Acute metabolic encephalopathy: resolved Hx bpAVR: eval as above for concern of IE COPD: home inhalers Chronic HFpEF: home lasix A-Fib: rate on coreg 12.5 bid, rhythm on amio 200 daily, AC on eliquis 5 bid CAD: home ASA, statin HTN: home amlodipine 10, coreg as above PPx: eliquis FEN: cardiac, no MIVF Lines: RUE PICC Consults: ID Code: Full Dispo: will likely need IV abx, suspect needs SNF, duration per OMER as above - Time Spent with Patient Total time spent is greater than 50% in coordination of care (as documented) at patient's floor/unit and/or counseling patient: 25 - 35 minutes Internal Medicine: Result - Labs CBC & Chem 7: 12/05/18 03:50 12/05/18 03:50 Labs: Short CBC 12/05/18 Range/Units 03:50 WBC 7.4 (4.3-11.1) K/mcL Hgb 9.0 L (11.5-15.4) g/dL Hct 29.5 L (35.3-44.9) % Plt Count 251 (140-400) K/mcL Neutrophils # 5.2 (1.6-8.9) K/mcL BMP 12/05/18 03:50 Sodium 140 Potassium 3.4 L Chloride 101 Carbon Dioxide 33 H BUN 12 Creatinine 0.53 L Glucose 99 Calcium 8.6 - ABG Interpretation ABG results: ABG ABG pH 7.41 pH Units (7.32-7.45) 11/30/18 04:45 ABG pCO2 43 mmHg (35-45) 11/30/18 04:45 ABG pO2 63 mmHg (85-104) L 11/30/18 04:45 ABG O2 Saturation 92 % (95-98) L 11/30/18 04:45 PT/INR, D-dimer PT 19.3 Seconds (9.4-12.1) H 11/30/18 04:22 Consult Discharge Plan - Plan Referrals: Priyank Flor DO [Non-Partnered Physician] - (Would recommend continued use of a sling until the patient's pain is improved and then can begin some gentle range of motion exercises. Patient is not to utilize the arm to ambulate with a walker etc. Patient will require follow up in 2-3 weeks for recheck x-rays and clinical evaluation.) Elvia Branham MD [Primary Care Provider] -
[2018-12-05] MEDS: Nystatin POWDER 30 GM BOTTLE TP SCH ×2 (13:29→20:57)
[2018-12-05] MEDS: amLODIPine 5 MG TABLET PO SCH (13:29)
[2018-12-06] MEDS: *HR* HYDROcodone/Acet 5/325 mg TABLET PO PRN ×3 (05:51→17:45)
[2018-12-06 07:07] LABS: Hematocrit 31.1 % (35.3-44.9); Hemoglobin 9.2 g/dL (11.5-15.4); Mean Corpuscular HGB Conc 29.6 g/dL (31.6-35.5); Mean Corpuscular Hemoglobin 24.1 pg (28.0-33.3); Mean Corpuscular Volume 81.4 fL (83.0-100.0); Mean Platelet Volume 9.7 fL (9.4-12.4); Platelet Count 240 K/mcL (140-400); Red Blood Count 3.82 M/mcL (3.82-4.97); Red Cell Distribution Width 15.5 % (11.5-14.5)
[2018-12-06 07:22] LABS: % Iron Saturation 8 % (15-50); BUN/Creatinine Ratio 20 (6-26); Blood Urea Nitrogen 10 mg/dL (8-23); Calcium 8.3 mg/dL (8.6-10.3); Carbon Dioxide 32 mEq/L (23-29); Chloride 104 mEq/L (98-107); Glucose 96 mg/dL (70-105); Iron 25 mcg/dL (50-170); Magnesium 1.6 mg/dL (1.6-2.6); Osmolality,Calculated 287 (280-300); Potassium 3.5 mEq/L (3.5-5.1); Sodium 139 mEq/L (136-145); Transferrin 223 mg/dL (203-362); eGFR For Non-African Americans > 60 (> 60)
--- NOTE | 2018-12-06 07:25 | Internal Med Progress Note ---
Hospitalist Progress Note - Encounter Date of Encounter: 12/06/18 Time of Encounter: 07:23 - Subjective Interval History: Got OMER yesterday which showed likely vegetation. Does report ongoing arm pain which does seem to improve when she sits up. Denies CP or fevers or abd pain/diarrhea. - Exam Vitals: Temp Pulse Resp BP Pulse Ox 98 F 60 20 160/67 94 12/06/18 07:06 12/06/18 07:06 12/06/18 07:06 12/06/18 07:06 12/06/18 07:06 Exam: General: awake and fully oriented, not in acute distress. Cardiovascular:Normal S1 & S2, Pulse regular. Lungs: clear to auscultation, no wheezes/rales Abdomen:Soft, non-tender Extremities: L UE in sling, tender to palpation or with ROM. Neurovascularly intact distally. Does have chronic nonpitting edema b/l LE - Summary of Assessment and Plan Summary of Assessment and Plan: Strep sanguinis bacteremia and infective endocarditis: hx E faecalis bacteremia in ' which required IV abx x4w, TTE here unremarkable, does have hx L TKR and bpAVR, OMER 12/05/2018 showing 0.5 x 0.3 cm vegetation concerning for endocarditis - ID following - Plan for Rocephin 2g daily, will need x6w - PICC placed 12/04 - TTE and ID follow up 5-6 weeks L humerus fracture: s/p fall 11/26, Ortho rec'd non-op management, continue RUE sling and PT/OT Hypokalemia: replace and monitor Anemia of chronic disease and iron deficiency anemia: noted - ferrous sulfate daily Acute metabolic encephalopathy: resolved Hx bpAVR: noted, no vegetations on OMER COPD: home inhalers Chronic HFpEF: home lasix A-Fib: rate on coreg 12.5 bid, rhythm on amio 200 daily, AC on eliquis 5 bid CAD: home ASA, statin HTN: home amlodipine 10, coreg as above PPx: eliquis FEN: cardiac, no MIVF Lines: RUE PICC Consults: ID Code: Full Dispo: will likely need IV abx x6w, will need SNF given LUE injury - Time Spent with Patient Total time spent is greater than 50% in coordination of care (as documented) at patient's floor/unit and/or counseling patient: Internal Medicine: Result - Labs CBC & Chem 7: 12/06/18 06:40 12/06/18 06:40 Labs: Short CBC 12/06/18 Range/Units 06:40 WBC 7.5 (4.3-11.1) K/mcL Hgb 9.2 L (11.5-15.4) g/dL Hct 31.1 L (35.3-44.9) % Plt Count 240 (140-400) K/mcL BMP 12/06/18 06:40 Sodium 139 Potassium 3.5 Chloride 104 Carbon Dioxide 32 H BUN 10 Creatinine 0.49 L Glucose 96 Calcium 8.3 L - ABG Interpretation ABG results: ABG ABG pH 7.41 pH Units (7.32-7.45) 11/30/18 04:45 ABG pCO2 43 mmHg (35-45) 11/30/18 04:45 ABG pO2 63 mmHg (85-104) L 11/30/18 04:45 ABG O2 Saturation 92 % (95-98) L 11/30/18 04:45 PT/INR, D-dimer PT 19.3 Seconds (9.4-12.1) H 11/30/18 04:22 Consult Discharge Plan - Plan Referrals: Priyank Flor DO [Non-Partnered Physician] - (Would recommend continued use of a sling until the patient's pain is improved and then can begin some gentle range of motion exercises. Patient is not to utilize the arm to ambulate with a walker etc. Patient will require follow up in 2-3 weeks for recheck x-rays and clinical evaluation.) Elvia Branham MD [Primary Care Provider] -
[2018-12-06] MEDS: Furosemide 20 MG TABLET PO SCH (07:28)
[2018-12-06] MEDS: amLODIPine 5 MG TABLET PO SCH (07:28)
[2018-12-06] MEDS: Aspirin 81 MG TAB.CHEW PO SCH (07:28)
[2018-12-06] MEDS: *HR* Amiodarone 200 MG TABLET PO SCH (07:28)
[2018-12-06] MEDS: cefTRIAXone 2,000 MG in Water for inj. (sterile) 20 ML 20 ML IVP SCH (07:29)
[2018-12-06] MEDS: Loratadine 10 MG TABLET PO SCH (07:29)
[2018-12-06] MEDS: Nystatin POWDER 30 GM BOTTLE TP SCH (07:29)
[2018-12-06] MEDS: Apixaban 5 MG TABLET PO SCH (07:29)
[2018-12-06] MEDS: Acetaminophen 325 MG TABLET PO PRN (09:38)
[2018-12-06] MEDS: Budesonide/Formoterol 80/4.5 MDI IH SCH ×2 (10:55→21:03)
--- NOTE | 2018-12-06 11:11 | Infectious Disease Progress No ---
Date of Encounter: 12/06/18 Time of Encounter: 10:30 - Assessment and Plan (1) Leukocytosis Status: Acute The patient's white blood cell count was elevated at 13,000 on admission. Likely secondary to bacteremia. Resolved. Blood cultures drawn 11/29/18 are +2 out of 2 sets for S. sanguinis. Repeat blood cultures drawn 12/01/18 are negative x 2 sets. Recommendations: Source of bacteremia remains unclear. CT of the chest, abdomen, and pelvis with and without contrast are nonrevealing for infectious etiology. The patient does have a prosthetic heart valve and AICD/pacemaker and total knee replacement which makes this complicated. Urinalysis was negative. She has no obvious odon togenic source of infection. TTE negative. OMER showed possible vegetation on the mitral valve. Continue Rocephin 2 g IV daily. Duration of treatment depends on the clinical picture. Monitor renal function and is just antibiotics. Will need weekly CBC, BUN/Cr. Will need weekly IV care per protocol. Follow up with ID 12/20/18 at 1445. Qualifiers: Leukocytosis type: unspecified Qualified Code(s): D72.829 - Elevated white blood cell count, unspecified (2) Bacteremia Status: Acute Causative organism: Strep sanguinis. Blood cultures drawn 11/29/18 are +2 out of 2 sets. Repeat blood cultures drawn 12/01/18 are NGTD x 2 sets. Source: Unclear. CT of the chest, abdomen, and pelvis were negative for acute infectious etiology. Urinalysis was negative for pyuria. No obvious odontogenic infection. No endocarditis stigmata noted on exam. TTE negative, but OMER shows possible vegetation on the mitral valve. The patient has one major and 2 minor Modified Lundberg's criteria. Currently on IV Rocephin. 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 Causative organism: Strep sanguinous. OMER completed 12/05/18 showed a 4.7 x 3.2 mm mobile echogenic mass on the posterior mitral leaflet suspicious for vegetation. No obvious vegetation noted on the device leads or on the bioprosthetic aortic valve. Per the guidelines, this type of infection should be treated with either PCN G or ampicillin or Rocephin with or without gentamicin. For ease of dosing in the outpatient setting, we will continue IV Rocephin. In regards to adding Gen tamicin, the patient has several comorbidities and advanced age which put her at high risk for ЕКАТЕРИНА with the use of Gentamicin. Since the vegetation is not on the prosthetic valve and the patient's high risk with the use of gentamicin, will not use Gentamicin. Currently on IV Rocephin. (4) Altered mental status Status: Resolved Likely secondary to bacteremia. CT of the head negative for acute abnormality. No meningeal signs noted on exam and patient's ROS not reliable. Resolved. Monitor closely. Qualifiers: Altered mental status type: unspecified Qualified Code(s): R41.82 - Altered mental status, unspecified (5) Weakness Status: Acute Generalized. Improved. PT/OT. (6) Closed fracture of left proximal humerus Status: Acute Status post fall last week. Ortho consultation appreciated. Qualifiers: Encounter type: sequela Fracture morphology: unspecified fracture morphology Qualified Code(s): S42.202S - Unspecified fracture of upper end of left humerus, sequela (7) CHF (congestive heart failure) Status: Chronic Qualifiers: Heart failure type: unspecified Heart failure chronicity: chronic Qualified Code(s): I50.9 - Heart failure, unspecified (8) Pacemaker Status: Acute (9) COPD (chronic obstructive pulmonary disease) Status: Chronic Qualifiers: COPD type: unspecified COPD Qualified Code(s): J44.9 - Chronic obstructive pulmonary disease, unspecified (10) History of aortic valve replacement Status: Chronic Status post TAVR 05/2017 at [facility]. - Subjective Interval history: Patient seen and examined. No acute events noted overnight. Patient states she is tired today. Denies pain, but states she was given pain medication recently for LUE pain. Denies fevers, chills, or rigors. Denies chest pain, shortness of breath, or cough. Denies nausea, vomiting, diarrhea, or constipation. Her last bowel movement was yesterday. Denies abdominal pain or urinary complaints. States overall her appetite is pretty good. She denies any oral thrush and new skin lesions. Infect Dis PN-Objective Data - Labs CBC & Chem 7: 12/06/18 06:40 12/06/18 06:40 Labs: Laboratory Results - last 24 hr 12/06/18 12/06/18 06:40 06:40 WBC 7.5 RBC 3.82 Hgb 9.2 L Hct 31.1 L MCV 81.4 L MCH 24.1 L MCHC 29.6 L RDW 15.5 H Plt Count 240 MPV 9.7 Sodium 139 Potassium 3.5 Chloride 104 Carbon Dioxide 32 H BUN 10 Creatinine 0.49 L Est GFR ( Amer) > 60 Est GFR (Non-Af Amer) > 60 BUN/Creatinine Ratio 20 Glucose 96 Calculated Osmolality 287 Calcium 8.3 L Magnesium 1.6 Iron 25 L % Saturation 8 L Transferrin 223 Cultures: Cultures 12/01/18 03:54 Blood Culture - Final Peripheral Venipuncture No growth. Final report. 12/01/18 03:54 Blood Culture - Final Peripheral Venipuncture No growth. Final report. 11/29/18 22:48 Blood Culture - Final Peripheral Venipuncture Streptococcus sanguinis 11/29/18 22:34 Blood Culture - Final Peripheral Venipuncture Streptococcus sanguinis Serology 11/30/18 11/29/18 11/29/18 Range/Units 21:29 22:48 22:24 Urine Color Yellow (Yellow) Urine Clarity Clear (Clear) Urine pH 6.0 (5.0-8.0) pH Units Ur Specific [place] 1.012 (1.010-1.025) Urine Protein 100 H (Neg-Trace) mg/dL Urine Glucose (UA) Normal (Normal) mg/dL Urine Ketones Negative (Negative) mg/dL Urine Blood Negative (Negative) Urine Nitrite Negative (Negative) Urine Bilirubin Small H (Negative) Urine Urobilinogen Normal (Normal) mg/dL Ur Leukocyte Esterase Negative (Negative) Urine Microscopic RBC 0-3 (0-3) per hpf Urine Microscopic WBC 0-3 (0-3) per hpf Ur Squamous Epith Cells Moderate H (None-Few) per lpf Urine Bacteria None Seen (None-Few) per hpf Hyaline Casts Few (None-Few) per lpf Ur Culture Indicated? NO (NO) A. baumannii (PCR) Not Detected (Not Detect) Chlamy pneumoniae PCR Not Detected (Not Detect) Adenovirus (PCR) Not Detected (Not Detect) B. pertussis DNA (PCR) Not Detected (Not Detect) B.parapertussis DNA PCR Not Detected (Not Detect) Manuela albicans (PCR) Not Detected (Not Detect) C. glabrata (PCR) Not Detected (Not Detect) C. krusei (PCR) Not Detected (Not Detect) C. parapsilosis (PCR) Not Detected (Not Detect) C. tropicalis (PCR) Not Detected (Not Detect) Coronavirus OC43 (PCR) Not Detected (Not Detect) Coronavirus HKU1 (PCR) Not Detected (Not Detect) Coronavirus 229E (PCR) Not Detected (Not Detect) Coronavirus NL63 (PCR) Not Detected (Not Detect) Enterobacteriac sp PCR Not Detected (Not Detect) E. cloacae complex PCR Not Detected (Not Detect) Enterococcus sp PCR Not Detected (Not Detect) E. coli (PCR) Not Detected (Not Detect) H. influenzae (PCR) Not Detected (Not Detect) Human Metapneumovir PCR Not Detected (Not Detect) Influenza A (H1) PCR Not Detected (Not Detect) Influ A (H1N1/09) PCR Not Detected (Not Detect) Influenza A (H3) PCR Not Detected (Not Detect) Influenza A Untype (PCR) Not Detected (Not Detect) Influenza Type B (PCR) Not Detected (Not Detect) Klebsiella oxytoca PCR Not Detected (Not Detect) Klebsiella pneumoniae Not Detected (Not Detect) List. monocytogenes PCR Not Detected (Not Detect) M.pneumoniae DNA (PCR) Not Detected (Not Detect) N. meningitidis (PCR) Not Detected (Not Detect) Parainfluenza 1 (PCR) Not Detected (Not Detect) Parainfluenza 2 (PCR) Not Detected (Not Detect) Parainfluenza 3 (PCR) Not Detected (Not Detect) Parainfluenza 4 (PCR) Not Detected (Not Detect) Proteus species (PCR) Not Detected (Not Detect) RSV (PCR) Not Detected (Not Detect) Entero/Rhino (PCR) Not Detected (Not Detect) Serratia marcescens PCR Not Detected (Not Detect) Staphylococcus sp PCR Not Detected (Not Detect) Staph aureus (PCR) Not Detected (Not Detect) mecA-Methicil Res Gene N/A (Not Detect) Streptococcus sp PCR DETECTED A (Not Detect) Group A Strep DNA Not Detected (Not Detect) Group B Strep (PCR) Not Detected (Not Detect) Strep pneumoniae (PCR) Not Detected (Not Detect) P. aeruginosa (PCR) Not Detected (Not Detect) Giorgio/B-Vanco Res Genes N/A (Not Detect) KPC (blaKPC) Detect PCR N/A (Not Detect) Exam - Constitutional Vitals: Temp Pulse Resp BP Pulse Ox 98 F 60 20 160/67 96 12/06/18 07:06 12/06/18 07:06 12/06/18 10:55 12/06/18 07:06 12/06/18 10:55 General appearance: cooperative, morbidly obese, no acute distress - Head Head exam: Present: atraumatic, normal inspection, normocephalic - Eye Eye exam: Present: EOMI, normal appearance, PERRL Pupils: Present: normal accommodation Additional comments: No subconjunctival hemorrhage noted. - ENT ENT exam: Present: mucous membranes moist - Neck Neck exam: Present: normal inspection - Respiratory Respiratory exam: Present: CTAB. Absent: rales, respiratory distress, rhonchi, wheezes - Cardiovascular Cardiovascular exam: Present: irregular rhythm. Absent: tachycardia - GI/Abdominal GI/Abdominal exam: Present: distended (obese), normal bowel sounds, soft. Absent: tenderness - Extremities Exam Extremities exam: Present: pedal edema (1+ BLE). Absent: joint swelling, normal inspection (LUE in sling), tenderness - Neurological Exam Neurological exam: Present: alert, oriented X3, no focal deficits - Psychiatric Psychiatric exam: Present: normal affect, normal mood - Skin Skin exam: Present: dry, intact, normal color, warm Additional comments: No endocarditis stigmata noted. Consult Discharge Plan - Plan Referrals: Priyank Flor DO [Non-Partnered Physician] - (Would recommend continued use of a sling until the patient's pain is improved and then can begin some gentle range of motion exercises. Patient is not to utilize the arm to ambulate with a walker etc. Patient will require follow up in 2-3 weeks for recheck x-rays and clinical evaluation.) Elvia Branham MD [Primary Care Provider] - Any Franklin CNP [Advanced Practice Nurse] - 12/20/18 2:45 pm Prescriptions: cefTRIAXone [Rocephin] 2,000 mg IVPB DAILY #39 vial - Attending Attestation I have personally performed a face to face evaluation on this patient. I have reviewed and agree with the care plan. History and Exam by me shows: Assessment and plan: Bacteremia with Streptococcus sanguinous Endocarditis of non bioprosthetic valve Source not clear but intrapelvic processes a concern specially with a previous Enterococcus faecalis CT abdomen and pelvis with IV and oral contrast was nonrevealing. I still do not know what the source of this recurrent infection keeps coming from. Continue Rocephin for now duration of treatment depends on the OMER findings and the CT findings specially with a prosthetic valve and prosthetic joint Monitor labs and for drug toxicity
[2018-12-06 11:36] VITALS: BP 153/52
--- NOTE | 2018-12-06 14:35 | Discharge Summary ---
- NOTES TO OUTPATIENT PROVIDER Notes to Outpatient Provider: Endocarditis needing Rocephin for 6 weeks ending 01/14, to SNF for IV abx Date of Encounter: 12/06/18 Time of Encounter: 14:33 - Discharge Diagnosis (1) Endocarditis of mitral valve Priority: Primary Status: Acute Hospital course: Ms. Hyatt is a 72 year old female w hx knee replacement, pacemaker, and bpAVR, who presented with altered mental status and a fall. In the ED, evaluation revealed broken left humerus for which orthopedics recommended non-op management. For AMS, the patient was evaluated broadly. Due to leukocytosis, blood cultures obtained which were positive 2 of 2 for Strep sanguinis. Extensive evaluation unremarkable except for OMER which showed small 4 mm x 3 mm vegetation on the mitral valve. The patient clinically improved with Rocephin IV and acute encephalopathy resolved. Blood cultures subsequently cleared and PICC line placed for ongoing IV abx. Dx: acute metabolic encephalopathy, infective endocarditis, broken L humerus Follow up: ID 6 weeks and repeat TTE Pending: none Med changes: Rocephin 2 g iv daily, last dose 01/14/2019 or per ID follow up Mental status: awake, fully oriented Code: Full code - Time Spent with Patient Total time spent providing and/or coordinating discharge services: Greater than 30 minutes - Discharge Medications Prescriptions: cefTRIAXone [Rocephin] 2,000 mg IVPB DAILY #39 vial Home Medications: Albuterol Sulfate [Proair Respiclick] 2 puff IH Q4H PRN 10/04/16 [History] Fluticasone/Salmeterol [Advair 250-50 Diskus] 1 puff IH BID 10/04/16 [History] Omeprazole 20 mg PO DAILY 10/04/16 [History] Oxygen 2 l IH HS 10/04/16 [History] Potassium Chloride [K-Tab ER] 20 meq PO BID 10/04/16 [History] Tiotropium [Spiriva] 18 mcg IH DAILY 10/04/16 [History] Vitamin E (Dl,Tocopheryl Acet) [Vitamin E] 400 unit PO DAILY 10/04/16 [History] Calcium Carbonate/Vitamin D3 [Calcium 500-Vit D3 200 Caplet] 1 tab PO BID 11/16/16 [History] Cholecalciferol (Vitamin D3) [Vitamin D3] 1,000 unit PO DAILY 11/16/16 [History] Acetaminophen [Tylenol] 650 mg PO Q6H PRN tablet 03/20/18 [Rx] Aspirin 81 mg PO DAILY tab.chew 03/20/18 [Rx] Carvedilol [Coreg] 6.25 mg PO BID tablet 03/20/18 [Rx] FLUoxetine HCl [Prozac] 20 mg PO DAILY capsule 03/20/18 [Rx] Magnesium Oxide [Mag-Ox] 400 mg PO BID tablet 03/20/18 [Rx] Multivit/Ca/Min/Fe/FA [Thera M Plus] 1 tab PO DAILY tablet 03/20/18 [Rx] Nystatin POWDER [Nystop] 1 appl TP BID #1 bottle 04/12/18 [Rx] Amiodarone [Cordarone] 200 mg PO DAILY 11/30/18 [History] Furosemide [Lasix] 40 mg PO DAILY 11/30/18 [History] Amlodipine Besylate 10 mg PO DAILY 12/01/18 [History] Apixaban [Eliquis] 5 mg PO BID 12/01/18 [History] Ferrous Sulfate [Iron] 325 mg PO DAILY@0800 12/01/18 [History] Ketorolac OPTH Soln [Acular] 1 drop RIGHT EYE TID 12/01/18 [History] Loratadine [Allergy Relief] 10 mg PO DAILY 12/01/18 [History] cefTRIAXone [Rocephin] 2,000 mg IVPB DAILY #39 vial 12/06/18 [Rx] Allergies/Adverse Reactions: Allergy/AdvReac Type Severity Reaction Status Date / Time fish oil Allergy Hives Verified 12/01/18 15:10 pseudoephedrine Allergy Hives Verified 12/01/18 15:10 [From [facility]] Date of admission: 11/30/18 14:33 Primary care physician: Elvia Branham Consults: 11/30/18 08:38 Consult to Nurse Navigator [CONS] Routine Comment: CHF 11/30/18 12:55 Consult to Physical Therapy [CONS] Stat Comment: Evaluate, develop and implement POC Reason for Consult: dc planning Does patient have active BEDREST order?: No Is patient medically & hemodynamically stable?: Yes 11/30/18 12:56 Consult to Occupational Therapy [CONS] Stat Comment: Evaluate, develop and implement POC Reason for Consult: dc planning Does patient have active BEDREST order?: No Is patient medically & hemodynamically stable?: Yes 11/30/18 13:09 Consult to Orthopedic Surgery [CONS] Routine Consulting Provider: [facility] Reason for Consult: Left humerus neck fracture Time Notified: 13:20 Call Completed: Yes 11/30/18 14:21 Consult to Infectious Diseases [CONS] Routine Consulting Provider: Infectious Disease [facility] Reason for Consult: acute bacteremia Time Notified: 14:22 Call Completed: Yes 12/02/18 13:01 Consult to Ramp Manager [CONS] Routine Reason for SW Consult: PT/OT recommending inpatient therapy. 12/04/18 08:04 Consult to Invasive Line Access Team [CONS] Routine Reason for Consult: [employer] antibiotics Line Type: Midline - Constitutional Vitals: Temp Pulse Resp BP Pulse Ox 98.3 F 60 18 153/52 94 12/06/18 11:32 12/06/18 11:32 12/06/18 11:32 12/06/18 11:32 12/06/18 11:32 General appearance: Present: A&O X 1, morbidly obese, answers questions appropriately (Was able to partially answer questions correctly.) Exam: General: awake and fully oriented, not in acute distress. Cardiovascular:Normal S1 & S2, Pulse regular. Lungs: clear to auscultation, no wheezes/rales Abdomen:Soft, non-tender Extremities: L UE in sling, tender to palpation or with ROM. Neurovascularly intact distally. Does have chronic nonpitting edema b/l LE - Patient Status Disposition: Transfer SNF Condition: Fair Functional capacity at discharge: uses cane/walker Overall status at discharge: patient is progressing back to baseline - Discharge Instructions Follow Up With: Priyank Flor DO [Non-Partnered Physician] - (Would recommend continued use of a sling until the patient's pain is improved and then can begin some gentle range of motion exercises. Patient is not to utilize the arm to ambulate with a walker etc. Patient will require follow up in 2-3 weeks for recheck x-rays and clinical evaluation.) Elvia Branham MD [Primary Care Provider] - Any Franklin CNP [Advanced Practice Nurse] - 12/20/18 2:45 pm Forms: ED Satisfaction Letter, Work/School Release - Diet and Activity Activity: as per physical therapy Diet: advance to your usual diet
--- NOTE | 2018-12-06 16:32 | Physician Discharge Referral ---
ExtendedCare Referral Info Transfer To: SNF for IV abx x6w Provider in Charge after Transfer: PCP Institutional Level of Care: Skilled - Diagnosis (1) Endocarditis of mitral valve Priority: Primary Status: Acute - Transfer Medications Prescriptions: cefTRIAXone [Rocephin] 2,000 mg IVPB DAILY #39 vial Home Medications: Albuterol Sulfate [Proair Respiclick] 2 puff IH Q4H PRN 10/04/16 [History] Fluticasone/Salmeterol [Advair 250-50 Diskus] 1 puff IH BID 10/04/16 [History] Omeprazole 20 mg PO DAILY 10/04/16 [History] Oxygen 2 l IH HS 10/04/16 [History] Potassium Chloride [K-Tab ER] 20 meq PO BID 10/04/16 [History] Tiotropium [Spiriva] 18 mcg IH DAILY 10/04/16 [History] Vitamin E (Dl,Tocopheryl Acet) [Vitamin E] 400 unit PO DAILY 10/04/16 [History] Calcium Carbonate/Vitamin D3 [Calcium 500-Vit D3 200 Caplet] 1 tab PO BID 11/16/16 [History] Cholecalciferol (Vitamin D3) [Vitamin D3] 1,000 unit PO DAILY 11/16/16 [History] Acetaminophen [Tylenol] 650 mg PO Q6H PRN tablet 03/20/18 [Rx] Aspirin 81 mg PO DAILY tab.chew 03/20/18 [Rx] Carvedilol [Coreg] 6.25 mg PO BID tablet 03/20/18 [Rx] FLUoxetine HCl [Prozac] 20 mg PO DAILY capsule 03/20/18 [Rx] Magnesium Oxide [Mag-Ox] 400 mg PO BID tablet 03/20/18 [Rx] Multivit/Ca/Min/Fe/FA [Thera M Plus] 1 tab PO DAILY tablet 03/20/18 [Rx] Nystatin POWDER [Nystop] 1 appl TP BID #1 bottle 04/12/18 [Rx] Amiodarone [Cordarone] 200 mg PO DAILY 11/30/18 [History] Furosemide [Lasix] 40 mg PO DAILY 11/30/18 [History] Amlodipine Besylate 10 mg PO DAILY 12/01/18 [History] Apixaban [Eliquis] 5 mg PO BID 12/01/18 [History] Ferrous Sulfate [Iron] 325 mg PO DAILY@0800 12/01/18 [History] Ketorolac OPTH Soln [Acular] 1 drop RIGHT EYE TID 12/01/18 [History] Loratadine [Allergy Relief] 10 mg PO DAILY 12/01/18 [History] cefTRIAXone [Rocephin] 2,000 mg IVPB DAILY #39 vial 12/06/18 [Rx] Allergies/Adverse Reactions: Allergy/AdvReac Type Severity Reaction Status Date / Time fish oil Allergy Hives Verified 12/01/18 15:10 pseudoephedrine Allergy Hives Verified 12/01/18 15:10 [From Sudafed] - Respiratory Orders Smoking Cessation: Smoking cessation has been advised. For more information, call the [employer] Tobacco Quit Line at 2-208-GNZMNOW. - History and Physical History/Physical reviewed & approved w/add comments: endocarditis of mitral valve, needs rocephin 2g iv daily thru01/14 CERTIFICATION: I certify that the transfer of the above named patient to an Extended Care Facility is necessary for the continuing treatment of the diagnosis listed. The above information is true and accurate reflection of patient's current condition. Confidential - Redisclosure prohibited without a patient's written consent.
== END 2018-12-06 23:55 | DRG 288 ==
LOC: EMEROOARM 21:46 → 3BNU 21:46 → SUATTDRO 11-30 14:33 → 2ANU 12-01 09:52
PROVIDERS: ADMIT Internal Medicine; ATTEND Internal Medicine

== ENCOUNTER 2019-12-05 18:06 | Inpatient (IN) ==
[2019-12-05] MEDS ORDERED: predniSONE 20 MG TABLET PO ONE (18:48)
[2019-12-05] MEDS ORDERED: Ipratropium/Albuterol Neb 3 ML IH ONE (18:48)
[2019-12-05 19:41] LABS: Basophils % 0.6 %; Eosinophils # 0.1 K/mcL (0.0-0.6); Eosinophils % 0.7 %; Hematocrit 36.2 % (35.3-44.9); Hemoglobin 11.4 g/dL (11.5-15.4); Immature Granulocytes % 0.3 % (0-4); Lymphocytes # 0.7 K/mcL (0.6-4.6); Lymphocytes % 10.9 %; Mean Corpuscular HGB Conc 31.5 g/dL (31.6-35.5); Mean Corpuscular Hemoglobin 25.3 pg (28.0-33.3); Mean Corpuscular Volume 80.3 fL (83.0-100.0); Mean Platelet Volume 10.6 fL (9.4-12.4); Monocytes # 0.9 K/mcL (0.0-1.3); Monocytes % 13.6 %; Platelet Count 233 K/mcL (140-400); Red Blood Count 4.51 M/mcL (3.82-4.97); Red Cell Distribution Width 14.7 % (11.5-14.5); Segmented Neutrophils % 73.9 %; White Blood Count 6.8 K/mcL (4.3-11.1)
[2019-12-05 20:03] LABS: BUN/Creatinine Ratio 13 (6-26); Blood Urea Nitrogen 10 mg/dL (8-23); Calcium 9.8 mg/dL (8.6-10.3); Carbon Dioxide 30 mEq/L (23-29); Chloride 97 mEq/L (98-107); Glucose 113 mg/dL (70-105); Osmolality,Calculated 286 (280-300); Potassium 3.8 mEq/L (3.5-5.1); Sodium 138 mEq/L (136-145); Troponin I 0.03 ng/mL (< 0.04); eGFR For African Americans > 60 (> 60); eGFR For Non-African Americans > 60 (> 60)
[2019-12-05 20:18] LABS: Bilirubin,Urine Negative (Negative); Blood,Urine Negative (Negative); Clarity,Urine Clear (Clear); Color,Urine Yellow (Yellow); Glucose,Urine (UA) Normal (Normal); Ketones,Urine Negative (Negative); Nitrite,Urine Negative (Negative); PH,Urine 7.5 pH Units (5.0-8.0); Protein,Urine 30 mg/dL (Neg-Trace); Urobilinogen,Urine Normal (Normal)
[2019-12-05 20:19] LABS: Leukocyte Esterase,Urine Negative (Negative)
[2019-12-05 20:25] LABS: Bacteria,Urine Moderate per hpf (None-Few); Squamous Epithelial Cell,Urine Many per lpf (None-Few); WBC,Urine 0-3 per hpf (0-3)
[2019-12-05] MEDS ORDERED: Furosemide 20 MG/2 ML VIAL IVP ONE (20:50)
[2019-12-05 21:10] LABS: VBG HCO3 28 mEq/L (21-27); VBG PCO2 39 mmHg (41-51); VBG PH 7.46 pH Units (7.32-7.42); VBG PO2 212 mmHg (25-50)
[2019-12-05] MEDS ORDERED: Naloxone 0.4 MG/ML INJ IVP PRN (22:22)
[2019-12-05] MEDS ORDERED: Nitroglycerin 0.4 MG TAB.SUBL SL PRN (22:47)
[2019-12-05] MEDS ORDERED: *HR* Labetalol 20 MG/4 ML SYRINGE IVP PRN (22:47)
[2019-12-05 23:29] LABS: INR 1.3; Prothrombin Time 14.4 Seconds (9.4-12.1)
[2019-12-05 23:41] LABS: Albumin 4.3 g/dL (3.5-5.7); Albumin/Globulin Ratio 1.5 (1.1-2.2); Bilirubin,Direct 0.1 mg/dL (0.0-0.2); Bilirubin,Indirect 0.5 mg/dL (0.0-1.0); Bilirubin,Total 0.6 mg/dL (0.3-1.0); Globulin 2.8 g/dL (2.4-3.5); Total Protein 7.1 g/dL (6.4-8.9)
[2019-12-05 23:42] LABS: Acetaminophen < 10 mcg/mL (10-20); Salicylate < 2.5 mg/dL (15.0-30.0)
[2019-12-06] MEDS: Ipratropium/Albuterol Neb 3 ML IH SCH ×7 (00:27→23:41)
[2019-12-06] MEDS: MethylPREDNISolone 40 MG/ML VIAL IVP SCH ×4 (01:06→23:11)
[2019-12-06] MEDS: cefTRIAXone 1,000 MG in Water for inj. (sterile) 10 ML IVP SCH ×2 (01:06→09:09)
[2019-12-06 01:56] LABS: Basophils % 0.4 %; Hematocrit 36.2 % (35.3-44.9); Hemoglobin 11.3 g/dL (11.5-15.4); Immature Granulocytes % 0.4 % (0-4); Lymphocytes # 0.5 K/mcL (0.6-4.6); Mean Corpuscular HGB Conc 31.2 g/dL (31.6-35.5); Mean Corpuscular Hemoglobin 25.1 pg (28.0-33.3); Mean Corpuscular Volume 80.4 fL (83.0-100.0); Mean Platelet Volume 11.1 fL (9.4-12.4); Monocytes # 0.3 K/mcL (0.0-1.3); Monocytes % 3.5 %; Neutrophils # 6.3 K/mcL (1.6-8.9); Platelet Count 249 K/mcL (140-400); Red Cell Distribution Width 14.6 % (11.5-14.5); Segmented Neutrophils % 88.7 %; White Blood Count 7.1 K/mcL (4.3-11.1)
[2019-12-06 02:13] LABS: BUN/Creatinine Ratio 12 (6-26); Blood Urea Nitrogen 9 mg/dL (8-23); Calcium 9.5 mg/dL (8.6-10.3); Carbon Dioxide 30 mEq/L (23-29); Chloride 98 mEq/L (98-107); Glucose 127 mg/dL (70-105); Osmolality,Calculated 286 (280-300); Potassium 3.2 mEq/L (3.5-5.1); Sodium 138 mEq/L (136-145); eGFR For African Americans > 60 (> 60); eGFR For Non-African Americans > 60 (> 60)
[2019-12-06 05:37] LABS: Adenovirus Not Detected (Not Detect); Coronavirus 229E Not Detected (Not Detect); Coronavirus HKU1 Not Detected (Not Detect); Coronavirus NL63 Not Detected (Not Detect); Coronavirus OC43 Not Detected (Not Detect); Human Metapneumovirus Not Detected (Not Detect)
[2019-12-06 05:38] LABS: Bordetella Pertussis Not Detected (Not Detect); Chlamydophila pneumoniae Not Detected (Not Detect); Human Rhinovirus/Enterovirus Not Detected (Not Detect); Influenza A Subtype 2009 H1 Not Detected (Not Detect); Influenza B Not Detected (Not Detect); Mycoplasma pneumoniae Not Detected (Not Detect); Parainfluenza Virus 1 Not Detected (Not Detect); Parainfluenza Virus 2 Not Detected (Not Detect); Parainfluenza Virus 3 Not Detected (Not Detect); Parainfluenza Virus 4 Not Detected (Not Detect); Respiratory Syncytial Virus DETECTED (Not Detect)
[2019-12-06] MEDS: Budesonide/Formoterol 80/4.5 1 PUFF INH IH SCH ×2 (07:42→20:12)
[2019-12-06] MEDS ORDERED: *HR* Labetalol 20 MG/4 ML SYRINGE IVP PRN (08:27)
[2019-12-06] MEDS ORDERED: Furosemide 40 MG/4 ML VIAL IVP SCH (09:00)
[2019-12-06] MEDS: Magnesium Oxide 400 MG TABLET PO SCH ×2 (09:07→21:39)
[2019-12-06] MEDS: *HR* Amiodarone 200 MG TABLET PO SCH (09:07)
[2019-12-06] MEDS: Aspirin 81 MG TAB.CHEW PO SCH (09:08)
[2019-12-06] MEDS: carvediloL 6.25 MG TABLET PO SCH ×2 (09:08→17:44)
[2019-12-06] MEDS: FLUoxetine 20 MG CAPSULE PO SCH (09:08)
[2019-12-06] MEDS: Apixaban 5 MG TABLET PO SCH ×2 (09:08→21:39)
[2019-12-06 09:09] LABS: Amphetamine Screen,Urine Negative ng/mL (Cutoff=1000); Barbiturate Screen,Urine Negative ng/mL (Cutoff=200); Benzodiazepines Screen,Urine Negative ng/mL (Cutoff=200); Cannabinoid Screen,Urine Negative ng/mL (Cutoff = 50); Cocaine Screen,Urine Negative ng/mL (Cutoff= 300); Opiate Screen,Urine Negative ng/mL (Cutoff=300); Phencyclidine Screen,Urine Negative ng/mL (Cutoff=25)
[2019-12-06] MEDS: Multivit/Ca/Min/Fe/FA 1 TAB TABLET PO SCH (09:09)
[2019-12-06] MEDS: amLODIPine 5 MG TABLET PO SCH (09:09)
[2019-12-06] MEDS: Cholecalciferol (D-3) 1,000 UNIT (25MCG) TABLET PO SCH (09:10)
[2019-12-06] MEDS: Nystatin POWDER 30 GM BOTTLE TP SCH ×2 (12:59→21:39)
[2019-12-06] MEDS: Furosemide 40 MG/4 ML VIAL IVP SCH ×2 (17:44→21:39)
[2019-12-07] MEDS ORDERED: Menthol 9.1 MG LOZENGE PO PRN (03:30)
[2019-12-07] MEDS: Ipratropium/Albuterol Neb 3 ML IH SCH ×5 (04:06→19:45)
[2019-12-07 06:39] LABS: Basophils % 0.1 %; Hematocrit 37.5 % (35.3-44.9); Hemoglobin 11.1 g/dL (11.5-15.4); Immature Granulocytes % 0.5 % (0-4); Lymphocytes # 0.4 K/mcL (0.6-4.6); Mean Corpuscular HGB Conc 29.6 g/dL (31.6-35.5); Mean Corpuscular Hemoglobin 24.7 pg (28.0-33.3); Mean Corpuscular Volume 83.3 fL (83.0-100.0); Mean Platelet Volume 10.8 fL (9.4-12.4); Monocytes # 0.4 K/mcL (0.0-1.3); Monocytes % 3.3 %; Neutrophils # 10.2 K/mcL (1.6-8.9); Platelet Count 284 K/mcL (140-400); Red Cell Distribution Width 14.6 % (11.5-14.5); Segmented Neutrophils % 92.1 %
[2019-12-07 06:40] LABS: White Blood Count 11.1 K/mcL (4.3-11.1)
[2019-12-07 07:03] LABS: BUN/Creatinine Ratio 20 (6-26); Blood Urea Nitrogen 17 mg/dL (8-23); Calcium 9.4 mg/dL (8.6-10.3); Carbon Dioxide 34 mEq/L (23-29); Chloride 96 mEq/L (98-107); Glucose 167 mg/dL (70-105); Magnesium 1.7 mg/dL (1.6-2.6); Osmolality,Calculated 297 (280-300); Sodium 141 mEq/L (136-145); eGFR For African Americans > 60 (> 60); eGFR For Non-African Americans > 60 (> 60)
[2019-12-07] MEDS: Budesonide/Formoterol 80/4.5 1 PUFF INH IH SCH ×2 (07:26→19:45)
[2019-12-07] MEDS ORDERED: Ipratropium/Albuterol Neb 3 ML IH PRN (08:34)
[2019-12-07] MEDS: Apixaban 5 MG TABLET PO SCH ×2 (09:00→20:29)
[2019-12-07] MEDS: carvediloL 6.25 MG TABLET PO SCH ×2 (09:00→17:44)
[2019-12-07] MEDS: Cholecalciferol (D-3) 1,000 UNIT (25MCG) TABLET PO SCH (09:00)
[2019-12-07] MEDS: *HR* Amiodarone 200 MG TABLET PO SCH (09:00)
[2019-12-07] MEDS: FLUoxetine 20 MG CAPSULE PO SCH (09:01)
[2019-12-07] MEDS: Multivit/Ca/Min/Fe/FA 1 TAB TABLET PO SCH (09:01)
[2019-12-07] MEDS: cefTRIAXone 1,000 MG in Water for inj. (sterile) 10 ML IVP SCH (09:01)
[2019-12-07] MEDS: amLODIPine 5 MG TABLET PO SCH (09:01)
[2019-12-07] MEDS: Magnesium Oxide 400 MG TABLET PO SCH ×2 (09:01→20:28)
[2019-12-07] MEDS: Aspirin 81 MG TAB.CHEW PO SCH (09:01)
[2019-12-07] MEDS: Nystatin POWDER 30 GM BOTTLE TP SCH (09:02)
[2019-12-07] MEDS: MethylPREDNISolone 40 MG/ML VIAL IVP SCH ×2 (09:02→15:29)
[2019-12-07] MEDS: Furosemide 40 MG/4 ML VIAL IVP SCH ×2 (09:02→20:28)
[2019-12-07] MEDS ORDERED: Cyanocobalamin (B-12) 1,000 MCG/ML VIAL IM ONE (14:56)
[2019-12-07 16:37] LABS: ABG Base Excess 12 mEq/L (-2 to 3); ABG HCO3 40 mEq/L (21-27); ABG Oxygen Saturation 98 % (95-98); ABG PCO2 64 mmHg (35-45); ABG PO2 102 mmHg (85-104); ABG TCO2 42 mEq/L (20-26)
[2019-12-07] MEDS: *HR* LORazepam 2 MG/ML VIAL IVP PRN (17:44)
[2019-12-07 21:27] LABS: ABG Base Excess 10 mEq/L (-2 to 3); ABG HCO3 37 mEq/L (21-27); ABG Oxygen Saturation 98 % (95-98); ABG PCO2 60 mmHg (35-45); ABG PO2 102 mmHg (85-104); ABG TCO2 39 mEq/L (20-26); Blood Gas Modality NIV
[2019-12-08] MEDS: Ipratropium/Albuterol Neb 3 ML IH SCH ×7 (00:18→23:06)
[2019-12-08] MEDS: Nystatin POWDER 30 GM BOTTLE TP SCH ×3 (00:56→21:01)
[2019-12-08] MEDS: MethylPREDNISolone 40 MG/ML VIAL IVP SCH ×3 (00:57→17:00)
[2019-12-08 05:51] LABS: Basophils % 0.1 %; Eosinophils % 0.1 %; Hematocrit 37.2 % (35.3-44.9); Hemoglobin 11.4 g/dL (11.5-15.4); Immature Granulocytes % 0.5 % (0-4); Lymphocytes # 0.4 K/mcL (0.6-4.6); Lymphocytes % 3.4 %; Mean Corpuscular HGB Conc 30.6 g/dL (31.6-35.5); Mean Corpuscular Hemoglobin 24.8 pg (28.0-33.3); Mean Corpuscular Volume 80.9 fL (83.0-100.0); Mean Platelet Volume 10.4 fL (9.4-12.4); Monocytes # 0.7 K/mcL (0.0-1.3); Monocytes % 5.7 %; Neutrophils # 10.4 K/mcL (1.6-8.9); Platelet Count 306 K/mcL (140-400); Segmented Neutrophils % 90.2 %; White Blood Count 11.5 K/mcL (4.3-11.1)
[2019-12-08 06:10] LABS: BUN/Creatinine Ratio 32 (6-26); Blood Urea Nitrogen 25 mg/dL (8-23); Calcium 9.8 mg/dL (8.6-10.3); Carbon Dioxide 38 mEq/L (23-29); Chloride 99 mEq/L (98-107); Glucose 140 mg/dL (70-105); Osmolality,Calculated 301 (280-300); Potassium 3.4 mEq/L (3.5-5.1); Sodium 142 mEq/L (136-145); eGFR For African Americans > 60 (> 60); eGFR For Non-African Americans > 60 (> 60)
[2019-12-08] MEDS: Budesonide/Formoterol 80/4.5 1 PUFF INH IH SCH ×2 (07:44→19:17)
[2019-12-08] MEDS: Multivit/Ca/Min/Fe/FA 1 TAB TABLET PO SCH (08:21)
[2019-12-08] MEDS: FLUoxetine 20 MG CAPSULE PO SCH (08:21)
[2019-12-08] MEDS: Cholecalciferol (D-3) 1,000 UNIT (25MCG) TABLET PO SCH (08:21)
[2019-12-08] MEDS: *HR* Amiodarone 200 MG TABLET PO SCH (08:21)
[2019-12-08] MEDS: Furosemide 40 MG/4 ML VIAL IVP SCH ×2 (08:21→20:53)
[2019-12-08] MEDS: amLODIPine 5 MG TABLET PO SCH (08:21)
[2019-12-08] MEDS: Apixaban 5 MG TABLET PO SCH ×2 (08:21→20:54)
[2019-12-08] MEDS: carvediloL 6.25 MG TABLET PO SCH ×2 (08:21→17:00)
[2019-12-08] MEDS: Magnesium Oxide 400 MG TABLET PO SCH ×2 (08:21→20:54)
[2019-12-08] MEDS: Aspirin 81 MG TAB.CHEW PO SCH (08:21)
[2019-12-08 09:40] LABS: VBG HCO3 37 mEq/L (21-27); VBG PCO2 60 mmHg (41-51); VBG PO2 176 mmHg (25-50)
[2019-12-08] MEDS: *HR* LORazepam 2 MG/ML VIAL IVP PRN ×2 (10:47→20:53)
[2019-12-08] MEDS ORDERED: Isovue-370 500 ML BOTTLE IVP ONE (14:21)
[2019-12-08] MEDS: Lactulose Oral Soln 20 GM/30 ML UDC PO SCH ×2 (14:33→20:54)
[2019-12-08] MEDS: Piperacillin/Tazobactam 3.375 GM in 0.9 % Sodium Chloride Mini Bag 100 ML IVPB SCH (17:30)
[2019-12-08] MEDS: Doxycycline 100 MG in 0.9 % Sodium Chloride Mini Bag 100 ML IVPB SCH (18:55)
[2019-12-08] MEDS ORDERED: *HR* LORazepam 2 MG/ML VIAL IVP ONE (22:01)
[2019-12-08 23:41] LABS: ABG Base Excess 12 mEq/L (-2 to 3); ABG HCO3 41 mEq/L (21-27); ABG Oxygen Saturation 90 % (95-98); ABG PCO2 75 mmHg (35-45); ABG PH 7.34 pH Units (7.32-7.45); ABG PO2 66 mmHg (85-104); ABG TCO2 43 mEq/L (20-26); Blood Gas Modality NIV
[2019-12-08] MEDS ORDERED: HydrOXYzine 100 MG/2 ML VIAL IM ONE (23:49)
[2019-12-09] MEDS: MethylPREDNISolone 40 MG/ML VIAL IVP SCH ×3 (00:10→15:27)
[2019-12-09] MEDS: Piperacillin/Tazobactam 3.375 GM in 0.9 % Sodium Chloride Mini Bag 100 ML IVPB SCH ×3 (01:24→18:41)
[2019-12-09] MEDS: Ipratropium/Albuterol Neb 3 ML IH SCH ×6 (03:26→23:30)
[2019-12-09] MEDS ORDERED: Ziprasidone 10 MG in Water for inj. (sterile) 0.5 ML IM ONE (03:29)
[2019-12-09 05:28] LABS: Basophils % 0.1 %
[2019-12-09 05:29] LABS: Hematocrit 37.2 % (35.3-44.9); Hemoglobin 10.9 g/dL (11.5-15.4); Immature Granulocytes % 0.7 % (0-4); Lymphocytes # 0.5 K/mcL (0.6-4.6); Lymphocytes % 4.6 %; Mean Corpuscular HGB Conc 29.3 g/dL (31.6-35.5); Mean Corpuscular Hemoglobin 24.2 pg (28.0-33.3); Mean Corpuscular Volume 82.7 fL (83.0-100.0); Mean Platelet Volume 10.1 fL (9.4-12.4); Monocytes # 0.4 K/mcL (0.0-1.3); Monocytes % 4.3 %; Platelet Count 295 K/mcL (140-400); Red Cell Distribution Width 14.9 % (11.5-14.5); Segmented Neutrophils % 90.3 %; White Blood Count 9.8 K/mcL (4.3-11.1)
[2019-12-09] MEDS: Doxycycline 100 MG in 0.9 % Sodium Chloride Mini Bag 100 ML IVPB SCH ×2 (05:33→17:50)
[2019-12-09 05:36] LABS: Neutrophils # 8.9 K/mcL (1.6-8.9)
[2019-12-09 05:41] LABS: BUN/Creatinine Ratio 35 (6-26); Blood Urea Nitrogen 32 mg/dL (8-23); Calcium 9.4 mg/dL (8.6-10.3); Carbon Dioxide 38 mEq/L (23-29); Chloride 99 mEq/L (98-107); Glucose 145 mg/dL (70-105); Osmolality,Calculated 315 (280-300); Potassium 3.8 mEq/L (3.5-5.1); Sodium 148 mEq/L (136-145); eGFR For African Americans > 60 (> 60); eGFR For Non-African Americans > 60 (> 60)
[2019-12-09 06:23] LABS: Platelet Estimate Normal (Normal)
[2019-12-09] MEDS: Budesonide/Formoterol 80/4.5 1 PUFF INH IH SCH ×2 (07:45→19:46)
[2019-12-09 08:45] LABS: ABG Base Excess 16 mEq/L (-2 to 3); ABG HCO3 43 mEq/L (21-27); ABG Oxygen Saturation 96 % (95-98); ABG PCO2 68 mmHg (35-45); ABG PH 7.41 pH Units (7.32-7.45); ABG PO2 87 mmHg (85-104); ABG TCO2 46 mEq/L (20-26)
[2019-12-09] MEDS: Furosemide 40 MG/4 ML VIAL IVP SCH ×2 (09:15→19:56)
[2019-12-09] MEDS: Aspirin 81 MG TAB.CHEW PO SCH (09:45)
[2019-12-09] MEDS: carvediloL 6.25 MG TABLET PO SCH ×2 (09:45→15:20)
[2019-12-09] MEDS: Apixaban 5 MG TABLET PO SCH ×2 (09:46→19:56)
[2019-12-09] MEDS: Lactulose Oral Soln 20 GM/30 ML UDC PO SCH ×2 (09:46→19:56)
[2019-12-09] MEDS: Magnesium Oxide 400 MG TABLET PO SCH ×2 (09:46→19:56)
[2019-12-09] MEDS: amLODIPine 5 MG TABLET PO SCH (09:46)
[2019-12-09] MEDS: *HR* Amiodarone 200 MG TABLET PO SCH (09:46)
[2019-12-09] MEDS: Nystatin POWDER 30 GM BOTTLE TP SCH ×2 (09:47→21:12)
[2019-12-09] MEDS: FLUoxetine 20 MG CAPSULE PO SCH (09:47)
[2019-12-09] MEDS: Multivit/Ca/Min/Fe/FA 1 TAB TABLET PO SCH (09:47)
[2019-12-09] MEDS: Cyanocobalamin (B-12) 1,000 MCG TABLET PO SCH (09:48)
[2019-12-09] MEDS: Cholecalciferol (D-3) 1,000 UNIT (25MCG) TABLET PO SCH (09:48)
[2019-12-09 11:05] LABS: ABG Base Excess 16 mEq/L (-2 to 3); ABG HCO3 44 mEq/L (21-27); ABG Oxygen Saturation 94 % (95-98); ABG PCO2 68 mmHg (35-45); ABG PH 7.42 pH Units (7.32-7.45); ABG PO2 74 mmHg (85-104); ABG TCO2 46 mEq/L (20-26); Blood Gas Pressure Support 15 cm H2O
[2019-12-09] MEDS ORDERED: Albuterol 2.5 MG/3 ML NEBULIZER IH PRN (11:16)
[2019-12-09] MEDS ORDERED: Perflutren Lipid Microsphere 1.3 ML in 0.9 % Sodium Chloride 8.7 ML IVP ONE (14:32)
[2019-12-09] MEDS ORDERED: Ipratropium/Albuterol Neb 3 ML IH ONE (14:47)
[2019-12-09] MEDS: *HR* LORazepam 2 MG/ML VIAL IVP PRN (19:57)
[2019-12-10] MEDS: Piperacillin/Tazobactam 3.375 GM in 0.9 % Sodium Chloride Mini Bag 100 ML IVPB SCH ×2 (01:04→12:12)
[2019-12-10] MEDS: MethylPREDNISolone 40 MG/ML VIAL IVP SCH ×3 (01:04→18:21)
[2019-12-10] MEDS: *HR* LORazepam 2 MG/ML VIAL IVP PRN (02:00)
[2019-12-10] MEDS: Ipratropium/Albuterol Neb 3 ML IH SCH ×6 (03:39→23:57)
[2019-12-10] MEDS ORDERED: Dexmedetomidine HCl 400 MCG/100 ML MLS IVC ONE (03:48)
[2019-12-10] MEDS ORDERED: Dexmedetomidine HCl 400 MCG/100 ML MLS IVC SCH (04:00)
[2019-12-10 04:29] LABS: ABG Base Excess 19 mEq/L (-2 to 3); ABG HCO3 46 mEq/L (21-27); ABG Oxygen Saturation 96 % (95-98); ABG PCO2 67 mmHg (35-45); ABG PH 7.45 pH Units (7.32-7.45); ABG PO2 84 mmHg (85-104); ABG TCO2 48 mEq/L (20-26)
[2019-12-10 05:24] LABS: Basophils % 0.1 %; Hematocrit 35.1 % (35.3-44.9); Hemoglobin 10.2 g/dL (11.5-15.4); Immature Granulocytes % 0.9 % (0-4); Lymphocytes # 0.3 K/mcL (0.6-4.6); Lymphocytes % 3.8 %; Mean Corpuscular HGB Conc 29.1 g/dL (31.6-35.5); Mean Corpuscular Hemoglobin 24.8 pg (28.0-33.3); Mean Corpuscular Volume 85.2 fL (83.0-100.0); Mean Platelet Volume 10.5 fL (9.4-12.4); Monocytes # 0.5 K/mcL (0.0-1.3); Monocytes % 5.9 %; Neutrophils # 7.8 K/mcL (1.6-8.9); Platelet Count 260 K/mcL (140-400); Red Blood Count 4.12 M/mcL (3.82-4.97); Red Cell Distribution Width 14.8 % (11.5-14.5); Segmented Neutrophils % 89.3 %; White Blood Count 8.8 K/mcL (4.3-11.1)
[2019-12-10 05:40] LABS: Alanine Aminotransferase 35 Units/L (7-52); Albumin 3.6 g/dL (3.5-5.7); Albumin/Globulin Ratio 1.5 (1.1-2.2); Alkaline Phosphatase 58 Units/L (34-104); Aspartate Amino Transferase 35 Units/L (13-39); BUN/Creatinine Ratio 40 (6-26); Bilirubin,Total 0.5 mg/dL (0.3-1.0); Blood Urea Nitrogen 33 mg/dL (8-23); Calcium 9.3 mg/dL (8.6-10.3); Carbon Dioxide 39 mEq/L (23-29); Chloride 100 mEq/L (98-107); Globulin 2.4 g/dL (2.4-3.5); Glucose 161 mg/dL (70-105); Osmolality,Calculated 317 (280-300); Potassium 3.5 mEq/L (3.5-5.1); Sodium 148 mEq/L (136-145); eGFR For African Americans > 60 (> 60); eGFR For Non-African Americans > 60 (> 60)
[2019-12-10] MEDS: Doxycycline 100 MG in 0.9 % Sodium Chloride Mini Bag 100 ML IVPB SCH ×2 (06:18→18:21)
[2019-12-10] MEDS: Budesonide/Formoterol 80/4.5 1 PUFF INH IH SCH ×2 (07:51→20:30)
[2019-12-10] MEDS: Furosemide 40 MG/4 ML VIAL IVP SCH ×2 (08:35→19:49)
[2019-12-10] MEDS: Nystatin POWDER 30 GM BOTTLE TP SCH ×2 (08:51→19:49)
[2019-12-10] MEDS: Magnesium Oxide 400 MG TABLET PO SCH ×2 (09:00→19:49)
[2019-12-10] MEDS: Multivit/Ca/Min/Fe/FA 1 TAB TABLET PO SCH (09:00)
[2019-12-10] MEDS: Cyanocobalamin (B-12) 1,000 MCG TABLET PO SCH (09:00)
[2019-12-10] MEDS: Cholecalciferol (D-3) 1,000 UNIT (25MCG) TABLET PO SCH (09:00)
[2019-12-10] MEDS: Lactulose Oral Soln 20 GM/30 ML UDC PO SCH ×2 (09:00→19:49)
[2019-12-10] MEDS: *HR* Amiodarone 200 MG TABLET PO SCH (12:24)
[2019-12-10] MEDS: FLUoxetine 20 MG CAPSULE PO SCH (12:24)
[2019-12-10] MEDS: Apixaban 5 MG TABLET PO SCH ×2 (12:24→19:49)
[2019-12-10] MEDS: amLODIPine 5 MG TABLET PO SCH (12:24)
[2019-12-10] MEDS: carvediloL 6.25 MG TABLET PO SCH ×2 (12:24→18:18)
[2019-12-10] MEDS: Aspirin 81 MG TAB.CHEW PO SCH (12:24)
[2019-12-10] MEDS: cefTRIAXone 1,000 MG in Water for inj. (sterile) 10 ML IVP SCH (13:25)
[2019-12-10] MEDS: Dexmedetomidine HCl 400 MCG/100 ML MLS IVC SCH ×2 (18:27→20:54)
[2019-12-10] MEDS ORDERED: QUEtiapine Fumarate 25 MG TABLET PO SCH (21:00)
[2019-12-11] MEDS: Ipratropium/Albuterol Neb 3 ML IH SCH ×6 (03:41→23:55)
[2019-12-11] MEDS: Doxycycline 100 MG in 0.9 % Sodium Chloride Mini Bag 100 ML IVPB SCH ×2 (05:55→17:31)
[2019-12-11] MEDS: MethylPREDNISolone 40 MG/ML VIAL IVP SCH ×2 (05:55→17:30)
[2019-12-11] MEDS: Budesonide/Formoterol 80/4.5 1 PUFF INH IH SCH ×3 (07:41→21:31)
[2019-12-11] MEDS: *HR* Amiodarone 200 MG TABLET PO SCH (08:00)
[2019-12-11] MEDS: Aspirin 81 MG TAB.CHEW PO SCH (08:00)
[2019-12-11] MEDS: Apixaban 5 MG TABLET PO SCH ×2 (08:00→21:28)
[2019-12-11] MEDS: carvediloL 6.25 MG TABLET PO SCH ×2 (08:00→17:31)
[2019-12-11] MEDS: Magnesium Oxide 400 MG TABLET PO SCH ×2 (08:01→21:28)
[2019-12-11] MEDS: Furosemide 40 MG/4 ML VIAL IVP SCH (08:01)
[2019-12-11] MEDS: Lactulose Oral Soln 20 GM/30 ML UDC PO SCH ×2 (08:01→21:27)
[2019-12-11] MEDS: Nystatin POWDER 30 GM BOTTLE TP SCH ×2 (08:02→21:28)
[2019-12-11] MEDS: amLODIPine 5 MG TABLET PO SCH (08:02)
[2019-12-11] MEDS: Multivit/Ca/Min/Fe/FA 1 TAB TABLET PO SCH (08:03)
[2019-12-11] MEDS: FLUoxetine 20 MG CAPSULE PO SCH (08:03)
[2019-12-11] MEDS: Cyanocobalamin (B-12) 1,000 MCG TABLET PO SCH (08:03)
[2019-12-11] MEDS: Cholecalciferol (D-3) 1,000 UNIT (25MCG) TABLET PO SCH (08:03)
[2019-12-11] MEDS ORDERED: Dextrose Gel 15 GM/37.5 ML TUBE PO PRN ×4 (08:21→20:12)
[2019-12-11] MEDS ORDERED: D5% in Water 1,000 ML IVC PRN ×2 (08:21→20:12)
[2019-12-11] MEDS ORDERED: *HR* Dextrose 50 % in Water (Syg) 50 ML SYRINGE IVP PRN ×2 (08:21→20:12)
[2019-12-11] MEDS: Insulin LISPRO 300 UNITS/3 ML VIAL SQ SCH ×4 (09:28→21:25)
[2019-12-11] MEDS: cefTRIAXone 1,000 MG in Water for inj. (sterile) 10 ML IVP SCH (12:37)
[2019-12-11] MEDS ORDERED: *HR* Labetalol 20 MG/4 ML SYRINGE IVP PRN (20:12)
[2019-12-11] MEDS ORDERED: Menthol 9.1 MG LOZENGE PO PRN (20:12)
[2019-12-11] MEDS ORDERED: Albuterol 2.5 MG/3 ML NEBULIZER IH PRN (20:12)
[2019-12-11] MEDS ORDERED: Nitroglycerin 0.4 MG TAB.SUBL SL PRN (20:12)
[2019-12-11] MEDS ORDERED: Naloxone 0.4 MG/ML INJ IVP PRN (20:12)
[2019-12-11] MEDS ORDERED: Insulin LISPRO 300 UNITS/3 ML VIAL SQ SCH (21:00)
[2019-12-11] MEDS ORDERED: QUEtiapine Fumarate 25 MG TABLET PO SCH (21:00)
[2019-12-11] MEDS: QUEtiapine Fumarate 25 MG TABLET PO SCH (21:27)
[2019-12-12] MEDS: Ipratropium/Albuterol Neb 3 ML IH SCH ×6 (03:59→23:33)
[2019-12-12] MEDS: MethylPREDNISolone 40 MG/ML VIAL IVP SCH ×2 (05:20→17:07)
[2019-12-12] MEDS ORDERED: Doxycycline 100 MG in 0.9 % Sodium Chloride Mini Bag 100 ML IVPB SCH (06:00)
[2019-12-12] MEDS: Budesonide/Formoterol 80/4.5 1 PUFF INH IH SCH ×2 (07:29→19:52)
[2019-12-12] MEDS: Lactulose Oral Soln 20 GM/30 ML UDC PO SCH ×2 (08:16→20:48)
[2019-12-12] MEDS: Insulin LISPRO 300 UNITS/3 ML VIAL SQ SCH ×4 (08:16→20:50)
[2019-12-12] MEDS: Furosemide 40 MG TABLET PO SCH (08:17)
[2019-12-12] MEDS: Cyanocobalamin (B-12) 1,000 MCG TABLET PO SCH (08:17)
[2019-12-12] MEDS: Aspirin 81 MG TAB.CHEW PO SCH (08:17)
[2019-12-12] MEDS: FLUoxetine 20 MG CAPSULE PO SCH (08:17)
[2019-12-12] MEDS: amLODIPine 5 MG TABLET PO SCH (08:17)
[2019-12-12] MEDS: Vitamin E 200 UNIT (90MG) CAPSULE PO SCH (08:17)
[2019-12-12] MEDS: Apixaban 5 MG TABLET PO SCH ×2 (08:17→20:49)
[2019-12-12] MEDS: Magnesium Oxide 400 MG TABLET PO SCH ×2 (08:18→20:51)
[2019-12-12] MEDS: *HR* Amiodarone 200 MG TABLET PO SCH (08:18)
[2019-12-12] MEDS: carvediloL 6.25 MG TABLET PO SCH ×2 (08:18→17:07)
[2019-12-12] MEDS: Multivit/Ca/Min/Fe/FA 1 TAB TABLET PO SCH (08:18)
[2019-12-12] MEDS: Loratadine 10 MG TABLET PO SCH (08:18)
[2019-12-12] MEDS: Cholecalciferol (D-3) 1,000 UNIT (25MCG) TABLET PO SCH (08:18)
[2019-12-12] MEDS: Nystatin POWDER 30 GM BOTTLE TP SCH ×2 (08:18→20:50)
[2019-12-12] MEDS ORDERED: Furosemide 40 MG TABLET PO SCH (09:00)
[2019-12-12 09:49] LABS: Basophils % 0.1 %; Hematocrit 36.2 % (35.3-44.9); Hemoglobin 11.1 g/dL (11.5-15.4); Immature Granulocytes % 2.4 % (0-4); Lymphocytes # 0.6 K/mcL (0.6-4.6); Lymphocytes % 3.8 %; Mean Corpuscular HGB Conc 30.7 g/dL (31.6-35.5); Mean Corpuscular Hemoglobin 24.7 pg (28.0-33.3); Mean Corpuscular Volume 80.4 fL (83.0-100.0); Mean Platelet Volume 10.6 fL (9.4-12.4); Monocytes % 6.8 %; Neutrophils # 13.2 K/mcL (1.6-8.9); Platelet Count 318 K/mcL (140-400); Red Cell Distribution Width 15.2 % (11.5-14.5); Segmented Neutrophils % 86.9 %
[2019-12-12 09:50] LABS: White Blood Count 15.2 K/mcL (4.3-11.1)
[2019-12-12 10:08] LABS: BUN/Creatinine Ratio 54 (6-26); Blood Urea Nitrogen 41 mg/dL (8-23); Calcium 9.9 mg/dL (8.6-10.3); Carbon Dioxide 39 mEq/L (23-29); Chloride 95 mEq/L (98-107); Glucose 158 mg/dL (70-105); Osmolality,Calculated 309 (280-300); Potassium 3.9 mEq/L (3.5-5.1); Sodium 143 mEq/L (136-145); eGFR For African Americans > 60 (> 60); eGFR For Non-African Americans > 60 (> 60)
[2019-12-12] MEDS: cefTRIAXone 1,000 MG in Water for inj. (sterile) 10 ML IVP SCH (17:14)
[2019-12-12] MEDS: QUEtiapine Fumarate 25 MG TABLET PO SCH (20:49)
[2019-12-12] MEDS ORDERED: Doxycycline 100 MG CAPSULE PO SCH (21:00)
[2019-12-12] MEDS: Azithromycin 500 MG in 0.9 % Sodium Chloride 250 ML IVPB SCH (21:00)
[2019-12-13] MEDS: Ipratropium/Albuterol Neb 3 ML IH SCH ×6 (03:32→23:01)
[2019-12-13 04:48] LABS: Adenovirus F 40/41 PCR Not detected (Not detect); Astrovirus PCR Not detected (Not detect); C.difficile Toxin A/B Gene PCR Not detected (Not detect); Campylobacter by PCR Not detected (Not detect); Cryptosporidium by PCR Not detected (Not detect); Cyclospora cayetanensis PCR Not detected (Not detect); E. coli O157 by PCR Not detected (Not detect); Entamoeba histolytica PCR Not detected (Not detect); Enteroaggregative E.coli(EAEC) Not detected (Not detect); Enteropathogenic E.coli(EPEC) Not detected (Not detect); Enterotoxigenic E.coli (ETEC) Not detected (Not detect); Giardia lamblia PCR Not detected (Not detect); Norovirus GI/GII PCR DETECTED (Not detect); Plesiomonas shigelloides PCR Not detected (Not detect); Rotavirus A PCR Not detected (Not detect); Salmonella PCR Not detected (Not detect); Sapovirus PCR Not detected (Not detect); Shig/EnteroinvasiveE coli EIEC Not detected (Not detect); Shigalike tox-prod E coli STEC Not detected (Not detect); Vibrio PCR Not detected (Not detect); Vibrio cholerae PCR Not detected (Not detect); Yersinia enterocolitica PCR Not detected (Not detect)
[2019-12-13 06:09] LABS: Basophils % 0.1 %; Eosinophils % 0.1 %; Hematocrit 34.1 % (35.3-44.9); Immature Granulocytes % 2.6 % (0-4); Lymphocytes # 0.6 K/mcL (0.6-4.6); Lymphocytes % 4.4 %; Mean Corpuscular HGB Conc 29.3 g/dL (31.6-35.5); Mean Corpuscular Hemoglobin 24.8 pg (28.0-33.3); Mean Corpuscular Volume 84.4 fL (83.0-100.0); Mean Platelet Volume 10.7 fL (9.4-12.4); Monocytes # 0.9 K/mcL (0.0-1.3); Monocytes % 6.3 %; Neutrophils # 11.6 K/mcL (1.6-8.9); Platelet Count 263 K/mcL (140-400); Red Blood Count 4.04 M/mcL (3.82-4.97); Red Cell Distribution Width 15.4 % (11.5-14.5); Segmented Neutrophils % 86.5 %; White Blood Count 13.4 K/mcL (4.3-11.1)
[2019-12-13 06:30] LABS: BUN/Creatinine Ratio 58 (6-26); Blood Urea Nitrogen 45 mg/dL (8-23); Calcium 9.5 mg/dL (8.6-10.3); Carbon Dioxide 39 mEq/L (23-29); Chloride 98 mEq/L (98-107); Glucose 136 mg/dL (70-105); Osmolality,Calculated 316 (280-300); Potassium 4.4 mEq/L (3.5-5.1); Sodium 146 mEq/L (136-145); eGFR For African Americans > 60 (> 60); eGFR For Non-African Americans > 60 (> 60)
[2019-12-13] MEDS: MethylPREDNISolone 40 MG/ML VIAL IVP SCH (06:40)
[2019-12-13] MEDS: Budesonide/Formoterol 80/4.5 1 PUFF INH IH SCH ×2 (07:12→19:44)
[2019-12-13] MEDS: Insulin LISPRO 300 UNITS/3 ML VIAL SQ SCH ×4 (09:35→21:44)
[2019-12-13] MEDS: Cholecalciferol (D-3) 1,000 UNIT (25MCG) TABLET PO SCH (09:54)
[2019-12-13] MEDS: Multivit/Ca/Min/Fe/FA 1 TAB TABLET PO SCH (09:54)
[2019-12-13] MEDS: carvediloL 6.25 MG TABLET PO SCH ×2 (09:54→18:02)
[2019-12-13] MEDS: Magnesium Oxide 400 MG TABLET PO SCH ×2 (09:54→21:43)
[2019-12-13] MEDS: Loratadine 10 MG TABLET PO SCH (09:54)
[2019-12-13] MEDS: amLODIPine 5 MG TABLET PO SCH (09:55)
[2019-12-13] MEDS: Vitamin E 200 UNIT (90MG) CAPSULE PO SCH (09:55)
[2019-12-13] MEDS: Furosemide 40 MG TABLET PO SCH (09:55)
[2019-12-13] MEDS: Cyanocobalamin (B-12) 1,000 MCG TABLET PO SCH (09:55)
[2019-12-13] MEDS: Aspirin 81 MG TAB.CHEW PO SCH (09:55)
[2019-12-13] MEDS: FLUoxetine 20 MG CAPSULE PO SCH (09:55)
[2019-12-13] MEDS: *HR* Amiodarone 200 MG TABLET PO SCH (09:56)
[2019-12-13] MEDS: Apixaban 5 MG TABLET PO SCH ×2 (09:56→21:43)
[2019-12-13] MEDS: Lactulose Oral Soln 20 GM/30 ML UDC PO SCH ×2 (09:56→20:08)
[2019-12-13] MEDS: Nystatin POWDER 30 GM BOTTLE TP SCH ×2 (09:57→21:44)
[2019-12-13] MEDS: Acetaminophen 325 MG TABLET PO PRN (14:34)
[2019-12-13] MEDS ORDERED: predniSONE 20 MG TABLET PO SCH (17:00)
[2019-12-13] MEDS: cefTRIAXone 1,000 MG in Water for inj. (sterile) 10 ML IVP SCH (18:03)
[2019-12-13] MEDS: Azithromycin 500 MG in 0.9 % Sodium Chloride 250 ML IVPB SCH (21:43)
[2019-12-13] MEDS: QUEtiapine Fumarate 25 MG TABLET PO SCH (21:43)
[2019-12-14] MEDS: Ipratropium/Albuterol Neb 3 ML IH SCH ×6 (03:26→23:53)
[2019-12-14] MEDS: Budesonide/Formoterol 80/4.5 1 PUFF INH IH SCH ×2 (07:18→19:32)
[2019-12-14] MEDS: Vitamin E 200 UNIT (90MG) CAPSULE PO SCH (08:58)
[2019-12-14] MEDS: carvediloL 6.25 MG TABLET PO SCH ×2 (08:59→16:48)
[2019-12-14] MEDS: Magnesium Oxide 400 MG TABLET PO SCH ×2 (08:59→20:17)
[2019-12-14] MEDS: Lactulose Oral Soln 20 GM/30 ML UDC PO SCH ×2 (09:00→20:18)
[2019-12-14] MEDS ORDERED: predniSONE 20 MG TABLET PO SCH (09:00)
[2019-12-14] MEDS: Cyanocobalamin (B-12) 1,000 MCG TABLET PO SCH (09:00)
[2019-12-14] MEDS: Multivit/Ca/Min/Fe/FA 1 TAB TABLET PO SCH (09:01)
[2019-12-14] MEDS: *HR* Amiodarone 200 MG TABLET PO SCH (09:01)
[2019-12-14] MEDS: Loratadine 10 MG TABLET PO SCH (09:01)
[2019-12-14] MEDS: Apixaban 5 MG TABLET PO SCH ×2 (09:01→20:17)
[2019-12-14] MEDS: Cholecalciferol (D-3) 1,000 UNIT (25MCG) TABLET PO SCH (09:01)
[2019-12-14] MEDS: Furosemide 40 MG TABLET PO SCH (09:01)
[2019-12-14] MEDS: Aspirin 81 MG TAB.CHEW PO SCH (09:01)
[2019-12-14] MEDS: amLODIPine 5 MG TABLET PO SCH (09:01)
[2019-12-14] MEDS: FLUoxetine 20 MG CAPSULE PO SCH (09:01)
[2019-12-14] MEDS: Nystatin POWDER 30 GM BOTTLE TP SCH ×2 (09:02→20:18)
[2019-12-14] MEDS: Insulin LISPRO 300 UNITS/3 ML VIAL SQ SCH ×4 (09:02→20:06)
[2019-12-14] MEDS ORDERED: Ipratropium/Albuterol Neb 3 ML IH PRN (10:32)
[2019-12-14 11:24] LABS: Basophils # 0.1 K/mcL (0.0-0.2); Basophils % 0.4 %; Hematocrit 36.1 % (35.3-44.9); Hemoglobin 10.7 g/dL (11.5-15.4); Immature Granulocytes % 4.2 % (0-4); Lymphocytes # 1.3 K/mcL (0.6-4.6); Lymphocytes % 5.6 %; Mean Corpuscular HGB Conc 29.6 g/dL (31.6-35.5); Mean Corpuscular Hemoglobin 24.3 pg (28.0-33.3); Mean Platelet Volume 10.8 fL (9.4-12.4); Monocytes # 1.9 K/mcL (0.0-1.3); Monocytes % 8.2 %; Neutrophils # 18.9 K/mcL (1.6-8.9); Nucleated Red Blood Cells 0.1 /100 WBC (0); Platelet Count 321 K/mcL (140-400); Red Cell Distribution Width 15.6 % (11.5-14.5); Segmented Neutrophils % 81.6 %
[2019-12-14 11:25] LABS: White Blood Count 23.2 K/mcL (4.3-11.1)
[2019-12-14 11:38] LABS: ABG Base Excess 15 mEq/L (-2 to 3); ABG HCO3 41 mEq/L (21-27); ABG Oxygen Saturation 99 % (95-98); ABG PCO2 57 mmHg (35-45); ABG PH 7.46 pH Units (7.32-7.45); ABG PO2 114 mmHg (85-104); ABG TCO2 43 mEq/L (20-26)
[2019-12-14 11:42] LABS: BUN/Creatinine Ratio 47 (6-26); Blood Urea Nitrogen 45 mg/dL (8-23); Carbon Dioxide 36 mEq/L (23-29); Chloride 99 mEq/L (98-107); Glucose 147 mg/dL (70-105); Osmolality,Calculated 306 (280-300); Potassium 4.5 mEq/L (3.5-5.1); Sodium 141 mEq/L (136-145); eGFR For African Americans > 60 (> 60); eGFR For Non-African Americans 57 (> 60)
[2019-12-14] MEDS ORDERED: Isovue-370 500 ML BOTTLE IVP ONE (11:46)
[2019-12-14] MEDS ORDERED: Vancomycin 1,750 MG in 0.9 % Sodium Chloride 250 ML IVPB SCH (11:47)
[2019-12-14] MEDS: Piperacillin/Tazobactam 3.375 GM in 0.9 % Sodium Chloride Mini Bag 100 ML IVPB SCH ×2 (12:15→20:17)
[2019-12-14] MEDS: MethylPREDNISolone 40 MG/ML VIAL IVP SCH (15:14)
[2019-12-14] MEDS: Azithromycin 500 MG in 0.9 % Sodium Chloride 250 ML IVPB SCH (20:17)
[2019-12-14] MEDS: QUEtiapine Fumarate 25 MG TABLET PO SCH (20:17)
[2019-12-14] MEDS: Acetaminophen 325 MG TABLET PO PRN (20:21)
[2019-12-15] MEDS: MethylPREDNISolone 40 MG/ML VIAL IVP SCH ×3 (00:05→15:50)
[2019-12-15] MEDS ORDERED: Haloperidol Lactate 5 MG/ML VIAL IVP ONE (01:23)
[2019-12-15 02:46] LABS: Basophils % 0.2 %; Hematocrit 33.8 % (35.3-44.9); Hemoglobin 10.2 g/dL (11.5-15.4); Immature Granulocytes % 5.7 % (0-4); Lymphocytes # 0.7 K/mcL (0.6-4.6); Lymphocytes % 3.6 %; Mean Corpuscular HGB Conc 30.2 g/dL (31.6-35.5); Mean Corpuscular Hemoglobin 24.5 pg (28.0-33.3); Mean Corpuscular Volume 81.1 fL (83.0-100.0); Mean Platelet Volume 11.2 fL (9.4-12.4); Monocytes # 0.7 K/mcL (0.0-1.3); Monocytes % 3.9 %; Neutrophils # 16.5 K/mcL (1.6-8.9); Nucleated Red Blood Cells 0.2 /100 WBC (0); Platelet Count 289 K/mcL (140-400); Red Blood Count 4.17 M/mcL (3.82-4.97); Red Cell Distribution Width 15.7 % (11.5-14.5); Segmented Neutrophils % 86.6 %
[2019-12-15] MEDS ORDERED: *HR* Promethazine 25 MG/ML VIAL IVP ONE ×2 (03:05→03:07)
[2019-12-15 03:08] LABS: BUN/Creatinine Ratio 51 (6-26); Blood Urea Nitrogen 38 mg/dL (8-23); Calcium 9.7 mg/dL (8.6-10.3); Carbon Dioxide 34 mEq/L (23-29); Chloride 100 mEq/L (98-107); Glucose 127 mg/dL (70-105); Osmolality,Calculated 303 (280-300); Potassium 4.7 mEq/L (3.5-5.1); Sodium 141 mEq/L (136-145); eGFR For African Americans > 60 (> 60); eGFR For Non-African Americans > 60 (> 60)
[2019-12-15] MEDS: Piperacillin/Tazobactam 3.375 GM in 0.9 % Sodium Chloride Mini Bag 100 ML IVPB SCH ×3 (03:32→20:01)
[2019-12-15 03:38] LABS: Ovalocytes 2+ (Not Present); Platelet Estimate Normal (Normal); Stomatocytes 2+ (Not Present); Tear Drop Cells 2+ (Not Present)
[2019-12-15] MEDS: Ipratropium/Albuterol Neb 3 ML IH SCH ×6 (03:48→23:36)
[2019-12-15] MEDS: Budesonide/Formoterol 80/4.5 1 PUFF INH IH SCH ×2 (07:29→19:32)
[2019-12-15] MEDS: Lactulose Oral Soln 20 GM/30 ML UDC PO SCH ×2 (09:18→19:30)
[2019-12-15] MEDS: amLODIPine 5 MG TABLET PO SCH (09:19)
[2019-12-15] MEDS: Vitamin E 200 UNIT (90MG) CAPSULE PO SCH (09:19)
[2019-12-15] MEDS: carvediloL 6.25 MG TABLET PO SCH ×2 (09:19→17:31)
[2019-12-15] MEDS: Cyanocobalamin (B-12) 1,000 MCG TABLET PO SCH (09:19)
[2019-12-15] MEDS: Cholecalciferol (D-3) 1,000 UNIT (25MCG) TABLET PO SCH (09:19)
[2019-12-15] MEDS: *HR* Amiodarone 200 MG TABLET PO SCH (09:20)
[2019-12-15] MEDS: Aspirin 81 MG TAB.CHEW PO SCH (09:20)
[2019-12-15] MEDS: Insulin LISPRO 300 UNITS/3 ML VIAL SQ SCH ×4 (09:20→19:58)
[2019-12-15] MEDS: Multivit/Ca/Min/Fe/FA 1 TAB TABLET PO SCH (09:20)
[2019-12-15] MEDS: Furosemide 40 MG TABLET PO SCH (09:20)
[2019-12-15] MEDS: FLUoxetine 20 MG CAPSULE PO SCH (09:20)
[2019-12-15] MEDS: Magnesium Oxide 400 MG TABLET PO SCH ×2 (09:20→20:01)
[2019-12-15] MEDS: Apixaban 5 MG TABLET PO SCH ×2 (09:20→20:01)
[2019-12-15] MEDS: Loratadine 10 MG TABLET PO SCH (09:20)
[2019-12-15] MEDS: Nystatin POWDER 30 GM BOTTLE TP SCH ×2 (09:21→20:01)
[2019-12-15] MEDS: Acetaminophen 325 MG TABLET PO PRN (11:44)
[2019-12-15] MEDS: Azithromycin 500 MG in 0.9 % Sodium Chloride 250 ML IVPB SCH (17:27)
[2019-12-15] MEDS: QUEtiapine Fumarate 25 MG TABLET PO SCH (20:01)
[2019-12-16] MEDS: MethylPREDNISolone 40 MG/ML VIAL IVP SCH ×3 (00:13→16:35)
[2019-12-16] MEDS ORDERED: *HR* Promethazine 25 MG/ML VIAL IVP ONE (03:16)
[2019-12-16] MEDS: Ipratropium/Albuterol Neb 3 ML IH SCH ×6 (03:44→23:44)
[2019-12-16 03:55] LABS: Nucleated Red Blood Cells 0.2 /100 WBC (0); Red Cell Distribution Width 15.5 % (11.5-14.5)
[2019-12-16 03:57] LABS: Hematocrit 30.6 % (35.3-44.9); Hemoglobin 9.4 g/dL (11.5-15.4); Mean Corpuscular HGB Conc 30.7 g/dL (31.6-35.5); Mean Corpuscular Hemoglobin 24.9 pg (28.0-33.3); Mean Platelet Volume 11.2 fL (9.4-12.4); Platelet Count 289 K/mcL (140-400); Red Blood Count 3.78 M/mcL (3.82-4.97); White Blood Count 28.1 K/mcL (4.3-11.1)
[2019-12-16 04:21] LABS: BUN/Creatinine Ratio 47 (6-26); Blood Urea Nitrogen 41 mg/dL (8-23); Calcium 9.3 mg/dL (8.6-10.3); Carbon Dioxide 35 mEq/L (23-29); Chloride 101 mEq/L (98-107); Glucose 157 mg/dL (70-105); Osmolality,Calculated 309 (280-300); Potassium 4.9 mEq/L (3.5-5.1); Sodium 143 mEq/L (136-145); eGFR For African Americans > 60 (> 60); eGFR For Non-African Americans > 60 (> 60)
[2019-12-16 04:31] LABS: Anisocytosis 1+ (Not Present); Lymphocytes # 0.6 K/mcL (0.6-4.6); Monocytes # 0.6 K/mcL (0.0-1.3); Polychromasia 1+ (Not Present)
[2019-12-16 04:32] LABS: Hypochromasia Present (Not Present); Platelet Estimate Normal (Normal)
[2019-12-16] MEDS: Piperacillin/Tazobactam 3.375 GM in 0.9 % Sodium Chloride Mini Bag 100 ML IVPB SCH ×3 (04:38→21:09)
[2019-12-16] MEDS: Budesonide/Formoterol 80/4.5 1 PUFF INH IH SCH ×2 (07:23→19:55)
[2019-12-16] MEDS: Multivit/Ca/Min/Fe/FA 1 TAB TABLET PO SCH (08:00)
[2019-12-16] MEDS: Cyanocobalamin (B-12) 1,000 MCG TABLET PO SCH (08:00)
[2019-12-16] MEDS: Insulin LISPRO 300 UNITS/3 ML VIAL SQ SCH ×4 (08:00→21:10)
[2019-12-16] MEDS: Cholecalciferol (D-3) 1,000 UNIT (25MCG) TABLET PO SCH (08:00)
[2019-12-16] MEDS: Magnesium Oxide 400 MG TABLET PO SCH ×2 (08:00→21:10)
[2019-12-16] MEDS: Furosemide 40 MG TABLET PO SCH (08:01)
[2019-12-16] MEDS: *HR* Amiodarone 200 MG TABLET PO SCH (08:01)
[2019-12-16] MEDS: amLODIPine 5 MG TABLET PO SCH (08:01)
[2019-12-16] MEDS: Apixaban 5 MG TABLET PO SCH ×2 (08:01→21:10)
[2019-12-16] MEDS: Aspirin 81 MG TAB.CHEW PO SCH (08:01)
[2019-12-16] MEDS: FLUoxetine 20 MG CAPSULE PO SCH (08:01)
[2019-12-16] MEDS: Nystatin POWDER 30 GM BOTTLE TP SCH ×2 (08:01→21:11)
[2019-12-16] MEDS: carvediloL 6.25 MG TABLET PO SCH ×2 (08:01→16:35)
[2019-12-16] MEDS: Lactulose Oral Soln 20 GM/30 ML UDC PO SCH ×2 (08:14→21:10)
[2019-12-16] MEDS: Loratadine 10 MG TABLET PO SCH (08:14)
[2019-12-16] MEDS ORDERED: Aminoglycoside Consult 1 EACH MC ONE (08:44)
[2019-12-16] MEDS: Azithromycin 500 MG in 0.9 % Sodium Chloride 250 ML IVPB SCH (17:43)
[2019-12-16] MEDS: QUEtiapine Fumarate 25 MG TABLET PO SCH (21:10)
[2019-12-17] MEDS: Acetaminophen 325 MG TABLET PO PRN ×2 (01:07→07:17)
[2019-12-17] MEDS: MethylPREDNISolone 40 MG/ML VIAL IVP SCH ×3 (01:07→16:27)
[2019-12-17] MEDS: Ipratropium/Albuterol Neb 3 ML IH SCH ×5 (03:46→20:06)
[2019-12-17] MEDS: Piperacillin/Tazobactam 3.375 GM in 0.9 % Sodium Chloride Mini Bag 100 ML IVPB SCH ×3 (05:44→20:51)
[2019-12-17 05:59] LABS: Basophils % 0.2 %; Mean Corpuscular Hemoglobin 25.3 pg (28.0-33.3); Mean Platelet Volume 11.2 fL (9.4-12.4); Nucleated Red Blood Cells 0.2 /100 WBC (0)
[2019-12-17 06:01] LABS: Basophils # 0.1 K/mcL (0.0-0.2); Hematocrit 29.8 % (35.3-44.9); Hemoglobin 9.1 g/dL (11.5-15.4); Immature Granulocytes % 4.7 % (0-4); Lymphocytes # 0.8 K/mcL (0.6-4.6); Lymphocytes % 2.4 %; Mean Corpuscular HGB Conc 30.5 g/dL (31.6-35.5); Mean Corpuscular Volume 82.8 fL (83.0-100.0); Monocytes # 1.4 K/mcL (0.0-1.3); Monocytes % 4.1 %; Neutrophils # 30.9 K/mcL (1.6-8.9); Platelet Count 241 K/mcL (140-400); Red Cell Distribution Width 15.7 % (11.5-14.5); Segmented Neutrophils % 88.6 %
[2019-12-17 06:08] LABS: White Blood Count 34.9 K/mcL (4.3-11.1)
[2019-12-17 06:12] LABS: BUN/Creatinine Ratio 51 (6-26); Blood Urea Nitrogen 41 mg/dL (8-23); Calcium 9.3 mg/dL (8.6-10.3); Carbon Dioxide 32 mEq/L (23-29); Chloride 102 mEq/L (98-107); Glucose 150 mg/dL (70-105); Osmolality,Calculated 311 (280-300); Sodium 144 mEq/L (136-145); eGFR For African Americans > 60 (> 60); eGFR For Non-African Americans > 60 (> 60)
[2019-12-17] MEDS: Budesonide/Formoterol 80/4.5 1 PUFF INH IH SCH ×2 (07:16→20:06)
[2019-12-17] MEDS: Multivit/Ca/Min/Fe/FA 1 TAB TABLET PO SCH (09:03)
[2019-12-17] MEDS: Lactulose Oral Soln 20 GM/30 ML UDC PO SCH ×2 (09:03→20:49)
[2019-12-17] MEDS: Furosemide 40 MG TABLET PO SCH (09:04)
[2019-12-17] MEDS: Apixaban 5 MG TABLET PO SCH (09:04)
[2019-12-17] MEDS: carvediloL 6.25 MG TABLET PO SCH ×2 (09:06→16:25)
[2019-12-17] MEDS: Cholecalciferol (D-3) 1,000 UNIT (25MCG) TABLET PO SCH (09:07)
[2019-12-17] MEDS: *HR* Amiodarone 200 MG TABLET PO SCH (09:07)
[2019-12-17] MEDS: FLUoxetine 20 MG CAPSULE PO SCH (09:07)
[2019-12-17] MEDS: amLODIPine 5 MG TABLET PO SCH (09:07)
[2019-12-17] MEDS: Magnesium Oxide 400 MG TABLET PO SCH ×2 (09:07→20:50)
[2019-12-17] MEDS: Cyanocobalamin (B-12) 1,000 MCG TABLET PO SCH (09:08)
[2019-12-17] MEDS: Aspirin 81 MG TAB.CHEW PO SCH (09:08)
[2019-12-17] MEDS: Nystatin POWDER 30 GM BOTTLE TP SCH ×2 (09:08→20:51)
[2019-12-17] MEDS: Insulin LISPRO 300 UNITS/3 ML VIAL SQ SCH ×4 (09:21→20:50)
[2019-12-17 09:51] LABS: Mycoplasma pneumoniae IgG 0.15 U/L (<=0.09)
[2019-12-17 10:49] LABS: ABG Base Excess 10 mEq/L (-2 to 3); ABG Chloride 99 mEq/L (98-107); ABG Glucose 202 mg/dL (60-95); ABG HCO3 35 mEq/L (21-27); ABG Ionized Calcium 1.26 mmol/L (1.15-1.35); ABG Oxygen Saturation 94 % (95-98); ABG PCO2 53 mmHg (35-45); ABG PH 7.43 pH Units (7.32-7.45); ABG PO2 69 mmHg (85-104); ABG TCO2 37 mEq/L (20-26)
[2019-12-17] MEDS: Loratadine 10 MG TABLET PO SCH (11:31)
[2019-12-17 14:06] LABS: Hematocrit 31.3 % (35.3-44.9); Hemoglobin 9.3 g/dL (11.5-15.4); Mean Corpuscular HGB Conc 29.7 g/dL (31.6-35.5); Mean Corpuscular Hemoglobin 25.3 pg (28.0-33.3); Mean Corpuscular Volume 85.3 fL (83.0-100.0); Nucleated Red Blood Cells 0.3 /100 WBC (0); Platelet Count 235 K/mcL (140-400); Red Blood Count 3.67 M/mcL (3.82-4.97); Red Cell Distribution Width 15.5 % (11.5-14.5)
[2019-12-17 14:14] LABS: Lymphocytes # 0.8 K/mcL (0.6-4.6)
[2019-12-17 14:36] LABS: Monocytes # 2.5 K/mcL (0.0-1.3); Neutrophils # 37.8 K/mcL (1.6-8.9)
[2019-12-17 14:37] LABS: Platelet Estimate Normal (Normal)
[2019-12-17] MEDS ORDERED: Isovue-370 500 ML BOTTLE IVP ONE (16:05)
[2019-12-17 16:57] LABS: Bacteria,Urine None Seen per hpf (None-Few); Bilirubin,Urine Negative (Negative); Blood,Urine Small (Negative); Clarity,Urine Clear (Clear); Color,Urine Yellow (Yellow); Glucose,Urine (UA) Normal (Normal); Hyaline Casts,Urine None Seen per lpf (None-Few); Ketones,Urine Negative (Negative); Leukocyte Esterase,Urine Negative (Negative); Nitrite,Urine Negative (Negative); Protein,Urine Negative (Neg-Trace); Specific Gravity,Urine 1.018 (1.010-1.025); Squamous Epithelial Cell,Urine Moderate per lpf (None-Few); Urobilinogen,Urine Normal (Normal); WBC,Urine 0-3 per hpf (0-3)
[2019-12-17 17:54] LABS: Adenovirus Not Detected (Not Detect); Coronavirus 229E Not Detected (Not Detect); Coronavirus HKU1 Not Detected (Not Detect); Coronavirus NL63 Not Detected (Not Detect); Coronavirus OC43 Not Detected (Not Detect); Human Metapneumovirus Not Detected (Not Detect); Human Rhinovirus/Enterovirus Not Detected (Not Detect); Influenza A Subtype 2009 H1 Not Detected (Not Detect); Influenza B Not Detected (Not Detect)
[2019-12-17 17:55] LABS: Bordetella Pertussis Not Detected (Not Detect); Chlamydophila pneumoniae Not Detected (Not Detect); Mycoplasma pneumoniae Not Detected (Not Detect); Parainfluenza Virus 1 Not Detected (Not Detect); Parainfluenza Virus 2 Not Detected (Not Detect); Parainfluenza Virus 3 Not Detected (Not Detect); Parainfluenza Virus 4 Not Detected (Not Detect); Respiratory Syncytial Virus DETECTED (Not Detect)
[2019-12-17] MEDS ORDERED: Vancomycin 1,750 MG in 0.9 % Sodium Chloride 250 ML IVPB SCH (20:05)
[2019-12-17] MEDS: QUEtiapine Fumarate 25 MG TABLET PO SCH (20:50)
[2019-12-18] MEDS: MethylPREDNISolone 40 MG/ML VIAL IVP SCH (00:13)
[2019-12-18] MEDS: Meropenem 500 MG in Water for inj. (sterile) 10 ML IVP SCH ×2 (00:13→08:03)
[2019-12-18] MEDS: Ipratropium/Albuterol Neb 3 ML IH SCH ×7 (00:19→23:20)
[2019-12-18] MEDS: Piperacillin/Tazobactam 3.375 GM in 0.9 % Sodium Chloride Mini Bag 100 ML IVPB SCH (06:04)
[2019-12-18] MEDS: Budesonide/Formoterol 80/4.5 1 PUFF INH IH SCH ×2 (07:25→19:33)
[2019-12-18 07:52] LABS: Hematocrit 26.4 % (35.3-44.9); Hemoglobin 7.9 g/dL (11.5-15.4); Mean Corpuscular HGB Conc 29.9 g/dL (31.6-35.5); Mean Corpuscular Hemoglobin 25.2 pg (28.0-33.3); Mean Corpuscular Volume 84.1 fL (83.0-100.0); Nucleated Red Blood Cells 0.4 /100 WBC (0); Platelet Count 203 K/mcL (140-400); Red Blood Count 3.14 M/mcL (3.82-4.97); Red Cell Distribution Width 16.1 % (11.5-14.5); White Blood Count 23.7 K/mcL (4.3-11.1)
[2019-12-18] MEDS: Lactulose Oral Soln 20 GM/30 ML UDC PO SCH ×2 (08:03→21:22)
[2019-12-18] MEDS: Cyanocobalamin (B-12) 1,000 MCG TABLET PO SCH (08:03)
[2019-12-18] MEDS: *HR* Amiodarone 200 MG TABLET PO SCH (08:04)
[2019-12-18] MEDS: amLODIPine 5 MG TABLET PO SCH (08:04)
[2019-12-18] MEDS: Cholecalciferol (D-3) 1,000 UNIT (25MCG) TABLET PO SCH (08:04)
[2019-12-18] MEDS: Aspirin 81 MG TAB.CHEW PO SCH (08:04)
[2019-12-18] MEDS: Loratadine 10 MG TABLET PO SCH (08:04)
[2019-12-18] MEDS: carvediloL 6.25 MG TABLET PO SCH ×2 (08:04→17:24)
[2019-12-18] MEDS: Furosemide 40 MG TABLET PO SCH (08:04)
[2019-12-18] MEDS: Multivit/Ca/Min/Fe/FA 1 TAB TABLET PO SCH (08:04)
[2019-12-18] MEDS: Magnesium Oxide 400 MG TABLET PO SCH ×2 (08:04→21:22)
[2019-12-18] MEDS: FLUoxetine 20 MG CAPSULE PO SCH (08:04)
[2019-12-18] MEDS: Insulin LISPRO 300 UNITS/3 ML VIAL SQ SCH ×4 (08:05→21:23)
[2019-12-18] MEDS: Nystatin POWDER 30 GM BOTTLE TP SCH ×2 (08:05→21:23)
[2019-12-18 08:09] LABS: BUN/Creatinine Ratio 48 (6-26); Blood Urea Nitrogen 40 mg/dL (8-23); Carbon Dioxide 33 mEq/L (23-29); Chloride 102 mEq/L (98-107); Glucose 160 mg/dL (70-105); Osmolality,Calculated 305 (280-300); Potassium 4.4 mEq/L (3.5-5.1); Sodium 141 mEq/L (136-145); eGFR For African Americans > 60 (> 60); eGFR For Non-African Americans > 60 (> 60)
[2019-12-18 08:32] LABS: Lymphocytes # 1.4 K/mcL (0.6-4.6); Monocytes # 0.5 K/mcL (0.0-1.3); Neutrophils # 21.8 K/mcL (1.6-8.9)
[2019-12-18 08:33] LABS: Anisocytosis 1+ (Not Present)
[2019-12-18 08:34] LABS: Hypochromasia Present (Not Present); Microcytosis Present (Not Present); Platelet Estimate Normal (Normal); Polychromasia 1+ (Not Present)
[2019-12-18] MEDS ORDERED: Piperacillin/Tazobactam 3.375 GM in 0.9 % Sodium Chloride Mini Bag 100 ML IVPB SCH (16:00)
[2019-12-18] MEDS ORDERED: MethylPREDNISolone 40 MG/ML VIAL ONE (17:19)
[2019-12-18] MEDS ORDERED: MethylPREDNISolone 40 MG/ML VIAL IVP ONE ×2 (18:00)
[2019-12-18] MEDS: QUEtiapine Fumarate 25 MG TABLET PO SCH (21:22)
[2019-12-19 01:08] LABS: Basophils # 0.1 K/mcL (0.0-0.2); Basophils % 0.2 %; Hematocrit 26.7 % (35.3-44.9); Immature Granulocytes % 4.4 % (0-4); Lymphocytes # 0.6 K/mcL (0.6-4.6); Lymphocytes % 2.4 %; Mean Corpuscular Hemoglobin 25.2 pg (28.0-33.3); Mean Platelet Volume 11.3 fL (9.4-12.4); Monocytes # 1.1 K/mcL (0.0-1.3); Monocytes % 4.4 %; Neutrophils # 21.5 K/mcL (1.6-8.9); Nucleated Red Blood Cells 0.3 /100 WBC (0); Platelet Count 203 K/mcL (140-400); Red Blood Count 3.18 M/mcL (3.82-4.97); Red Cell Distribution Width 16.3 % (11.5-14.5); Segmented Neutrophils % 88.6 %; White Blood Count 24.3 K/mcL (4.3-11.1)
[2019-12-19 01:28] LABS: BUN/Creatinine Ratio 49 (6-26); Blood Urea Nitrogen 34 mg/dL (8-23); Calcium 9.1 mg/dL (8.6-10.3); Carbon Dioxide 31 mEq/L (23-29); Chloride 101 mEq/L (98-107); Glucose 134 mg/dL (70-105); Osmolality,Calculated 298 (280-300); Potassium 4.4 mEq/L (3.5-5.1); Sodium 139 mEq/L (136-145); eGFR For African Americans > 60 (> 60); eGFR For Non-African Americans > 60 (> 60)
[2019-12-19] MEDS: Acetaminophen 325 MG TABLET PO PRN ×3 (01:40→17:55)
[2019-12-19 01:41] LABS: Hypochromasia Present (Not Present); Platelet Estimate Normal (Normal)
[2019-12-19] MEDS: Ipratropium/Albuterol Neb 3 ML IH SCH ×6 (03:30→23:34)
[2019-12-19] MEDS: Budesonide/Formoterol 80/4.5 1 PUFF INH IH SCH ×2 (07:30→19:37)
[2019-12-19] MEDS: carvediloL 6.25 MG TABLET PO SCH ×2 (08:31→17:55)
[2019-12-19] MEDS: Multivit/Ca/Min/Fe/FA 1 TAB TABLET PO SCH (08:31)
[2019-12-19] MEDS: Cyanocobalamin (B-12) 1,000 MCG TABLET PO SCH (08:31)
[2019-12-19] MEDS: Lactulose Oral Soln 20 GM/30 ML UDC PO SCH ×2 (08:31→20:22)
[2019-12-19] MEDS: amLODIPine 5 MG TABLET PO SCH (08:31)
[2019-12-19] MEDS: Cholecalciferol (D-3) 1,000 UNIT (25MCG) TABLET PO SCH (08:31)
[2019-12-19] MEDS: Aspirin 81 MG TAB.CHEW PO SCH (08:31)
[2019-12-19] MEDS: Furosemide 40 MG TABLET PO SCH (08:32)
[2019-12-19] MEDS: FLUoxetine 20 MG CAPSULE PO SCH (08:32)
[2019-12-19] MEDS: Insulin LISPRO 300 UNITS/3 ML VIAL SQ SCH ×4 (08:32→20:23)
[2019-12-19] MEDS: Magnesium Oxide 400 MG TABLET PO SCH ×2 (08:32→20:22)
[2019-12-19] MEDS: predniSONE 20 MG TABLET PO SCH (08:32)
[2019-12-19] MEDS: *HR* Amiodarone 200 MG TABLET PO SCH (08:32)
[2019-12-19] MEDS: Loratadine 10 MG TABLET PO SCH (08:32)
[2019-12-19] MEDS: Nystatin POWDER 30 GM BOTTLE TP SCH ×2 (08:33→20:22)
[2019-12-19] MEDS ORDERED: Furosemide 40 MG TABLET PO ONE (13:00)
[2019-12-19] MEDS: Piperacillin/Tazobactam 3.375 GM in 0.9 % Sodium Chloride Mini Bag 100 ML IVPB SCH ×2 (13:55→20:21)
[2019-12-19] MEDS: QUEtiapine Fumarate 25 MG TABLET PO SCH (20:22)
[2019-12-19] MEDS ORDERED: QUEtiapine Fumarate 25 MG TABLET PO ONE (22:39)
[2019-12-20 01:31] LABS: Basophils % 0.2 %; Hematocrit 27.1 % (35.3-44.9); Immature Granulocytes % 4.1 % (0-4); Lymphocytes # 1.1 K/mcL (0.6-4.6); Lymphocytes % 5.1 %; Mean Corpuscular HGB Conc 29.5 g/dL (31.6-35.5); Mean Corpuscular Hemoglobin 24.6 pg (28.0-33.3); Mean Corpuscular Volume 83.4 fL (83.0-100.0); Mean Platelet Volume 11.2 fL (9.4-12.4); Monocytes # 1.5 K/mcL (0.0-1.3); Neutrophils # 18.3 K/mcL (1.6-8.9); Nucleated Red Blood Cells 0.5 /100 WBC (0); Platelet Count 196 K/mcL (140-400); Red Blood Count 3.25 M/mcL (3.82-4.97); Red Cell Distribution Width 16.5 % (11.5-14.5); Segmented Neutrophils % 83.6 %; White Blood Count 21.9 K/mcL (4.3-11.1)
[2019-12-20 01:52] LABS: BUN/Creatinine Ratio 39 (6-26); Blood Urea Nitrogen 32 mg/dL (8-23); Calcium 8.7 mg/dL (8.6-10.3); Carbon Dioxide 32 mEq/L (23-29); Chloride 99 mEq/L (98-107); Glucose 100 mg/dL (70-105); Osmolality,Calculated 295 (280-300); Potassium 3.4 mEq/L (3.5-5.1); Sodium 139 mEq/L (136-145); eGFR For African Americans > 60 (> 60); eGFR For Non-African Americans > 60 (> 60)
[2019-12-20] MEDS: Ipratropium/Albuterol Neb 3 ML IH SCH ×3 (03:45→11:39)
[2019-12-20] MEDS: Piperacillin/Tazobactam 3.375 GM in 0.9 % Sodium Chloride Mini Bag 100 ML IVPB SCH (05:21)
[2019-12-20 07:18] VITALS: BP 142/64
[2019-12-20] MEDS: Budesonide/Formoterol 80/4.5 1 PUFF INH IH SCH (07:45)
[2019-12-20] MEDS: Insulin LISPRO 300 UNITS/3 ML VIAL SQ SCH ×2 (09:25→11:52)
[2019-12-20] MEDS: Cholecalciferol (D-3) 1,000 UNIT (25MCG) TABLET PO SCH (09:30)
[2019-12-20] MEDS: Multivit/Ca/Min/Fe/FA 1 TAB TABLET PO SCH (09:31)
[2019-12-20] MEDS: Loratadine 10 MG TABLET PO SCH (09:31)
[2019-12-20] MEDS: Magnesium Oxide 400 MG TABLET PO SCH (09:31)
[2019-12-20] MEDS: predniSONE 20 MG TABLET PO SCH (09:31)
[2019-12-20] MEDS: Aspirin 81 MG TAB.CHEW PO SCH (09:31)
[2019-12-20] MEDS: Lactulose Oral Soln 20 GM/30 ML UDC PO SCH (09:32)
[2019-12-20] MEDS: carvediloL 6.25 MG TABLET PO SCH (09:32)
[2019-12-20] MEDS: Cyanocobalamin (B-12) 1,000 MCG TABLET PO SCH (09:32)
[2019-12-20] MEDS: Furosemide 40 MG TABLET PO SCH (09:32)
[2019-12-20] MEDS: FLUoxetine 20 MG CAPSULE PO SCH (09:32)
[2019-12-20] MEDS: *HR* Amiodarone 200 MG TABLET PO SCH (09:32)
[2019-12-20] MEDS: amLODIPine 5 MG TABLET PO SCH (09:32)
[2019-12-20] MEDS: Nystatin POWDER 30 GM BOTTLE TP SCH (09:34)
[2019-12-20] MEDS ORDERED: Aminoglycoside Consult 1 EACH MC ONE (15:34)
== END 2019-12-20 15:35 | DRG 291 ==
LOC: 3BNU 18:06 → EMEROOARM 18:06 → SUATTDRO 22:42 → 3BNU 12-06 00:03 → SUATTDRO 12-06 14:43 → 2NENU 12-08 15:58 → ICNU 12-09 10:41 → 2NENU 12-11 22:57
PROVIDERS: ADMIT Internal Medicine; ATTEND Internal Medicine

== ENCOUNTER 2020-03-06 17:43 | Inpatient (IN) ==
[~2020-03-06 17:43] MED LIST: Aminoglycoside Consult 1 EACH MC ONE
[2020-03-06] MEDS ORDERED: 0.9 % Sodium Chloride 500 ML IVC STA (18:18)
[2020-03-06 18:31] LABS: Bilirubin,Urine Small (Negative); Blood,Urine Negative (Negative); Clarity,Urine Cloudy (Clear); Glucose,Urine (UA) Normal (Normal); Ketones,Urine Trace mg/dL (Negative); Leukocyte Esterase,Urine Small (Negative); Nitrite,Urine Positive (Negative); Protein,Urine 30 mg/dL (Neg-Trace); Specific Gravity,Urine 1.025 (1.010-1.025); Urobilinogen,Urine Normal (Normal)
[2020-03-06 18:33] LABS: Bacteria,Urine Many per hpf (None-Few); Color,Urine Dark Yellow (Yellow); Hyaline Casts,Urine Few per lpf (None-Few); Squamous Epithelial Cell,Urine Many per lpf (None-Few)
[2020-03-06] MEDS ORDERED: cefTRIAXone 1,000 MG in 0.9 % Sodium Chloride Mini Bag 100 ML IVPB ONE (18:55)
[2020-03-06 19:10] LABS: Basophils # 0.1 K/mcL (0.0-0.2); Basophils % 0.2 %; Eosinophils # 0.1 K/mcL (0.0-0.6); Eosinophils % 0.3 %; Hemoglobin 12.2 g/dL (11.5-15.4); Immature Granulocytes % 0.7 % (0-4); Lymphocytes # 1.2 K/mcL (0.6-4.6); Lymphocytes % 5.7 %; Mean Corpuscular Volume 82.7 fL (83.0-100.0); Mean Platelet Volume 10.2 fL (9.4-12.4); Monocytes # 2.3 K/mcL (0.0-1.3); Monocytes % 11.1 %; Neutrophils # 17.1 K/mcL (1.6-8.9); Platelet Count 291 K/mcL (140-400); Red Blood Count 5.08 M/mcL (3.82-4.97); Red Cell Distribution Width 15.9 % (11.5-14.5); White Blood Count 20.9 K/mcL (4.3-11.1)
[2020-03-06 19:30] LABS: INR 1.3; Prothrombin Time 15.1 Seconds (9.4-12.1)
[2020-03-06 19:33] LABS: Activated Partial Thrombo Time 29.6 Seconds (26.0-36.0)
[2020-03-06 20:15] LABS: Thyroid Stimulating Hormone 0.091 mcIU/mL (0.340-5.600); Troponin I 0.03 ng/mL (< 0.04)
[2020-03-06 20:19] LABS: BUN/Creatinine Ratio 26 (6-26); Blood Urea Nitrogen 21 mg/dL (8-23); Calcium 8.6 mg/dL (8.6-10.3); Carbon Dioxide 21 mEq/L (23-29); Chloride 99 mEq/L (98-107); Glucose 106 mg/dL (70-105); Osmolality,Calculated 287 (280-300); Potassium 3.4 mEq/L (3.5-5.1); Sodium 137 mEq/L (136-145); eGFR For African Americans > 60 (> 60); eGFR For Non-African Americans > 60 (> 60)
[2020-03-06] MEDS ORDERED: Ondansetron 4 MG/2 ML VIAL IVP PRN (21:42)
[2020-03-06] MEDS ORDERED: Naloxone 0.4 MG/ML INJ IVP PRN (21:42)
[2020-03-06 21:47] LABS: Alanine Aminotransferase 17 Units/L (7-52); Albumin 2.9 g/dL (3.5-5.7); Albumin/Globulin Ratio 1.3 (1.1-2.2); Alkaline Phosphatase 80 Units/L (34-104); Aspartate Amino Transferase 18 Units/L (13-39); Bilirubin,Direct 0.2 mg/dL (0.0-0.2); Bilirubin,Indirect 0.4 mg/dL (0.0-1.0); Bilirubin,Total 0.6 mg/dL (0.3-1.0); Creatine Kinase 17 Units/L (30-223); Globulin 2.2 g/dL (2.4-3.5); Total Protein 5.1 g/dL (6.4-8.9)
[2020-03-06] MEDS ORDERED: Acetaminophen 325 MG TABLET PO PRN (21:47)
[2020-03-06 22:02] LABS: Lipase < 3 Units/L (11-82)
[2020-03-06] MEDS ORDERED: Isovue-370 500 ML BOTTLE IVP ONE (22:25)
[2020-03-06 22:34] LABS: Triiodothyronine (T3) Free 2.36 pg/mL (2.50-3.90)
[2020-03-06] MEDS ORDERED: Vancomycin 1,750 MG in 0.9 % Sodium Chloride 250 ML IVPB SCH (23:00)
[2020-03-07] MEDS ORDERED: Vancomycin 1,750 MG/517.5 ML IV.SOLN IVPB ONE (00:01)
[2020-03-07] MEDS: Cefepime HCl 2,000 MG in Water for inj. (sterile) 20 ML IVP SCH ×2 (00:45→08:55)
[2020-03-07] MEDS: *HR* HYDROcodone/Acet 5/325 mg TABLET PO PRN ×4 (01:24→21:36)
[2020-03-07 03:38] LABS: INR 1.2; Prothrombin Time 14.1 Seconds (9.4-12.1)
[2020-03-07 03:47] LABS: Alanine Aminotransferase 17 Units/L (7-52); Albumin 2.7 g/dL (3.5-5.7); Albumin/Globulin Ratio 1.2 (1.1-2.2); Alkaline Phosphatase 76 Units/L (34-104); Aspartate Amino Transferase 18 Units/L (13-39); BUN/Creatinine Ratio 32 (6-26); Bilirubin,Total 0.6 mg/dL (0.3-1.0); Blood Urea Nitrogen 20 mg/dL (8-23); Calcium 7.9 mg/dL (8.6-10.3); Carbon Dioxide 28 mEq/L (23-29); Chloride 101 mEq/L (98-107); Globulin 2.2 g/dL (2.4-3.5); Glucose 113 mg/dL (70-105); Magnesium 1.6 mg/dL (1.6-2.6); Osmolality,Calculated 291 (280-300); Phosphorous 3.2 mg/dL (2.7-4.5); Potassium 3.3 mEq/L (3.5-5.1); Sodium 139 mEq/L (136-145); Total Protein 4.9 g/dL (6.4-8.9); eGFR For African Americans > 60 (> 60); eGFR For Non-African Americans > 60 (> 60)
[2020-03-07] MEDS: MetroNIDAZOLE 500 MG/100 ML 500 MG/100 ML BAG IVPB SCH ×3 (06:27→17:03)
[2020-03-07] MEDS: Apixaban 5 MG TABLET PO SCH ×2 (08:54→21:37)
[2020-03-07] MEDS: Magnesium Oxide 400 MG TABLET PO SCH ×2 (08:54→21:40)
[2020-03-07] MEDS: Aspirin 81 MG TAB.CHEW PO SCH (08:55)
[2020-03-07] MEDS: Furosemide 40 MG TABLET PO SCH (08:55)
[2020-03-07] MEDS: amLODIPine 5 MG TABLET PO SCH (08:55)
[2020-03-07] MEDS: FLUoxetine 20 MG CAPSULE PO SCH (08:55)
[2020-03-07] MEDS: Loratadine 10 MG TABLET PO SCH (08:55)
[2020-03-07] MEDS: carvediloL 6.25 MG TABLET PO SCH ×2 (08:55→17:03)
[2020-03-07] MEDS ORDERED: LIDOCAINE TP SCH (09:00)
[2020-03-07] MEDS ORDERED: *HR* Amiodarone 200 MG TABLET PO SCH (09:00)
[2020-03-07] MEDS ORDERED: Vancomycin 1,750 MG in 0.9 % Sodium Chloride 250 ML IVPB SCH (09:00)
[2020-03-07] MEDS ORDERED: Vancomycin Oral Soln 125 MG/2.5 ML UDC PO SCH (09:00)
[2020-03-07] MEDS: Tiotropium 18 MCG inhalation IH SCH (10:08)
[2020-03-07] MEDS: Budesonide/Formoterol 160/4.5 1 PUFF INH IH SCH ×2 (10:08→19:57)
[2020-03-07] MEDS ORDERED: Aminoglycoside Consult 1 EACH MC ONE (10:17)
[2020-03-07 10:28] LABS: Hematocrit 42.1 % (35.3-44.9); Hemoglobin 12.3 g/dL (11.5-15.4); Immature Granulocytes % 1.1 % (0-4); Lymphocytes % 5.2 %; Mean Corpuscular HGB Conc 29.2 g/dL (31.6-35.5); Mean Corpuscular Hemoglobin 24.1 pg (28.0-33.3); Mean Corpuscular Volume 82.4 fL (83.0-100.0); Mean Platelet Volume 10.5 fL (9.4-12.4); Monocytes % 10.4 %; Platelet Count 301 K/mcL (140-400); Red Blood Count 5.11 M/mcL (3.82-4.97); Red Cell Distribution Width 15.9 % (11.5-14.5); Segmented Neutrophils % 82.5 %; White Blood Count 23.6 K/mcL (4.3-11.1)
[2020-03-07 10:29] LABS: Basophils # 0.1 K/mcL (0.0-0.2); Basophils % 0.4 %; Eosinophils # 0.1 K/mcL (0.0-0.6); Eosinophils % 0.4 %; Lymphocytes # 1.2 K/mcL (0.6-4.6); Monocytes # 2.5 K/mcL (0.0-1.3); Neutrophils # 19.5 K/mcL (1.6-8.9); Nucleated Red Blood Cells 0.2 /100 WBC (0)
[2020-03-07 10:30] LABS: Platelet Estimate Normal (Normal)
[2020-03-07] MEDS: Nystatin POWDER 30 GM BOTTLE TP SCH ×3 (11:48→21:40)
[2020-03-07] MEDS ORDERED: Vancomycin 1,250 MG/262.5 ML IV.SOLN IVPB SCH (13:00)
[2020-03-07] MEDS ORDERED: Vancomycin 1,500 MG/265 ML IV.SOLN IVPB SCH (13:00)
[2020-03-07 14:23] LABS: Adenovirus F 40/41 PCR Not detected (Not detect); Astrovirus PCR Not detected (Not detect); Campylobacter by PCR Not detected (Not detect); Cryptosporidium by PCR Not detected (Not detect); Cyclospora cayetanensis PCR Not detected (Not detect); E. coli O157 by PCR Not detected (Not detect); Entamoeba histolytica PCR Not detected (Not detect); Enteroaggregative E.coli(EAEC) Not detected (Not detect); Enteropathogenic E.coli(EPEC) Not detected (Not detect); Enterotoxigenic E.coli (ETEC) Not detected (Not detect); Giardia lamblia PCR Not detected (Not detect); Norovirus GI/GII PCR Not detected (Not detect); Plesiomonas shigelloides PCR Not detected (Not detect); Rotavirus A PCR Not detected (Not detect); Salmonella PCR Not detected (Not detect); Sapovirus PCR Not detected (Not detect); Shig/EnteroinvasiveE coli EIEC Not detected (Not detect); Shigalike tox-prod E coli STEC Not detected (Not detect); Vibrio PCR Not detected (Not detect); Vibrio cholerae PCR Not detected (Not detect); Yersinia enterocolitica PCR Not detected (Not detect)
[2020-03-07 15:01] LABS: C.difficile Toxin A/B Gene PCR DETECTED (Not detect)
[2020-03-07] MEDS ORDERED: Fosfomycin Tromethamine 3 GM Packet PO ONE (18:45)
[2020-03-07] MEDS: Vancomycin Oral Soln 125 MG/2.5 ML UDC PO SCH (21:37)
[2020-03-07] MEDS: QUEtiapine Fumarate 25 MG TABLET PO SCH (21:37)
[2020-03-08] MEDS: MetroNIDAZOLE 500 MG/100 ML 500 MG/100 ML BAG IVPB SCH ×2 (00:21→06:19)
[2020-03-08 02:29] LABS: Basophils # 0.1 K/mcL (0.0-0.2); Basophils % 0.4 %; Eosinophils # 0.3 K/mcL (0.0-0.6); Eosinophils % 1.6 %; Hematocrit 35.9 % (35.3-44.9); Immature Granulocytes % 1.1 % (0-4); Lymphocytes # 1.6 K/mcL (0.6-4.6); Lymphocytes % 8.2 %; Mean Corpuscular HGB Conc 29.2 g/dL (31.6-35.5); Mean Corpuscular Hemoglobin 24.4 pg (28.0-33.3); Mean Corpuscular Volume 83.5 fL (83.0-100.0); Mean Platelet Volume 10.4 fL (9.4-12.4); Monocytes # 1.9 K/mcL (0.0-1.3); Monocytes % 9.6 %; Neutrophils # 15.4 K/mcL (1.6-8.9); Platelet Count 286 K/mcL (140-400); Red Cell Distribution Width 15.9 % (11.5-14.5); Segmented Neutrophils % 79.1 %; White Blood Count 19.4 K/mcL (4.3-11.1)
[2020-03-08 02:31] LABS: Hemoglobin 10.5 g/dL (11.5-15.4)
[2020-03-08 02:48] LABS: BUN/Creatinine Ratio 27 (6-26); Blood Urea Nitrogen 22 mg/dL (8-23); Carbon Dioxide 29 mEq/L (23-29); Chloride 101 mEq/L (98-107); Glucose 100 mg/dL (70-105); Magnesium 1.6 mg/dL (1.6-2.6); Osmolality,Calculated 287 (280-300); Potassium 3.7 mEq/L (3.5-5.1); Sodium 137 mEq/L (136-145); eGFR For African Americans > 60 (> 60); eGFR For Non-African Americans > 60 (> 60)
[2020-03-08] MEDS: FLUoxetine 20 MG CAPSULE PO SCH (08:57)
[2020-03-08] MEDS: Magnesium Oxide 400 MG TABLET PO SCH ×2 (08:58→20:00)
[2020-03-08] MEDS: Aspirin 81 MG TAB.CHEW PO SCH (08:58)
[2020-03-08] MEDS: Vancomycin Oral Soln 125 MG/2.5 ML UDC PO SCH ×4 (08:58→20:01)
[2020-03-08] MEDS: Loratadine 10 MG TABLET PO SCH (08:58)
[2020-03-08] MEDS: carvediloL 6.25 MG TABLET PO SCH ×2 (08:58→16:01)
[2020-03-08] MEDS: Apixaban 5 MG TABLET PO SCH ×2 (08:58→20:00)
[2020-03-08] MEDS: Furosemide 40 MG TABLET PO SCH (08:58)
[2020-03-08] MEDS: amLODIPine 5 MG TABLET PO SCH (08:58)
[2020-03-08] MEDS: Nystatin POWDER 30 GM BOTTLE TP SCH ×3 (08:59→20:05)
[2020-03-08] MEDS: *HR* HYDROcodone/Acet 5/325 mg TABLET PO PRN ×4 (09:18→23:57)
[2020-03-08] MEDS: Budesonide/Formoterol 160/4.5 1 PUFF INH IH SCH ×2 (10:08→21:04)
[2020-03-08] MEDS: Tiotropium 18 MCG inhalation IH SCH (10:09)
[2020-03-08] MEDS: QUEtiapine Fumarate 25 MG TABLET PO SCH (19:59)
[2020-03-09] MEDS: *HR* HYDROcodone/Acet 5/325 mg TABLET PO PRN ×3 (04:02→19:39)
[2020-03-09 05:57] LABS: Basophils # 0.1 K/mcL (0.0-0.2); Basophils % 0.5 %; Eosinophils # 0.4 K/mcL (0.0-0.6); Eosinophils % 2.1 %; Hematocrit 38.6 % (35.3-44.9); Hemoglobin 11.3 g/dL (11.5-15.4); Immature Granulocytes % 3.9 % (0-4); Lymphocytes % 10.4 %; Mean Corpuscular HGB Conc 29.3 g/dL (31.6-35.5); Mean Corpuscular Hemoglobin 23.9 pg (28.0-33.3); Mean Corpuscular Volume 81.8 fL (83.0-100.0); Monocytes # 1.3 K/mcL (0.0-1.3); Neutrophils # 14.7 K/mcL (1.6-8.9); Platelet Count 320 K/mcL (140-400); Red Blood Count 4.72 M/mcL (3.82-4.97); Red Cell Distribution Width 15.8 % (11.5-14.5); Segmented Neutrophils % 76.1 %; White Blood Count 19.3 K/mcL (4.3-11.1)
[2020-03-09 06:15] LABS: BUN/Creatinine Ratio 24 (6-26); Blood Urea Nitrogen 18 mg/dL (8-23); Calcium 8.7 mg/dL (8.6-10.3); Carbon Dioxide 30 mEq/L (23-29); Chloride 99 mEq/L (98-107); Glucose 93 mg/dL (70-105); Magnesium 1.6 mg/dL (1.6-2.6); Osmolality,Calculated 282 (280-300); Sodium 135 mEq/L (136-145); eGFR For African Americans > 60 (> 60); eGFR For Non-African Americans > 60 (> 60)
[2020-03-09] MEDS: Tiotropium 18 MCG inhalation IH SCH (07:35)
[2020-03-09] MEDS: Budesonide/Formoterol 160/4.5 1 PUFF INH IH SCH ×2 (07:35→20:50)
[2020-03-09] MEDS ORDERED: Acetaminophen 325 MG TABLET PO PRN (08:16)
[2020-03-09] MEDS: Vancomycin Oral Soln 125 MG/2.5 ML UDC PO SCH ×5 (08:24→19:39)
[2020-03-09] MEDS: carvediloL 6.25 MG TABLET PO SCH ×3 (08:25→16:32)
[2020-03-09] MEDS: FLUoxetine 20 MG CAPSULE PO SCH ×2 (08:25→11:29)
[2020-03-09] MEDS: Loratadine 10 MG TABLET PO SCH ×2 (08:25→11:29)
[2020-03-09] MEDS: Apixaban 5 MG TABLET PO SCH ×3 (08:25→19:39)
[2020-03-09] MEDS: Aspirin 81 MG TAB.CHEW PO SCH ×2 (08:25→11:29)
[2020-03-09] MEDS: amLODIPine 5 MG TABLET PO SCH ×2 (08:25→11:29)
[2020-03-09] MEDS: Magnesium Oxide 400 MG TABLET PO SCH ×3 (08:25→19:38)
[2020-03-09] MEDS: Furosemide 40 MG TABLET PO SCH ×2 (08:25→11:30)
[2020-03-09] MEDS: Nystatin POWDER 30 GM BOTTLE TP SCH ×3 (08:26→19:39)
[2020-03-09] MEDS: MetroNIDAZOLE 500 MG/100 ML 500 MG/100 ML BAG IVPB SCH ×2 (09:46→16:32)
[2020-03-09] MEDS: QUEtiapine Fumarate 25 MG TABLET PO SCH (19:39)
[2020-03-10] MEDS: MetroNIDAZOLE 500 MG/100 ML 500 MG/100 ML BAG IVPB SCH ×2 (00:21→10:17)
[2020-03-10 02:07] LABS: Hematocrit 36.8 % (35.3-44.9); Hemoglobin 10.7 g/dL (11.5-15.4); Mean Corpuscular HGB Conc 29.1 g/dL (31.6-35.5); Mean Corpuscular Hemoglobin 23.9 pg (28.0-33.3); Mean Corpuscular Volume 82.3 fL (83.0-100.0); Platelet Count 297 K/mcL (140-400); Red Blood Count 4.47 M/mcL (3.82-4.97); Red Cell Distribution Width 15.7 % (11.5-14.5)
[2020-03-10 02:24] LABS: BUN/Creatinine Ratio 24 (6-26); Blood Urea Nitrogen 15 mg/dL (8-23); Calcium 8.5 mg/dL (8.6-10.3); Carbon Dioxide 29 mEq/L (23-29); Chloride 100 mEq/L (98-107); Glucose 90 mg/dL (70-105); Osmolality,Calculated 280 (280-300); Potassium 4.1 mEq/L (3.5-5.1); Sodium 135 mEq/L (136-145); eGFR For African Americans > 60 (> 60); eGFR For Non-African Americans > 60 (> 60)
[2020-03-10 03:13] LABS: Basophils # 0.2 K/mcL (0.0-0.2); Lymphocytes # 2.6 K/mcL (0.6-4.6); Monocytes # 1.2 K/mcL (0.0-1.3); Neutrophils # 7.2 K/mcL (1.6-8.9)
[2020-03-10 03:14] LABS: Hypochromasia Present (Not Present); Platelet Estimate Normal (Normal); Poikilocytosis 1+ (Not Present); Reactive Lymphocytes Present (Not Present); Toxic Granulation Present (Not Present)
[2020-03-10] MEDS: *HR* HYDROcodone/Acet 5/325 mg TABLET PO PRN ×4 (05:50→22:21)
[2020-03-10] MEDS: Budesonide/Formoterol 160/4.5 1 PUFF INH IH SCH ×2 (10:01→21:13)
[2020-03-10] MEDS: Tiotropium 18 MCG inhalation IH SCH (10:04)
[2020-03-10] MEDS: Vancomycin Oral Soln 125 MG/2.5 ML UDC PO SCH ×4 (10:15→20:54)
[2020-03-10] MEDS: Furosemide 40 MG TABLET PO SCH (10:16)
[2020-03-10] MEDS: Loratadine 10 MG TABLET PO SCH (10:16)
[2020-03-10] MEDS: Apixaban 5 MG TABLET PO SCH ×2 (10:16→20:54)
[2020-03-10] MEDS: amLODIPine 5 MG TABLET PO SCH (10:17)
[2020-03-10] MEDS: Aspirin 81 MG TAB.CHEW PO SCH (10:17)
[2020-03-10] MEDS: Nystatin POWDER 30 GM BOTTLE TP SCH ×3 (10:18→20:55)
[2020-03-10] MEDS: Magnesium Oxide 400 MG TABLET PO SCH ×2 (10:18→20:54)
[2020-03-10] MEDS: FLUoxetine 20 MG CAPSULE PO SCH (10:19)
[2020-03-10] MEDS: carvediloL 6.25 MG TABLET PO SCH ×2 (10:22→17:12)
[2020-03-10 15:26] LABS: Hematocrit 37.8 % (35.3-44.9)
[2020-03-10] MEDS ORDERED: Methyl Salicylate/Menthol 28 GM TUBE TP PRN (18:13)
[2020-03-10] MEDS ORDERED: Methyl Salicylate/Menthol 57 APPL/57 GM TUBE TP PRN (18:30)
[2020-03-10] MEDS: QUEtiapine Fumarate 25 MG TABLET PO SCH (20:54)
[2020-03-10 22:33] LABS: Hematocrit 37.1 % (35.3-44.9); Hemoglobin 10.9 g/dL (11.5-15.4)
[2020-03-11 04:52] LABS: Hematocrit 36.1 % (35.3-44.9); Hemoglobin 10.6 g/dL (11.5-15.4); Mean Corpuscular HGB Conc 29.4 g/dL (31.6-35.5); Mean Corpuscular Hemoglobin 23.9 pg (28.0-33.3); Mean Corpuscular Volume 81.3 fL (83.0-100.0); Mean Platelet Volume 9.8 fL (9.4-12.4); Platelet Count 312 K/mcL (140-400); Red Blood Count 4.44 M/mcL (3.82-4.97); Red Cell Distribution Width 15.7 % (11.5-14.5); White Blood Count 12.1 K/mcL (4.3-11.1)
[2020-03-11 05:10] LABS: BUN/Creatinine Ratio 22 (6-26); Blood Urea Nitrogen 11 mg/dL (8-23); Calcium 8.5 mg/dL (8.6-10.3); Carbon Dioxide 30 mEq/L (23-29); Chloride 100 mEq/L (98-107); Glucose 85 mg/dL (70-105); Osmolality,Calculated 279 (280-300); Potassium 3.7 mEq/L (3.5-5.1); Sodium 135 mEq/L (136-145); eGFR For African Americans > 60 (> 60); eGFR For Non-African Americans > 60 (> 60)
[2020-03-11 05:40] LABS: Anisocytosis 1+ (Not Present); Eosinophils # 0.2 K/mcL (0.0-0.6); Lymphocytes # 1.7 K/mcL (0.6-4.6); Neutrophils # 9.2 K/mcL (1.6-8.9); Platelet Estimate Normal (Normal); Poikilocytosis 1+ (Not Present); Reactive Lymphocytes Present (Not Present)
[2020-03-11] MEDS: *HR* HYDROcodone/Acet 5/325 mg TABLET PO PRN ×2 (06:12→11:44)
[2020-03-11] MEDS: Budesonide/Formoterol 160/4.5 1 PUFF INH IH SCH (07:54)
[2020-03-11] MEDS: Tiotropium 18 MCG inhalation IH SCH (07:54)
[2020-03-11] MEDS: FLUoxetine 20 MG CAPSULE PO SCH (09:10)
[2020-03-11] MEDS: carvediloL 6.25 MG TABLET PO SCH (09:10)
[2020-03-11] MEDS: Apixaban 5 MG TABLET PO SCH (09:10)
[2020-03-11] MEDS: Magnesium Oxide 400 MG TABLET PO SCH (09:10)
[2020-03-11] MEDS: Loratadine 10 MG TABLET PO SCH (09:11)
[2020-03-11] MEDS: amLODIPine 5 MG TABLET PO SCH (09:11)
[2020-03-11] MEDS: Furosemide 40 MG TABLET PO SCH (09:11)
[2020-03-11] MEDS: Vancomycin Oral Soln 125 MG/2.5 ML UDC PO SCH ×3 (09:11→15:31)
[2020-03-11] MEDS: Aspirin 81 MG TAB.CHEW PO SCH (09:13)
[2020-03-11] MEDS: Nystatin POWDER 30 GM BOTTLE TP SCH (09:18)
[2020-03-11 10:50] VITALS: BP 139/70
== END 2020-03-11 15:29 | DRG 871 ==
LOC: EMEROOARM 17:43 → 2NENU 23:16 → SUATTDRO 23:16 → 2NENU 03-07 00:05 → 2ANU 03-07 21:03
PROVIDERS: ADMIT Internal Medicine; ATTEND Internal Medicine

== ENCOUNTER 2020-06-02 01:38 | Inpatient (IN) ==
[2020-06-02] MEDS ORDERED: Aspirin 81 MG TAB.CHEW PO ONE (01:49)
[2020-06-02] MEDS ORDERED: Morphine Sulfate 2 MG/ML SYRINGE IVP ONE (01:51)
[2020-06-02] MEDS ORDERED: methylPREDNISolone 125 MG/2 ML VIAL IVP ONE (01:51)
[2020-06-02] MEDS ORDERED: Ipratropium 1 PUFF INHALER IH ONE (01:51)
[2020-06-02] MEDS ORDERED: Ondansetron 4 MG/2 ML VIAL IVP ONE (01:52)
[2020-06-02 03:12] LABS: Basophils # 0.1 K/mcL (0.0-0.2); Basophils % 0.5 %; Eosinophils # 0.2 K/mcL (0.0-0.6); Eosinophils % 1.8 %; Hematocrit 39.8 % (35.3-44.9); Hemoglobin 11.8 g/dL (11.5-15.4); Immature Granulocytes % 0.3 % (0-4); Lymphocytes # 1.3 K/mcL (0.6-4.6); Lymphocytes % 13.4 %; Mean Corpuscular HGB Conc 29.6 g/dL (31.6-35.5); Mean Corpuscular Hemoglobin 24.1 pg (28.0-33.3); Mean Corpuscular Volume 81.2 fL (83.0-100.0); Mean Platelet Volume 10.5 fL (9.4-12.4); Monocytes # 0.7 K/mcL (0.0-1.3); Monocytes % 7.7 %; Neutrophils # 7.3 K/mcL (1.6-8.9); Platelet Count 296 K/mcL (140-400); Red Cell Distribution Width 18.6 % (11.5-14.5); Segmented Neutrophils % 76.3 %; White Blood Count 9.5 K/mcL (4.3-11.1)
[2020-06-02 03:15] LABS: INR 1.3; Prothrombin Time 14.2 Seconds (9.4-12.1)
[2020-06-02 03:18] LABS: Activated Partial Thrombo Time 33.2 Seconds (26.0-36.0)
[2020-06-02 03:19] LABS: Adenovirus Not Detected (Not Detect); Coronavirus 229E Not Detected (Not Detect); Coronavirus HKU1 Not Detected (Not Detect); Coronavirus NL63 Not Detected (Not Detect); Coronavirus OC43 Not Detected (Not Detect)
[2020-06-02 03:21] LABS: Bordetella Pertussis Not Detected (Not Detect); Chlamydophila pneumoniae Not Detected (Not Detect); Human Metapneumovirus Not Detected (Not Detect); Human Rhinovirus/Enterovirus Not Detected (Not Detect); Influenza A Subtype 2009 H1 Not Detected (Not Detect); Influenza B Not Detected (Not Detect); Mycoplasma pneumoniae Not Detected (Not Detect); Parainfluenza Virus 1 Not Detected (Not Detect); Parainfluenza Virus 2 Not Detected (Not Detect); Parainfluenza Virus 3 Not Detected (Not Detect); Parainfluenza Virus 4 Not Detected (Not Detect); Respiratory Syncytial Virus Not Detected (Not Detect)
[2020-06-02 03:29] LABS: Alanine Aminotransferase 14 Units/L (7-52); Albumin 3.8 g/dL (3.5-5.7); Albumin/Globulin Ratio 1.2 (1.1-2.2); Alkaline Phosphatase 118 Units/L (34-104); Aspartate Amino Transferase 28 Units/L (13-39); BUN/Creatinine Ratio 18 (6-26); Bilirubin,Total 0.5 mg/dL (0.3-1.0); Blood Urea Nitrogen 11 mg/dL (8-23); Calcium 9.3 mg/dL (8.6-10.3); Carbon Dioxide 33 mEq/L (23-29); Chloride 97 mEq/L (98-107); Globulin 3.2 g/dL (2.4-3.5); Glucose 102 mg/dL (70-105); Osmolality,Calculated 290 (280-300); Potassium 3.3 mEq/L (3.5-5.1); Sodium 140 mEq/L (136-145); eGFR For African Americans > 60 (> 60); eGFR For Non-African Americans > 60 (> 60)
[2020-06-02 03:30] LABS: Troponin I 0.03 ng/mL (< 0.04)
[2020-06-02] MEDS ORDERED: Isovue-370 500 ML BOTTLE IVP ONE (03:57)
[2020-06-02] MEDS ORDERED: Furosemide 20 MG/2 ML VIAL IVP ONE (05:21)
[2020-06-02] MEDS ORDERED: Doxycycline 100 MG in 0.9 % Sodium Chloride Mini Bag 100 ML IVPB ONE (05:53)
[2020-06-02] MEDS ORDERED: Naloxone 0.4 MG/ML INJ IVP PRN (06:09)
[2020-06-02] MEDS ORDERED: *HR* Promethazine 25 MG/ML VIAL IVP PRN (06:09)
[2020-06-02] MEDS ORDERED: Acetaminophen 325 MG TABLET PO PRN (06:09)
[2020-06-02] MEDS ORDERED: Levalbuterol 1 PUFF INHALER IH PRN (06:48)
[2020-06-02] MEDS ORDERED: MethylPREDNISolone 40 MG/ML VIAL IVP SCH (08:00)
[2020-06-02] MEDS: Furosemide 20 MG/2 ML VIAL IVP SCH ×2 (10:26→19:47)
[2020-06-02] MEDS: MethylPREDNISolone 40 MG/ML VIAL IVP SCH (17:48)
[2020-06-02] MEDS: Doxycycline 100 MG in 0.9 % Sodium Chloride Mini Bag 100 ML IVPB SCH (17:48)
[2020-06-02] MEDS: Nystatin POWDER 30 GM BOTTLE TP SCH (22:21)
[2020-06-03 03:08] LABS: ABG Base Excess 10 mEq/L (-2 to 3); ABG HCO3 37 mEq/L (21-27); ABG Oxygen Saturation 94 % (95-98); ABG PCO2 60 mmHg (35-45); ABG PO2 73 mmHg (85-104); ABG TCO2 38 mEq/L (20-26)
[2020-06-03] MEDS: Doxycycline 100 MG in 0.9 % Sodium Chloride Mini Bag 100 ML IVPB SCH (05:14)
[2020-06-03] MEDS: MethylPREDNISolone 40 MG/ML VIAL IVP SCH ×2 (05:14→17:10)
[2020-06-03 05:31] LABS: INR 1.2; Prothrombin Time 13.4 Seconds (9.4-12.1)
[2020-06-03 05:42] LABS: Hematocrit 35.7 % (35.3-44.9); Hemoglobin 10.6 g/dL (11.5-15.4); Immature Granulocytes % 0.5 % (0-4); Lymphocytes # 0.6 K/mcL (0.6-4.6); Lymphocytes % 8.2 %; Mean Corpuscular HGB Conc 29.7 g/dL (31.6-35.5); Mean Corpuscular Volume 84.2 fL (83.0-100.0); Mean Platelet Volume 10.4 fL (9.4-12.4); Monocytes # 0.3 K/mcL (0.0-1.3); Monocytes % 3.4 %; Neutrophils # 6.4 K/mcL (1.6-8.9); Platelet Count 269 K/mcL (140-400); Red Blood Count 4.24 M/mcL (3.82-4.97); Red Cell Distribution Width 18.1 % (11.5-14.5); Segmented Neutrophils % 87.9 %; White Blood Count 7.3 K/mcL (4.3-11.1)
[2020-06-03 05:47] LABS: BUN/Creatinine Ratio 26 (6-26); Blood Urea Nitrogen 18 mg/dL (8-23); Calcium 8.8 mg/dL (8.6-10.3); Carbon Dioxide 32 mEq/L (23-29); Chloride 99 mEq/L (98-107); Glucose 136 mg/dL (70-105); Magnesium 1.4 mg/dL (1.6-2.6); Osmolality,Calculated 296 (280-300); Phosphorous 3.9 mg/dL (2.7-4.5); Potassium 3.3 mEq/L (3.5-5.1); Sodium 141 mEq/L (136-145); eGFR For African Americans > 60 (> 60); eGFR For Non-African Americans > 60 (> 60)
[2020-06-03] MEDS ORDERED: Magnesium Sulfate 1 GM/102 ML PIGGYBACK IVPB ONE (09:20)
[2020-06-03] MEDS: *HR* Amiodarone 200 MG TABLET PO SCH (09:49)
[2020-06-03] MEDS: Aspirin 81 MG TAB.CHEW PO SCH (09:49)
[2020-06-03] MEDS: Apixaban 5 MG TABLET PO SCH ×2 (09:49→19:39)
[2020-06-03] MEDS: Furosemide 20 MG/2 ML VIAL IVP SCH ×2 (09:50→19:39)
[2020-06-03] MEDS: Nystatin POWDER 30 GM BOTTLE TP SCH ×3 (10:03→19:28)
[2020-06-03] MEDS: Ipratropium/Albuterol Neb 3 ML IH SCH ×3 (10:48→21:11)
[2020-06-03] MEDS: Budesonide/Formoterol 80/4.5 1 PUFF INH IH SCH ×2 (10:48→21:11)
[2020-06-03 17:48] LABS: Bilirubin,Urine Negative (Negative); Blood,Urine Negative (Negative); Clarity,Urine Turbid (Clear); Color,Urine Yellow (Yellow); Glucose,Urine (UA) Normal (Normal); Hyaline Casts,Urine Many per lpf (None Seen); Ketones,Urine Negative (Negative); Leukocyte Esterase,Urine Moderate (Negative); Mucus,Urine Few per lpf (None-Few); Nitrite,Urine Negative (Negative); PH,Urine 5.5 pH Units (5.0-8.0); Protein,Urine 30 mg/dL (Neg-Trace); RBC,Urine 0-3 per hpf (0-3); Specific Gravity,Urine 1.024 (1.010-1.025); Squamous Epithelial Cell,Urine Moderate per hpf (None-Few); Transitional Epi Cells,Urine Few per hpf (None-Few); Urobilinogen,Urine Normal (Normal); WBC,Urine 15-30 per hpf (0-3)
[2020-06-03] MEDS: Doxycycline 100 MG CAPSULE PO SCH (19:39)
[2020-06-04 01:46] LABS: BUN/Creatinine Ratio 32 (6-26); Blood Urea Nitrogen 28 mg/dL (8-23); Carbon Dioxide 33 mEq/L (23-29); Chloride 98 mEq/L (98-107); Glucose 147 mg/dL (70-105); Osmolality,Calculated 298 (280-300); Potassium 3.9 mEq/L (3.5-5.1); Sodium 140 mEq/L (136-145); eGFR For African Americans > 60 (> 60); eGFR For Non-African Americans > 60 (> 60)
[2020-06-04] MEDS: Ipratropium/Albuterol Neb 3 ML IH SCH ×4 (03:07→22:59)
[2020-06-04] MEDS: MethylPREDNISolone 40 MG/ML VIAL IVP SCH (05:44)
[2020-06-04] MEDS: Apixaban 5 MG TABLET PO SCH ×2 (08:58→19:45)
[2020-06-04] MEDS: *HR* Amiodarone 200 MG TABLET PO SCH (08:58)
[2020-06-04] MEDS: Aspirin 81 MG TAB.CHEW PO SCH (08:58)
[2020-06-04] MEDS: Furosemide 20 MG/2 ML VIAL IVP SCH (08:58)
[2020-06-04] MEDS: Doxycycline 100 MG CAPSULE PO SCH ×2 (08:58→19:45)
[2020-06-04] MEDS: Nystatin POWDER 30 GM BOTTLE TP SCH ×3 (08:59→22:10)
[2020-06-04] MEDS: Budesonide/Formoterol 80/4.5 1 PUFF INH IH SCH ×2 (10:12→23:00)
[2020-06-04] MEDS ORDERED: Furosemide 20 MG/2 ML VIAL IVP ONE (11:21)
[2020-06-04 13:39] LABS: Thyroid Stimulating Hormone 0.016 mcIU/mL (0.340-5.600)
[2020-06-04 13:41] LABS: Triiodothyronine (T3) Free 2.84 pg/mL (2.50-3.90)
[2020-06-04] MEDS: *HR* OxyCODONE/APAP 5/325 TABLET PO PRN (15:21)
[2020-06-04] MEDS: Furosemide 40 MG/4 ML VIAL IVP SCH (19:45)
[2020-06-05] MEDS: Ipratropium/Albuterol Neb 3 ML IH SCH ×4 (03:35→21:33)
[2020-06-05 04:45] LABS: BUN/Creatinine Ratio 39 (6-26); Blood Urea Nitrogen 30 mg/dL (8-23); Carbon Dioxide 33 mEq/L (23-29); Chloride 97 mEq/L (98-107); Glucose 109 mg/dL (70-105); Osmolality,Calculated 295 (280-300); Potassium 3.6 mEq/L (3.5-5.1); Sodium 139 mEq/L (136-145); eGFR For African Americans > 60 (> 60); eGFR For Non-African Americans > 60 (> 60)
[2020-06-05] MEDS: predniSONE 20 MG TABLET PO SCH (07:23)
[2020-06-05] MEDS: Doxycycline 100 MG CAPSULE PO SCH ×2 (07:23→20:17)
[2020-06-05] MEDS: Aspirin 81 MG TAB.CHEW PO SCH (07:23)
[2020-06-05] MEDS: Apixaban 5 MG TABLET PO SCH ×2 (07:23→20:17)
[2020-06-05] MEDS: Furosemide 40 MG/4 ML VIAL IVP SCH ×2 (07:24→20:17)
[2020-06-05] MEDS: Nystatin POWDER 30 GM BOTTLE TP SCH ×3 (07:24→20:17)
[2020-06-05] MEDS ORDERED: Metoprolol XL (24 HR) Succ 25 MG TAB.ER.24H PO SCH (09:00)
[2020-06-05] MEDS: *HR* OxyCODONE/APAP 5/325 TABLET PO PRN ×2 (09:11→18:21)
[2020-06-05] MEDS: Budesonide/Formoterol 80/4.5 1 PUFF INH IH SCH ×2 (10:56→21:33)
[2020-06-05] MEDS: carvediloL 6.25 MG TABLET PO SCH (20:17)
[2020-06-06] MEDS: Ipratropium/Albuterol Neb 3 ML IH SCH ×4 (03:50→21:32)
[2020-06-06 04:15] LABS: BUN/Creatinine Ratio 33 (6-26); Blood Urea Nitrogen 28 mg/dL (8-23); Calcium 8.9 mg/dL (8.6-10.3); Carbon Dioxide 37 mEq/L (23-29); Chloride 94 mEq/L (98-107); Glucose 97 mg/dL (70-105); Osmolality,Calculated 297 (280-300); Potassium 3.5 mEq/L (3.5-5.1); Sodium 141 mEq/L (136-145); eGFR For African Americans > 60 (> 60); eGFR For Non-African Americans > 60 (> 60)
[2020-06-06] MEDS: Doxycycline 100 MG CAPSULE PO SCH (07:58)
[2020-06-06] MEDS: Aspirin 81 MG TAB.CHEW PO SCH (07:58)
[2020-06-06] MEDS: Furosemide 40 MG/4 ML VIAL IVP SCH ×2 (07:58→20:56)
[2020-06-06] MEDS: Apixaban 5 MG TABLET PO SCH ×2 (07:59→20:56)
[2020-06-06] MEDS: predniSONE 20 MG TABLET PO SCH (07:59)
[2020-06-06] MEDS: carvediloL 6.25 MG TABLET PO SCH ×2 (08:05→20:56)
[2020-06-06] MEDS: Nystatin POWDER 30 GM BOTTLE TP SCH ×3 (08:12→20:56)
[2020-06-06] MEDS: Budesonide/Formoterol 80/4.5 1 PUFF INH IH SCH ×2 (09:32→21:32)
[2020-06-07 03:24] LABS: BUN/Creatinine Ratio 37 (6-26); Blood Urea Nitrogen 23 mg/dL (8-23); Calcium 8.6 mg/dL (8.6-10.3); Carbon Dioxide 40 mEq/L (23-29); Chloride 97 mEq/L (98-107); Glucose 100 mg/dL (70-105); Osmolality,Calculated 300 (280-300); Potassium 3.4 mEq/L (3.5-5.1); Sodium 143 mEq/L (136-145); eGFR For African Americans > 60 (> 60); eGFR For Non-African Americans > 60 (> 60)
[2020-06-07] MEDS: Ipratropium/Albuterol Neb 3 ML IH SCH ×4 (03:51→22:14)
[2020-06-07] MEDS: Aspirin 81 MG TAB.CHEW PO SCH (07:59)
[2020-06-07] MEDS: carvediloL 6.25 MG TABLET PO SCH ×2 (07:59→19:58)
[2020-06-07] MEDS: predniSONE 20 MG TABLET PO SCH (07:59)
[2020-06-07] MEDS: Apixaban 5 MG TABLET PO SCH ×2 (08:00→19:58)
[2020-06-07] MEDS: Furosemide 40 MG/4 ML VIAL IVP SCH (08:00)
[2020-06-07] MEDS: Nystatin POWDER 30 GM BOTTLE TP SCH ×3 (08:04→22:07)
[2020-06-07] MEDS: *HR* OxyCODONE/APAP 5/325 TABLET PO PRN (08:12)
[2020-06-07] MEDS: Budesonide/Formoterol 80/4.5 1 PUFF INH IH SCH ×2 (10:31→22:14)
[2020-06-07] MEDS ORDERED: Lactulose Oral Soln 20 GM/30 ML UDC PO PRN (17:19)
[2020-06-08] MEDS: Ipratropium/Albuterol Neb 3 ML IH SCH ×4 (03:52→21:45)
[2020-06-08 04:38] LABS: BUN/Creatinine Ratio 39 (6-26); Blood Urea Nitrogen 20 mg/dL (8-23); Carbon Dioxide 38 mEq/L (23-29); Chloride 96 mEq/L (98-107); Glucose 100 mg/dL (70-105); Osmolality,Calculated 295 (280-300); Potassium 3.5 mEq/L (3.5-5.1); Sodium 141 mEq/L (136-145); eGFR For African Americans > 60 (> 60); eGFR For Non-African Americans > 60 (> 60)
[2020-06-08] MEDS ORDERED: polyethylene glycoL 3350 17 GM POWD.PACK PO PRN (08:24)
[2020-06-08] MEDS: Budesonide/Formoterol 80/4.5 1 PUFF INH IH SCH ×2 (09:31→21:45)
[2020-06-08] MEDS: Apixaban 5 MG TABLET PO SCH ×2 (09:36→20:29)
[2020-06-08] MEDS: *HR* OxyCODONE/APAP 5/325 TABLET PO PRN ×2 (09:36→20:29)
[2020-06-08] MEDS: Aspirin 81 MG TAB.CHEW PO SCH (09:36)
[2020-06-08] MEDS: Furosemide 40 MG/4 ML VIAL IVP SCH (09:36)
[2020-06-08] MEDS: predniSONE 20 MG TABLET PO SCH (09:36)
[2020-06-08] MEDS: carvediloL 6.25 MG TABLET PO SCH ×2 (09:37→16:38)
[2020-06-08] MEDS: Nystatin POWDER 30 GM BOTTLE TP SCH ×3 (10:59→20:30)
[2020-06-09] MEDS: Ipratropium/Albuterol Neb 3 ML IH SCH ×2 (03:45→10:39)
[2020-06-09 06:44] VITALS: BP 171/70
[2020-06-09] MEDS: Aspirin 81 MG TAB.CHEW PO SCH (07:58)
[2020-06-09] MEDS: Apixaban 5 MG TABLET PO SCH (07:58)
[2020-06-09] MEDS: carvediloL 6.25 MG TABLET PO SCH (07:58)
[2020-06-09] MEDS ORDERED: Furosemide 40 MG TABLET PO SCH (10:15)
[2020-06-09] MEDS: Budesonide/Formoterol 80/4.5 1 PUFF INH IH SCH (10:40)
== END 2020-06-09 11:27 | DRG 291 ==
LOC: 3ANU 01:38 → EMEROOARM 01:38 → 3ANU 09:00 → SUATTDRO 13:57
PROVIDERS: ADMIT Student in an Organized Health Care Education/Training Program; ATTEND Internal Medicine

== ENCOUNTER 2022-03-21 15:57 | Inpatient (IN) ==
[2022-03-21] MEDS ORDERED: Ondansetron ODT 4 MG TAB.RAPDIS SL PRN (22:58)
[2022-03-21] MEDS ORDERED: Naloxone 0.4 MG/ML INJ IVP PRN (22:58)
[2022-03-21] MEDS ORDERED: Vancomycin (wt based) 1,000 MG VIAL IVPB SCH (23:45)
[2022-03-22] MEDS ORDERED: Piperacillin/Tazobactam 3.375 GM in 0.9 % Sodium Chloride Mini Bag 100 ML IVPB SCH
[2022-03-22] MEDS ORDERED: Vancomycin 1,750 MG/517.5 ML IV.SOLN IVPB ONE (01:00)
[2022-03-22] MEDS ORDERED: Acetylcysteine 10% 2 ML INHSOL IH SCH (01:30)
[2022-03-22 01:31] LABS: Basophils % 0.1 %; Eosinophils % 0.1 %; Hematocrit 34.3 % (35.3-44.9); Hemoglobin 10.2 g/dL (11.5-15.4); Immature Granulocytes % 0.5 % (0-4); Immature Platelets 5.4 % (1.1-6.1); Lymphocytes # 0.7 K/mcL (0.6-4.6); Lymphocytes % 7.9 %; Mean Corpuscular HGB Conc 29.7 g/dL (31.6-35.5); Mean Corpuscular Hemoglobin 22.9 pg (28.0-33.3); Mean Corpuscular Volume 77.1 fL (83.0-100.0); Mean Platelet Volume 11.2 fL (9.4-12.4); Monocytes # 0.3 K/mcL (0.0-1.3); Monocytes % 2.9 %; Neutrophils # 7.7 K/mcL (1.6-8.9); Platelet Count 273 K/mcL (140-400); Red Blood Count 4.45 M/mcL (3.82-4.97); Red Cell Distribution Width 18.7 % (11.5-14.5); Segmented Neutrophils % 88.5 %; White Blood Count 8.7 K/mcL (4.3-11.1)
[2022-03-22 01:47] LABS: Alanine Aminotransferase 21 Units/L (7-52); Albumin/Globulin Ratio 1.2 (1.1-2.2); Alkaline Phosphatase 118 Units/L (34-104); Aspartate Amino Transferase 21 Units/L (13-39); BUN/Creatinine Ratio 59 (6-26); Bilirubin,Total 0.7 mg/dL (0.3-1.0); Blood Urea Nitrogen 30 mg/dL (8-23); Calcium 10.1 mg/dL (8.6-10.3); Carbon Dioxide 30 mEq/L (23-29); Chloride 100 mEq/L (98-107); Globulin 3.4 g/dL (2.4-3.5); Glucose 139 mg/dL (70-105); Magnesium 1.7 mg/dL (1.6-2.6); Osmolality,Calculated 296 (280-300); Potassium 4.5 mEq/L (3.5-5.1); Sodium 139 mEq/L (136-145); Total Protein 7.4 g/dL (6.4-8.9); eGFR For African Americans > 60 (> 60); eGFR For Non-African Americans > 60 (> 60)
[2022-03-22] MEDS: *HR* Labetalol 20 MG/4 ML SYRINGE IVP PRN ×2 (01:56→20:28)
[2022-03-22] MEDS ORDERED: Vancomycin 1,250 MG/262.5 ML IV.SOLN IVPB SCH (02:00)
[2022-03-22 03:13] LABS: Phosphorous 3.7 mg/dL (2.7-4.5)
[2022-03-22 03:49] LABS: Adenovirus Not Detected (Not Detect); Bordetella Pertussis Not Detected (Not Detect); Chlamydophila pneumoniae Not Detected (Not Detect); Coronavirus 229E Not Detected (Not Detect); Coronavirus HKU1 Not Detected (Not Detect); Coronavirus NL63 Not Detected (Not Detect); Coronavirus OC43 Not Detected (Not Detect); Human Metapneumovirus Not Detected (Not Detect); Human Rhinovirus/Enterovirus Not Detected (Not Detect); Influenza A Subtype 2009 H1 Not Detected (Not Detect); Influenza B Not Detected (Not Detect); Mycoplasma pneumoniae Not Detected (Not Detect); Parainfluenza Virus 1 Not Detected (Not Detect); Parainfluenza Virus 2 Not Detected (Not Detect); Parainfluenza Virus 3 Not Detected (Not Detect); Parainfluenza Virus 4 Not Detected (Not Detect); Respiratory Syncytial Virus Not Detected (Not Detect); SARS-CoV-2 Not Detected (Not Detect)
[2022-03-22] MEDS: Ipratropium/Albuterol Neb 3 ML IH SCH ×4 (04:48→20:12)
[2022-03-22] MEDS ORDERED: D5% in Water 1,000 ML IVC PRN (05:32)
[2022-03-22] MEDS ORDERED: Dextrose 4 GM Chewable Tablets PO PRN ×2 (05:32)
[2022-03-22] MEDS ORDERED: *HR* Dextrose 50 % in Water (Syg) 50 ML SYRINGE IVP PRN (05:32)
[2022-03-22] MEDS: Acetylcysteine 10% 2 ML INHSOL IH SCH ×4 (07:25→20:12)
[2022-03-22] MEDS ORDERED: carvediloL 6.25 MG TABLET PO SCH (08:00)
[2022-03-22] MEDS: Piperacillin/Tazobactam 3.375 GM in 0.9 % Sodium Chloride Mini Bag 100 ML IVPB SCH ×3 (08:22→23:26)
[2022-03-22] MEDS: Pantoprazole 40 MG VIAL IVP SCH (08:23)
[2022-03-22] MEDS: methylPREDNISolone 125 MG/2 ML VIAL IVP SCH ×3 (08:23→23:25)
[2022-03-22] MEDS: Magic Mouthwash 10 ML UD Cup PO SCH ×3 (08:24→15:26)
[2022-03-22] MEDS ORDERED: Aspirin 81 MG TAB.CHEW PO SCH (09:00)
[2022-03-22] MEDS ORDERED: amLODIPine 5 MG TABLET PO SCH (09:00)
[2022-03-22] MEDS ORDERED: Apixaban 5 MG TABLET PO SCH (09:00)
[2022-03-22] MEDS: Vancomycin 1,250 MG/262.5 ML IV.SOLN IVPB SCH (14:12)
[2022-03-22] MEDS ORDERED: *HR* FentaNYL (PF) 100 MCG/2 ML VIAL ONE (15:08)
[2022-03-22] MEDS ORDERED: *HR* Midazolam HCl 5 MG/5 ML VIAL IVP ONE (15:09)
[2022-03-22] MEDS ORDERED: *HR* FentaNYL (PF) 100 MCG/2 ML VIAL IVP STA (15:21)
[2022-03-22] MEDS ORDERED: *HR* Midazolam HCl 2 MG/2 ML VIAL IVP STA (15:22)
[2022-03-22] MEDS ORDERED: Acetaminophen IV 500 MG/50 ML BAG IVPB ONE (19:58)
[2022-03-22] MEDS ORDERED: *HR* LORazepam 2 MG/ML VIAL IVP ONE (23:17)
[2022-03-23] MEDS: Vancomycin 1,250 MG/262.5 ML IV.SOLN IVPB SCH (02:12)
[2022-03-23] MEDS: Ipratropium/Albuterol Neb 3 ML IH SCH ×4 (04:30→22:31)
[2022-03-23] MEDS: Acetylcysteine 10% 2 ML INHSOL IH SCH ×4 (04:30→22:31)
[2022-03-23] MEDS: Pantoprazole 40 MG VIAL IVP SCH (08:43)
[2022-03-23] MEDS: methylPREDNISolone 125 MG/2 ML VIAL IVP SCH ×2 (08:43→14:42)
[2022-03-23] MEDS ORDERED: FIBER GTUBE SCH (09:00)
[2022-03-23] MEDS ORDERED: [UNRECOGNIZED DRUG - OTHER] GTUBE SCH (09:00)
[2022-03-23] MEDS ORDERED: BANANA FLAKES GTUBE SCH (09:00)
[2022-03-23] MEDS: Piperacillin/Tazobactam 3.375 GM in 0.9 % Sodium Chloride Mini Bag 100 ML IVPB SCH ×2 (09:05→14:43)
[2022-03-23] MEDS: *HR* Labetalol 20 MG/4 ML SYRINGE IVP PRN ×2 (09:07→18:17)
[2022-03-23] MEDS: Vitamin A AND D OINT 42.5 GM Tube TP SCH ×2 (11:17→20:39)
[2022-03-23] MEDS: Magic Mouthwash 10 ML UD Cup PO SCH ×3 (11:18→14:42)
[2022-03-23] MEDS: Chlorhexidine Rinse 15 ML MOUTHWASH PO SCH ×4 (11:18→20:39)
[2022-03-23] MEDS: Furosemide Oral Soln 40 MG/4 ML UDC GTUBE SCH (11:18)
[2022-03-23] MEDS: Ketoconazole 2% CRM 15 GM TUBE TP SCH ×2 (11:19→20:38)
[2022-03-23] MEDS: levETIRAcetam 500 MG/5 ML UDC GTUBE SCH ×2 (11:25→20:38)
[2022-03-23] MEDS: *HR* Amiodarone 200 MG TABLET GTUBE SCH (11:25)
[2022-03-23] MEDS: Ferrous Sulfate Oral Soln 300 MG/5 ML UDC GTUBE SCH (11:25)
[2022-03-23] MEDS: Potassium Chloride Elixir 20 MEQ/15 ML UDC GTUBE SCH (11:25)
[2022-03-23] MEDS ORDERED: Scopolamine Patch 1.5 MG PATCH.TD72 TD SCH (12:00)
[2022-03-24] MEDS: methylPREDNISolone 125 MG/2 ML VIAL IVP SCH ×3 (00:04→17:18)
[2022-03-24] MEDS: Piperacillin/Tazobactam 3.375 GM in 0.9 % Sodium Chloride Mini Bag 100 ML IVPB SCH ×3 (00:05→17:18)
[2022-03-24 03:06] LABS: Basophils % 0.1 %; Hematocrit 30.7 % (35.3-44.9); Immature Granulocytes % 0.5 % (0-4); Lymphocytes # 0.7 K/mcL (0.6-4.6); Mean Corpuscular HGB Conc 29.3 g/dL (31.6-35.5); Mean Corpuscular Hemoglobin 22.7 pg (28.0-33.3); Mean Corpuscular Volume 77.3 fL (83.0-100.0); Mean Platelet Volume 10.6 fL (9.4-12.4); Monocytes # 0.7 K/mcL (0.0-1.3); Monocytes % 5.5 %; Platelet Count 291 K/mcL (140-400); Red Blood Count 3.97 M/mcL (3.82-4.97); Red Cell Distribution Width 18.5 % (11.5-14.5); Segmented Neutrophils % 88.9 %
[2022-03-24] MEDS: Ipratropium/Albuterol Neb 3 ML IH SCH ×4 (03:06→22:52)
[2022-03-24] MEDS: Acetylcysteine 10% 2 ML INHSOL IH SCH ×4 (03:06→22:52)
[2022-03-24 03:08] LABS: Neutrophils # 11.7 K/mcL (1.6-8.9); White Blood Count 13.1 K/mcL (4.3-11.1)
[2022-03-24 03:29] LABS: BUN/Creatinine Ratio 59 (6-26); Blood Urea Nitrogen 45 mg/dL (8-23); Calcium 9.6 mg/dL (8.6-10.3); Carbon Dioxide 30 mEq/L (23-29); Chloride 103 mEq/L (98-107); Glucose 121 mg/dL (70-105); Osmolality,Calculated 309 (280-300); Potassium 3.6 mEq/L (3.5-5.1); Sodium 143 mEq/L (136-145); eGFR For African Americans > 60 (> 60); eGFR For Non-African Americans > 60 (> 60)
[2022-03-24 09:34] LABS: INR 1.3; Prothrombin Time 14.4 Seconds (9.4-12.1)
[2022-03-24] MEDS: Potassium Chloride Elixir 20 MEQ/15 ML UDC GTUBE SCH (09:37)
[2022-03-24] MEDS: *HR* Amiodarone 200 MG TABLET GTUBE SCH (09:37)
[2022-03-24] MEDS: levETIRAcetam 500 MG/5 ML UDC GTUBE SCH ×2 (09:37→23:13)
[2022-03-24] MEDS: Chlorhexidine Rinse 15 ML MOUTHWASH PO SCH ×4 (09:38→23:13)
[2022-03-24] MEDS: Furosemide Oral Soln 40 MG/4 ML UDC GTUBE SCH (09:38)
[2022-03-24] MEDS: Ketoconazole 2% CRM 15 GM TUBE TP SCH ×2 (09:38→20:23)
[2022-03-24] MEDS: Vitamin A AND D OINT 42.5 GM Tube TP SCH ×2 (09:38→20:23)
[2022-03-24] MEDS: Ferrous Sulfate Oral Soln 300 MG/5 ML UDC GTUBE SCH (09:38)
[2022-03-24] MEDS: Pantoprazole 40 MG VIAL IVP SCH (09:39)
[2022-03-24] MEDS: Magic Mouthwash 10 ML UD Cup PO SCH ×3 (10:06→17:19)
[2022-03-24 19:09] VITALS: PULSE 60
[2022-03-24] MEDS ORDERED: Vancomycin 1,250 MG/262.5 ML IV.SOLN IVPB SCH (20:00)
[2022-03-25] MEDS: methylPREDNISolone 125 MG/2 ML VIAL IVP SCH ×3 (00:38→15:13)
[2022-03-25] MEDS: Piperacillin/Tazobactam 3.375 GM in 0.9 % Sodium Chloride Mini Bag 100 ML IVPB SCH ×3 (00:38→15:13)
[2022-03-25 01:47] LABS: Basophils % 0.1 %; Hematocrit 32.7 % (35.3-44.9); Hemoglobin 9.6 g/dL (11.5-15.4); Immature Granulocytes % 0.5 % (0-4); Lymphocytes # 0.6 K/mcL (0.6-4.6); Lymphocytes % 3.2 %; Mean Corpuscular HGB Conc 29.4 g/dL (31.6-35.5); Mean Corpuscular Hemoglobin 22.9 pg (28.0-33.3); Mean Platelet Volume 10.2 fL (9.4-12.4); Monocytes % 5.4 %; Neutrophils # 16.5 K/mcL (1.6-8.9); Platelet Count 287 K/mcL (140-400); Red Blood Count 4.19 M/mcL (3.82-4.97); Red Cell Distribution Width 18.5 % (11.5-14.5); Segmented Neutrophils % 90.8 %; White Blood Count 18.1 K/mcL (4.3-11.1)
[2022-03-25 02:03] LABS: BUN/Creatinine Ratio 59 (6-26); Blood Urea Nitrogen 50 mg/dL (8-23); Calcium 9.5 mg/dL (8.6-10.3); Carbon Dioxide 32 mEq/L (23-29); Chloride 106 mEq/L (98-107); Glucose 134 mg/dL (70-105); Osmolality,Calculated 319 (280-300); Potassium 3.1 mEq/L (3.5-5.1); Sodium 147 mEq/L (136-145); eGFR For African Americans > 60 (> 60); eGFR For Non-African Americans > 60 (> 60)
[2022-03-25] MEDS: Ipratropium/Albuterol Neb 3 ML IH SCH ×3 (04:01→15:35)
[2022-03-25] MEDS: Acetylcysteine 10% 2 ML INHSOL IH SCH ×3 (04:01→15:36)
[2022-03-25] MEDS: *HR* Amiodarone 200 MG TABLET GTUBE SCH (08:24)
[2022-03-25] MEDS: Furosemide Oral Soln 40 MG/4 ML UDC GTUBE SCH (08:24)
[2022-03-25] MEDS: Ferrous Sulfate Oral Soln 300 MG/5 ML UDC GTUBE SCH (08:25)
[2022-03-25] MEDS: Chlorhexidine Rinse 15 ML MOUTHWASH PO SCH ×2 (08:25→13:39)
[2022-03-25] MEDS: levETIRAcetam 500 MG/5 ML UDC GTUBE SCH (08:25)
[2022-03-25] MEDS: Magic Mouthwash 10 ML UD Cup PO SCH ×2 (08:25→12:31)
[2022-03-25] MEDS: Potassium Chloride Elixir 20 MEQ/15 ML UDC GTUBE SCH (08:25)
[2022-03-25] MEDS: Pantoprazole 40 MG VIAL IVP SCH (08:26)
[2022-03-25] MEDS: Vitamin A AND D OINT 42.5 GM Tube TP SCH (08:26)
[2022-03-25] MEDS: Ketoconazole 2% CRM 15 GM TUBE TP SCH (08:26)
[2022-03-25 11:35] VITALS: BP 161/56
[2022-03-25 13:31] LABS: Adenovirus Not Detected (Not Detect); Bordetella Pertussis Not Detected (Not Detect); Chlamydophila pneumoniae Not Detected (Not Detect); Coronavirus 229E Not Detected (Not Detect); Coronavirus HKU1 Not Detected (Not Detect); Coronavirus NL63 Not Detected (Not Detect); Coronavirus OC43 Not Detected (Not Detect); Human Metapneumovirus Not Detected (Not Detect); Human Rhinovirus/Enterovirus Not Detected (Not Detect); Influenza A Subtype 2009 H1 Not Detected (Not Detect); Influenza B Not Detected (Not Detect); Mycoplasma pneumoniae Not Detected (Not Detect); Parainfluenza Virus 1 Not Detected (Not Detect); Parainfluenza Virus 2 Not Detected (Not Detect); Parainfluenza Virus 3 Not Detected (Not Detect); Parainfluenza Virus 4 Not Detected (Not Detect); Respiratory Syncytial Virus Not Detected (Not Detect); SARS-CoV-2 Not Detected (Not Detect)
[2022-03-25 16:21] VITALS: TEMP 98.8; O2SAT 97
[2022-03-27 12:02] LABS: Mycoplasma pneumoniae IgG 0.55 U/L (<=0.09)
== END 2022-03-25 16:15 | DRG 208 ==
LOC: 2NNU → SUATTDRO 21:23
PROVIDERS: ADMIT Internal Medicine; ATTEND Internal Medicine